=== PATIENT | female | born 1955 | race Caucasian/White ===

== ENCOUNTER 2023-06-13 20:05 | Inpatient (IN) ==
--- OUTSIDE RECORDS SUMMARY | 2023-06-13 20:10 | External Medical Summary | Summary of Care ---
Author Name Unknown Organization [facility] Address [address] [place] [address] Phone [phone] Care Team Providers Care Biophysics Teacher Name Role Phone EdmaralexandriaSabrina DO Primary Care Provider Encounter Details Date Type Department Care Team (Late st Contact Info) Description 06/09/2023 Population Health External Data Unspecified Department Allergies Active Allergy Reactions Criticality Noted Date Comments Lisinopril Edema face/lips/tongue High 02/19/2017 angioedema documented as of this encounter (statuses as of 06/09/2023) Medications Medication Sig Dispensed Refills Start Date End Date Status Rosuvastatin Calcium 10 MG Oral Tablet (Crestor)Indications :Mixed hyperlipidemia TAKE ONE TABLET BY MOUTH EVERY MORNING 90 Tablet 3 11/03/2022 4 Active hydroCHLOROthiazide 25 MG Oral Tablet (Hydrodiuril)Indicat ions:HTN, goal below 140/90 TAKE ONE TABLET BY MOUTH EVERY MORNING 90 Tablet 3 11/03/2022 4 Active Ondansetron HCl 8 MG Oral Tablet (Zofran)Indications: Malignant neoplasm of upper-outer quadrant of left breast in female, estrogen 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 Take 1 Tablet by mouth every 8 hours as needed for Nausea. 30 Tablet 2 03/24/2023 Active Additional Information Patient not taking.Reported on 03/31/2023 Prochlorperazine Maleate 10 MG Oral Tablet (Compazine)Indicatio ns:Malignant neoplasm of upper-outer quadrant of left breast in female, estrogen 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 Take 1 Tablet by mouth every 6 hours as needed for Nausea. 30 Tablet 2 03/24/2023 Active Additional Information Patient not taking.Reported on 03/31/2023 Dexamethasone 4 MG Oral Tablet (Decadron)Indication s:Malignant neoplasm of upper-outer quadrant of left breast in female, estrogen 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 Take 8mg (2 tabs) twice a day for 3 days starting the day before chemotherapy 72 Tablet 0 03/24/2023 Active Additional Information Patient not taking.Reported on 03/31/2023 Lidocaine-Prilocaine 2.5-2.5 % External Cream (Emla)Indications:Ma lignant neoplasm of upper-outer quadrant of left breast in female, estrogen 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 APPLY TO SKIN OVER MEDIPORT & COVER 1HR PRIOR TO ACCESSING. 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 documented as of this encounter (statuses as of 06/09/2023) Resolved Problems Problem Noted Date Diagnosed Date Resolved Date Bilateral impacted cerumen 10/27/2016 1 08/07/2018 Overview: acute ABN PAP SMEAR-CERVIX(aka DYSPLASIA) 01/02/2004 10/27/2016 Varicella without complication 10/27/2016 Mumps without complication 0 10/27/2016 Mucous polyp of cervix 06/09 documented as of this encounter (statuses as of 06/09/2023) Immunizations Name Administration Dates Next Due COVID-19 mRNA, LNP-s, No Pre serve, 2-Dose Series (RapidMind) 07/03/2021,10/09/2020,09/11/2020 Hep A - Hepatitis A (ped/adole, 1-18 Yrs) 2018 Pneumococcal Conjugate Vacc, 13 Valent (Prevnar) 06/09/2019 Pneumococcal Polysaccharide PPV23 (Pneumovax) 04/08/2021 Seasonal Influenza, Split, I IV3, With Preserve, Inj 06/02/2013 TDAP (age 10 and older)(Boostrix) 01/08/2020 TDAP (age 11 and older)(Adacel) 03/20/2009 Varicella Zoster Vaccine (Adult) 12/31/2014 Zoster Vaccine Recombinant (Shingrix) 09/15/2018 ,04/01/2018 documented as of this encounter Social History Tobacco Use Types Packs/Day Years Used Date Smoking Tobacco: Former Cigarettes 1 10 Q uit: 07/19/1986 Smokeless Tobacco: Never Alcohol Use Standard Drinks/Week Comments Yes 0 (1 standard drink = 0.6 oz pur e alcohol) one a day, gin PHQ-2 Answer Date Recorded PHQ-2 Score 0 05/26/2019 Hunger Vital Sign Answer Date Recorded Within the past 12 months, y ou worried that your food would run out before you got the money to buy more. Never true 11/03/19 23 Within the past 12 months, t he food you bought just didn't last and you didn't have money to get more. Never true 11/02/2022 Sex and Gender Information Value Date Recorded Sex Assigned at Female 11/02/2022 11:00 AM EDT Gender Identity Female 11/02/2022 11:00 AM EDT Sexual Orientation Straight 11/02/2022 11 :00 AM EDT Job Start Date Occupation Industry Not on file Not on file Not on file documented as of this encounter Plan of Treatment Upcoming Encounters Date Type Department Care Team (Late st Contact Info) Description 06/22/2023 12:30 PM EST Cardiac Studies Cardiac Studies [address] [place] [address] 06/28/2023 8:30 AM EST Laboratory Laboratory [facility] Yudi [place] [address] [place] [phone] [place] [address] [place] [address] 06/28/2023 9:00 AM EST Office Visit Hematology/Oncology [employer] [address] [place] [address] Judith Murillo CRNP [address] [facility] [place] [address] 06/28/2023 9:30 AM EST Hem/Onc Treatment Hematology/Oncology Treatment, [place] [address] [place] [address] Park, Chair 8 Hem Onc Scenery 200 [facility] [place] [address] 07/06/2023 11:15 AM EST Office Visit General Surgery, [facility] [address] [place] [address] Sobia Hernandez MD [address] [place] [address] 11/05/2023 8:40 AM EDT Office Visit Family Practice [facility] [address] [place] [address] Sabrina Chang, 200 [facility] [place] [address] Health Maintenance Due Date Last Done Comments Fecal Occult Blood Test 1999 Sigmoidoscopy 1999 Depression Screening 05/25/2020 05/25/2019 Colonoscopy 06/22/2021 06/22/2011, 05/16/2007 COVID-19 Vaccine ( season) 2023 07/03/2021, 10/09/2020, 09/11/2020 Influenza Vaccine (FLU shot) (#1) 2023 06/02/2013 Mammogram 02/23/2024 02/22/2023, 01/17, 04/17/2021, Additional history exists Cologuard 05/07/2024 05/07/2021, 04/24/2021 Colorectal Cancer Screening 05/07/2024 GFR 06/07/2024 06/07/2023, 04/20, 04/26/2023, Additional history exists Albumin/Creatinine Ratio 03/18/2026 03/18/2023 DXA Scan 07/04/2026 07/04/2019 Lipid Panel 03/18/2028 03/18/2023, 03/20, 04/01/2021, Additional history exists DTaP,Tdap,and Td Vaccines (3 - Td or Tdap) 01/07/2030 01/08/2020, 03/20/2009 Zoster Vaccines Completed 09/15/2018, 03/19, 12/31/2014 Pneumococcal Vaccine: 65+ Years Completed 04/08/2021, 06/09/2019 GARDASIL-HPV IMMUNIZATION SERIES Aged Out No longer eligible based on patient's age to complete this topic Hepatitis B Aged Out No longer eligi ble based on patient's age to complete this topic MENINGOCOCCAL (MENACTRA/MENVEO) Aged Out No longer eligible based on patient's age to complete this topic documented as of this encounter Medical Devices Implanted Type Area Patient Access Associate Device Identifier Shelf Expiration Date Model / Serial / Lot Port Power Mri W/8fr Cath - [id number] Implanted:Qty: 1 on 03/31/2023 by Sobia Hernandez MD at OR [facility] Right: Chest CR BARD : PERIPHERAL VASCULAR 12/17/2023 [id number] / / [id number] documented as of this encounter Advance Directives Latest Code Status on File Code Status Date Activated Date Inactivated Comments Full Code 03/31/2023 6:47 AM 03/31/2023 5:04 PM This order reflects the patients wishes and were consensually agreed upon. Question Answer Comments Discussion of Advance Directives occurred with: Patient Does the patient have a Living Will? No Does the patient have Health Care Power of Rate And Cost Analyst? No Care Teams Biophysics Teacher Relationship Specialty Start Date End Date Sabrina Chang DO [address] [place] [address] PCP - General Family Medicine 09/15/18 documented as of this encounter
--- OUTSIDE RECORDS SUMMARY | 2023-06-13 20:10 | External Medical Summary | Summary of Care ---
Author Name Unknown Organization [facility] Address [address] [place] [address] Phone [phone] Care Team Providers Care Sign Builder Name Role Phone Sabrina Chang DO Primary Care Provider Reason for Visit * Reason Comments Medication Administration Udencya * Episode Based Medications (Routine) - Authorized Specialty Diagnoses / Procedures Referred By Contac t Referred To Contact Diagnoses Encounter for antineoplastic chemotherapy Malignant neoplasm of upper-outer quadrant of left breast in female, estrogen 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 Procedures UT CARBOPLATIN INJECTION UT FOSAPREPITANT INJECTION UT INJECTION, PERTUZUMAB, 1 MG UT INJ ONTRUZANT 10 MG UT INJECTION, UDENYCA 0.5 MG UT DOCETAXEL INJECTION Serafin Goins MD [address] [place] [address] Anc Hem/Onc [place] DEPT CLOSED - 06/01/[address] [place] [address] Referral ID Status Reason Start Date Expiration Date V isits Requested Visits Authorized [id number] Authorized 03/24/2023 09/23/[phone] Encounter Details Date Type Department Care Team (Latest Contact Info) Description 06/08/2023 1:45 PM EST Immunization/ Injection Hematology/Oncology Treatment, [facility] [place] [address] [place] [address] Nurse, Med [address] [place] [address] [address] Encounter for antineoplastic chemotherapy*; Malignant neoplasm of upper-outer quadrant of left breast in female, estrogen 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 Allergies Active Allergy Reactions Criticality Noted Date Comments Lisinopril Edema face/lips/tongue High 02/19/2017 angioedema documented as of this encounter (statuses as of 06/08/2023) Medications Medication Sig Dispensed Refills Start Date [...] as of this encounter (statuses as of 06/08/2023) Active Problems Problem Noted Date Diagnosed Date Encounter for antineoplastic chemotherapy 2022 Malignant neoplasm of upper- outer quadrant of left breast in female, estrogen 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 03/24/2023 Hyperlipidemia 04/17/2014 HTN, goal below 140/90 04/17/2014 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..] on file documented as of this encounter Nursing Notes * Haley Pinzon LPN - 06/08/2023 3:09 PM EST 1328: Chair 8. Pt arrived for Udencya injection and MD appt- see notes. Administered in SAMMY. Pt tolerated well. Discharged in stable condition. documented in this encounter Plan of Treatment Upcoming Encounters Date Type Department Care Team (Late st Contact Info) Description 06/22/2023 12:30 PM EST Cardiac Studies Cardiac Studies [address] [place] [address] 06/28/2023 8:30 AM EST Laboratory Laboratory [facility] 200 [facility] [place] [phone] Yudi, Lab [facility] 200 [facility] [place] [address] 06/28/2023 9:00 AM EST Office Visit Hematology/Oncology [facility] [place] 200 [facility] [place] [address] Judith Murillo CRNP [address] [place] [address] [place] [address] 06/28/2023 9:30 AM EST Hem/Onc Treatment Hematology/Oncology Treatment, [place] [address] [place] [address] Yudi Chair 8 Hem Onc [facility] 200 [facility] [place] [address] 07/06/2023 11:15 AM EST Office Visit General Surgery, [facility] [address] [address] Sobia Hernandez MD [address] [place] [address] 11/05/2023 8:40 AM EDT Office Visit Family Practice [facility] 200 [place] [address] Sabrina Chang, 200 [facility] [place] [address] Health Maintenance Due Date Last Done Comments [...] this encounter Medical Devices Implanted Type Area Executive Services Administrator Device Identifier Shelf Expiration Date Model / Serial / Lot Port Power Mri W/8fr Cath - [id number] Implanted:Qty: 1 on 03/31/2023 by Sobia Hernandez MD at OR [facility] Right: Chest CR BARD : PERIPHERAL VASCULAR 12/17/2023 [id number] / / [id number] documented as of this encounter Visit Diagnoses Diagnosis Encounter for antineoplastic chemotherapy- Primary Malignant neoplasm of upper-outer quadrant of left breast in female, estrogen 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 documented in this encounter Administered Medications Inactive Administered Medications - up to 3 most recent administrations Medication Order MAR Action Action Date Dose Rate Site Pegfilgrastim-cbqv (Udenyca) inj 6 mg 6 mg, Subcutaneous, ONCE, On Tu06/08/23 at 1345, For 1 dose Given 06/08/2023 1:28 PM EST 6 mg Arm R ight Upper documented in this encounter Advance Directives Latest Code Status on File Code Status Date Activated Date Inactivated Comments Full Code 03/31/2023 6:47 AM 03/31/2023 5:04 PM This order reflects the patients wishes and were consensually agreed upon. Question Answer Comments Discussion of Advance Directives occurred with: Patient Does the patient have a Living Will? No Does the patient have Health Care Power of Wrist Liner? No Care Teams Sign Builder Relationship Specialty Start Date End Date Sabrina Chang DO [address] [place] [address] PCP - General Family Medicine 09/15/18 documented as of this encounter
--- OUTSIDE RECORDS SUMMARY | 2023-06-13 20:11 | External Medical Summary | Summary of Care ---
Author Name Unknown Organization [facility] Address [address] [place] [address] Phone [phone] Care Team Providers Care Flat Knitter Helper Name Role Phone Sabrina Chang DO Primary Care Provider Reason for Visit * Reason Comments Outpatient Testing Encounter Details Date Type Department Care Team Description 04/26/2023 Laboratory Laboratory [facility] [place] [address] [place] [address] [facility] Lab Scenery [address] [place] [address] Special screening examination for viral disease; Malignant neoplasm of upper-outer quadrant of left breast in female, estrogen 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 ; Encounter for long-term (current) drug use Allergies Active Allergy Reactions Severity Noted Date Comments Lisinopril Edema face/lips/tongue High 02/19/2017 angioedema documented as of this encounter (statuses as of 04/26/2023) Medications Medication Sig Dispensed Refills Start Date [...] as of this encounter (statuses as of 04/26/2023) Active Problems Problem Noted Date Encounter for antineoplastic chemotherap y 03/24/2023 Malignant neoplasm of upper- outer quadrant of left breast in female, estrogen 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 03/24/2023 Hyperlipidemia 04/17/2014 HTN, goal below 140/90 04/17/2014 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 documented as of this encounter (statuses as of 04/26/2023) Resolved Problems Problem Noted Date Resolved Date Bilateral impacted cerumen 10/27/201606/07 Overview: acute ABN PAP SMEAR-CERVIX(aka DYSPLASIA) 01/02/2004 10/27/2016 Varicella without complication 0 10/27/2016 Mumps without complication 10/27 Mucous polyp of cervix 9 documented as of this encounter (statuses as of 04/26/2023) Immunizations Name Administration Dates Next Due COVID-19 mRNA, LNP-s, No Pre serve, 2-Dose Series ([employer]) 07/03/2021,10/09/2020,09/11/2020 Hep A - Hepatitis A (ped/adole, [...] pur e alcohol) one a day, gin Food Insecurity Answer Date Recorded Within the past 12 months, y ou worried that your food would run out before you got money to buy more. Never true 11/02/2022 Within the past 12 months, t he food you bought just didn't last and you didn't have money to get more. Never true 11/02/2022 Sex Assigned at Date Recorded Female 11/02/2022 11:00 AM EDT Job Start Date Occupation Industry Not on file Not on file Not on file documented as of this encounter Plan of Treatment Upcoming Encounters Date Type Specialty Care Team Description 04/26/2023 Office Visit Hematology Oncology Judith Murillo CRNP [address] [facility] [place] [id number] PENDING VISIT DRAFT 04/26/2023 Hem/Onc Treatment Hematology Oncology [place], Chair 6 Hem Onc Scen[address] [place] [address] Arrived 11/05/2023 Office Visit Family Medicine Sabrina Chang DO [address] [place] [address] Pending Results Name Type Priority Associated Diagnoses Date /Time COMPREHENSIVE METABOLIC PANEL Lab STAT Special screening examination for viral disease Malignant neoplasm of upper-outer quadrant of left breast in female, estrogen 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 Encounter for long-term (current) drug use 04/26/2023 7:44 AM EDT Health Maintenance Due Date Last Done Comments Fecal Occult Blood Test 1999 Sigmoidoscopy 1999 Depression Screening 05/25/2020 05/25/2019 Colonoscopy 06/22/2021 06/22/2011, 05/16/2007 COVID-19 Vaccine ( season) 2023 07/03/2021, 10/09/2020, 09/11/2020 Influenza Vaccine (FLU shot) (#1) 2023 06/02/2013 Mammogram 02/23/2024 02/22/2023, 01/17, 04/17/2021, Additional history exists GFR 04/05/2024 04/05/2023, 02/18, 04/07/2022, Additional history exists Cologuard 05/07/2024 05/07/2021, 04/24/2021 Colorectal Cancer Screening 05/07/2024 Albumin/Creatinine Ratio 03/18/2026 03/18/2023 DXA Scan 07/04/2026 [...] this encounter Medical Devices Implanted Type Area Diving Judge Device Identifier Shelf Expiration Date Model / Serial / Lot Port Power Mri W/8fr Cath - [id number] Implanted:Qty: 1 on 03/31/2023 by Sobia Hernandez MD at OR [facility] Right: Chest CR BARD : PERIPHERAL VASCULAR 12/17/2023 [id number] / / [id number] documented as of this encounter Procedures Procedure Name Priority Date/Time Associated Diagnosis Comments DIFFERENTIAL, AUTOMATED STAT 04/26/2023 7:44 AM EDT Special screening examination for viral disease Malignant neoplasm of upper-outer quadrant of left breast in female, estrogen 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 Encounter for long-term (current) drug use CBC STAT 04/26/2023 7:44 AM EDT Special screening examination for viral disease Malignant neoplasm of upper-outer quadrant of left breast in female, estrogen 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 Encounter for long-term (current) drug use CBC STAT 04/26/2023 7:44 AM EDT Special screening examination for viral disease Malignant neoplasm of upper-outer quadrant of left breast in female, estrogen 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 Encounter for long-term (current) drug use documented in this encounter Results * (ABNORMAL) DIFFERENTIAL, AUTOMATED (04/26/2023 7:44 AM EDT) WBC 12.92(H) 4.00 - 10.80 K/uL 04/26/2023 7:48 AM EDT [facility] 56-02 Neutrophils % 84.9(H) 40.0 - 75.0 % 04/26/2023 7:48 AM EDT [facility] 56-02 Lymphocytes % 11.1(L) 18.0 - 42.0 % 04/26/2023 7:48 AM EDT [facility] 56-02 Monocytes % 3.6 1.0 - 11.0 % 04/26/2023 7:48 AM EDT [facility] 56-02 Eosinophils % 0.0 0.0 - 6.0 % 04/26/2023 7:48 AM EDT [facility] 56-02 Basophils % 0.4 0.0 - 2.0 % 04/26/2023 7:48 AM EDT [facility] 56-02 Absolute Neutrophils 10.96(H) 1.80 - 7.70 K/uL 04/26/2023 7:48 AM EDT [facility] 56 Absolute Lymphocytes 1.44 1.00 - 4.80 K/ul 04/26/2023 7:48 AM EDT [facility] 56- Absolute Monocytes 0.47 0.00 - 1.10 K/uL 04/26/2023 7:48 AM EDT [facility] 56 Absolute Eosinophils 0.00 0.00 - 0.70 K/uL 04/26/2023 7:48 AM EDT [facility] 56 Absolute Basophils 0.05 0.00 - 0.20 K/uL 04/26/2023 7:48 AM EDT [facility] 56 Blood Venous blood specimen / Unknown Venipuncture / Unknown 04/26/2023 7:44 AM EDT 04/26/2023 7:44 AM EDT Serafin Goins MD LAB BLOOD ORDERABLES [facility] [address] [place] [address] * (ABNORMAL) CBC (04/26/2023 7:44 AM EDT) WBC 12.92(H) 4.00 - 10.80 K/uL 04/26/2023 7:48 AM EDT [facility] 56 RBC 4.06 3.85 - 5.15 M/uL 04/26/2023 7:48 AM EDT [facility] 56 HGB 12.6 12.0 - 15.3 g/dL 04/26/2023 7:48 AM EDT [facility] 56 HCT 37.1 36.0 - 45.2 % 04/26/2023 7:48 AM EDT [facility] 56 MCV 91.4 81.5 - 97.5 fL 04/26/2023 7:48 AM EDT [facility] 56- MCH 31.0 27.0 - 34.0 pg 04/26/2023 7:48 AM EDT [facility] 56 MCHC 34.0 32.0 - 36.0 g/dL 04/26/2023 7:48 AM EDT [facility] RDW 12.1 11.5 - 15.5 % 04/26/2023 7:48 AM EDT [facility] [place] [facility] 307 140 - 400 K/uL 04/26/2023 7:48 AM EDT [facility] MPV 9.2 6.6 - 11.1 fL 04/26/2023 7:48 AM EDT [facility] Blood Venous blood specimen / Unknown Venipuncture / Unknown 04/26/2023 7:44 AM EDT 04/26/2023 7:44 AM EDT Serafin Goins MD LAB BLOOD ORDERABLES [facility] [address] [place] [address] documented in this encounter Visit Diagnoses Diagnosis Special screening examination for viral disease Special screening examination for unspecified viral disease Malignant neoplasm of upper-outer quadrant of left breast in female, estrogen 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 Encounter for long-term (current) drug use Encounter for long-term (current) use of other medications documented in this encounter Advance Directives Latest Code Status on File Code Status Date Activated Date Inactivated Comments Full Code 03/31/2023 6:47 AM 03/31/2023 5:04 PM This order reflects the patients wishes and were consensually agreed upon. Question Answer Comments Discussion of Advance Directives occurred with: Patient Does the patient have a Living Will? No Does the patient have Health Care Power of Choir Member? No Care Teams Flat Knitter Helper Relationship Specialty Start Date End Date Sabrina Chang DO [address] [facility] [place] [address] PCP - General Family Medicine 09/15/18 documented as of this encounter
--- OUTSIDE RECORDS SUMMARY | 2023-06-13 20:11 | External Medical Summary | Summary of Care ---
Author Name Unknown Organization [facility] Address [address] [place] [address] Phone [phone] Care Team Providers Care Forensic Analyst Name Role Phone Sabrina Chang DO Primary Care Provider Reason for Visit * Reason Comments Outpatient Testing Encounter Details Date Type Department Care Team (Late st Contact Info) Description 06/07/2023 8:10 AM EST Laboratory Laboratory [facility] [address] [place] [address] [facility] Lab Scenery [address] [place] [address] Special screening examination for viral disease; Malignant neoplasm of upper-outer quadrant of left breast in female, estrogen 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 ; Encounter for long-term (current) drug use Allergies Active Allergy Reactions Criticality Noted Date Comments Lisinopril Edema face/lips/tongue High 02/19/2017 angioedema documented as of this encounter (statuses as of 06/07/2023) Medications Medication Sig Dispensed Refills Start Date [...] as of this encounter (statuses as of 06/07/2023) Active Problems Problem Noted Date Diagnosed Date Encounter for antineoplastic chemotherapy 2022 Malignant neoplasm of upper- outer quadrant of left breast in female, estrogen 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 03/24/2023 Hyperlipidemia 04/17/2014 HTN, goal below 140/90 04/17/2014 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 documented as of this encounter (statuses as of 06/07/2023) Resolved Problems Problem Noted Date Diagnosed Date Resolved Date Bilateral impacted cerumen 10/27/2016 1 08/07/2018 Overview: acute ABN PAP SMEAR-CERVIX(aka DYSPLASIA) 01/02/2004 10/27/2016 Varicella without complication 10/27/2016 Mumps without complication 0 10/27/2016 Mucous polyp of cervix 06/09 documented as of this encounter (statuses as of 06/07/2023) Immunizations Name Administration Dates Next Due COVID-19 mRNA, LNP-s, No Pre serve, 2-Dose Series ([employer]) 07/03/2021,10/09/2020,09/11/2020 Hep A - Hepatitis A (ped/adole, [...] Care Team (Late st Contact Info) Description 06/07/2023 9:00 AM EST Hem/Onc Treatment Hematology/Oncology Treatment, [place] [address] [place] [address] Yudi, Chair [address] [facility] [address] [facility] [place] [address] Arrived 06/08/2023 1:15 PM EST Office Visit Hematology/Oncology [facility] [address] [facility] [place] [address] Serafin Goins MD [address] [place] [address] 06/08/2023 1:45 PM EST Immunization/Injecti on Hematology/Oncology Treatment, [place] [address] [facility] [address] [place] [address] Nurse, Med 4 [address] [place] [address] 07/06/2023 11:15 AM EST Office Visit General Surgery, [facility] [address] [facility] [place] [address] Sobia Hernandez MD [address] [facility] [place] [address] 11/05/2023 8:40 AM EDT Office Visit Family Practice [facility] [address] [facility] [place] [address] Sabrina Chang, DO [address] [facility] [place] [address] Pending Results Name Type Priority Associated Diagnoses Date /Time COMPREHENSIVE METABOLIC PANEL Lab STAT Special screening examination for viral disease Malignant neoplasm of upper-outer quadrant of left breast in female, estrogen 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 Encounter for long-term (current) drug use 06/07/2023 8:03 AM EST Health Maintenance Due Date Last Done Comments Fecal Occult Blood Test 1999 Sigmoidoscopy 1999 Depression Screening 05/25/2020 05/25/2019 Colonoscopy 06/22/2021 06/22/2011, 05/16/2007 COVID-19 Vaccine ( season) 2023 07/03/2021, 10/09/2020, 09/11/2020 Influenza Vaccine (FLU shot) (#1) 2023 06/02/2013 Mammogram 02/23/2024 02/22/2023, 01/17, 04/17/2021, Additional history exists Cologuard 05/07/2024 05/07/2021, 04/24/2021 Colorectal Cancer Screening 05/07/2024 GFR 05/17/2024 05/17/2023, 03/2023, 04/05/2023, Additional history exists Albumin/Creatinine Ratio 03/18/2026 03/18/2023 [...] this encounter Medical Devices Implanted Type Area Human Resources Services Specialist Device Identifier Shelf Expiration Date Model / Serial / Lot Port Power Mri W/8fr Cath - [id number] Implanted:Qty: 1 on 03/31/2023 by Sobia Hernandez MD at OR [facility] Right: Chest CR BARD : PERIPHERAL VASCULAR 12/17/2023 [id number] / / [id number] documented as of this encounter Procedures Procedure Name Priority Date/Time Associated Diagnosis Comments DIFFERENTIAL, AUTOMATED STAT 06/07/2023 8:03 AM EST Special screening examination for viral disease Malignant neoplasm of upper-outer quadrant of left breast in female, estrogen 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 Encounter for long-term (current) drug use CBC STAT 06/07/2023 8:03 AM EST Special screening examination for viral disease Malignant neoplasm of upper-outer quadrant of left breast in female, estrogen 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 Encounter for long-term (current) drug use CBC STAT 06/07/2023 8:03 AM EST Special screening examination for viral disease Malignant neoplasm of upper-outer quadrant of left breast in female, estrogen 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 Encounter for long-term (current) drug use documented in this encounter Results * DIFFERENTIAL, AUTOMATED (06/07/2023 8:03 AM EST) WBC 8.72 4.00 - 10.80 K/uL 06/07/2023 8:09 AM EST [facility] 56-02 Neutrophils % 74.9 40.0 - 75.0 % 06/07/2023 8:09 AM EST [facility] 56-02 Lymphocytes % 19.3 18.0 - 42.0 % 06/07/2023 8:09 AM EST [facility] 56-02 Monocytes % 5.3 1.0 - 11.0 % 06/07/2023 8:09 AM EST [facility] 56-02 Eosinophils % 0.0 0.0 - 6.0 % 06/07/2023 8:09 AM EST [facility] 56-02 Basophils % 0.5 0.0 - 2.0 % 06/07/2023 8:09 AM EST [facility] 56-02 Absolute Neutrophils 6.54 1.80 - 7.70 K/uL 06/07/2023 8:09 AM EST [facility] 56-02 Absolute Lymphocytes 1.68 1.00 - 4.80 K/ul 06/07/2023 8:09 AM EST [facility] 56-02 Absolute Monocytes 0.46 0.00 - 1.10 K/uL 06/07/2023 8:09 AM EST [facility] 56-02 Absolute Eosinophils 0.00 0.00 - 0.70 K/uL 06/07/2023 8:09 AM [facility] 56-02 Absolute Basophils 0.04 0.00 - 0.20 K/uL 06/07/2023 8:09 AM [facility] 56-02 Blood Venous blood specimen / Unknown Venipuncture / Unknown 06/07/2023 8:03 AM EST 06/07/2023 8:03 AM EST Serafin Goins MD LAB BLOOD ORDERABLES [facility] 56-02 [address] [place] [address] * (ABNORMAL) CBC (06/07/2023 8:03 AM EST) WBC 8.72 4.00 - 10.80 K/uL 06/07/2023 8:09 AM [facility] 56- RBC 3.50 3.85 - 5.15 M/uL 06/07/2023 8:09 AM [facility] 56 HGB 11.0(L) 12.0 - 15.3 g/dL 06/07/2023 8:09 AM [facility] 56- HCT 33.2(L) 36.0 - 45.2 % 06/07/2023 8:09 AM [facility] 56- MCV 94.9 81.5 - 97.5 fL 06/07/2023 8:09 AM [facility] 56 MCH 31.4 27.0 - 34.0 pg 06/07/2023 8:09 AM [facility] 56 MCHC 33.1 32.0 - 36.0 g/dL 06/07/2023 8:09 AM [facility] 56 RDW 15.2 11.5 - 15.5 % 06/07/2023 8:09 AM [facility] 56- PLT 255 140 - 400 K/uL 06/07/2023 8:09 AM [facility] 56- MPV 9.1 6.6 - 11.1 fL 06/07/2023 8:09 AM [facility] 56-02 Blood Venous blood specimen / Unknown Venipuncture / Unknown 06/07/2023 8:03 AM EST 06/07/2023 8:03 AM EST Serafin Goins MD LAB BLOOD ORDERABLES [facility] 56- [address] [place] [address] documented in this encounter Visit Diagnoses Diagnosis [...] the patient have Health Care Power of Warehouse Incentive Selector? No Care Teams Forensic Analyst Relationship Specialty Start Date End Date Sabrina Chang DO [address] [place] [address] PCP - General Family Medicine 09/15/18 documented as of this encounter
--- OUTSIDE RECORDS SUMMARY | 2023-06-13 20:11 | External Medical Summary ---
Author Name Unknown Address Unknown Organization [id number]- - [address] [place] [address] Laboratory Report Ordering Provider Test Date Status KELLEY MERAZ 06/07/2023 08:03:38 Final Observation Date Value Abnormality Reference (Units ) Status BUN 06/07/2023 08:03:38 14 6-20 (mg/dL) Final Creatinine 06/07/2023 08:03:38 0.7 0.5-1.0 (mg/dL) Final Glomerular filtration rate/1.73 sq M.predicted [Volume Rate/Area] in Serum, Plasma or Blood by Creatinine-based formula (CKD-EPI) 06/07/2023 08:03:38 >90 >=60 (mL/min) Final eGFR is calculated based on the CKD-EPI 2020 equation SODIUM 06/07/2023 08:03:38 141 135-146 (m mol/L) Final Potassium 06/07/2023 08:03:38 3.4 Below low normal 3.5 -5.1 (mmol/L) Final Cl 06/07/2023 08:03:38 103 98-107 (mm ol/L) Final CO2 06/07/2023 08:03:38 25 22-32 (mmo l/L) Final Anion gap 06/07/2023 08:03:38 13 7-15 (mmol /L) Final Glucose 06/07/2023 08:03:38 162 Above high normal 70 -120 (mg/dL) Final Albumin 06/07/2023 08:03:38 4.4 3.8-5.0 (g /dL) Final AST (Aspartate aminotransferase) 06/07/2023 08:03:38 20 10-35 (U/L) Fin al Alk Phos 06/07/2023 08:03:38 72 35-130 (U/ L) Final Bilirubin, Total 06/07/2023 08:03:38 0.5 <=1 .2 (mg/dL) Final Calcium 06/07/2023 08:03:38 9.9 8.4-10.2 ( mg/dL) Final Protein 06/07/2023 08:03:38 6.9 6.0-8.3 (g /dL) Final ALT (Alanine aminotransferase) 06/07/2023 08:03:38 28 10-35 (U/L) Tej jasso Performing Location [facility]- 07 [address] [place] [address]
--- OUTSIDE RECORDS SUMMARY | 2023-06-13 20:11 | External Medical Summary ---
Author Name Unknown Address Unknown Organization [id number] - [address] [place] [address] Laboratory Report Ordering Provider Test Date Status KELLEY MERAZ 04/26/2023 07:44:04 Final Observation Date Value Abnormality Reference (Units ) Status BUN 04/26/2023 07:44:04 14 6-20 (mg/dL) Final Creatinine 04/26/2023 07:44:04 0.6 0.5-1.0 (mg/dL) Final Glomerular filtration rate/1.73 sq M.predicted [Volume Rate/Area] in Serum, Plasma or Blood by Creatinine-based formula (CKD-EPI) 04/26/2023 07:44:04 >90 >=60 (mL/min) Final eGFR is calculated based on the CKD-EPI 2020 equation SODIUM 04/26/2023 07:44:04 136 135-146 (m mol/L) Final Potassium 04/26/2023 07:44:04 4.0 3.5-5.1 (m mol/L) Final Cl 04/26/2023 07:44:04 99 98-107 (mm ol/L) Final CO2 04/26/2023 07:44:04 25 22-32 (mmo l/L) Final Anion gap 04/26/2023 07:44:04 12 7-15 (mmol /L) Final Glucose 04/26/2023 07:44:04 173 Above high normal 70 -120 (mg/dL) Final Albumin 04/26/2023 07:44:04 4.6 3.8-5.0 (g /dL) Final AST (Aspartate aminotransferase) 04/26/2023 07:44:04 21 10-35 (U/L) Fin al Alk Phos 04/26/2023 07:44:04 73 35-130 (U/ L) Final Bilirubin, Total 04/26/2023 07:44:04 0.4 <=1 .2 (mg/dL) Final Calcium 04/26/2023 07:44:04 10.0 8.4-10.2 ( mg/dL) Final Protein 04/26/2023 07:44:04 7.6 6.0-8.3 (g /dL) Final ALT (Alanine aminotransferase) 04/26/2023 07:44:04 28 10-35 (U/L) Tej jasso Performing Location [facility] [address] [place] [address]
--- OUTSIDE RECORDS SUMMARY | 2023-06-13 20:11 | External Medical Summary ---
Author Name Unknown Address Unknown Organization [facility] [place] [address] Laboratory Report Ordering Provider Test Date Status KELLEY MERAZ 04/26/2023 07:44:04 Final Observation Date Value Abnormality Reference (Units ) Status SYNC LEUKOCYTES IN BLOOD BY AUTOMATED COUNT 04/26/2023 07:44:04 12.92 Above high normal 4.00-10.80 (K/uL) Final Segs 04/26/2023 07:44:04 84.9 Above high normal 40.0-75.0 (%) Final Lymphs % 04/26/2023 07:44:04 11.1 Below low normal 18.0-42.0 (%) Final Monos 04/26/2023 07:44:04 3.6 1.0-11.0 (%) Final Eosinophils 04/26/2023 07:44:04 0.0 0.0-6.0 (%) Final Basos 04/26/2023 07:44:04 0.4 0.0-2.0 (%) Final Absolute Segs 04/26/2023 07:44:04 10.96 Above high normal 1.80-7.70 (K/uL) Final Lymphs, absolute 04/26/2023 07:44:04 1.44 1.00-4.80 (K/ul) Final Monos, Abs 04/26/2023 07:44:04 0.47 0.00-1.10 (K/uL) Final Eos, Abs 04/26/2023 07:44:04 0.00 0.00-0.70 (K/uL) Final Basos, Abs 04/26/2023 07:44:04 0.05 0.00-0.20 (K/uL) Final Performing Location [facility] [place] [address]
--- OUTSIDE RECORDS SUMMARY | 2023-06-13 20:11 | External Medical Summary | Summary of Care ---
Author Name Unknown Organization [facility] Address [address] [place] [address] Phone [phone] Care Team Providers Care Intelligence Applications Name Role Phone Sabrina Chang DO Primary Care Provider Reason for Visit * Reason Comments Chemotherapy C2/D1 - TCHP * Episode Based Medications (Routine) - Authorized Specialty Diagnoses / Procedures Referred By Contac t Referred To Contact Diagnoses Encounter for antineoplastic chemotherapy Malignant neoplasm of upper-outer quadrant of left breast in female, estrogen 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 Procedures AL CARBOPLATIN INJECTION AL FOSAPREPITANT INJECTION AL INJECTION, PERTUZUMAB, 1 MG AL INJ ONTRUZANT 10 MG AL INJECTION, UDENYCA 0.5 MG AL DOCETAXEL INJECTION Serafin Goins MD [address] [place] [address] Anc Hem/Onc Scenery Yudi [address] [place] [address] Referral ID Status Reason Start Date Expiration Date V isits Requested Visits Authorized [id number] Authorized 03/24/2023 09/23/2023 999 999 Encounter Details Date Type Department Care Team Description 04/26/2023 Hem/Onc Treatment Hematology/Oncology Treatment, [place] [address] [place] [address] Yudi, Chair 6 Hem Onc Scenery [address] [place] [address] Encounter for antineoplastic chemotherapy*; Malignant neoplasm of upper-outer quadrant of left breast in female, estrogen 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 Allergies Active Allergy Reactions Severity Noted Date [...] mRNA, LNP-s, No Pre serve, 2-Dose Series ([employer]) 07/03/2021,10/09/2020,09/11/2020 Hep A - Hepatitis A (ped/adole, [...] as of this encounter Nursing Notes * Rachael Rosenthal RN - 04/26/2023 1:12 PM EDT Goals: Patient will remain free from injury. Possible barriers to meeting goals: ambulating with IV pole Stability of the patient: Moderately stable - low risk of patient condition declining or worsening Summary regarding today's goals: Met: Pt remained free of harm today Functional status at today's visit: Fully active, able to carry on all pre-disease performance without restriction The drug name, dose, infusion volume, rate and route of administration, expiration date and time, appearance and physical integrity of the drug and rate set on the pump and sequencing of drug administration (as applicable) were verified by me and second sign-in RN. Patient was assessed for symptoms or adverse side effects during treatment. Patient tolerated treatment well without any acute issues or problems. Patient left facility in stable condition and denied any further needs. * Rachael Rosenthal RN - 04/26/2023 9:45 AM EDT Chair 5. Patient saw MEAGAN Mckeon today -- see OV note for details. Patient here for 2nd cycle of TCHP. Chemo agents Perjeta, Ontruzant, Carbo, Taxotere ABN Labs WNL for tx today Alt in Tx: N/A Return in 1 day Safety and Risk for Injury Patient will remain free from injury. Ensure appropriate safety devices are available. Provide and maintain safe environment. documented in this encounter Plan of Treatment Upcoming Encounters Date Type Specialty Care Team Description 04/27/2023 Immunization/Injection Hematology Oncolog y Nurse, Med [address] [place] [address] 05/10/2023 Cardiac Studies Cardiac Studies 05/17/2023 Laboratory [facility], Lab Scenery [address] [place] [address] 05/17/2023 Office Visit Hematology Oncology Judith Murillo CRNP [address] [place] [address] 05/17/2023 Hem/Onc Treatment Hematology Oncology [place], Chair 6 Hem Onc Scenery [address] [place] [address] 06/07/2023 Laboratory [facility] [place], Lab Scenery [address] [place] [address] 06/07/2023 Hem/Onc Treatment Hematology Oncology [place], Chair 3 Hem Onc Scenery [address] [place] [address] 06/08/2023 Office Visit Hematology Oncology Serafin Goins MD [address] [place] [address] 06/08/2023 Immunization/Injection Hematology Oncolog y Nurse, Med 4 [address] [place] [address] 11/05/2023 Office Visit Family Medicine Sabrina Chang DO [address] [place] [facility] [address] Health Maintenance Due Date Last Done Comments Fecal Occult Blood Test 1999 Sigmoidoscopy 1999 Depression Screening 05/25/2020 05/25/2019 Colonoscopy 06/22/2021 06/22/2011, 05/16/2007 COVID-19 Vaccine ( season) 2023 07/03/2021, 10/09/2020, 09/11/2020 Influenza Vaccine (FLU shot) (#1) 2023 06/02/2013 Mammogram 02/23/2024 02/22/2023, 01/17, 04/17/2021, Additional history exists GFR 04/26/2024 04/26/2023, 03/19, 03/18/2023, Additional history exists Cologuard 05/07/2024 05/07/2021, 04/24/2021 [...] this encounter Medical Devices Implanted Type Area Railroad Emergency Services Manager Device Identifier Shelf Expiration Date Model / Serial / Lot Port Power Mri W/8fr Cath - [id number] Implanted:Qty: 1 on 03/31/2023 by Sobia Hernandez MD at [facility] Right: Chest CR BARD : PERIPHERAL VASCULAR 12/17/2023 [id number] / / [id number] documented as of this encounter Visit Diagnoses Diagnosis Encounter for antineoplastic chemotherapy- Primary Malignant neoplasm of upper-outer quadrant of left breast in female, estrogen 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 documented in this encounter Administered Medications Active Administered Medications - up to 3 most recent administrations Medication Order MAR Action Action Date Dose Rate Site diphenhydrAMINE (Benadryl) inj 50 mg 50 mg, IV Push, ONCE PRN Other, Hypersensitivity Reaction, Starting on Wed04/26/23 at 0926, Until Wed04/27/23 at 0925, For 24 hours EPINEPHrine 1 MG/ML inj 0.3 mg 0.3 mg, Intramuscular, ONCE PRN Other, Hypersensitivity Reaction or Anaphylaxis, Starting on Wed04/26/23 at 0926, Until Wed04/27/23 at 0925, For 24 hours hEParin 100 UNIT/ML Lock Flush inj 500 Units 500 Units (5 mL), IV Lock, PRN Other, IV Flush, Starting on Wed04/26/23 at 0926, Until Wed04/27/23 at 09, For 24 hours, Do not flush if lock, PICC, or central line not in place; IV infusing or unable to flush. Given 04/26/2023 1:03 PM EDT 500 Units Hydrocortisone Sod Suc (PF) (Solu-Cortef) inj 100 mg 100 mg, IV Push, ONCE PRN Other, Hypersensitivity Reaction, Starting on Wed04/26/23 at 0926, Until Wed04/27/23 at 09, For 24 hours NSS infusion Intravenous, at 50 mL/hr, PRN, Starting on Wed04/26/23 at 1030, Until Discontinued, KVO Start Infusion 04/26/2023 9:36 AM EDT 50 mL/hr oxygen GAS Inhalation, OXYGEN, First dose on Wed04/26/23 at 1000, Until Discontinued, Device/Managed by: Low Flow Device, Goal SPO2 (%): 91-95, Starting Device: Nasal Cannula, Inital Flow Rate (LPM): 2, Lowest Support: Nasal Cannula: Flow 0-6 LPM. Titrate up/down by 1 LPM., Higher Support: Non-Rebreather (NRB) Mask: Minimum of 10 LPM. Titrate to maintain bag inflation., Titration Interval: Q2 minutes and as needed., Notify Provider: For sudden DECREASE in resting SPO2 to less than 85% and when escalating delivery device. sodium chloride 0.9 % flush central line 10 mL 10 mL, IV Push, PRN Other, IV Flush, Starting on Wed04/26/23 at 0926, Until Wed04/27/23 at 0925, For 24 hours, Do not flush if lock, PICC, or central line not in place; IV infusing or unable to flush. Given 04/26/2023 1:03 PM EDT 10 mL Inactive Administered Medications - up to 3 most recent administrations Medication Order MAR Action Action Date Dose Rate Site Acetaminophen (Tylenol) tab 650 mg 650 mg, Oral, ONCE, On Wed04/26/23 at 1030, For 1 dose, Maximum of 4 grams (4000 mg) per day. Given 04/26/2023 9:36 AM EDT 650 mg CARBOplatin (Paraplatin) 629 mg in D5W 250 mL infusion 629 mg (rounded from 629.4 mg, Target AUC = 6), IV Piggyback, at 500 mL/hr Administer over 30 Minutes, PROTECT FROM LIGHT (Max Creatinine Clearance at 125 ml/min for calculating AUC dose), ONCE, 1 dose, On Wed04/26/23 at 1100 Start Infusion 04/26/2023 11:27 AM EDT 629 mg 500 mL/hr diphenhydrAMINE (Benadryl) cap 25 mg 25 mg, Oral, ONCE, On Wed04/26/23 at 1030, For 1 dose Given 04/26/2023 9:36 AM EDT 25 mg DOCEtaxel (Taxotere) 120 mg in NSS 250 mL infusion 120 mg (rounded from 131.25 mg = 75 mg/m2 1.75 m2 Treatment Plan BSA from Recorded weight), IV Piggyback, at 250 mL/hr Administer over 60 Minutes, ONCE, 1 dose, On Wed04/26/23 at 1130 Start Infusion 04/26/2023 12:02 PM EDT 120 mg 250 mL/hr fosaprepitant Dimeglumine (Emend) 150 mg, ondansetron (Zofran) 16 mg, dexamethasone sodium phosphate 12 mg in NSS 250 mL Infusion 150 mg, IV Piggyback, ONCE, 1 dose, On Wed04/26/23 at 1030, Administer over 30 Minutes, Give 30 minutes prior to chemotherapy. Infuse over 30 minutes. Start Infusion 04/26/2023 9:37 AM EDT 150 mg 500 mL/hr PERtuzumab (Perjeta) 420 mg in NSS 250 mL infusion 420 mg, IV Piggyback, ONCE, 1 dose, On Wed04/26/23 at 1030, Administer over 30 Minutes Start Infusion 04/26/2023 10:15 AM EDT 420 mg 500 mL/hr Trastuzumab-dttb (Ontruzant) 395 mg in NSS 250 mL infusion 395 mg (rounded from 394.8 mg = 6 mg/kg 65.8 kg Treatment plan Recorded weight), IV Piggyback, ONCE, 1 dose, On Wed04/26/23 at 1130, Administer over 30 Minutes Start Infusion 04/26/2023 10:47 AM EDT 395 mg 500 mL/hr documented in this encounter Advance Directives Latest Code Status on File Code Status Date Activated Date Inactivated Comments Full Code 03/31/2023 6:47 AM 03/31/2023 5:04 PM This order reflects the patients wishes and were consensually agreed upon. Question Answer Comments Discussion of Advance Directives occurred with: Patient Does the patient have a Living Will? No Does the patient have Health Care Power of Boat Pilot? No Care Teams Intelligence Applications Relationship Specialty Start Date End Date Sabrina Chang, [address] [place] [address] PCP - General Family Medicine 09/15/18 documented as of this encounter
--- OUTSIDE RECORDS SUMMARY | 2023-06-13 20:11 | External Medical Summary ---
Author Name Unknown Address Unknown Organization [facility] [place] [address] Laboratory Report Ordering Provider Test Date Status KELLEY MERAZ 05/17/2023 07:42:06 Final Observation Date Value Abnormality Reference (Units ) Status SYNC LEUKOCYTES IN BLOOD BY AUTOMATED COUNT 05/17/2023 07:42:06 16.21 Above high normal 4.00-10.80 (K/uL) Final Segs 05/17/2023 07:42:06 80.2 Above high normal 40.0-75.0 (%) Final Lymphs % 05/17/2023 07:42:06 14.9 Below low normal 18.0-42.0 (%) Final Monos 05/17/2023 07:42:06 4.6 1.0-11.0 (%) Final Eosinophils 05/17/2023 07:42:06 0.0 0.0-6.0 (%) Final Basos 05/17/2023 07:42:06 0.3 0.0-2.0 (%) Final Absolute Segs 05/17/2023 07:42:06 13.00 Above high normal 1.80-7.70 (K/uL) Final Lymphs, absolute 05/17/2023 07:42:06 2.41 1.00-4.80 (K/ul) Final Monos, Abs 05/17/2023 07:42:06 0.75 0.00-1.10 (K/uL) Final Eos, Abs 05/17/2023 07:42:06 0.00 0.00-0.70 (K/uL) Final Basos, Abs 05/17/2023 07:42:06 0.05 0.00-0.20 (K/uL) Final Performing Location [facility] [place] [address]
--- OUTSIDE RECORDS SUMMARY | 2023-06-13 20:11 | External Medical Summary | Summary of Care ---
Author Name Unknown Organization [facility] Address [address] [facility] [place] [address] Phone [phone] Care Team Providers Care Debeaker Name Role Phone Sabrina Chang DO Primary Care Provider Encounter Details Date Type Department Care Team Description 04/13/2023 Telephone General Surgery, [facility] [address] [facility] [place] [address] Sobia Hernandez MD [address] [facility] [place] [address] Allergies Active Allergy Reactions Severity Noted Date Comments Lisinopril Edema face/lips/tongue High 02/19/2017 angioedema documented as of this encounter (statuses as of 04/13/2023) Medications Medication Sig Dispensed Refills Start Date [...] as of this encounter (statuses as of 04/13/2023) Active Problems Problem Noted Date Encounter for antineoplastic chemotherap y 03/24/2023 Malignant neoplasm of upper- outer quadrant of left breast in female, estrogen 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 03/24/2023 Hyperlipidemia 04/17/2014 HTN, goal below 140/90 04/17/2014 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 documented as of this encounter (statuses as of 04/13/2023) Resolved Problems Problem Noted Date Resolved Date Bilateral impacted cerumen 10/27/201606/07 Overview: acute ABN PAP SMEAR-CERVIX(aka DYSPLASIA) 01/02/2004 10/27/2016 Varicella without complication 0 10/27/2016 Mumps without complication 10/27 Mucous polyp of cervix 9 documented as of this encounter (statuses as of 04/13/2023) Immunizations Name Administration Dates Next Due COVID-19 mRNA, LNP-s, No Pre serve, 2-Dose Series (Mobile Multimedia) 07/03/2021,10/09/2020,09/11/2020 Hep A - Hepatitis A (ped/adole, [...] on file documented as of this encounter Miscellaneous Notes * Telephone Encounter - Sobia Hernandez MD - 04/13/2023 11:03 AM EDT Pathology result discussed with pt. US biopsy is negative at the 6:00 location (done for area seen on MRI) Will be a candidate for left lumpectomy of the upper outer cancer following chemotherapy. Will needsavi ski patrol into the tumor. A. Left breast, 6 o'clock retroareolar, needle core biopsy: -- Breast parenchyma with sclerosing fibrocystic changes and chronic inflammation. -- Negative for atypia and malignancy. at 1448 Order Comments Ultrasound guided left breast core biopsy of a hypoechoic lesion at 6:00 RA measuring 6 x 5 x 6mm. R/o cyst with gilma , r/o ca documented in this encounter Plan of Treatment Upcoming Encounters Date Type Specialty Care Team Description 04/26/2023 Laboratory Laboratory [facility], Lab Scenery [address] [place] [address] 04/26/2023 Office Visit Hematology Oncology Judith Murillo CRNP [address] [place] [address] 04/26/2023 Hem/Onc Treatment Hematology Oncology Yudi, Chair 6 Hem Onc Scenery [address] [place] [address] 11/05/2023 Office Visit Family Medicine Sabrina Chang, DO [address] [place] [address] Health Maintenance Due Date Last Done Comments Fecal Occult Blood Test 1999 Sigmoidoscopy 1999 Depression Screening 05/25/2020 05/25/2019 Colonoscopy 06/22/2021 06/22/2011, 05/16/2007 COVID-19 Vaccine (4 - Pfizer series) 08/28/2021 07/03/2021, 10/09/2020, 09/11/2020 Influenza Vaccine (FLU shot) [...] this encounter Medical Devices Implanted Type Area Edge Sander Device Identifier Shelf Expiration Date Model / Serial / Lot Port Power Mri W/8fr Cath - [id number] Implanted:Qty: 1 on 03/31/2023 by Sobia Hernandez MD at OR [facility] Right: Chest CR BARD : PERIPHERAL VASCULAR 12/17/2023 [id number] / / [id number] documented as of this encounter Advance Directives [...] the patient have Health Care Power of Cutter Head Sharpener? No Care Teams Debeaker Relationship Specialty Start Date End Date Sabrina Chang DO [address] [place] [address] PCP - General Family Medicine 09/15/18 documented as of this encounter
--- OUTSIDE RECORDS SUMMARY | 2023-06-13 20:11 | External Medical Summary | Summary of Care ---
Author Name Unknown Organization [facility] Address [address] [place] [address] Phone [phone] Care Team Providers Care Endoscopy Support Specialist Name Role Phone Sabrina Chang DO Primary Care Provider Reason for Visit * Reason Comments Chemotherapy C4/D1 - TCHP * Episode Based Medications (Routine) - Authorized Specialty Diagnoses / Procedures Referred By Contac t Referred To Contact Diagnoses Encounter for antineoplastic chemotherapy Malignant neoplasm of upper-outer quadrant of left breast in female, estrogen 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 Procedures WY CARBOPLATIN INJECTION W[place] FOSAPREPITANT INJECTION WY INJECTION, PERTUZUMAB, 1 MG W[place] INJ ONTRUZANT 10 MG W[place] INJECTION, UDENYCA 0.5 MG W[place] DOCETAXEL INJECTION Serafin Goins MD [address] [place] [address] Anc Hem/Onc [facility] DEPT CLOSED - 06/01/23 [address] [place] [address] Referral ID Status Reason Start Date Expiration Date V isits Requested Visits Authorized [id number] Authorized 03/24/2023 09/23/2023 [id number] Encounter Details Date Type Department Care Team (Latest Contact Info) Description 06/07/2023 9:00 AM EST Hem/Onc Treatment Hematology/Oncolog y Treatment, [place] [address] [place] [id number] Yudi, Chair 3 Hem Onc Scenery [address] [place] [address] Encounter for antineoplastic chemotherapy*; Malignant neoplasm of [...] mRNA, LNP-s, No Pre serve, 2-Dose Series (IQuum) 07/03/2021,10/09/2020,09/11/2020 Hep A - Hepatitis A (ped/adole, [...] on file documented as of this encounter Last Filed Vital Signs Vital Sign Reading Time Taken Comments Blood Pressure 136/73 06/07/2023 8:43 AM EST Pulse 80 06/07/2023 8:43 AM EST Temperature 36.6 C (97.9 F) 06/07/2023 8:43 AM ES T Respiratory Rate 16 06/07/2023 8:43 AM EST Oxygen Saturation 96% 06/07/2023 8:43 AM EST Inhaled Oxygen Concentration - - Weight 60.5 kg (133 lb 6.4 oz) 06/07/2023 8:43 A M EST Height - - Body Mass Index 21.53 03/31/2023 7:00 AM EDT documented in this encounter Nursing Notes * Rachael Rosenthal RN - 06/07/2023 2:11 PM EST Goals: Patient will remain free from injury. Possible barriers to meeting goals: ambulating with IV pole Stability of the patient: Moderately stable - low risk of patient condition declining or worsening Summary regarding today's goals: Met: pt remained free of harm today Functional status [...] well without any acute issues or problems. Port de- accessed by Coco Yin RN. Patient coming tomorrow at 1:45 pm for Udenyca injection. Patient left facility in stable condition and denied any further needs. * Rachael Rosenthal RN - 06/07/2023 9:21 AM EST Chair 12. Port accessed without difficulty. Patient overall feeling well upon assessment, no acute issues or complaints other than some increasing fatigue with each cycle. Patient's labs are WNL, hgb noted to be decreased to 11 today. Potassium is 3.4, decreased from 3.5last treatment. Patient denies any vomiting, diarrhea, and says she still has a fairly good appetite. RN educated about about trying to increase potassium in her diet and will recheck her potassium with her next treatment. List of potassium rich foods provided to patient. Chemo agents TCHP (Perjeta, Herceptin, Taxotere, Carboplatin) Appetite fair, good overall Nausea/Vomiting no Diarrhea loose stool but no diarrhea, no increase in frequency from her baseline Constipation no Mucositis no Fatigue increased fatigue but still able to do what she needs to get done on a daily basis overall Bleeding no Infection no Rash no Numbness tingling some N/T in her fingertips but her fine motor movements/skills have not been affected by the N/T, no N/T noted in her feet/toes Pain no Radiation no ABN Labs WNL for tx Alt in Tx: N/A Return in 1 day for Udenyca injection Patient is comfortable and denies further needs at this time. Safety and Risk for Injury Patient will remain free from injury. Ensure appropriate safety devices are available. Provide and maintain safe environment. documented in this encounter Miscellaneous Notes * Pt Handout (on AVS) - Rachael Rosenthal RN - 06/07/2023 10:10 AM EST [id number] Potassium-Rich Foods The recommended average daily intake of potassium for a healthy man is 3,400 mg a day. For a healthy woman who is not , the amount is 2,600 mg a day. More potassium is needed when you lose too much potassium from your body. This can happen if you have diarrhea or vomiting. Or if you have inflammatory bowel disease. It can also happen if you take a medicine to make you urinate more (diuretic) or large doses of laxatives. People with chronic kidney disease must be careful not to get too much potassium. If your healthcare provider tells you that you need to increase the amount of potassium in your diet, include these high-potassium foods. [The (*) indicates foods highest in potassium.] Vegetables Artichokes. Cooked 1/2 cup, 200 mg to 300 mg* Asparagus. Cooked 1/2 cup, 200 mg to 300 mg Beans. White, red, hernandez cooked 1/2 cup, 300 mg to 500 mg* Beets. Cooked 1/2 cup, 200 mg to 300 mg Broccoli. Cooked or raw 1 cup, 200 mg to 500 mg* [place] sprouts. Cooked 1/2 cup, 200 mg to 300 mg Cabbage. Raw 1 cup, 100 mg to 200 mg Carrots. Raw or cooked 1/2 cup, 100 mg to 200 mg Celery. Raw 1 cup, 200 mg to 300 mg Ríos beans. Fresh or frozen 1/2 cup, 300 mg to 500 mg* Mushrooms. Raw or cooked 1/2 cup, 100 mg to 300 mg Peas. Cooked 1/2 cup, 150 mg to 250 mg Potatoes. Baked 1 medium, 500 mg to 900 mg* Spinach. Cooked 1 cup, 800 mg to 900 mg* Spinach. Raw 2 cups, 300 mg to 400 mg* Squash, winter. Fresh, frozen, or cooked 1/2 cup, 200 mg to 400 mg Tomato. Fresh 1 medium, 200 mg to 300 mg Tomato juice. Canned 1/2 cup, 200 mg to 300 mg Fruits Apple juice. Unsweetened 1 cup, 200 mg to 300 mg Apricots. Canned 1/2 cup, 200 mg to 300 mg Apricots. Dried 4 pieces, 100 mg to 200 mg Avocado. Raw 1/2 cup, 300 mg to 400 mg* Banana. Fresh 1 small, 300 mg to 400 mg* Cantaloupe. Fresh 1 cup diced, 300 mg to 400 mg* Grape juice. Unsweetened 1 cup, 200 mg to 300 mg Honeydew melon. Fresh 1 cup diced, 300 mg to 400 mg* [place]. Fresh 1 medium, 200 mg to 300 mg [place] juice. Unsweetened, fresh or frozen 1/2 cup, 200 mg to 300 mg Pineapple juice. Unsweetened 1 cup, 300 mg to 400 mg Prune juice. Unsweetened 1/2 cup, 300 mg to 400 mg* Prunes. Dried 5 pieces, 300 mg to 400 mg* Strawberries. Fresh or frozen 1 cup, 200 mg to 300 mg Meat Red meat. Cooked 3 ounces, 100 mg to 300 mg Seafood Cod, flounder, halibut. Cooked 3 ounces, 100 mg to 300 mg* [place]. Cooked, 3 ounces 300 mg to 400 mg* Scallops. Cooked 3 ounces, 200 mg to 300 mg* Shrimp. Cooked 3/4 cup, 100 mg to 200 mg Tuna. Fresh or canned 3/4 cup, 200 mg to 500 mg Last Reviewed Date: 06/18/202219991820-3926 [employer]. All rights reserved. This information is not intended as a substitute for professional medical care. Always follow your healthcare professional's instructions. * Pt Handout (on AVS) - Rachael Rosenthal RN - 06/07/2023 10:10 AM EST [id number] Potassium-Rich Foods The recommended average daily intake of potassium for a healthy man is 3,400 mg a day. For a healthy woman who is not , the amount is 2,600 mg a day. More potassium is needed when you lose too much potassium from your body. This can happen if you have diarrhea or vomiting. Or if you have inflammatory bowel disease. It can also happen if you take a medicine to make you urinate more (diuretic) or large doses of laxatives. People with chronic kidney disease must be careful not to get too much potassium. If your healthcare provider tells you that you need to increase the amount of potassium in your diet, include these high-potassium foods. [The (*) indicates foods highest in potassium.] Vegetables Artichokes. Cooked 1/2 cup, 200 mg to 300 mg* Asparagus. Cooked 1/2 cup, 200 mg to 300 mg Beans. White, red, hernandez cooked 1/2 cup, 300 mg to 500 mg* Beets. Cooked 1/2 cup, 200 mg to 300 mg Broccoli. Cooked or raw 1 cup, 200 mg to 500 mg* [place] sprouts. Cooked 1/2 cup, 200 mg to 300 mg Cabbage. Raw 1 cup, 100 mg to 200 mg Carrots. Raw or cooked 1/2 cup, 100 mg to 200 mg Celery. Raw 1 cup, 200 mg to 300 mg Ríos beans. Fresh or frozen 1/2 cup, 300 mg to 500 mg* Mushrooms. Raw or cooked 1/2 cup, 100 mg to 300 mg Peas. Cooked 1/2 cup, 150 mg to 250 mg Potatoes. Baked 1 medium, 500 mg to 900 mg* Spinach. Cooked 1 cup, 800 mg to 900 mg* Spinach. Raw 2 cups, 300 mg to 400 mg* Squash, winter. Fresh, frozen, or cooked 1/2 cup, 200 mg to 400 mg Tomato. Fresh 1 medium, 200 mg to 300 mg Tomato juice. Canned 1/2 cup, 200 mg to 300 mg Fruits Apple juice. Unsweetened 1 cup, 200 mg to 300 mg Apricots. Canned 1/2 cup, 200 mg to 300 mg Apricots. Dried 4 pieces, 100 mg to 200 mg Avocado. Raw 1/2 cup, 300 mg to 400 mg* Banana. Fresh 1 small, 300 mg to 400 mg* Cantaloupe. Fresh 1 cup diced, 300 mg to 400 mg* Grape juice. Unsweetened 1 cup, 200 mg to 300 mg Honeydew melon. Fresh 1 cup diced, 300 mg to 400 mg* [place]. Fresh 1 medium, 200 mg to 300 mg [place] juice. Unsweetened, fresh or frozen 1/2 cup, 200 mg to 300 mg Pineapple juice. Unsweetened 1 cup, 300 mg to 400 mg Prune juice. Unsweetened 1/2 cup, 300 mg to 400 mg* Prunes. Dried 5 pieces, 300 mg to 400 mg* Strawberries. Fresh or frozen 1 cup, 200 mg to 300 mg Meat Red meat. Cooked 3 ounces, 100 mg to 300 mg Seafood Cod, flounder, halibut. Cooked 3 ounces, 100 mg to 300 mg* [place]. Cooked, 3 ounces 300 mg to 400 mg* Scallops. Cooked 3 ounces, 200 mg to 300 mg* Shrimp. Cooked 3/4 cup, 100 mg to 200 mg Tuna. Fresh or canned 3/4 cup, 200 mg to 500 mg Last Reviewed Date: 06/18/202219999988-0734 [employer]. All rights reserved. This information is not intended as a substitute for professional medical care. Always follow your healthcare professional's instructions. documented in this encounter Plan of Treatment Upcoming Encounters Date Type Department Care Team (Late st Contact Info) Description 06/08/2023 1:15 PM EST Office Visit Hematology/Oncology [facility] [address] [place] [address] Serafin Goins MD [address] [place] [address] 06/08/2023 1:45 PM EST Immunization/Injecti on Hematology/[address]cology [address] [address] Nurse, Med [address] [place] [address] [place] [address] 06/28/2023 8:30 AM EST Laboratory Laboratory [facility] [address] [place] [id number] [place], Lab [place] [address] [place], [place] [address] 06/28/2023 9:00 AM EST Office Visit Hematology/Oncology [facility] [place] [address] [place] [address] Judith Murillo CRNP [address] [facility] [place] [address] 06/28/2023 9:30 AM EST Hem/Onc Treatment Hematology/[address]cology [address] [address] Yudi, Chair 8 Hem Onc [place] [address] [place] [address] 07/06/2023 11:15 AM EST Office Visit General Surgery, [facility] [address] [place] [address] Sobia Hernandez MD [address] [place] [address] 11/05/2023 8:40 AM EDT Office Visit Family Practice [facility] [address] [place] [address] Sabrina Chang, [address] [place] [address] Health Maintenance Due Date Last Done Comments [...] this encounter Medical Devices Implanted Type Area Entry Level Chemist Device Identifier Shelf Expiration Date Model / Serial / Lot Port Power Mri W/8fr Cath - [id number] Implanted:Qty: 1 on 03/31/2023 by Sobia Hernandez MD at OR [facility] Right: Chest CR BARD : PERIPHERAL VASCULAR 12/17/2023 [id number] / / [id number] documented as of this encounter Visit Diagnoses [...] ONCE PRN Other, Hypersensitivity Reaction, Starting on Wed06/07/23 at 0850, Until Wed06/08/23 at 0849, For 24 hours EPINEPHrine 1 MG/ML inj 0.3 mg 0.3 mg, Intramuscular, ONCE PRN Other, Hypersensitivity Reaction or Anaphylaxis, Starting on Wed06/07/23 at 0850, Until Wed06/08/23 at 0849, For 24 hours hEParin 100 UNIT/ML Lock Flush inj 500 Units 500 Units (5 mL), IV Lock, PRN Other, IV Flush, Starting on Wed06/07/23 at 0850, Until Wed06/08/23 at 0849, For 24 hours, Do not flush if lock, PICC, or central line not in place; IV infusing or unable to flush. Given 06/07/2023 12:37 PM EST 500 Units Hydrocortisone Sod Suc (PF) (Solu-Cortef) inj 100 mg 100 mg, IV Push, ONCE PRN Other, Hypersensitivity Reaction, Starting on Wed06/07/23 at 0850, Until Wed06/08/23 at 0849, For 24 hours NSS infusion Intravenous, at 50 mL/hr, PRN, Starting on Wed06/07/23 at 1000, Until Discontinued, KVO Start Infusion 06/07/2023 9:05 AM EST 50 mL/hr oxygen GAS Inhalation, OXYGEN, First dose on Wed06/07/23 at 0930, Until Discontinued, Device/Managed by: Low Flow Device, [...] Push, PRN Other, IV Flush, Starting on Wed06/07/23 at 0850, Until Wed06/08/23 at 0849, For 24 hours, Do not flush if lock, PICC, or central line not in place; IV infusing or unable to flush. Given 06/07/2023 12:37 PM EST 10 mL Inactive Administered Medications - up to 3 most recent administrations Medication Order MAR Action Action Date Dose Rate Site Acetaminophen (Tylenol) tab 650 mg 650 mg, Oral, ONCE, On Wed06/07/23 at 1000, For 1 dose, Maximum of 4 grams (4000 mg) per day. Given 06/07/2023 9:32 AM EST 650 mg CARBOplatin (Paraplatin) 623 mg in D5W 250 mL infusion 623 mg (rounded from 622.8 mg, Target AUC = 6), IV Piggyback, at 500 mL/hr Administer over 30 Minutes, PROTECT FROM LIGHT (Max Creatinine Clearance at 125 ml/min for calculating AUC dose), ONCE, 1 dose, On Wed06/07/23 at 1130 Start Infusion 06/07/2023 10:55 AM EST 623 mg 500 mL/hr diphenhydrAMINE (Benadryl) cap 25 mg 25 mg, Oral, ONCE, On Wed06/07/23 at 1000, For 1 dose Given 06/07/2023 9:31 AM EST 25 mg DOCEtaxel (Taxotere) 120 mg in NSS 250 mL infusion 120 mg (rounded from 131.25 mg = 75 mg/m2 1.75 m2 Treatment Plan BSA from Recorded weight), IV Piggyback, at 250 mL/hr Administer over 60 Minutes, ONCE, 1 dose, On Wed06/07/23 at 1200 Start Infusion 06/07/2023 11:34 AM EST 120 mg 250 mL/hr fosaprepitant Dimeglumine (Emend) 150 mg, ondansetron (Zofran) 16 mg, dexamethasone sodium phosphate 12 mg in NSS 250 mL Infusion 150 mg, IV Piggyback, ONCE, 1 dose, On Wed06/07/23 at 1000, Administer over 30 Minutes, Give 30 minutes prior to chemotherapy. Infuse over 30 minutes. Start Infusion 06/07/2023 9:12 AM EST 150 mg 500 mL/hr PERtuzumab (Perjeta) 420 mg in NSS 250 mL infusion 420 mg, IV Piggyback, ONCE, 1 dose, On Wed06/07/23 at 1030, Administer over 30 Minutes Start Infusion 06/07/2023 9:48 AM EST 420 mg 500 mL/hr Trastuzumab-dttb (Ontruzant) 395 mg in NSS 250 mL infusion 395 mg (rounded from 394.8 mg = 6 mg/kg 65.8 kg Treatment plan Recorded weight), IV Piggyback, ONCE, 1 dose, On Wed06/07/23 at 1100, Administer over 30 Minutes Start Infusion 06/07/2023 10:23 AM EST 395 mg 500 mL/hr documented in this [...] the patient have Health Care Power of Employee Benefits Administrator? No Care Teams Endoscopy Support Specialist Relationship Specialty Start Date End Date Sabrina Chang DO [address] [place] [address] PCP - General Family Medicine 09/15/18 documented as of this encounter
--- OUTSIDE RECORDS SUMMARY | 2023-06-13 20:11 | External Medical Summary | Summary of Care ---
Author Name Unknown Organization [facility] Address [address] [place] [address] Phone [phone] Care Team Providers Care Sugar Mill Worker Name Role Phone Sabrina Chang DO Primary Care Provider Reason for Visit * Reason Comments Medication Administration Udencya * Episode Based Medications (Routine) - Authorized Specialty Diagnoses / Procedures Referred By Contac t Referred To Contact Diagnoses Encounter for antineoplastic chemotherapy Malignant neoplasm of upper-outer quadrant of left breast in female, estrogen 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 Procedures MA CARBOPLATIN INJECTION MA FOSAPREPITANT INJECTION MA INJECTION, PERTUZUMAB, 1 MG MA INJ ONTRUZANT 10 MG MA INJECTION, UDENYCA 0.5 MG MA DOCETAXEL INJECTION Serafin Goins MD [address] [facility] [place] [address] Anc Hem/Onc [facility] [address] [facility] [place] [address] Referral ID Status Reason Start Date Expiration Date V isits Requested Visits Authorized [id number] Authorized 03/24/2023 09/23/[phone] Encounter Details Date Type Department Care Team (Latest Contact Info) Description 05/18/2023 1:30 PM EDT Immunization/ Injection Hematology/Oncology Treatment, [place] [address] [place] [address] Nurse, Med [address] [facility] [place] [address] Encounter for antineoplastic chemotherapy*; Malignant neoplasm of upper-outer quadrant of left breast in female, estrogen 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 Allergies Active Allergy Reactions Criticality Noted Date Comments Lisinopril Edema face/lips/tongue High 02/19/2017 angioedema documented as of this encounter (statuses as of 05/18/2023) Medications Medication Sig Dispensed Refills Start Date [...] as of this encounter (statuses as of 05/18/2023) Active Problems Problem Noted Date Diagnosed Date Encounter for antineoplastic chemotherapy 2022 Malignant neoplasm of upper- outer quadrant of left breast in female, estrogen 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 03/24/2023 Hyperlipidemia 04/17/2014 HTN, goal below 140/90 04/17/2014 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 documented as of this encounter (statuses as of 05/18/2023) Resolved Problems Problem Noted Date Diagnosed Date Resolved Date Bilateral impacted cerumen 10/27/2016 1 08/07/2018 Overview: acute ABN PAP SMEAR-CERVIX(aka DYSPLASIA) 01/02/2004 10/27/2016 Varicella without complication 10/27/2016 Mumps without complication 0 10/27/2016 Mucous polyp of cervix 06/09 documented as of this encounter (statuses as of 05/18/2023) Immunizations Name Administration Dates Next Due COVID-19 mRNA, LNP-s, No Pre serve, 2-Dose Series (HOLLR) 07/03/2021,10/09/2020,09/11/2020 Hep A - Hepatitis A (ped/adole, [...] Nursing Notes * Haley Pinzon LPN - 05/18/2023 3:34 PM EDT 1330: Room 4. Pt arrived for Udencya injection. Administered in SAMMY. Pt tolerated well. Discharged in stable condition. documented in this encounter Plan of Treatment Upcoming Encounters Date Type Department Care Team (Late st Contact Info) Description 06/07/2023 8:10 AM EST Laboratory Laboratory [facility] [place] [address] [place] [id number] [place], Lab [address] [place] [address] 06/07/2023 9:00 AM EST Hem/Onc Treatment Hematology/[address]cology [address] [address] [address]udi, Chair 3 Hem Onc [place] [address] [address] [facility] [place] [address] 06/08/2023 1:15 PM EST Office Visit Hematology/Oncology [facility] [address] [place] [address] Serafin Goins MD [address] [place] [address] [place] [address] 06/08/2023 1:45 PM EST Immunization/Injectio n Hematology/Oncology [address], [address] [address] Nurse, Med 4 [facility] [address] [place] [address] 11/05/2023 8:40 AM EDT Office Visit Family [facility] [address] [place] [address] Sabrina Chang, [address] [place] [address] Health Maintenance Due Date Last Done Comments Fecal Occult Blood Test 1999 Sigmoidoscopy 1999 Depression Screening 05/25/2020 05/25/2019 Colonoscopy 06/22/2021 06/22/2011, 05/16/2007 COVID-19 Vaccine ( season) 2023 07/03/2021, 10/09/2020, 09/11/2020 Influenza Vaccine (FLU shot) (#1) 2023 06/02/2013 Mammogram 02/23/2024 02/22/2023, 01/17, 04/17/2021, Additional history exists Cologuard 05/07/2024 05/07/2021, 04/24/2021 Colorectal Cancer Screening 05/07/2024 GFR 05/17/2024 05/17/2023, 1003/2023, 04/05/2023, Additional history exists Albumin/Creatinine Ratio 03/18/2026 [...] this encounter Medical Devices Implanted Type Area Machine Driller Device Identifier Shelf Expiration Date Model / Serial / Lot Port Power Mri W/8fr Cath - [id number] Implanted:Qty: 1 on 03/31/2023 by Sobia Hernandez MD at OR [facility] Right: Chest CR BARD : PERIPHERAL VASCULAR 12/17/2023 [id number] / / [id number] documented as of this encounter Visit Diagnoses Diagnosis Encounter for antineoplastic chemotherapy- Primary Malignant neoplasm of upper-outer quadrant of left breast in female, estrogen 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 documented in this encounter Administered Medications Inactive Administered Medications - up to 3 most recent administrations Medication Order MAR Action Action Date Dose Rate Site Pegfilgrastim-cbqv (Udenyca) inj 6 mg 6 mg, Subcutaneous, ONCE, On Wed05/18/23 at 1430, For 1 dose Given 05/18/2023 1:45 PM EDT 6 mg Arm R ight Upper documented [...] the patient have Health Care Power of Steam Shovel Runner? No Care Teams Sugar Mill Worker Relationship Specialty Start Date End Date Sabrina Chang DO [address] [place], [place] [address] PCP - General Family Medicine 09/15/18 documented as of this encounter
--- OUTSIDE RECORDS SUMMARY | 2023-06-13 20:11 | External Medical Summary | Summary of Care ---
Author Name Unknown Organization [facility] Address [address] [place] [address] Phone [phone] Care Team Providers Care Bindery Machine Operator Name Role Phone Sabrina Chang DO Primary Care Provider Reason for Visit * Reason Comments Chemotherapy Chemo/recheck Encounter Details Date Type Department Care Team (Late st Contact Info) Description 05/17/2023 8:30 AM EDT Office Visit Hematology/Oncology [facility] [place] [address] [place] [address] Judith Murillo CRNP [address] [place] [address] Malignant neoplasm of upper-outer quadrant of left breast in female, estrogen 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 *; Encounter for antineoplastic chemotherapy Allergies Active Allergy Reactions Criticality Noted Date Comments Lisinopril Edema face/lips/tongue High 02/19/2017 angioedema documented as of this encounter (statuses as of 05/19/2023) Medications Medication Sig Dispensed Refills Start Date [...] as of this encounter (statuses as of 05/19/2023) Active Problems Problem Noted Date Diagnosed Date Encounter for antineoplastic chemotherapy 2022 Malignant neoplasm of upper- outer quadrant of left breast in female, estrogen 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 03/24/2023 Hyperlipidemia 04/17/2014 HTN, goal below 140/90 04/17/2014 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 documented as of this encounter (statuses as of 05/19/2023) Resolved Problems Problem Noted Date Diagnosed Date Resolved Date Bilateral impacted cerumen 10/27/2016 1 08/07/2018 Overview: acute ABN PAP SMEAR-CERVIX(aka DYSPLASIA) 01/02/2004 10/27/2016 Varicella without complication 10/27/2016 Mumps without complication 0 10/27/2016 Mucous polyp of cervix 06/09 documented as of this encounter (statuses as of 05/19/2023) Immunizations Name Administration Dates Next Due COVID-19 mRNA, LNP-s, No Pre serve, 2-Dose Series ([facility]) 07/03/2021,10/09/2020,09/11/2020 Hep A - Hepatitis A (ped/adole, [...] 10 Q uit: 07/19/1986 Smokeless Tobacco: Never Tobacco Cessation:Counseling Given: Not Answered Alcohol Use Standard Drinks/Week Comments Yes 0 [...] Sign Reading Time Taken Comments Blood Pressure 145/85 05/17/2023 8:22 AM EDT Pulse 86 05/17/2023 8:22 AM EDT Temperature 36.7 C (98 F) 05/17/2023 8:22 AM EDT Respiratory Rate 16 05/17/2023 8:22 AM EDT Oxygen Saturation 95% 05/17/2023 8:22 AM EDT Inhaled Oxygen Concentration - - Weight 63 kg (138 lb 12.8 oz) 05/17/2023 8:22 AM EDT Height - - Body Mass Index 22.4 03/31/2023 7:00 AM EDT documented in this encounter Progress Notes * Judith Murillo CRNP - 05/17/2023 8:30 AM EDT Hematology/Oncology Outpatient Clinic note [facility] [address] [place], [place] [address] Name: Karina Verma Date: 05/16/2023 CHIEF COMPLAINT: Karina Verma is a 68 year old female here today for f/u visit today. Patient of Dr. Serafin Goins. From Patient chart confirmed with patient. HEMATOLOGY/ONCOLOGY DIAGNOSIS: Left breast cancer, hormonal negative, HER2 Jerry positive, 1.5 cm. Cancer Staging Clinical Stage 1 DATE OF DIAGNOSIS: 03/03/23 CURRENT TREATMENT: TCHP every 21 days x 6 cycles (04/05/23 - ) -Prophylactic Pegfilgrastim support D2 DIAGNOSTIC WORKUP: She would a routine screening mammogram as follows: Local breast symptoms. Screening bilateral breast mammogram done on 02/05/2023: -Left upper outer quadrant posterior depth 15 mm mass with indeterminate calcifications. Left breast mammogram and sonogram on 02/22/2023: -1.4 cm highly suggestive mass with calcifications in the 2:00/3:00 left breast. No suspicious left axillary lymphadenopathy. Left breast core needle biopsy mass from 2 - 3 o'clock: -invasive carcinoma no special type, grade 3, ER negative, HI negative, HER2 Jerry positive by IHC. OTHER IMPORTANT HISTORY: - Hyperlipidemia. -hypertension. Interval History: ECHO 05/10/23: LVEF 60% HISTORY OF PRESENT ILLNESS: Karina Verma is a 68 year old female with a history as outlined above. Currently here for f/u visit today and consideration for C3D1 of treatment. Last cycle about the same as before. Continues tofeel poorly over the first weekend and then slowly improves. Barely any mouth sores this time around. Experienced some mild nausea that did not require antiemetics. Had a bad bought of diarrhea Wednesday after chemotherapy. Developed severe abdominal cramping and three bought's of loose stools very close together. Experienced syncopal episode and fell off the toilet. Immediately regained consciousness. Presented to ED at [facility] and work up was unremarkable. Is pushing oral fluids. Confirms taking dex amethasone as prescribed. Has some slight neuropathy in the finger tips. Had this somewhat prior tochemotherapy. Does have some slight weakness in her hands that was present prior to chemotherapy aswell. Does have some arthritis in her hands as well. Did get some AM headaches but did not take anything for this. Did have some back pain after the injection. Did take claritin as recommended. This has now resolved. Denies any weakness or numbness in the lower extremities. 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 2012 Left Eye Cervical intraepithelial neoplasia grade 1 Mucous polyp of cervix Mumps without complication NONE Open angle with borderline findings, low risk Pseudophakia Unspecified essential hypertension Varicella without complication Vitreous floaters Past Surgical History: Procedure Laterality Date BREAST BIOPSY Left 03/03/2023 PATH pending COLONOSCOPY W/ BIOPSY (RECTUM) 05/16/2007 hyperplastic polyps--repeat 3 years COLORECTAL CANCER SCREEN; NOT AT RISK 06/22/2011 repeat in 10 years COLPSCPY CERVIX W/LOOP ELECT 07/19/1998 INJECTION OF EYE DRUG 10/25/2012 #1 Lucentis 0.5 mg OS, INJECTION OF EYE DRUG 11/24/2012 #2 Lucentis 0.5mg OS, Dr. Schneider INJECTION OF EYE DRUG 12/22/2012 #1 kenalog OS, INJECTION OF EYE DRUG 03/08/2013 #2 Kenalog, OS, #[id number] INJECTION OF EYE DRUG 04/18/2013 #3 Lucentis 0.5mg OS, Dr. Schneider INJECTION OF EYE DRUG 05/30/2013 #3 Kenalog OS, Dr. Schneider INJECTION OF EYE DRUG 09/20/2013 #4 Kenalog OS, Dr. Schneider INSER TUNN ACC DEV;5 YRS/OLDER Right 03/31/2023 INSERT TUNNELED CENTRAL VENOUS ACCESS WITH SUBQ PORT performed by Sobia Hernandez MD at OR [facility] LASIK/PRK SURGERY 04/18/2005 LIGATE/CUT OVIDUCT(S) AT SURGERY MAMMOGRAM SCREENING-BILATERAL 02/13/2004 birad 2- normal MISCELLANEOUS ORDER ([facility] ONLY) 10/25/2012-10/25/2013 Lucentis 0.5 mg conscent OS, MISCELLANEOUS ORDER ([facility] ONLY) 12/22/2012-12/22/2013 Kenalog OS consent signed, MISCELLANEOUS ORDER ([facility] ONLY) 01/24/20014-01/24/2015 Kenalog OS consent signed, REPAIR WRIST FRACTURE/DISLOCATION plate, 10 pins VAGINAL DELIVERY ONLY times 2 Social History Socioeconomic History Marital status: Spouse name: Not on file Number of children: Not on file Years of education: Not on file Highest education level: Not on file Occupational History Not on file Tobacco Use Smoking status: Former Packs/day: 1.00 Years: 10.00 Additional pack years: 0.00 Total pack years: 10.00 Types: Cigarettes Quit date: 07/19/1986 Years since quittin.8 Smokeless tobacco: Never Vaping Use Vaping Use: Never used Substance and Sexual Activity Alcohol use: Yes Comment: one a day, gin Drug use: No Sexual activity: Yes Partners: Male control/protection: Surgical Comment: 1989 Other Topics Concern Service No Blood Transfusions No Caffeine Concern No Occupational Exposure No Hobby Hazards No Sleep Concern No Stress Concern No Weight Concern No Special Diet No Back Care No Exercise Yes Bike Helmet Not Asked Seat Belt Yes Self-Exams No Social History Narrative Not on file Social Determinants of Health Financial Resource Strain: Not on file Food Insecurity: No Food Insecurity (11/02/2022) Hunger Vital Sign Worried About Running Out of Food in the Last Year: Never true Ran Out of Food in the Last Year: Never true Transportation Needs: Not on file Physical Activity: Not on file Stress: Not on file Social Connections: Not on file Intimate Partner Violence: Not on file Housing Stability: Not on file Review of patient's allergies indicates: Allergen Reactions Lisinopril Edema face/lips/tongue angioedema Current Outpatient Medications Medication Sig Dispense Refill Rosuvastatin Calcium 10 MG Oral Tablet (Crestor) TAKE ONE TABLET BY MOUTH EVERY MORNING 90 Tablet 3 hydroCHLOROthiazide 25 MG Oral Tablet (Hydrodiuril) TAKE ONE TABLET BY MOUTH EVERY MORNING 90 Tablet 3 Ondansetron HCl 8 MG Oral Tablet (Zofran) Take 1 Tablet by mouth every 8 hours as needed for Nausea. (Patient not taking: Reported on 03/31/2023) 30 Tablet 2 Prochlorperazine Maleate 10 MG Oral Tablet (Compazine) Take 1 Tablet by mouth every 6 hours as needed for Nausea. (Patient not taking: Reported on 03/31/2023) 30 Tablet 2 Dexamethasone 4 MG Oral Tablet (Decadron) Take 8mg (2 tabs) twice a day for 3 days starting the daybefore chemotherapy (Patient not taking: Reported on 03/31/2023) 72 Tablet 0 Lidocaine-Prilocaine 2.5-2.5 % External Cream (Emla) APPLY TO SKIN OVER MEDIPORT & COVER 1HR PRIOR TO ACCESSING. (Patient not taking: Reported on 03/31/2023) 30 g 2 No current facility-administered medications for this visit. REVIEW OF SYSTEMS: See HPI - otherwise negative OBJECTIVE: Filed Vitals: 05/17/23 0822 BP: 145/85 Pulse: 86 Resp: 16 Temp: 36.7 C (98 F) TempSrc: Oral SpO2: 95% Weight: 63 kg (138 lb 12.8 oz) Wt Readings from Last 5 Encounters: 05/17/23 63 kg (138 lb 12.8 oz) 04/26/23 64.6 kg (142 lb 8 oz) 04/05/23 65.9 kg (145 lb 3.2 oz) 03/31/23 65.8 kg (145 lb) 03/19/23 65.8 kg (145 lb 1.6 oz) PHYSICAL EXAM: ECOG: Performance Status 1 = 80-90% Symptoms but nearly ambulatory General Appearance: No acute distress HEENT: Normal - No oral or pharyngeal masses, ulceration or thrush noted Lymph Nodes: Normal - No palpable lymph nodes in the neck, supraclavicular or axillary areas Lungs/Thorax: Normal - Clear to auscultation Heart: Normal - Regular rate and rhythm, normal S1, S2, no appreciable murmurs Pulses/Extremities: Normal - 2+ throughout and symmetrical, no edema Neurologic: Normal - Grossly intact LABS: Results for orders placed or performed in visit on 05/17/23 COMPREHENSIVE METABOLIC PANEL Result Value Ref Range BUN 11 6 - 20 mg/dL Creatinine 0.7 0.5 - 1.0 mg/dL Estimated Glomerular Filtration Rate >90 >=60 mL/min Sodium 138 135 - 146 mmol/L Potassium 3.5 3.5 - 5.1 mmol/L Chloride 99 98 - 107 mmol/L CO2 26 22 - 32 mmol/L Anion Gap 13 7 - 15 mmol/L Glucose 140 (H) 70 - 120 mg/dL Albumin 4.6 3.8 - 5.0 g/dL AST 21 10 - 35 U/L Alkaline Phosphatase 82 35 - 130 U/L Bilirubin, Total 0.4 <=1.2 mg/dL Calcium 10.2 8.4 - 10.2 mg/dL Protein 7.4 6.0 - 8.3 g/dL ALT 31 10 - 35 U/L CBC Result Value Ref Range WBC 16.21 (H) 4.00 - 10.80 K/uL RBC 3.82 3.85 - 5.15 M/uL HGB 11.9 (L) 12.0 - 15.3 g/dL HCT 35.3 (L) 36.0 - 45.2 % MCV 92.4 81.5 - 97.5 fL MCH 31.2 27.0 - 34.0 pg MCHC 33.7 32.0 - 36.0 g/dL RDW 13.8 11.5 - 15.5 % PLT 264 140 - 400 K/uL MPV 9.4 6.6 - 11.1 fL DIFFERENTIAL, AUTOMATED Result Value Ref Range WBC 16.21 (H) 4.00 - 10.80 K/uL Neutrophils % 80.2 (H) 40.0 - 75.0 % Lymphocytes % 14.9 (L) 18.0 - 42.0 % Monocytes % 4.6 1.0 - 11.0 % Eosinophils % 0.0 0.0 - 6.0 % Basophils % 0.3 0.0 - 2.0 % Absolute Neutrophils 13.00 (H) 1.80 - 7.70 K/uL Absolute Lymphocytes 2.41 1.00 - 4.80 K/ul Absolute Monocytes 0.75 0.00 - 1.10 K/uL Absolute Eosinophils 0.00 0.00 - 0.70 K/uL Absolute Basophils 0.05 0.00 - 0.20 K/uL DIFFERENTIAL, TECHNOLOGIST REVIEW Result Value Ref Range nRBCs Reactive Lymphocytes Present (A) None Seen IMPRESSION/PLAN: Left breast cancer, hormonal negative, HER2 Jerry positive, 1.5 cm. Encounter for chemotherapy Lab results reviewed: unremarkable Ok for C3D1 of TCHP today as scheduled - planned for six total cycles Will continue Pegfilgrastim support D2 d/t risk for febrile neutropenia. Confirmed taking dexamethasone as prescribed. Overall tolerating treatment plan well. Will closely monitor for CIPN. ECHO 05/10/23 reviewed: LVEF 60% - no change -continue to monitor every 2 cycles for the first 6 cycles of treatment then every 3 months. Planning for breast conservative surgery followed by radiation treatment in her case after completion of neoadjuvant chemotherapy. Will update general surgery on tentative chemotherapy end date. RTC as scheduled MEAGAN Mclain documented in this encounter Nursing Notes * Kaitlynn Castro CMA - 05/17/2023 8:22 AM EDT Patient identifed by name and birthdate Do you have any concerns about pain management for today's visit? No Living Will or Advance Directive for Health Care as noted on the problem list. [employer] is a way you can talk to your provider on line through e-mail. Would you like to sign up? I can activate it for you? ALREADY ACTIVE Filed Vitals: 05/17/23 0822 BP: 145/85 Pulse: 86 Resp: 16 Temp: 36.7 C (98 F) TempSrc: Oral SpO2: 95% Weight: 63 kg (138 lb 12.8 oz) Patient was instructed to not get up on the exam table/exam chair until directed and assisted by their provider; patient is to remain seated in the chair/ wheelchair/ exam table/ exam chair for fall prevention and safety reasons. Patient is aware to have assistance to step down off exam table/exam chair with personnel. Patient voiced full comprehension of instructions. documented in this encounter Plan of Treatment Upcoming Encounters Date Type Department Care Team (Late st Contact Info) Description 06/07/2023 8:10 AM EST Laboratory Laboratory [facility] [place] [address] [place] [phone] [place], Lab [facility] [address] [place] [address] 06/07/2023 9:00 AM EST Hem/Onc Treatment Hematology/Oncology Treatment, [address] [place] [address] Yudi, Chair 3 Hem Onc [place] [address] [place] [address] [address] 06/08/2023 1:15 PM EST Office Visit Hematology/Oncology [facility] [place] [address] [place] [address] [address] Serafin Goins MD 200 [facility] [place] [address] 06/08/2023 1:45 PM EST Immunization/Injectio n Hematology/Oncology Treatment, [address] [place] [address] Nurse, Med [address] [place] [address] 11/05/2023 8:40 AM EDT Office Visit Family Practice [facility] [place] [address] [place] [address] Sabrina Chang DO [address] [place] [address] Health Maintenance Due Date Last Done Comments [...] this encounter Medical Devices Implanted Type Area Associate Chief Nurse Device Identifier Shelf Expiration Date Model / Serial / Lot Port Power Mri W/8fr Cath - [id number] Implanted:Qty: 1 on 03/31/2023 by Sobia Hernandez MD at OR [facility] Right: Chest CR BARD : PERIPHERAL VASCULAR 12/17/2023 [id number] / / [id number] documented as of this encounter Visit Diagnoses Diagnosis Malignant neoplasm of upper-outer quadrant of left breast in female, estrogen 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- Primary Encounter for antineoplastic chemotherapy documented in this encounter Advance Directives Latest Code Status on File Code Status Date Activated Date Inactivated Comments Full Code 03/31/2023 6:47 AM 03/31/2023 5:04 PM This order reflects the patients wishes and were consensually agreed upon. Question Answer Comments Discussion of Advance Directives occurred with: Patient Does the patient have a Living Will? No Does the patient have Health Care Power of Icu Staff Nurse? No Care Teams Bindery Machine Operator Relationship Specialty Start Date End Date Sabrina Chang DO [address] [place] [address] PCP - General Family Medicine 09/15/18 documented as of this encounter
--- OUTSIDE RECORDS SUMMARY | 2023-06-13 20:11 | External Medical Summary | Summary of Care ---
Author Name Unknown Organization [facility] Address [address] [place] [address] Phone [phone] Care Team Providers Care English Horn Player Name Role Phone Sabrina Chang DO Primary Care Provider Reason for Visit * Reason Comments Medication Administration Udenyca * Episode Based Medications (Routine) - Authorized Specialty Diagnoses / Procedures Referred By Contac t Referred To Contact Diagnoses Encounter for antineoplastic chemotherapy Malignant neoplasm of upper-outer quadrant of left breast in female, estrogen 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 Procedures ME CARBOPLATIN INJECTION ME FOSAPREPITANT INJECTION ME INJECTION, PERTUZUMAB, 1 MG ME INJ ONTRUZANT 10 MG ME INJECTION, UDENYCA 0.5 MG ME DOCETAXEL INJECTION Serafin Goins MD [address] [facility] [place] [address] Anc Hem/Onc [facility] [address] [place] [address] [address] Referral ID Status Reason Start Date Expiration Date V isits Requested Visits Authorized [id number] Authorized 03/24/2023 09/23/2023 999 999 Encounter Details Date Type Department Care Team Description 04/27/2023 Immunization/I njection Hematology/Oncology Treatment, [place] [address] [place] [address] [address] Nurse, Med [address] [place] [address] [address] Encounter for antineoplastic chemotherapy*; Malignant neoplasm of upper-outer quadrant of left breast in female, estrogen 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 Allergies Active Allergy Reactions Severity Noted Date Comments Lisinopril Edema face/lips/tongue High 02/19/2017 angioedema documented as of this encounter (statuses as of 04/27/2023) Medications Medication Sig Dispensed Refills Start Date [...] as of this encounter (statuses as of 04/27/2023) Active Problems Problem Noted Date Encounter for antineoplastic chemotherap y 03/24/2023 Malignant neoplasm of upper- outer quadrant of left breast in female, estrogen 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 03/24/2023 Hyperlipidemia 04/17/2014 HTN, goal below 140/90 04/17/2014 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 documented as of this encounter (statuses as of 04/27/2023) Resolved Problems Problem Noted Date Resolved Date Bilateral impacted cerumen 10/27/201606/07 Overview: acute ABN PAP SMEAR-CERVIX(aka DYSPLASIA) 01/02/2004 10/27/2016 Varicella without complication 0 10/27/2016 Mumps without complication 10/27 Mucous polyp of cervix 9 documented as of this encounter (statuses as of 04/27/2023) Immunizations Name Administration Dates Next Due COVID-19 mRNA, LNP-s, No Pre serve, 2-Dose Series ([employer]) 07/03/2021,10/09/2020,09/11/2020 Hep A - Hepatitis A (ped/adole, [...] Nursing Notes * Haley Pinzon LPN - 04/27/2023 1:53 PM EDT Pt arrived for Udenyca injection. Administered in [place]. Pt tolerated well. To return in a few weeks.Discharged in stable condition. documented in this encounter Plan of Treatment Upcoming Encounters Date Type Specialty Care Team Description 05/10/2023 Cardiac Studies Cardiac Studies 05/17/2023 Laboratory Laboratory [place], Lab Scenery [address] [place] [address] 05/17/2023 Office Visit Hematology Oncology Judith Murillo CRNP [address] [place] [address] 05/17/2023 Hem/Onc Treatment Hematology Oncology [place], Chair 6 Hem Onc Scenery [address] [place] [address] 06/07/2023 Laboratory Laboratory [place], Lab Scenery [address] [place] [address] 06/07/2023 Hem/Onc Treatment Hematology Oncology [place], Chair 3 Hem Onc Scenery [address] [place] [address] 06/08/2023 Office Visit Hematology Oncology Serafin Goins MD [address] [place] [address] 06/08/2023 Immunization/Injection Hematology Oncolog y Nurse, Med [address] [place] [address] 11/05/2023 Office Visit Family Medicine Sabrina Chang, [address] [place] [address] Health Maintenance Due Date Last Done Comments [...] this encounter Medical Devices Implanted Type Area Senior Teller Device Identifier Shelf Expiration Date Model / Serial / Lot Port Power Mri W/8fr Cath - [id number] Implanted:Qty: 1 on 03/31/2023 by Sobia Hernandez MD at OR [facility] Right: Chest CR BARD : PERIPHERAL VASCULAR 12/17/2023 [id number] / / [id number] documented as of this encounter Visit Diagnoses Diagnosis Encounter for antineoplastic chemotherapy- Primary Malignant neoplasm of upper-outer quadrant of left breast in female, estrogen 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 documented in this encounter Administered Medications Inactive Administered Medications - up to 3 most recent administrations Medication Order MAR Action Action Date Dose Rate Site Pegfilgrastim-cbqv (Udenyca) inj 6 mg 6 mg, Subcutaneous, ONCE, On Tu04/27/23 at 1345, For 1 dose Given 04/27/2023 1:06 PM EDT 6 mg Arm L eft Upper documented in this encounter Advance Directives [...] the patient have Health Care Power of Cisco Network Architect? No Care Teams English Horn Player Relationship Specialty Start Date End Date Sabrina Chang DO [address] [place] [address] PCP - General Family Medicine 09/15/18 documented as of this encounter
--- OUTSIDE RECORDS SUMMARY | 2023-06-13 20:11 | External Medical Summary ---
Author Name Unknown Address Unknown Organization K09:[facility] [place] [address] Laboratory Report Ordering Provider Test Date Status KELLEY MERAZ 06/07/2023 08:03:38 Final Observation Date Value Abnormality Reference (Units ) Status WBC, Total 06/07/2023 08:03:38 8.72 4.00-10.8 0 (K/uL) Final RBC 06/07/2023 08:03:38 3.50 3.85-5.15 (M/uL) Final Hemoglobin 06/07/2023 08:03:38 11.0 Below low normal 12 .0-15.3 (g/dL) Final HCT 06/07/2023 08:03:38 33.2 Below low normal 36. 0-45.2 (%) Final MCV 06/07/2023 08:03:38 94.9 81.5-97.5 (fL) Final MCH 06/07/2023 08:03:38 31.4 27.0-34.0 (pg) Final MCHC 06/07/2023 08:03:38 33.1 32.0-36.0 (g/dL) Final RDW 06/07/2023 08:03:38 15.2 11.5-15.5 (%) Final Platelets 06/07/2023 08:03:38 255 140-400 (K /uL) Final MPV 06/07/2023 08:03:38 9.1 6.6-11.1 ( fL) Final Performing Location [facility] [place] [address]
--- OUTSIDE RECORDS SUMMARY | 2023-06-13 20:11 | External Medical Summary ---
Author Name Unknown Address Unknown Organization K09:[facility] [place] [address] Laboratory Report Ordering Provider Test Date Status KELLEY MERAZ 05/17/2023 07:42:06 Final Observation Date Value Abnormality Reference (Units ) Status Nucleated erythrocytes/100 leukocytes [Ratio] in Blood by Automated count 05/17/2023 07:42:06 Final Variant lymphocytes [Presence] in Blood by Light microscopy 05/17/2023 07:42:06 Present Abnormal None Seen Final Performing Location [facility] [place] [address]
--- OUTSIDE RECORDS SUMMARY | 2023-06-13 20:11 | External Medical Summary | Summary of Care ---
Author Name Unknown Organization [facility] Address [address] [facility] [place] [address] Phone [phone] Care Team Providers Care Furnace Caretaker Name Role Phone Sabrina Chang DO Primary Care Provider Encounter Details Date Type Department Care Team Description 04/13/2023 Telephone General Surgery, [facility] [address] [facility] [place] [address] Sobia Hernandez MD [facility] [place] [address] Allergies Active Allergy Reactions Severity Noted Date [...] mRNA, LNP-s, No Pre serve, 2-Dose Series ([employer]) 07/03/2021,10/09/2020,09/11/2020 Hep A - Hepatitis A (ped/adole, [...] encounter Miscellaneous Notes * Telephone Encounter - Serafin Goins MD - 04/13/2023 2:12 PM EDT Noted. Thanks. * Telephone Encounter - Sobia Hernandez MD - 04/13/2023 11:03 AM EDT Pathology result discussed with pt. US biopsy is negative at the 6:00 location (done for area seen on MRI) Will be a candidate for left lumpectomy of the upper outer cancer following chemotherapy. Will needsavi coin purse assembler into the tumor. A. Left breast, 6 o'clock retroareolar, needle core biopsy: -- Breast parenchyma with sclerosing fibrocystic changes and chronic inflammation. -- Negative for atypia and malignancy. at 1448 Order Comments Ultrasound guided left breast core biopsy of a hypoechoic lesion at 6:00 RA measuring 6 x 5 x 6mm. R/o cyst with gilma r/o ca documented in this encounter Plan of Treatment Upcoming Encounters Date Type Specialty Care Team Description 04/26/2023 Laboratory Laboratory [place], Lab Scenery [address] [place] [address] 04/26/2023 Office Visit [facility]ematology [facility]cology [facility] [id number] 04/26/2023 Hem/Onc Treatment Hematology Oncology [place], Chair 6 Hem Onc Scenery [address] [place] [address] 11/05/2023 Office Visit Family Medicine Sabrina Chang, [address] [place] [address] Health Maintenance Due Date Last Done Comments [...] this encounter Medical Devices Implanted Type Area Electronic Console Display Operator Device Identifier Shelf Expiration Date Model / Serial / Lot Port Power Mri W/8fr Cath - [id number] Implanted:Qty: 1 on 03/31/2023 by Sobia Hernandez MD at OR [facility] Right: Chest CR BARD : PERIPHERAL VASCULAR 12/17/2023 [id number] / / [id number] documented as of this encounter Advance Directives [...] the patient have Health Care Power of Professional Development Instructor? No Care Teams Furnace Caretaker Relationship Specialty Start Date End Date Sabrina Chang DO [address] [place] [address] PCP - General Family Medicine 09/15/18 documented as of this encounter
--- OUTSIDE RECORDS SUMMARY | 2023-06-13 20:11 | External Medical Summary | Summary of Care ---
Author Name Unknown Organization [facility] Address [address] [facility] [address] Phone [phone] Care Team Providers Care Insurance Coordinator Name Role Phone Edmaralexandria Sabrina Ballesteros DO Primary Care Provider Reason for Referral * Precert (Within 10 days (routine)) - Authorized Specialty Diagnoses / Procedures Referred By Contac t Referred To Contact Cardiac Studies Diagnoses Status post administration of cardiotoxic chemotherapy Procedures ECHO, COMPLETE (2D), TRANS-THORACIC Judith Murillo CRNP [address] [place] [address] Referral ID Status Reason Start Date Expiration Date V isits Requested Visits Authorized [id number] Authorized Precert 05/10/2023 999 999 Reason for Visit * Reason Comments Chemotherapy Chemo/recheck Encounter Details Date Type Department Care Team Description 04/26/2023 Office Visit Hematology/Oncology [place] [facility] [address] [facility] [address] Malignant neoplasm of upper-outer quadrant of left breast in female, estrogen 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 *; Encounter for antineoplastic chemotherapy; Status post administration of cardiotoxic chemotherapy Allergies Active Allergy Reactions Severity Noted Date Comments Lisinopril Edema face/lips/tongue High 02/19/2017 angioedema documented as of this encounter (statuses as of 04/28/2023) Medications Medication Sig Dispensed Refills Start Date [...] as of this encounter (statuses as of 04/28/2023) Active Problems Problem Noted Date Encounter for antineoplastic chemotherap y 03/24/2023 Malignant neoplasm of upper- outer quadrant of left breast in female, estrogen 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 03/24/2023 Hyperlipidemia 04/17/2014 HTN, goal below 140/90 04/17/2014 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 documented as of this encounter (statuses as of 04/28/2023) Resolved Problems Problem Noted Date Resolved Date Bilateral impacted cerumen 10/27/201606/07 Overview: acute ABN PAP SMEAR-CERVIX(aka DYSPLASIA) 01/02/2004 10/27/2016 Varicella without complication 0 10/27/2016 Mumps without complication 10/27 Mucous polyp of cervix 9 documented as of this encounter (statuses as of 04/28/2023) Immunizations Name Administration Dates Next Due COVID-19 mRNA, LNP-s, No Pre serve, 2-Dose Series ([employer]) 07/03/2021,10/09/2020,09/11/2020 Hep A - Hepatitis A (ped/adole, [...] Sign Reading Time Taken Comments Blood Pressure 149/88 04/26/2023 8:27 AM EDT Pulse 89 04/26/2023 8:27 AM EDT Temperature 37.1 C (98.7 F) 04/26/2023 8:27 AM ED T Respiratory Rate 16 04/26/2023 8:27 AM EDT Oxygen Saturation 95% 04/26/2023 8:27 AM EDT Inhaled Oxygen Concentration - - Weight 64.6 kg (142 lb 8 oz) 04/26/2023 8:27 AM EDT Height - - Body Mass Index 23 03/31/2023 7:00 AM EDT documented in this encounter Progress Notes * MEAGAN Meredith - 04/26/2023 8:30 AM EDT Hematology/Oncology Outpatient Clinic note [facility] [address] [facility] [address] [address] [place], [place] [address] Name: Karina Verma Date: 04/26/2023 CHIEF COMPLAINT: Karina Verma is a 67 year old female here today for f/u visit today. Patient of Dr. Serafin Goins. From Patient chart confirmed with patient. From Dr. Serafin Goins note 03/19/23. HEMATOLOGY/ONCOLOGY DIAGNOSIS: Left breast cancer, hormonal negative, [...] no special type, grade 3, ER negative, CT negative, HER2 Jerry positive by IHC. OTHER IMPORTANT HISTORY: - Hyperlipidemia. -hypertension. HISTORY OF PRESENT ILLNESS: Karina Verma is a 67 year old female with a history as outlined above. Currently here for f/u visit today and consideration for C2D1 of treatment. Patient reports that she developed mouth sores a week after treatment. Resolved with baking soda/salt water rinses. Experienced some mild nausea thatdid not require antiemetics. Did report fatigue. For a couple days after chemo felt she lost control of her bowels. Did have one incontinent episodes. Is pushing oral fluids. Confirms taking dexamethasone as prescribed. Has some slight neuropathy in the finger tips. Had this somewhat prior to chemotherapy. Does have some slight weakness in her hands that was present prior to chemotherapy as well.Does have some arthritis in her hands as well. Did get some AM headaches but did not take anything for this. Did have some back pain after the injection. Did take claritin as recommended. This has now resolved. Denies any weakness or numbness in the lower extremities. Did get diarrhea after chemotherapy. Did take imodium two tablets and this resolved. Had this about a week. Past Medical History: Diagnosis Date ABN PAP [...] OF EYE DRUG 03/08/2013 #2 Kenalog, OS, #[id number] INJECTION OF EYE DRUG 04/18/2013 #3 Lucentis 0.5mg OS, Dr. Schneider INJECTION OF EYE DRUG 05/30/2013 #3 Kenmichael OS, Dr. Schneider INJECTION OF EYE DRUG 09/20/2013 #4 Kenalog OS, Dr. Schneider INSER TUNN ACC DEV;5 YRS/OLDER Right 03/31/2023 INSERT TUNNELED CENTRAL VENOUS ACCESS WITH SUBQ PORT performed by Sobia Hernandez MD at OR [facility] LASIK/PRK SURGERY 04/18/2005 LIGATE/CUT OVIDUCT(S) AT SURGERY [...] Smoking status: Former Packs/day: 1.00 Years: 10.00 Pack years: 10.00 Types: Cigarettes Quit date: 07/19/1986 Years since quittin.7 Smokeless tobacco: Never Vaping Use Vaping Use: [...] on file Food Insecurity: No Food Insecurity Worried About Running Out of Food in [...] HPI - otherwise negative OBJECTIVE: Filed Vitals: 04/26/23 0827 BP: 149/88 Pulse: 89 Resp: 16 Temp: 37.1 C (98.7 F) TempSrc: Tympanic SpO2: 95% Weight: 64.6 kg (142 lb 8 oz) Wt Readings from Last 5 Encounters: 04/26/23 64.6 kg (142 lb 8 oz) 04/05/23 65.9 kg (145 lb 3.2 oz) 03/31/23 65.8 kg (145 lb) 03/19/23 65.8 kg (145 lb 1.6 oz) 03/18/23 66.3 kg (146 lb 3.2 oz) PHYSICAL EXAM: ECOG: Performance Status 1 [...] orders placed or performed in visit on 04/26/23 COMPREHENSIVE METABOLIC PANEL Result Value Ref Range BUN 14 6 - 20 mg/dL Creatinine 0.6 0.5 - 1.0 mg/dL Estimated Glomerular Filtration Rate >90 >=60 mL/min Sodium 136 135 - 146 mmol/L Potassium 4.0 3.5 - 5.1 mmol/L Chloride 99 98 - 107 mmol/L CO2 25 22 - 32 mmol/L Anion Gap 12 7 - 15 mmol/L Glucose 173 (H) 70 - 120 mg/dL Albumin 4.6 3.8 - 5.0 g/dL AST 21 10 - 35 U/L Alkaline Phosphatase 73 35 - 130 U/L Bilirubin, Total 0.4 <=1.2 mg/dL Calcium 10.0 8.4 - 10.2 mg/dL Protein 7.6 6.0 - 8.3 g/dL ALT 28 10 - 35 U/L CBC Result Value Ref Range WBC 12.92 (H) 4.00 - 10.80 K/uL RBC 4.06 3.85 - 5.15 M/uL HGB 12.6 12.0 - 15.3 g/dL HCT 37.1 36.0 - 45.2 % MCV 91.4 81.5 - 97.5 fL MCH 31.0 27.0 - 34.0 pg MCHC 34.0 32.0 - 36.0 g/dL RDW 12.1 11.5 - 15.5 % PLT 307 140 - 400 K/uL MPV 9.2 6.6 - 11.1 fL DIFFERENTIAL, AUTOMATED Result Value Ref Range WBC 12.92 (H) 4.00 - 10.80 K/uL Neutrophils % 84.9 (H) 40.0 - 75.0 % Lymphocytes % 11.1 (L) 18.0 - 42.0 % Monocytes % 3.6 1.0 - 11.0 % Eosinophils % 0.0 0.0 - 6.0 % Basophils % 0.4 0.0 - 2.0 % Absolute Neutrophils 10.96 (H) 1.80 - 7.70 K/uL Absolute Lymphocytes 1.44 1.00 - 4.80 K/ul Absolute Monocytes 0.47 0.00 - 1.10 K/uL Absolute Eosinophils 0.00 0.00 - 0.70 K/uL Absolute Basophils 0.05 0.00 - 0.20 K/uL IMPRESSION/PLAN: Left breast cancer, hormonal negative, HER2 Jerry positive, 1.5 cm. Encounter for chemotherapy Lab results reviewed: unremarkable Ok for C2D1 of TCHP today as scheduled - planned for six total cycles Will continue Pegfilgrastim support D2 d/t risk for febrile neutropenia. Confirmed taking dexamethasone as prescribed. Overall tolerating treatment plan well. Will closely monitor for CIPN. Echo every 2 cycles for the first 6 cycles of treatment then every 3 months. Order placed today. Planning for breast conservative surgery followed by radiation treatment in her case after completion of neoadjuvant chemotherapy. Will update general surgery on tentative chemotherapy end date at next office visit. RTC in three weeks with provider for chemo return RTC in six weeks with physician for chemo return MEAGAN Mclain documented in this encounter Nursing Notes * Kaitlynn Castro, SALES PORTER - 04/26/2023 8:28 AM EDT Patient identifed by name and birthdate Do you have any concerns about pain management for today's visit? No Living Will or Advance Directive for Health Care as noted on the problem list. [facility] is a way you can talk to your provider on line through e-mail. Would you like to sign up? I can activate it for you? ALREADY ACTIVE Filed Vitals: 04/26/238[address] BP: 149/88 Pulse: 89 Resp: 16 Temp: 37.1 C (98.7 F) TempSrc: Tympanic SpO2: 95% Weight: 64.6 kg (142 lb 8 oz) Patient was instructed to not get [...] Cardiac Studies Cardiac Studies 05/17/2023 Laboratory Laboratory [place], Lab Scenery [address] [place] [address] 05/17/2023 Office Visit Hematology Oncology Judith Murillo CRNP [address] [facility] [place] [address] 05/17/2023 Hem/Onc Treatment Hematology Oncology [place], Chair 6 Hem Onc Scenery [address] [place] [address] 06/07/2023 Laboratory Laboratory [place], Lab Scenery [address] [place] [address] 06/07/2023 Hem/Onc Treatment Hematology Oncology [place], Chair 3 Hem Onc Scenery [address] [place] [address] 06/08/2023 Office Visit Hematology Oncology Serafin Goins MD [address] [place] [address] 06/08/2023 Immunization/Injection Hematology Oncolog y Nurse, Med [address] [place] [address] 11/05/2023 Office Visit Family Medicine Sabrina Chang DO [address] [place] [address] Scheduled Orders Name Type Priority Associated Diagnoses Orde r Schedule ECHO, COMPLETE (2D), TRANS-THORACIC Echocardiology Routine Status post administration of cardiotoxic chemotherapy Expected: 05/10/2023 (Approximate), Expires: 07/27/2023 Health Maintenance Due Date Last Done Comments [...] this encounter Medical Devices Implanted Type Area Security Researcher Device Identifier Shelf Expiration Date Model / Serial / Lot Port Power Mri W/8fr Cath - [id number] Implanted:Qty: 1 on 03/31/2023 by Sobia Hernandez MD at OR [facility] Right: Chest CR BARD : PERIPHERAL VASCULAR 12/17/2023 [id number] / / [id number] documented as of this encounter Visit Diagnoses Diagnosis Malignant neoplasm of upper-outer quadrant of left breast in female, estrogen 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- Primary Encounter for antineoplastic chemotherapy Status post administration of cardiotoxic chemotherapy documented in this encounter Advance Directives [...] the patient have Health Care Power of Export Agent? No Care Teams Insurance Coordinator Relationship Specialty Start Date End Date Sabrina Chang DO [address] [place] [address] PCP - General Family Medicine 09/15/18 documented as of this encounter
--- OUTSIDE RECORDS SUMMARY | 2023-06-13 20:11 | External Medical Summary | Summary of Care ---
Author Name Unknown Organization [facility] Address [address] [place] [address] Phone [phone] Care Team Providers Care Steam Table Worker Name Role Phone Sabrina Chang DO Primary Care Provider Reason for Visit * Reason Onset Date Comments Follow Up 04/07/2023 C1D1 TCHP Encounter Details Date Type Department Care Team Description 04/07/2023 Telephone Hematology/Oncology Treatment, [place] [address] [place] [id number] Serafin Goins MD [address] [place] [address] Follow Up (C1D1 TCHP) Allergies Active Allergy Reactions Severity Noted Date Comments Lisinopril Edema face/lips/tongue High 02/19/2017 angioedema documented as of this encounter (statuses as of 04/07/2023) Medications Medication Sig Dispensed Refills Start Date [...] left breast in female, estrogen 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 (HCC) Take 1 Tablet by mouth every 8 hours as needed for Nausea. 30 Tablet 2 03/24/2023 Active Additional Information Patient not taking.Reported on 03/31/2023 Prochlorperazine Maleate 10 MG Oral Tablet (Compazine)Indicatio ns:Malignant neoplasm of upper-outer quadrant of left breast in female, estrogen 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 (HCC) Take 1 Tablet by mouth every 6 hours as needed for Nausea. 30 Tablet 2 03/24/2023 Active Additional Information Patient not taking.Reported on 03/31/2023 Dexamethasone 4 MG Oral Tablet (Decadron)Indication s:Malignant neoplasm of upper-outer quadrant of left breast in female, estrogen 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 (HCC) Take 8mg (2 tabs) twice a day for 3 days starting the day before chemotherapy 72 Tablet 0 03/24/2023 Active Additional Information Patient not taking.Reported on 03/31/2023 Lidocaine-Prilocaine 2.5-2.5 % External Cream (Emla)Indications:Ma lignant neoplasm of upper-outer quadrant of left breast in female, estrogen 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 (HCC) APPLY TO SKIN OVER MEDIPORT & COVER 1HR PRIOR TO ACCESSING. 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 documented as of this encounter (statuses as of 04/07/2023) Resolved Problems Problem Noted Date Resolved Date Bilateral impacted cerumen 10/27/201606/07 Overview: acute ABN PAP SMEAR-CERVIX(aka DYSPLASIA) 01/02/2004 10/27/2016 Varicella without complication 0 10/27/2016 Mumps without complication 10/27 Mucous polyp of cervix 9 documented as of this encounter (statuses as of 04/07/2023) Immunizations Name Administration Dates Next Due COVID-19 mRNA, LNP-s, No Pre serve, 2-Dose Series ([employer] 07/03/2021,10/09/2020,09/11/2020 Hep A - Hepatitis A (ped/adole, [...] encounter Miscellaneous Notes * Telephone Encounter - Megan Galvan RN - 04/07/2023 1:52 PM EDT HEMATOLOGY/ONCOLOGY INITIAL CHEMO FOLLOW-UP Post chemo side effects: Diarrhea - pt states that her stool is loose, it is not diarrhea. Reviewed how to manage diarrhea. Pt states that overall she feels "wonderful" she denies any needs. Understands post treatment medications: Yes Understands to call office prior to ER visit/or with issues: Yes Aware of next appointment: Yes Additional information: n/a * Telephone Encounter - Megan Galvan RN - 04/07/2023 1:43 PM EDT HEMATOLOGY/ONCOLOGY INITIAL CHEMO FOLLOW-UP Attempted to call patient/ no answer/lmom. documented in this encounter Plan of Treatment Upcoming Encounters Date Type Specialty Care Team Description 04/26/2023 Laboratory Laboratory [place], Lab Scenery [address] [place] [address] 04/26/2023 Office Visit [facility] [address] [facility] [place] [address] 04/26/2023 Hem/Onc Treatment Hematology Oncology [place], Chair 6 Hem Onc Scenery [address] [place] [address] 11/05/2023 Office Visit Family Medicine Sabrina Chang, [address] [place] [address] Health Maintenance Due Date Last Done Comments [...] this encounter Medical Devices Implanted Type Area Supervisor Partial Denture Department Device Identifier Shelf Expiration Date Model / Serial / Lot Port Power Mri W/8fr Cath - [id number] Implanted:Qty: 1 on 03/31/2023 by Sobia Hernandez MD at OR [facility] Right: Chest CR BARD : PERIPHERAL VASCULAR 12/17/2023 [id number] / / [id number] documented as of this encounter Advance Directives [...] the patient have Health Care Power of Ferry Boat Captain? No Care Teams Steam Table Worker Relationship Specialty Start Date End Date Sabrina Chang DO [address] [place] [address] PCP - General Family Medicine 09/15/18 documented as of this encounter
--- OUTSIDE RECORDS SUMMARY | 2023-06-13 20:11 | External Medical Summary | Summary of Care ---
Author Name Unknown Organization [facility] Address [address] [place] [address] Phone [phone] Care Team Providers Care Resident Intern Name Role Phone Sabrina Chang DO Primary Care Provider Reason for Visit * Reason Comments Chemotherapy C3D1 TCHP * Episode Based Medications (Routine) - Authorized Specialty Diagnoses / Procedures Referred By Contac t Referred To Contact Diagnoses Encounter for antineoplastic chemotherapy Malignant neoplasm of upper-outer quadrant of left breast in female, estrogen 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 Procedures VA CARBOPLATIN INJECTION VA FOSAPREPITANT INJECTION VA INJECTION, PERTUZUMAB, 1 MG VA INJ ONTRUZANT 10 MG VA INJECTION, UDENYCA 0.5 MG VA DOCETAXEL INJECTION Serafin Goins MD [address] [place] [address] Anc Hem/Onc [address] [place] [address] Referral ID Status Reason Start Date Expiration Date V isits Requested Visits Authorized [id number] Authorized 03/24/2023 09/23/2023 999 999 Encounter Details Date Type Department Care Team (Latest Contact Info) Description 05/17/2023 9:00 AM EDT Hem/Onc Treatment [facility]olog [facility] [place] [address] [facility] [address] [place], Chair 6 Hem Onc Scene [address] [facility] [place] [address] Encounter for antineoplastic chemotherapy*; Malignant neoplasm of upper-outer quadrant of left breast in female, estrogen 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 Allergies Active Allergy Reactions Criticality Noted Date Comments Rennypril Edema face/lips/tongue High 02/19/2017 angioedema documented as of this encounter (statuses as of 05/17/2023) Medications Medication Sig Dispensed Refills Start Date [...] as of this encounter (statuses as of 05/17/2023) Active Problems Problem Noted Date Diagnosed Date Encounter for antineoplastic chemotherapy 2022 Malignant neoplasm of upper- outer quadrant of left breast in female, estrogen 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 03/24/2023 Hyperlipidemia 04/17/2014 HTN, goal below 140/90 04/17/2014 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..] as of this encounter Nursing Notes * Coco Peoples RN - 05/17/2023 1:36 PM EDT Functional status at today's visit: Fully active, [...] symptoms or adverse side effects during treatment. Goals: Patient will remain free from injury. Possible barriers to meeting goals: ambulation with IV pole, benadryl pretreat may cause drowsiness Stability of the patient: Moderately stable - low risk of patient condition declining or worsening Summary regarding today's goals: Met: Pt remained free of injury during treatment Patient tolerated treatment well and was discharged in stable condition. Coverage by Lashawn Rosenthal RN. * Coco Peoples RN - 05/17/2023 9:19 AM EDT Chair 6 Pt was seen by Drew HRODES today, see office notes. Will proceed with treatment as planned. VAD accessed without difficulty, good blood return noted, flushed with NSS and fluids infusing. Safety and Risk for Injury Patient will remain free from injury. Ensure appropriate safety devices are available. Provide and maintain safe environment. documented in this encounter Plan of Treatment Upcoming Encounters Date Type Department Care Team (Late st Contact Info) Description 05/18/2023 1:30 PM EDT Immunization/Injectio n Hematology/Oncology Treatment, [place] [address] [place], [place] [address] Nurse, Med [address] [place] [address] [place] [address] 06/07/2023 8:10 AM EST Laboratory Laboratory [facility] [place] [address] [place] [phone] [place], Lab Scenery [address] [place] [id number] 06/07/2023 9:00 AM EST Hem/Onc Treatment [facility] [place] [facility] [address] [place], Chair 3 Hem Onc [place] [address] [place] [address] [id number] 06/08/2023 1:15 PM EST Office Visit Hematology/Oncology [facility] [place] [address] [place] [address] [id number] Serafin Goins MD [address] [facility] [place] [address] 06/08/2023 1:45 PM EST Immunization/Injectio n [facility]ematology[facility] [place] [facility] [address] Nurse, Med [address] [place] [address] [address] 11/05/2023 8:40 AM EDT Office Visit Family Practice [facility] [place] [address] [place] [address] Sabrina Chang, [facility] [place] [address] Health Maintenance Due Date Last Done Comments [...] this encounter Medical Devices Implanted Type Area Dowel Inserting Machine Operator Device Identifier Shelf Expiration Date Model / Serial / Lot Port Power Mri W/8fr Cath - [id number] Implanted:Qty: 1 on 03/31/2023 by Sobia Hernandez MD at OR [facility] Right: Chest CR BARD : PERIPHERAL VASCULAR 12/17/2023 [id number] / / [id number] documented as of this encounter Visit Diagnoses [...] ONCE PRN Other, Hypersensitivity Reaction, Starting on Wed05/17/23 at 0903, Until Wed05/18/23 at 0902, For 24 hours EPINEPHrine 1 MG/ML inj 0.3 mg 0.3 mg, Intramuscular, ONCE PRN Other, Hypersensitivity Reaction or Anaphylaxis, Starting on Wed05/17/23 at 0903, Until Wed05/18/23 at 0902, For 24 hours hEParin 100 UNIT/ML Lock Flush inj 500 Units 500 Units (5 mL), IV Lock, PRN Other, IV Flush, Starting on Wed05/17/23 at 0903, Until Wed05/18/23 at 0902, For 24 hours, Do not flush if lock, PICC, or central line not in place; IV infusing or unable to flush. Given 05/17/2023 1:01 PM EDT 500 Units Hydrocortisone Sod Suc (PF) (Solu-Cortef) inj 100 mg 100 mg, IV Push, ONCE PRN Other, Hypersensitivity Reaction, Starting on Wed05/17/23 at 0903, Until Wed05/18/23 at 0902, For 24 hours NSS infusion Intravenous, at 50 mL/hr, PRN, Starting on Wed05/17/23 at 1015, Until Discontinued, KVO Start Infusion 05/17/2023 9:10 AM EDT 50 mL/hr oxygen GAS Inhalation, OXYGEN, First dose on Wed05/17/23 at 0945, Until Discontinued, Device/Managed by: Low Flow Device, [...] Push, PRN Other, IV Flush, Starting on Wed05/17/23 at 0903, Until Wed05/18/23 at 0902, For 24 hours, Do not flush if lock, PICC, or central line not in place; IV infusing or unable to flush. Given 05/17/2023 1:01 PM EDT 10 mL Inactive Administered Medications - up to 3 most recent administrations Medication Order MAR Action Action Date Dose Rate Site Acetaminophen (Tylenol) tab 650 mg 650 mg, Oral, ONCE, On Wed05/17/23 at 1015, For 1 dose, Maximum of 4 grams (4000 mg) per day. Given 05/17/2023 9:25 AM EDT 650 mg CARBOplatin (Paraplatin) 623 mg in D5W 250 mL infusion 623 mg (rounded from 622.8 mg, Target AUC = 6), IV Piggyback, at 500 mL/hr Administer over 30 Minutes, PROTECT FROM LIGHT (Max Creatinine Clearance at 125 ml/min for calculating AUC dose), ONCE, 1 dose, On Wed05/17/23 at 1145 Start Infusion 05/17/2023 12:29 PM EDT 623 mg 500 mL/hr diphenhydrAMINE (Benadryl) cap 25 mg 25 mg, Oral, ONCE, On Wed05/17/23 at 1015, For 1 dose Given 05/17/2023 9:25 AM EDT 25 mg DOCEtaxel (Taxotere) 120 mg in NSS 250 mL infusion 120 mg (rounded from 131.25 mg = 75 mg/m2 1.75 m2 Treatment Plan BSA from Recorded weight), IV Piggyback, at 250 mL/hr Administer over 60 Minutes, ONCE, 1 dose, On Wed05/17/23 at 1215 Start Infusion 05/17/2023 11:15 AM EDT 120 mg 250 mL/hr fosaprepitant Dimeglumine (Emend) 150 mg, ondansetron (Zofran) 16 mg, dexamethasone sodium phosphate 12 mg in NSS 250 mL Infusion 150 mg, IV Piggyback, ONCE, 1 dose, On Wed05/17/23 at 1015, Administer over 30 Minutes, Give 30 minutes prior to chemotherapy. Infuse over 30 minutes. Start Infusion 05/17/2023 9:25 AM EDT 150 mg 500 mL/hr PERtuzumab (Perjeta) 420 mg in NSS 250 mL infusion 420 mg, IV Piggyback, ONCE, 1 dose, On Wed05/17/23 at 1045, Administer over 30 Minutes Start Infusion 05/17/2023 10:05 AM EDT 420 mg 500 mL/hr Trastuzumab-dttb (Ontruzant) 395 mg in NSS 250 mL infusion 395 mg (rounded from 394.8 mg = 6 mg/kg 65.8 kg Treatment plan Recorded weight), IV Piggyback, ONCE, 1 dose, On Wed05/17/23 at 1115, Administer over 30 Minutes Start Infusion 05/17/2023 10:38 AM EDT 395 mg 500 mL/hr documented [...] the patient have Health Care Power of Oil Driller? No Care Teams Resident Intern Relationship Specialty Start Date End Date Sabrina Chang DO [address] [place] [address] PCP - General Family Medicine 09/15/18 documented as of this encounter
--- OUTSIDE RECORDS SUMMARY | 2023-06-13 20:11 | External Medical Summary ---
Author Name Unknown Address Unknown Organization [id number] [place] [address] Laboratory Report Ordering Provider Test Date Status KELLEY MERAZ 05/17/2023 07:42:06 Final Observation Date Value Abnormality Reference (Units ) Status BUN 05/17/2023 07:42:06 11 6-20 (mg/dL) Final Creatinine 05/17/2023 07:42:06 0.7 0.5-1.0 (mg/dL) Final Glomerular filtration rate/1.73 sq M.predicted [Volume Rate/Area] in Serum, Plasma or Blood by Creatinine-based formula (CKD-EPI) 05/17/2023 07:42:06 >90 >=60 (mL/min) Final eGFR is calculated based on the CKD-EPI 2020 equation SODIUM 05/17/2023 07:42:06 138 135-146 (m mol/L) Final Potassium 05/17/2023 07:42:06 3.5 3.5-5.1 (m mol/L) Final Cl 05/17/2023 07:42:06 99 98-107 (mm ol/L) Final CO2 05/17/2023 07:42:06 26 22-32 (mmo l/L) Final Anion gap 05/17/2023 07:42:06 13 7-15 (mmol /L) Final Glucose 05/17/2023 07:42:06 140 Above high normal 70 -120 (mg/dL) Final Albumin 05/17/2023 07:42:06 4.6 3.8-5.0 (g /dL) Final AST (Aspartate aminotransferase) 05/17/2023 07:42:06 21 10-35 (U/L) Fin al Alk Phos 05/17/2023 07:42:06 82 35-130 (U/ L) Final Bilirubin, Total 05/17/2023 07:42:06 0.4 <=1 .2 (mg/dL) Final Calcium 05/17/2023 07:42:06 10.2 8.4-10.2 ( mg/dL) Final Protein 05/17/2023 07:42:06 7.4 6.0-8.3 (g /dL) Final ALT (Alanine aminotransferase) 05/17/2023 07:42:06 31 10-35 (U/L) Tej jasso Performing Location [facility] [place] [address]
--- OUTSIDE RECORDS SUMMARY | 2023-06-13 20:11 | External Medical Summary ---
Author Name Unknown Address Unknown Organization [id number] [address] Laboratory Report Ordering Provider Test Date Status KELLEY MERAZ 06/07/2023 08:03:38 Final Observation Date Value Abnormality Reference (Units ) Status SYNC LEUKOCYTES IN BLOOD BY AUTOMATED COUNT 06/07/2023 08:03:38 8.72 4.00-10.80 (K/uL) Final Segs 06/07/2023 08:03:38 74.9 40.0-75.0 (%) Final Lymphs % 06/07/2023 08:03:38 19.3 18.0-42.0 (%) Final Monos 06/07/2023 08:03:38 5.3 1.0-11.0 (%) Final Eosinophils 06/07/2023 08:03:38 0.0 0.0-6.0 (%) Final Basos 06/07/2023 08:03:38 0.5 0.0-2.0 (%) Final Absolute Segs 06/07/2023 08:03:38 6.54 1.80-7.70 (K/uL) Final Lymphs, absolute 06/07/2023 08:03:38 1.68 1.00-4.80 (K/ul) Final Monos, Abs 06/07/2023 08:03:38 0.46 0.00-1.10 (K/uL) Final Eos, Abs 06/07/2023 08:03:38 0.00 0.00-0.70 (K/uL) Final Basos, Abs 06/07/2023 08:03:38 0.04 0.00-0.20 (K/uL) Final Performing Location [facility] [place] [address]
--- OUTSIDE RECORDS SUMMARY | 2023-06-13 20:11 | External Medical Summary ---
Author Name Unknown Address Unknown Organization K09[facility] [place] [address] Laboratory Report Ordering Provider Test Date Status KELLEY MERAZ 04/26/2023 07:44:04 Final Observation Date Value Abnormality Reference (Units ) Status WBC, Total 04/26/2023 07:44:04 12.92 Above high normal 4 .00-10.80 (K/uL) Final RBC 04/26/2023 07:44:04 4.06 3.85-5.15 (M/uL) Final Hemoglobin 04/26/2023 07:44:04 12.6 12.0-15.3 (g/dL) Final HCT 04/26/2023 07:44:04 37.1 36.0-45.2 (%) Final MCV 04/26/2023 07:44:04 91.4 81.5-97.5 (fL) Final MCH 04/26/2023 07:44:04 31.0 27.0-34.0 (pg) Final MCHC 04/26/2023 07:44:04 34.0 32.0-36.0 (g/dL) Final RDW 04/26/2023 07:44:04 12.1 11.5-15.5 (%) Final Platelets 04/26/2023 07:44:04 307 140-400 (K /uL) Final MPV 04/26/2023 07:44:04 9.2 6.6-11.1 ( fL) Final Performing Location [facility] [place] [address]
--- OUTSIDE RECORDS SUMMARY | 2023-06-13 20:11 | External Medical Summary | Summary of Care ---
Author Name Unknown Organization [facility] Address [address] [place] [address] Phone [phone] Care Team Providers Care Hollock Maker Name Role Phone Sabrina Chang DO Primary Care Provider Reason for Visit * Reason Comments Outpatient Testing Encounter Details Date Type Department Care Team (Late st Contact Info) Description 05/17/2023 8:00 AM EDT Laboratory Laboratory [facility] [address] [place] [address] [place], Lab Scenery [address] [place] [address] Special screening examination for viral disease; Malignant [...] mRNA, LNP-s, No Pre serve, 2-Dose Series (Wanamaker) 07/03/2021,10/09/2020,09/11/2020 Hep A - Hepatitis A (ped/adole, [...] Upcoming Encounters Date Type Department Care Team (Latest Contact Info) Description 05/17/2023 8:30 AM EDT Office Visit Hematology/Oncolog y [facility] [address] [place] [address] Judith Murillo CRNP [address] [place] [address] PENDING VISIT DRAFT 05/17/2023 9:00 AM EDT Hem/Onc Treatment Hematology/Oncolog y Treatment, [place] [address] [facility], [place] [address] Yudi, Chair 6 Hem Onc Scenery [address] [facility] [place] [address] Arrived 06/07/2023 8:10 AM EST Laboratory Laboratory [facility] [place] [address] [place] [id number] [place], Lab [facility] [address] [facility] [place], [place] [address] 06/07/2023 9:00 AM EST Hem/Onc Treatment Hematology/Oncolog y Treatment, [place] 200 [facility], [place] [address] Yudi, Chair 3 Hem Onc [facility] [address] [facility] [place] [address] 06/08/2023 1:15 PM EST Office Visit Hematology/Oncolog y [facility] [place] [address] [place] [address] Serafin Goins MD 200 [facility] [place] [address] 06/08/2023 1:45 PM EST Immunization/Inject ion [facility]olog [facility], [place] [facility] [address] Nurse, Med 4 [address] [place] [address] 11/05/2023 8:40 AM EDT Office Visit Family Practice [facility] [place] [address] [place] [address] Sabrina Chang DO [address] [facility] [place] [address] Pending Results Name Type Priority Associated Diagnoses Date /Time COMPREHENSIVE METABOLIC PANEL Lab STAT Special screening examination for viral disease Malignant neoplasm of upper-outer quadrant of left breast in female, estrogen 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 Encounter for long-term (current) drug use 05/17/2023 7:42 AM EDT Health Maintenance Due Date Last [...] this encounter Medical Devices Implanted Type Area Packing Machine Can Feeder Device Identifier Shelf Expiration Date Model / Serial / Lot Port Power Mri W/8fr Cath - [id number] Implanted:Qty: 1 on 03/31/2023 by Sobia Hernandez MD at OR [facility] Right: Chest CR BARD : PERIPHERAL VASCULAR 12/17/2023 [id number] / / [id number] documented as of this encounter Procedures Procedure Name Priority Date/Time Associated Diagnosis Comments DIFFERENTIAL, AUTOMATED STAT 05/17/2023 7:42 AM EDT Special screening examination for viral disease Malignant neoplasm of upper-outer quadrant of left breast in female, estrogen 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 Encounter for long-term (current) drug use CBC STAT 05/17/2023 7:42 AM EDT Special screening examination for viral disease Malignant neoplasm of upper-outer quadrant of left breast in female, estrogen 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 Encounter for long-term (current) drug use CBC STAT 05/17/2023 7:42 AM EDT Special screening examination for viral disease Malignant neoplasm of upper-outer quadrant of left breast in female, estrogen 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 Encounter for long-term (current) drug use DIFFERENTIAL, TECHNOLOGIST REVIEW Routine 05/17/2023 7:42 AM EDT Special screening examination for viral disease Malignant neoplasm of upper-outer quadrant of left breast in female, estrogen 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 Encounter for long-term (current) drug use documented in this encounter Results * (ABNORMAL) DIFFERENTIAL, TECHNOLOGIST REVIEW (05/17/2023 7:42 AM EDT) Pathologist [facility] nRBCs 05/17/2023 7:55 AM EDT [facility] 56-02 Reactive Lymphocytes Present(A ) None Seen 05/17/2023 7:55 AM EDT [facility] 56-02 Blood Venous blood specimen / Unknown Venipuncture / Unknown 05/17/2023 7:42 AM EDT 05/17/2023 7:42 AM EDT Serafin Goins MD LAB BLOOD ORDERABLES [facility] 56-[address] [place] [address] * (ABNORMAL) DIFFERENTIAL, AUTOMATED (05/17/2023 7:42 AM EDT) Pathologist [facility] WBC 16.21(H) 4.00 - 10.80 K/uL 05/17/2023 7:55 AM EDT [facility] 56- Neutrophils % 80.2(H) 40.0 - 75.0 % 05/17/2023 7:55 AM EDT [facility] 56-02 Lymphocytes % 14.9(L) 18.0 - 42.0 % 05/17/2023 7:55 AM EDT [facility] 56- Monocytes % 4.6 1.0 - 11.0 % 05/17/2023 7:55 AM EDT [facility] 56- Eosinophils % 0.0 0.0 - 6.0 % 05/17/2023 7:55 AM EDT [facility] 56- Basophils % 0.3 0.0 - 2.0 % 05/17/2023 7:55 AM EDT [facility] 56 Absolute Neutrophils 13.00(H) 1.80 - 7.70 K/uL 05/17/2023 7:55 AM EDT [facility] 56- Absolute Lymphocytes 2.41 1.00 - 4.80 K/ul 05/17/2023 7:55 AM EDT [facility] 56-02 Absolute Monocytes 0.75 0.00 - 1.10 K/uL 05/17/2023 7:55 AM EDT [facility] 56-02 Absolute Eosinophils 0.00 0.00 - 0.70 K/uL 05/17/2023 7:55 AM EDT [facility] 56-02 Absolute Basophils 0.05 0.00 - 0.20 K/uL 05/17/2023 7:55 AM EDT [facility] 56 Blood Venous blood specimen / Unknown Venipuncture / Unknown 05/17/2023 7:42 AM EDT 05/17/2023 7:42 AM EDT Serafin Goins MD LAB BLOOD ORDERABLES [facility] 56- [address] [place] [address] * (ABNORMAL) CBC (05/17/2023 7:42 AM EDT) WBC 16.21(H) 4.00 - 10.80 K/uL 05/17/2023 7:55 AM EDT [facility] 56 RBC 3.82 3.85 - 5.15 M/uL 05/17/2023 7:55 AM EDT [facility] 56 HGB 11.9(L) 12.0 - 15.3 g/dL 05/17/2023 7:55 AM EDT [facility] 56 HCT 35.3(L) 36.0 - 45.2 % 05/17/2023 7:55 AM EDT [facility] 56 MCV 92.4 81.5 - 97.5 fL 05/17/2023 7:55 AM EDT [facility] 56- MCH 31.2 27.0 - 34.0 pg 05/17/2023 7:55 AM EDT [facility] 56- MCHC 33.7 32.0 - 36.0 g/dL 05/17/2023 7:55 AM EDT [facility] 56 RDW 13.8 11.5 - 15.5 % 05/17/2023 7:55 AM EDT [facility] 56- PLT 264 140 - 400 K/uL 05/17/2023 7:55 AM T [facility] 56- MPV 9.4 6.6 - 11.1 fL 05/17/2023 7:55 AM T [facility] 56 Blood Venous blood specimen / Unknown Venipuncture / Unknown 05/17/2023 7:42 AM EDT 05/17/2023 7:42 AM EDT Serafin Goins MD LAB BLOOD ORDERABLES [facility] 56- [address] [place] [address] documented in this encounter Visit Diagnoses Diagnosis [...] the patient have Health Care Power of Wood Bucker? No Care Teams Hollock Maker Relationship Specialty Start Date End Date Sabrina Chang DO [address] [place] [address] PCP - General Family Medicine 09/15/18 documented as of this encounter
--- OUTSIDE RECORDS SUMMARY | 2023-06-13 20:11 | External Medical Summary ---
Author Name Unknown Address Unknown Organization [facility] [place] [address] Laboratory Report Ordering Provider Test Date Status KELLEY MERAZ 05/17/2023 07:42:06 Final Observation Date Value Abnormality Reference (Units ) Status WBC, Total 05/17/2023 07:42:06 16.21 Above high normal 4 .00-10.80 (K/uL) Final RBC 05/17/2023 07:42:06 3.82 3.85-5.15 (M/uL) Final Hemoglobin 05/17/2023 07:42:06 11.9 Below low normal 12 .0-15.3 (g/dL) Final HCT 05/17/2023 07:42:06 35.3 Below low normal 36. 0-45.2 (%) Final MCV 05/17/2023 07:42:06 92.4 81.5-97.5 (fL) Final MCH 05/17/2023 07:42:06 31.2 27.0-34.0 (pg) Final MCHC 05/17/2023 07:42:06 33.7 32.0-36.0 (g/dL) Final RDW 05/17/2023 07:42:06 13.8 11.5-15.5 (%) Final Platelets 05/17/2023 07:42:06 264 140-400 (K /uL) Final MPV 05/17/2023 07:42:06 9.4 6.6-11.1 ( fL) Final Performing Location [facility] [place] [address]
--- OUTSIDE RECORDS SUMMARY | 2023-06-13 20:11 | External Medical Summary | Summary of Care ---
Author Name Unknown Organization [facility] Address [address] [place] [address] Phone [phone] Care Team Providers Care Galley Cook Name Role Phone Sabrina Chang DO Primary Care Provider Reason for Referral * Precert (Within 10 days (routine)) - Authorized Specialty Diagnoses / Procedures Referred By Contac t Referred To Contact Cardiac Studies Diagnoses Malignant neoplasm of upper-outer quadrant of left breast in female, estrogen 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 Encounter for long-term (current) drug use Procedures ECHO, COMPLETE (2D), TRANS-THORACIC Serafin Goins MD [address] [place] [address] Referral ID Status Reason Start Date Expiration Date V isits Requested Visits Authorized [id number] Authorized Precert 06/08/2023 999 999 Reason for Visit * Reason Comments Chemotherapy Chemo/recheck Encounter Details Date Type Department Care Team (Late st Contact Info) Description 06/08/2023 1:15 PM EST Office Visit Hematology/Oncology [facility] [place] [address] [place] [address] Serafin Goins MD [address] [place] [address] Malignant neoplasm of upper-outer quadrant of left breast in female, estrogen 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 *; Encounter for long-term (current) drug use Allergies [...] mRNA, LNP-s, No Pre serve, 2-Dose Series (NutshellMail) 07/03/2021,10/09/2020,09/11/2020 Hep A - Hepatitis A (ped/adole, [...] Sign Reading Time Taken Comments Blood Pressure 153/82 06/08/2023 1:04 PM EST Pulse 82 06/08/2023 1:04 PM EST Temperature 36.7 C (98 F) 06/08/2023 1:04 PM EST Respiratory Rate 16 06/08/2023 1:04 PM EST Oxygen Saturation 96% 06/08/2023 1:04 PM EST Inhaled Oxygen Concentration - - Weight 62.4 kg (137 lb 8 oz) 06/08/2023 1:04 PM EST Height 167.6 cm (5' 6") 06/08/2023 1:04 PM EST Body Mass Index 22.19 06/08/2023 1:04 PM EST documented in this encounter Progress Notes * Serafin Goins MD - 06/08/2023 1:15 PM EST Hematology/Oncology Outpatient Clinic note [facility] [place] [address] [facility] [place] [address] Name: Karina Verma Date: 05/16/2023 CHIEF COMPLAINT: Karina Verma is a 68 year old female here today for f/u visit today. HEMATOLOGY/ONCOLOGY DIAGNOSIS: Left breast cancer, hormonal negative, HER2 Jerry positive, 1.5 cm. Cancer Staging Clinical Stage 1 DATE OF DIAGNOSIS: 03/03/23 CURRENT TREATMENT: TCHP every 21 days x 6 cycles (04/05/23 - ) -Prophylactic Pegfilgrastim support D2 06/07/2023 --> she received cycle # 4 of TCH P, today she will receive prophylactic Pegfilgrastim to prevent febrile neutropenia. DIAGNOSTIC WORKUP: She would a routine screening [...] no special type, grade 3, ER negative, [place] negative, HER2 Jerry positive by IHC. OTHER IMPORTANT HISTORY: - Hyperlipidemia. -hypertension. Interval History: ECHO 05/10/23: LVEF 60% HISTORY OF PRESENT ILLNESS: She has come the clinic for the follow-up, accompanied by her son in the office So far she has done well with the chemotherapy treatment, she took Compazine Zofran for the symptomatic treatment for the nausea and vomiting, no significant nausea and vomiting, no increasing diarrhea, no cardiac or pulmonary symptoms, some bone pain with the prophylactic Pegfilgrastim, stable weight around 137 lb, ambulates well, good ECOG PS 0, no new cardiac or pulmonary symptoms. No fever. Denies any tingling and numbness of the extremities. No leg edema, no upper extremity edema, no increasing headache. No focal neurological symptoms. No blurring of vision. Past Medical History: Diagnosis Date ABN PAP [...] OF EYE DRUG 03/08/2013 #2 Kenalog, OS, #[id number] INJECTION OF EYE DRUG 04/18/2013 #3 Lucentis 0.5mg OS, Dr. Schneider INJECTION OF EYE DRUG 05/30/2013 #3 Kenmichael OS, Dr. Schneider INJECTION OF EYE DRUG 09/20/2013 #4 Kenalog OS, Dr. Schneider INSER TUNN ACC DEV;5 YRS/OLDER Right 03/31/2023 INSERT TUNNELED CENTRAL VENOUS ACCESS WITH SUBQ PORT performed by Sobia Hernandez MD at OR [facility] LASIK/PRK SURGERY 04/18/2005 LIGATE/CUT OVIDUCT(S) AT SURGERY MAMMOGRAM SCREENING-BILATERAL 02/13/2004 birad 2- normal MISCELLANEOUS ORDER ([facility] ONLY) 10/25/2012-10/25/2013 Lucentis 0.5 mg conscent OS, MISCELLANEOUS ORDER ([facility] ONLY) 12/22/2012-12/22/2013 Kenalog OS consent signed, MISCELLANEOUS ORDER ([facility] ONLY) -01/24/2015 Kenalog OS consent signed, REPAIR WRIST FRACTURE/DISLOCATION [...] Types: Cigarettes Quit date: 07/19/1986 Years since quittin.9 Smokeless tobacco: Never Vaping Use Vaping Use: [...] No current facility-administered medications for this visit. OBJECTIVE: BP 153/82 (BP Site: Left Arm, BP Position: Sitting, BP Cuff Size: Regular) | Pulse 82 | Temp 36.7 C (98 F) (Tympanic) | Resp 16 | Ht 1.676 m (5' 6") | Wt 62.4 kg (137 lb 8 oz) | LMP 04/17/2011 | SpO2 96% | BMI 22.19 kg/m | BSA 1.7 m PHYSICAL EXAM: ECOG: Performance Status 1 = [...] edema Neurologic: Normal - Grossly intact LABS: Blood workup done on 06/07/2023: -WBC 8700, H&H of 11/33.2, Platelet count of 850553 -BUN/Creat: 14/0.7, Calcium 9.9, normal liver function test. IMPRESSION/PLAN: Left breast cancer, hormonal negative, HER2 Jerry positive, 1.5 cm. Encounter for chemotherapy I reviewed her blood workup done yesterday, overall stable blood workup noted, normal kidney liver function test noted She received 4 cycles of chemotherapy with TCH P yesterday, so far tolerated well, no neuropathy symptoms, no new cardiac or pulmonary symptoms. She will receive prophylactic Pegfilgrastim today. Overall she is tolerated treatment well, no significant side effects of the chemotherapy noted. Planning for total 6 cycles of chemotherapy and then she will have surgical intervention by Dr. Hernandez We talked about role of radiation treatment an additional treatment based on the pathological findings. Will get echocardiogram before the 5th cycle of chemotherapy with TCH P. Dr. Serafin Goins Hem/Onc (This note was completed using the dictation program Fluency Direct. As such, there may be misspellings word substitutions, or other variations that should not change the essence of the clinical content of this encounter note. If there is need for further clarification, please direct questions to the provider listed above.) documented in this encounter Nursing Notes * Kaitlynn Castro CMA - 06/08/2023 1:05 PM EST Patient identifed by name and birthdate Do you have any concerns about pain management for today's visit? No Living Will or Advance Directive for Health Care as noted on the problem list. [facility] is a way you can talk to your provider on line through e-mail. Would you like to sign up? I can activate it for you? ALREADY ACTIVE Filed Vitals: 06/08/23 1304 BP: 153/82 Pulse: 82 Resp: 16 Temp: 36.7 C (98 F) TempSrc: Tympanic SpO2: 96% Weight: 62.4 kg (137 lb 8 oz) Height: 1.676 m (5' 6") Patient was instructed to not get up [...] 12:30 PM EST Cardiac Studies Cardiac Studies [address] [place] [address] 06/28/2023 8:30 AM EST Laboratory Laboratory [facility] [place] [address] [facility] [place] [address] Y[place], Lab [facility] [address] [place] [address] 06/28/2023 9:00 AM EST Office Visit Hematology/Oncology [facility] [place] [address] [facility] [place] [address] Judith Murillo CRNP [address] [facility] [place] [address] 06/28/2023 9:30 AM EST Hem/Onc Treatment Hematology/Oncology Treatment, [place] [address] [place] [address] Yudi Chair 8 Hem Onc [facility] [place] [address] 07/06/2023 11:15 AM EST Office Visit General Surgery, [facility] [address] [facility] [place] [address] Sobia Hernandez MD [address] [place] [address] 11/05/2023 8:40 AM EDT Office Visit Family Practice [facility] [address] [facility] [place] [address] Sabrina Chang, [address] [facility] [place] [address] Scheduled Orders Name Type Priority Associated Diagnoses Orde r Schedule ECHO, COMPLETE (2D), TRANS-THORACIC Echocardiology Routine Malignant neoplasm of upper-outer quadrant of left breast in female, estrogen 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 Encounter for long-term (current) drug use Expected: 06/08/2023 (Approximate), Expires: 07/08/2025 Health Maintenance Due Date Last Done Comments [...] this encounter Medical Devices Implanted Type Area Dumb Waiter Operator Device Identifier Shelf Expiration Date Model / Serial / Lot Port Power Mri W/8fr Cath - [id number] Implanted:Qty: 1 on 03/31/2023 by Sobia Hernandez MD at [facility] Right: Chest CR BARD : PERIPHERAL VASCULAR 12/17/2023 [id number] / / [id number] documented as of this encounter Visit Diagnoses Diagnosis Malignant neoplasm of upper-outer quadrant of left breast in female, estrogen 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- Primary Encounter for long-term (current) drug use Encounter [...] the patient have Health Care Power of Plant Engineering Supervisor? No Care Teams Galley Cook Relationship Specialty Start Date End Date Sabrina Chang DO [address] [place] [address] PCP - General Family Medicine 09/15/18 documented as of this encounter
--- OUTSIDE RECORDS SUMMARY | 2023-06-13 20:11 | External Medical Summary | Summary of Care ---
Author Name Unknown Organization [facility] Address [address] [place] [address] Phone [phone] Care Team Providers Care Paint Technician Name Role Phone Sabrina Chang DO Primary Care Provider Reason for Visit * Reason Onset Date Comments Appointment 06/08/2023 Encounter Details Date Type Department Care Team (Late st Contact Info) Description 06/08/2023 Telephone Hematology/Oncology [place] [address] [place] [address] Serafin Goins MD [address] [place] [address] Appointment Allergies Active Allergy Reactions Criticality Noted Date [...] mRNA, LNP-s, No Pre serve, 2-Dose Series (Foremost) 07/03/2021,10/09/2020,09/11/2020 Hep A - Hepatitis A (ped/adole, [...] encounter Miscellaneous Notes * Telephone Encounter - Marlen Chan OSA - 06/08/2023 1:50 PM EST Patient scheduled for an ECHO @ [facility] for 06/22/23 @ 12:30pm. Patient aware. documented in this encounter Plan of Treatment Upcoming Encounters Date Type Department Care Team (Late st Contact Info) Description 06/22/2023 12:30 PM EST Cardiac Studies Cardiac Studies [address] [place] [address] 06/28/2023 8:30 AM EST Laboratory Laboratory [facility] [address] [place] [phone] Yudi, Lab [address] [place] [address] [address] 06/28/2023 9:00 AM EST Office Visit Hematology/Oncology [facility] [place] [address] [place] [address] Judith Murillo CRNP [address] [facility] [place] [address] 06/28/2023 9:30 AM EST Hem/Onc Treatment Hematology/Oncology [facility] [address] [place] [address] Yudi, Chair 8 Hem Onc [facility] [address] [facility] [place] [address] 07/06/2023 11:15 AM EST Office Visit General Surgery, [facility] [place] [address] Sobia Hernandez MD [address] [place] [address] 11/05/2023 8:40 AM EDT Office Visit Family Practice [facility] [address] [place] [address] Sabrina Chang, 200 [facility] [place] [address] Health Maintenance Due Date Last Done Comments [...] this encounter Medical Devices Implanted Type Area Chair Finisher Device Identifier Shelf Expiration Date Model / Serial / Lot Port Power Mri W/8fr Cath - [id number] Implanted:Qty: 1 on 03/31/2023 by Sobia Hernandez MD at OR [facility] Right: Chest CR BARD : PERIPHERAL VASCULAR 12/17/2023 [id number] / / [id number] documented as of this encounter Advance Directives [...] the patient have Health Care Power of Opera Singer? No Care Teams Paint Technician Relationship Specialty Start Date End Date Sabrina Chang DO [address] [place] [address] PCP - General Family Medicine 09/15/18 documented as of this encounter
--- OUTSIDE RECORDS SUMMARY | 2023-06-13 20:12 | External Medical Summary ---
Author Name Unknown Address Unknown Organization K09:[facility] [address] Laboratory Report Ordering Provider Test Date Status KELLEY MERAZ 04/05/2023 07:14:21 Final Observation Date Value Abnormality Reference (Units ) Status WBC, Total 04/05/2023 07:14:21 9.56 4.00-10.8 0 (K/uL) Final RBC 04/05/2023 07:14:21 4.64 3.85-5.15 (M/uL) Final Hemoglobin 04/05/2023 07:14:21 14.5 12.0-15.3 (g/dL) Final HCT 04/05/2023 07:14:21 42.2 36.0-45.2 (%) Final MCV 04/05/2023 07:14:21 90.9 81.5-97.5 (fL) Final MCH 04/05/2023 07:14:21 31.3 27.0-34.0 (pg) Final MCHC 04/05/2023 07:14:21 34.4 32.0-36.0 (g/dL) Final RDW 04/05/2023 07:14:21 11.8 11.5-15.5 (%) Final Platelets 04/05/2023 07:14:21 255 140-400 (K /uL) Final MPV 04/05/2023 07:14:21 9.9 6.6-11.1 ( fL) Final Performing Location [place] [address]
--- OUTSIDE RECORDS SUMMARY | 2023-06-13 20:12 | External Medical Summary | Summary of Care ---
Author Name Unknown Organization [facility] Address [address] [facility] [place] [address] Phone [phone] Care Team Providers Care Associate Professor Of Management Name Role Phone Sabrina Chang DO Primary Care Provider Reason for Visit * Reason Onset Date Comments Precert Future 03/24/2023 [facility] Lizbeth liang Encounter Details Date Type Department Care Team Description 03/24/2023 Telephone Hematology/Oncology Treatment, [place] [address] [facility] [place] [address] Serafin Goins MD [address] [place] [address] Precert Future ([facility] Emjerry Mcadams) Allergies Active Allergy Reactions Severity Noted Date Comments Lisinopril Edema face/lips/tongue High 02/19/2017 angioedema documented as of this encounter (statuses as of 03/25/2023) Medications Medication Sig Dispensed Refills Start Date End Date Status Rosuvastatin Calcium 10 MG Oral Tablet (Crestor)Indications:M ixed hyperlipidemia TAKE ONE TABLET BY MOUTH EVERY MORNING 90 Tablet 3 11/03/2022 11/03/2023 Active hydroCHLOROthiazide 25 MG Oral Tablet (Hydrodiuril)Indicatio ns:HTN, goal below 140/90 TAKE ONE TABLET BY MOUTH EVERY MORNING 90 Tablet 3 11/03/2022 11/03/2023 Active documented as of this encounter (statuses as of 03/25/2023) Active Problems Problem Noted Date Encounter for antineoplastic chemotherap y 03/24/2023 Malignant neoplasm of upper- outer quadrant of left breast in female, estrogen 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 03/24/2023 Hyperlipidemia 04/17/2014 HTN, goal below 140/90 04/17/2014 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 documented as of this encounter (statuses as of 03/25/2023) Resolved Problems Problem Noted Date Resolved Date Bilateral impacted cerumen 10/27/201606/07 Overview: acute ABN PAP SMEAR-CERVIX(aka DYSPLASIA) 01/02/2004 10/27/2016 Varicella without complication 0 10/27/2016 Mumps without complication 10/27 Mucous polyp of cervix 9 documented as of this encounter (statuses as of 03/25/2023) Immunizations Name Administration Dates Next Due COVID-19 mRNA, LNP-s, No Pre serve, 2-Dose Series ([email or web address]) 07/03/2021,10/09/2020,09/11/2020 Hep A - Hepatitis A (ped/adole, [...] Telephone Encounter - Megan Galvan RN - 03/25/2023 4:18 PM EDT Referral entered. Scheduling: Please call patient to schedule. Patient can be scheduled the week of 04/05 -Labs CBCD CMP - 5 hour treatment appt "C1D1 TCHP / D2 udenyca" (Goins) * Addendum Note - Megan Galvan RN - 03/24/2023 2:21 PM EDTAddended by: MEGAN GALVAN on: 03/24/2023 02:21 PM Modules accepted: Orders * Telephone Encounter - Megan Galvan RN - 03/24/2023 2:11 PM EDT Orders received for TCHP Prophylactic udenyca Nurse education on 03/25 Patient scheduled for echo on 04/01 Port placement is on 03/31 Meds sent Needs labs documented in this encounter Plan of Treatment Upcoming Encounters Date Type Specialty Care Team Description 03/29/2023 Appointment Radiology 03/30/2023 Imaging Radiology 03/31/2023 Hospital Encounter Surgery Sobia Hernandez MD [address] [place] [address] 03/31/2023 Surgery Surgery Sobia Hernandez MD [address] [place] [address] INSERT TUNNELED CENTRAL VENOUS ACCESS WITH SUBQ PORT 04/01/2023 Cardiac Studies Cardiac Studies 11/05/2023 Office Visit Family Medicine Sabrina Chang, DO [address] [facility] [place], [place] [address] Scheduled Orders Name Type Priority Associated Diagnoses Orde r Schedule CBC WITH WBC DIFFERENTIAL Lab STAT Special screening examination for viral disease Malignant neoplasm of upper-outer quadrant of left breast in female, estrogen 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 (HCC) Encounter for long-term (current) drug use Every 3 Weeks for 20 Occurrences starting 03/24/2023 until 03/30/2024 COMPREHENSIVE METABOLIC PANEL Lab STAT Special screening examination for viral disease Malignant neoplasm of upper-outer quadrant of left breast in female, estrogen 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 (HCC) Encounter for long-term (current) drug use Every 3 Weeks for 20 Occurrences starting 03/24/2023 until 03/30/2024 Scheduled Procedures Name Priority Associated Diagnoses Date/Ti me INSERT TUNNELED CENTRAL VENOUS ACCESS WITH SUBQ PORT Malignant neoplasm of upper-outer quadrant of left breast in female, estrogen 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 (HCC) 03/31/2023 8:00 AM EDT Health Maintenance Due Date Last Done Comments Fecal Occult Blood Test 1999 Sigmoidoscopy 1999 Depression Screening 05/25/2020 05/25/2019 Colonoscopy 06/22/2021 06/22/2011, 05/16/2007 COVID-19 Vaccine (4 - Pfizer series) 08/28/2021 07/03/2021, 10/09/2020, 09/11/2020 Influenza Vaccine (FLU shot) (#1) 2023 06/02/2013 Mammogram 02/23/2024 02/22/2023, 01/17, 04/17/2021, Additional history exists GFR 03/18/2024 03/18/2023, 03/20, 04/01/2021, Additional history exists Cologuard 05/07/2024 05/07/2021, 04/24/2021 [...] documented as of this encounter Medical Devices Not on filedocumented as of this encounter Visit Diagnoses Diagnosis Malignant neoplasm of upper-outer quadrant of left breast in female, estrogen 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 (HCC)- Primary Special screening examination for viral disease Special screening examination for unspecified viral disease Encounter for long-term (current) drug use Encounter for long-term (current) use of other medications Malignant neoplasm of upper-outer quadrant of left breast in female, estrogen 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 (HCC) documented in this encounter Care Teams Associate Professor Of Management Relationship Specialty Start Date End Date Sabrina Chang DO [address] [place] [address] PCP - General Family Medicine 09/15/18 documented as of this encounter
--- OUTSIDE RECORDS SUMMARY | 2023-06-13 20:12 | External Medical Summary | Summary of Care ---
Author Name Unknown Organization [facility] Address [address] [place] [address] Phone [phone] Care Team Providers Care Card Hand Name Role Phone Sabrina Chang DO Primary Care Provider Reason for Visit * Reason Onset Date Comments Follow Up 04/07/2023 C1D1 TCHP Encounter Details Date Type Department Care Team Description 04/07/2023 Telephone Hematology/Oncology Treatment, [place] [address] [place] [id number] Serafin Goins MD [address] [place] [address] Follow Up (C1D1 TCHP) Allergies Active Allergy [...] mRNA, LNP-s, No Pre serve, 2-Dose Series ([employer]) 07/03/2021,10/09/2020,09/11/2020 Hep A - Hepatitis A (ped/adole, [...] Laboratory Laboratory [facility], Lab Scenery [address] [place] [address] 04/26/2023 Office Visit Hematology [facility]cology [facility] [address] [facility] [place] [address] 04/26/2023 Hem/Onc Treatment Hematology Oncology [place], Chair 6 Hem Onc Scenery [address] [place] [address] 11/05/2023 Office Visit Family Medicine Sabrina Chang, [address] [place] [address] Health Maintenance Due Date Last Done Comments [...] this encounter Medical Devices Implanted Type Area Lead Auditor Device Identifier Shelf Expiration Date Model / Serial / Lot Port Power Mri W/8fr Cath - [id number] Implanted:Qty: 1 on 03/31/2023 by Sobia Hernandez MD at OR [facility] Right: Chest CR BARD : PERIPHERAL VASCULAR 12/17/2023 [id number] / / [id number] documented as of this encounter Advance Directives [...] the patient have Health Care Power of Performance Instructor? No Care Teams Card Hand Relationship Specialty Start Date End Date Sabrina Chang DO [address] [place] [address] PCP - General Family Medicine 09/15/18 documented as of this encounter
--- OUTSIDE RECORDS SUMMARY | 2023-06-13 20:12 | External Medical Summary | Summary of Care ---
Author Name Unknown Organization [facility] Address [address] [facility] [place] [address] Phone [phone] Care Team Providers Care Adjunct Mathematics Instructor Name Role Phone Sabrina Chang DO Primary Care Provider Encounter Details Date Type Department Care Team Description 04/01/2023 Telephone General [facility], [facility] [address] [facility] [place] [address] [facility] [address] [facility] [place] [address] Allergies Active Allergy Reactions Severity Noted Date Comments Lisinopril Edema face/lips/tongue High 02/19/2017 angioedema documented as of this encounter (statuses as of 04/01/2023) Medications Medication Sig Dispensed Refills Start Date [...] as of this encounter (statuses as of 04/01/2023) Active Problems Problem Noted Date Encounter for antineoplastic chemotherap y 03/24/2023 Malignant neoplasm of upper- outer quadrant of left breast in female, estrogen 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 03/24/2023 Hyperlipidemia 04/17/2014 HTN, goal below 140/90 04/17/2014 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 documented as of this encounter (statuses as of 04/01/2023) Resolved Problems Problem Noted Date Resolved Date Bilateral impacted cerumen 10/27/201606/07 Overview: acute ABN PAP SMEAR-CERVIX(aka DYSPLASIA) 01/02/2004 10/27/2016 Varicella without complication 0 10/27/2016 Mumps without complication 10/27 Mucous polyp of cervix 9 documented as of this encounter (statuses as of 04/01/2023) Immunizations Name Administration Dates Next Due COVID-19 mRNA, LNP-s, No Pre serve, 2-Dose Series ([employer]) 07/03/2021,10/09/2020,09/11/2020 Hep A - Hepatitis A (ped/adole, [...] Telephone Encounter - Serafin Goins MD - 04/01/2023 1:29 PM EDT We are starting chemotherapy on 04/05/2023. * Telephone Encounter - Sobia Hernandez MD - 04/01/2023 1:21 PM EDT MRI findings discussed with pt. Needs targeted US left side with biopsy if seen of the lower central left mass. Known cancer measures 1.7 cm in upper outer breast. Kell, could you help her schedule? Is getting chemo so ideally want biopsy done within the next few weeks if possible. Thank you. documented in this encounter Plan of Treatment Upcoming Encounters Date Type Specialty Care Team Description 04/05/2023 Laboratory Laboratory [facility], Lab Scenery [address] [place] [address] 04/05/2023 Hem/Onc Treatment Hematology Oncology [facility], Chair 4 Hem Onc Scenery [address] [place] [address] 11/05/2023 Office Visit Family Medicine Sabrina Chang, DO [address] [place] [address] Scheduled Orders Name Type Priority Associated Diagnoses Orde r Schedule US BREAST LIMITED LEFT Medical Imaging Routine Abnormal MRI, breast Expected: 04/08/2023 (Approximate), Expires: 05/01/2024 US GUIDED BREAST BIOPSY LEFT Medical Imaging Routine Abnormal MRI, breast Expected: 04/08/2023 (Approximate), Expires: 05/01/2024 Health Maintenance Due Date Last Done Comments [...] this encounter Medical Devices Implanted Type Area Resin Filterer Device Identifier Shelf Expiration Date Model / Serial / Lot Port Power Mri W/8fr Cath - [id number] Implanted:Qty: 1 on 03/31/2023 by Sobia Hernandez MD at OR [facility] Right: Chest CR BARD : PERIPHERAL VASCULAR 12/17/2023 [id number] / / [id number] documented as of this encounter Visit Diagnoses Diagnosis Abnormal MRI, breast- Primary Other (abnormal) findings on radiological examination of breast documented in this encounter Advance Directives Latest Code Status on File Code Status Date Activated Date Inactivated Comments Full Code 03/31/2023 6:47 AM 03/31/2023 5:04 PM This order reflects the patients wishes and were consensually agreed upon. Question Answer Comments Discussion of Advance Directives occurred with: Patient Does the patient have a Living Will? No Does the patient have Health Care Power of Verifying Specialist? No Care Teams Adjunct Mathematics Instructor Relationship Specialty Start Date End Date Sabrina Chang DO [address] [place] [address] PCP - General Family Medicine 09/15/18 documented as of this encounter
--- OUTSIDE RECORDS SUMMARY | 2023-06-13 20:12 | External Medical Summary | Summary of Care ---
Author Name Unknown Organization [facility] Address [address] [place] [address] Phone [phone] Care Team Providers Care Vehicle Maintenance Technician Name Role Phone EdmaralexandriaSabrina DO Primary Care Provider Reason for Visit * Auth/Cert Specialty Diagnoses / Procedures Referred By Contjose t Referred To Contact Diagnoses Malignant neoplasm of upper-outer quadrant of left breast in female, estrogen 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 (HCC) Malignant neoplasm of upper-outer quadrant of left breast in female, estrogen 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 (HCC) [C50.412, Z17.1] Procedures INSER TUNN ACC DEV;5 YRS/OLDER INSERT TUNNELED CENTRAL VENOUS ACCESS WITH SUBQ PORT Referral ID Status Reason Start Date Expiration Date Visits Re quested Visits Authorized [id number] Encounter Details Date Type Department Care Team Description 03/31/2023 Hospital Encounter OR [facility], Operating Room [facility] [place] [id number] Sobia Hernandez MD [address] [facility] [place] [address] Allergies Active Allergy Reactions Severity Noted Date [...] mRNA, LNP-s, No Pre serve, 2-Dose Series (Kaymbu) 07/03/2021,10/09/2020,09/11/2020 Hep A - Hepatitis A (ped/adole, [...] Sign Reading Time Taken Comments Blood Pressure 111/64 03/31/2023 12:45 PM EDT Pulse 59 03/31/2023 12:45 PM EDT Temperature 36.1 C (97 F) 03/31/2023 12:45 PM EDT Respiratory Rate 16 03/31/2023 12:45 PM EDT Oxygen Saturation 99% 03/31/2023 12:45 PM EDT Inhaled Oxygen Concentration - - Weight 65.8 kg (145 lb) 03/31/2023 7:00 AM EDT Height 167.6 cm (5' 6") 03/31/2023 7:00 AM EDT Body Mass Index 23.4 03/31/2023 7:00 AM EDT documented in this encounter Discharge Instructions * Discharge Instr - AVS* Sobia Hernandez MD - 03/31/2023 7:56 AM EDT Instructions for: placement of port a cath INCISION CARE: Keep the dressing dry for 24 hours, and then you may remove the dressing and shower. If non-dissolving stitches are present you can cover them daily with a new dressing so they do not bother you. Steri-Strips Keep them dry for 24 hours; you may then shower over them and pat dry gently. Do not remove steri-strips; allow them to come off on their own (usually within 2 weeks). PAIN: Three regular strength or two extra strength Tylenol or Motrin are usually adequate for pain control postoperatively. If you have been given a prescription for a narcotic pain medication, do not drive or operate heavymachinery while taking the narcotic. Narcotic pain medications can cause nausea and be constipating. Please take with food. Use over thecounter laxatives as needed for constipation. WHAT TO EXPECT: There may be spotting on the dressing. Most bleeding can be controlled by direct pressure. However,if this is ineffective, call the office. It is not unusual for there to be some bruising. However, a lump which is black and blue is a hematoma. Please contact us. If you have any questions or concerns, please do not hesitate to call. ACTIVITY: Nothing strenuous or increased heart rate for 2 days. Then normal activity as tolerated. Discomfortat the port site with arm motion is normal. documented in this encounter Progress Notes * Sobia Hernandez MD - 03/31/2023 9:24 AM EDT [facility] [place] [address] [place] [address] OUTPATIENT SURGERY DISCHARGE SUMMARY NOTE Name: Karina Verma Location: OR [facility] Date: 03/31/2023 Time: 9:24 AM Surgery Date: 03/31/2023 Procedure: Procedure(s): INSERT TUNNELED CENTRAL VENOUS ACCESS WITH SUBQ PORT Right Surgeon: Surgeon(s): Sobia Hernandez MD Discharge Diagnosis: right port placement After examination of this patient, I have determined she is ready for discharge to home when the patient meets criteria. CXR showed small apical pneumothorax. Oxygenating well. Will recheck xray in 2hrs. Incentive sprirometer. Discussed with pt and . Discharge instructions were given to thepatient. documented in this encounter H&P Notes * Sobia Hernandez MD - 03/31/2023 7:56 AM EDT H&P from 03/18/23 reviewed. No changes to history or physical noted. Exam: Cor: S1S2 RRR no murmurs. Lungs: clear bilaterally. For placement of port right side today. Consent signed. Postop instructions reviewed with patient. Sobia Hernandez M.D. Source Note - Sobia Hernandez MD - 03/18/2023 1:06 PM EDT [facility] NEW BREAST CANCER CLINIC NOTE Chief Complaint Patient presents with NEW PATIENT Left breat cancer. REASON FOR CONSULTATION: Left Breast Cancer Clinical Stage 1, er/pr neg, her2 pos HPI: Karina Verma is a 67 year old female who was referred by Kaitlin Alvarez PA-C for evaluation and discussion of newly diagnosed breast cancer. This was found on screening mammogram which showed a newasymmetry in the left breast. This corresponded to a 15 mm hypoechoic irregular mass at 2-3:00 4 cmFN. She is s/p core biopsy, left ultrasound guided demonstrating a high grade invasive ductal carcinoma. Estrogen receptor status is negative. Progesterone receptor status is negative. HER-2/romina receptors positive. No prior breast biopsies. No family history of breast or ovarian cancer. 03/03/23: A. Left breast, 2-3 o'clock cm from the nipple, needle core biopsy: -- Invasive carcinoma of no special type (ductal), grade 3, with microcalcifications. -- See comment. Comment: Prognostic markers will follow in a separate report. at 1352 Order Comments Ultrasound Guided Core Bx of a 15 x 13 x 10 mm left breast 2/3:00 4 cm fn lesion. Highly suspiciousfor CA. Microscopic examination shows small nests of infiltrating epithelial cells with little luminal formation with nuclei are 3-4 larger than normal duct epithelial nuclei and containing prominent nucleoli. Mitotic figures are frequent (>10/10hpf). The presence of lymphovascular invasion is indeterminate. Positive immunohistochemical staining of this invasive tumor with e-cadherin confirms the ductal differentiation. Immunohistochemical assays with differential basal cytokeratin 34?E12 and luminal cytokeratins 7/18 demonstrate a neoplastic monoclonal growth pattern. The largest dimension of invasive tumor in the specimen is 5 mm. Antibody Result in this case Application BNC5 Positive Highlights in situ and invasive carcinoma E-cadherin Positive Positive in ductal tumors, negative on lobular tumors TRPS-1 Positive Sensitive and specific marker of breast differentiation Left breast, case [id number], block A1: Estrogen Receptor (ER) protein expression is NEGATIVE <1% nuclear positivity COMMENT: Assay internal and external control immunoreactivity is appropriate. Progesterone Receptor (WA) protein expression is NEGATIVE <1% nuclear positivity COMMENT: Assay internal and external control immunoreactivity is appropriate. HER2 oncoprotein expression is POSITIVE ( 3+ average membranous intensity) BREAST ROS: No new breast lumps or masses, No severe breast pain, No nipple discharge, and No recent change in shape/color GYNECOLOGIC HISTORY: LMP: Patient's last menstrual period was 04/17/2011. Patient is postmenopausal. Menarche at age: 11-12 Menopause at age: 57 Number of children: 2 Patient's age at first live : 33 Did you breast feed any of your children: yes Ever take oral contraceptives? Yes, history of use for 9 year(s) Ever take estrogen? No RADIOLOGIC INTERPRETATION: 02/05/23: Result MAMMOGRAM SCREENING HELLEN BILATERAL History Encounter for screening mammogram for malignant neoplasm of breast The patient has no documented relevant family history. Films Compared 04/17/2021 MAMMOGRAM SCREENING HELLEN BILATERAL and 07/04/2019 MAMMOGRAM SCREENING HELLEN BILATERAL Findings Left The left breast is heterogeneously dense, which may obscure small masses. There is a left upper outer quadrant posterior depth 15 mm mass with indeterminate calcifications. Right The right breast is heterogeneously dense, which may obscure small masses. There is no evidence of suspicious masses, calcifications, or other abnormal findings in the right breast. Impression Left upper outer quadrant posterior depth 15 mm mass with indeterminate calcifications. BI-RADS Category: 0 - Incomplete: Needs Additional Imaging Evaluation. Recommendation Callback ultrasound is recommended for the left breast. Callback diagnostic mammogram is recommended for the left breast. Screening mammogram in 1 year is recommended for the right breast. 02/22/23: Result MAMMOGRAM DIAGNOSTIC HELLEN LEFT US BREAST LIMITED LEFT History Abnormal mammogram. She was recalled from screening mammogram dated 02/05/2023 for left breast mass. The patient has no documented relevant family history. Films Compared Multiple prior mammograms, most recent dated 02/05/2023. Findings The left breast is heterogeneously dense, which may obscure small masses. Left Mammogram An equal density mass with irregular margins and amorphous calcifications in the upper outer left breast corresponds to the mass for which patient was recalled. It measures 1.3 x 1.5 x 1.3 cm. This will be further evaluated with ultrasound. Ultrasound Targeted ultrasound evaluation of the left breast reveals an irregular, hypoechoic mass with foci of calcifications, and demonstrable vascularity in the 2:00/3:00 position of the left breast approximately 4 cm from the nipple. This measures 1.4 x 1.1 x 1.2 cm and corresponds to the mass with calcifications identified on mammogram. Targeted ultrasound evaluation of the left axillary reveals normal lymph nodes. Impression MAMMOGRAM DIAGNOSTIC HELLEN LEFT/ULTRASOUND 1.4 cm highly suggestive mass with calcifications in the 2:00/3:00 left breast. No suspicious left axillary lymphadenopathy. BI-RADS Category: 5 - Highly Suggestive of Malignancy. Recommendation US guided core biopsy of the highly suggestive mass in the left breast is recommended. Digital breast tomosynthesis was performed. This digital mammogram has been analyzed with the computer aided detection system. 03/03/23: ADDENDUM: Received from the department of pathology is the histology diagnosis of invasive carcinoma of no special type, ductal, grade 3 with microcalcifications. The histology diagnosis is concordant with imaging findings. Surgical consultation and follow-up isadvised. Patient is advised to follow-up with Dr. Hernandez in the Department of surgery. Mammography Surgical Instrument Mechanic Rubia Main has been notified for scheduling and tracking purposes. Signed by Vandana Raya MD on 03/10/2023 14:40 Narrative & Impression EXAM US GUIDED BREAST BIOPSY LEFT; MAMMOGRAM POST BIOPSY CLIP PLACEMENT- 03/03/2023 8:45 am; 03/03/2023 8:57 am HISTORY Referred for ultrasound guided core biopsy of a 13 x 15 x 10 mm poorly defined mixed echogenicity solid mass at 2/3 o'clock 4 cm from nipple, left breast. COMPARISON Multiple priors to include most recent previous left diagnostic mammogram and breast ultrasound 02/22/2023. TECHNIQUE ANESTHESIA: 1% lidocaine SUPERVISORY HISTORIAN: Dr. Villalba was present for and performed the entire procedure. The following procedure/examinations were performed: - Ultrasound guided core biopsy and tissue marker placement - Post clip/tissue marker placement unilateral mammogram Following a discussion of the risks and benefits of the procedure as well as a discussion of alternatives to this procedure, the patient was given the opportunity to ask questions. Once the patient'squestions were answered to her satisfaction, informed consent was signed by the patient. A timeout,with verification of patient name and site of procedure was performed by Dr. Villalba in the presence of extractions technologist and it was confirmed that procedure matches verbalized consent. FINDINGS Preliminary ultrasound demonstrates a 13 x 15 x 10 mm poorly defined mixed echogenicity solid mass with microcalcifications at 2/3 o'clock 4 cm from nipple, left breast. Using aseptic technique, local anesthesia with 1% buffered lidocaine, a small skin incision was made with a surgical blade to permit passage of the 14 gauge core biopsy needle. A spring activated/ automated Inrad biopsy device was utilized. Under direct sonographic guidance and visualization, several passes were made through the target and core specimen obtained. The core specimen were placed in formalin and submitted for histopathologic analysis. Under direct sonographic guidance and visualization, a tissue marker was placed within the lesion for future reference. Post procedural mammogram verified tissue marker placement. The patient tolerated the procedure well and there were no complications. Written discharge instructions were given to the patient and also reviewed verbally with her. The patient expressed understanding of the instructions and was discharged from the department in stable condition. IMPRESSION IMPRESSION 1. Ultrasound guided core biopsy of a 13 x 15 x 10 mm poorly defined mixed echogenicity solid mass with microcalcifications at 2/3 o'clock 4 cm from nipple, left breast followed by tissue marker placement. 2. Position of the tissue marker is confirmed on unilateral mammogram obtained following the ultrasound-guided core biopsy and tissue marker placement. 3. Core specimen submitted for histopathologic interpretation. 4. A supplement/addendum to this report will follow pending receipt of pathology results. Further follow-up and management recommendations will be forthcoming once this has been accomplished. I personally viewed and interpreted the mammographic films and concur with the above. FAMILY HISTORY: Family history of breast cancer: None Family history of ovarian cancer: None Family History Problem Relation Age of Onset Stroke Mother dementia Eye Problems Mother AMD Thyroid Disorder Mother Cancer Father lymphoma No Past Hx Brother Stroke Grandmother (Maternal) Stroke Grandfather (Maternal) Eye Problems Grandfather (Maternal) AMD No Past Hx Grandmother (Paternal) No Past Hx Son No Past Hx Son No Past Hx None NO FM HX of LEGAL RECORDS CLERK CA Glaucoma None Breast Cancer No significant family history PAST MEDICAL HISTORY: 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 Schneider INJECTION OF EYE DRUG 05/30/2013 #3 Kenalog OS, Dr. Schneider INJECTION OF EYE DRUG 09/20/2013 #4 Kenalog OS, Dr. Schneider LASIK/PRK SURGERY 04/18/2005 LIGATE/CUT OVIDUCT(S) AT SURGERY MAMMOGRAM SCREENING-BILATERAL 02/13/2004 birad 2- normal MISCELLANEOUS ORDER ([facility] ONLY) 10/25/2012-10/25/2013 Lucentis 0.5 mg conscent OS, MISCELLANEOUS ORDER ([facility] ONLY) 12/22/2012-12/22/2013 Kenalog OS consent signed, MISCELLANEOUS ORDER ([facility] ONLY) -01/24/2015 Kenalog OS consent signed, REPAIR WRIST FRACTURE/DISLOCATION plate, 10 pins VAGINAL DELIVERY ONLY times 2 CURRENT OUTPATIENT PRESCRIPTIONS: Current Outpatient Medications Medication Sig Dispense Refill Rosuvastatin Calcium 10 MG Oral Tablet (Crestor) TAKE ONE TABLET BY MOUTH EVERY MORNING 90 Tablet 3 hydroCHLOROthiazide 25 MG Oral Tablet (Hydrodiuril) TAKE ONE TABLET BY MOUTH EVERY MORNING 90 Tablet 3 No current facility-administered medications for this visit. ALLERGIES: Allergies as of 03/18/2023 - Reviewed 03/18/2023 Allergen Reaction Noted Lisinopril Edema face/lips/tongue 02/19/2017 SOCIAL HISTORY: Social History Tobacco Use Smoking status: Former Packs/day: 1.00 Years: 10.00 Pack years: 10.00 Types: Cigarettes Quit date: 07/19/1986 Years since quittin.6 Smokeless tobacco: Never Substance Use Topics Alcohol use: Yes Comment: one a day, gin Vaping/E-Cigarette Use Vaping/E-Cigarette Use Never User Vaping/E-Cigarette Substances Nicotine No Other No Flavoring No THC No Cannabidiol (CBD) No Vaping/E-Cigarette Devices Disposable No Pre-filled or Refillable Cartridge No Refillable Tank No Pre-filled Pod No ROS: GEN: no weight loss, fever, fatigue HEENT: no changes in vision or hearing, no sinus problems, no sore throat, no hoarseness RESPIRATORY: no cough, wheezing, SOB or change in breathing CARDIOVASCULAR: no exertional chest pain, dyspnea, palpitations GI: no melena, hemetemesis, no vomiting or diarrhea : no dysuria, hematuria, frequency MUSCULOSKELETAL: no change in joint pains, no new arthritis PSYCHIATRIC: no significant anxiety or depression, unchanged sleep pattern HEME: no bleeding tendency, no clotting tendency NEURO: no significant headache, no seizures , no tremors SKIN: no new rashes, no itching PHYSICAL EXAMINATION: Blood pressure 148/70, pulse 80, weight 66.3 kg (146 lb 3.2 oz), last menstrual period 04/17/2011. Constitutional: alert, healthy Head: normocephalic, atraumatic Eyes: conjunctiva non-injected, sclera white Ears: pinna normal shape and color Neck: supple, no adenopathy Lungs: clear to auscultation, breath sounds are equal and symmetric Heart: regular rate & rhythm and no murmur, gallops or rubs Abdomen: soft, non-tender Back: normal curvature Extremities: no edema Neuro: alert, gait normal, motor normal BREAST EXAMINATION: Right Breast: Right Breast: Masses noted: No Post XRT edema: No Post XRT erythema: No Other palpable abnormality: No Skin: Skin retraction: No Peau d'orange: No Telangectasia: No Scar(s) present: No Other changes: No Right Nipple: Nipple inversion: No Pagets: No Nipple discharge: No Right Lymph Nodes: Arm edema: No Palpable axillary adenopathy: No Palpable supraclavicular adenopathy: No Previous axillary incision: No Left Breast: Left Breast: Masses noted: Yes, 2:00 4 cm FN there is a subtle 1.5 cm firm, not fixed, mass Post XRT edema: No Post XRT erythema: No Other palpable abnormality: No Skin: Skin retraction: No Peau d'orange: No Telangectasia: No Scar(s) present: No Other changes: No Left Nipple: Nipple inversion: No Pagets: No Nipple discharge: No Left Lymph Nodes: Arm edema: No Palpable axillary adenopathy: No Palpable supraclavicular adenopathy: No Previous axillary incision: No IMPRESSION: 67 yr old woman with imaging identified 1.5 cm high grade invasive ductal cancer, hormone negative,her2 positive located at 2:00 4 cm FN. We discussed the need for further imaging - MRI scan bilaterally given heterogeneously dense breasttissue on mammogram in order to rule out any other areas of concern. Given that this is a her2 positive T1c breast cancer, it is likely that she will require chemotherapy. Discussed the potential benefit of doing this in a neoadjuvant fashion - it would allow for in vivo assessment of the tumor's response to chemotherapy. We also talked about surgical treatment options. She would be a candidate for a lumpectomy either pre or post chemotherapy depending on above testing. Reviewed that there is equivalent survival benefit between mastectomy and breast conservation. The largest difference is the risk of local recurrence - this is under 5% with mastectomy as some breast tissue is left to support the skin vs 10% with breast conserving therapy. Importance of radiation therapy to breast to complete local treatment discussed. Risks of bleeding, infection, cosmetic deformity of the breast, seroma formation, chronic discomfort, and scar all discussed. Should she undergo chemo upfront, will plan on myra accounts receivable representative placementif the lesion is no longer palpable. We discussed sentinel lymph node biopsy with identification of the nodes with both blue dye (risks of tattooing of skin) and technetium sulfur colloid. Removal of 2-4 nodes with a small (<8%) riskof lymphedema was reviewed. This procedure would be done at the same time as the breast procedure. Expected same day nature of the surgery and 2 week recovery period discussed. We discussed that it is possible that medical oncology will recommend placement of a port a cath. Risks of port placement including bleeding, infection, thrombosis, malfunction of port and pneumothorax reviewed. Consent signed for right port placement. Will schedule after her medical oncology appt. Will need EKG, cbc, bmp preop. PLAN: Bilateral breast MRI scan Medical oncology consultation. F/u 3/[address] chemotherapy for surgical planning of myra accounts receivable representative, left lumpectomy and sln biopsy Port placement right side. I spent a total of Greater than 55 mins (exact time 62 mins) on the date of service in preparation,delivery, and documentation of the care provided to Karina Verma excluding any time spent in theperformance of separately billed services. Sobia Hernandez M.D. 03/18/2023 1:05 PM documented in this encounter Nursing Notes * Mirna Coleman RN - 03/31/2023 1:01 PM EDT Vs stable. Reports pain at 0/10 on pain scale, tolerable. Denies nausea and tolerating PO intake. Denies shortness of breath. Dressing dry and intact. Verbalized understanding of all discharge directions. Pt verbalized understanding of signs and symptoms of pneumothorax and when to seek medical attention- patient verbalized understanding. Dr. Hernandez made aware of results for xray and gave ok for patient to be discharged. Patient stable for discharge to home. Ambulated to private auto with staffpresence. * Mirna Coleman RN - 03/31/2023 12:45 PM EDT Repeat xray performed. Dr. Hernandez notified of XRAY results and gave ok for patient to be discharged. * Mirna Coleman RN - 03/31/2023 12:17 PM EDT XRAY at bedside. * Tamera Whitfield RN - 03/31/2023 11:59 AM EDT Ambulated to restroom with assistance. Gait steady. Voided without difficulty. No SOB while ambulatory. * Mirna Coleman RN - 03/31/2023 10:54 AM EDT at bedside. Pt tolerating PO food and fluids. VSS. * Mirna Coleman RN - 03/31/2023 10:[address] Hernandez at bedside to notify patient and of chest xray results. Plan for a repeat chest xray at 12PM. Pt is able to eat and drink. Pt has NC on 4L to maintain 02 of 100%. Pt given and education provided on the use of incentive spirometer. Pt demonstrates understanding. VSS. Denies pain or nausea or shortness of breath. left facility to cigar packer and picker food for patient. * Mirna Coleman RN - 03/31/2023 9:[address] Hernandze notified of XRAY results. * Mirna Coleman RN - 03/31/2023 9:45 AM EDT at bedside. * Mirna Coleman RN - 03/31/2023 9:29 AM EDT XRAY at bedside. * Mirna Coleman RN - 03/31/2023 9:29 AM EDT Patient transferred to pacu 2 status post port placement. Dressing to R chest clean, dry and intact. Patient awake. Denies pain and nausea. Respirations are even and unlabored on room air. Abdomen soft and non distended. Vital signs stable. Tolerating PO fluids. * Socorro Sampson RN - 03/31/2023 7:04 AM EDT Surgical consent verified with patient. Patient agrees with listed procedure and verified signature. documented in this encounter OR Notes * OR Surgeon - Sobia Hernandez MD - 03/31/2023 8:57 AM EDT [facility] [address] [id number] OPERATIVE REPORT Name: Karina Verma Date: 03/31/2023 Time: 8:57 AM Location: OR [facility] Service: General Surgery Date of Operation: 03/31/2023 Pre-op Diagnosis: left breast cancer with need for chemotherapy Post-op Diagnosis: same Operation: placement of port a cath right side - Bard 8 Fr MRI compatible Powerport Surgeon: Sobia Hernandez MD Assistants: Jimbo Harvey, medical student Anesthesia: Monitored Local Anesthesia with Sedation Drains: none Estimated Blood Loss: 5 ml. IV Fluids: 450 ml. Urine Output: N/A Specimens/Disposition: None Apparent Intraoperative Complications: NONE Patient Condition: stable Disposition: In and Out recovery unit Attestation: I performed the procedure Indications: 67 yr old woman with 15 mm left er/pr neg, her2 pos breast cancer and need for chemotherapy. Consented for port placement, right side. Procedure: The pt received 2 gm of ancef preoperatively and had placement of SCD's. She was positioned with a roll behind her and both arms tucked. The bilateral upper chest and neck were prepped anddraped. She underwent induction of IV sedation. The right subclavian area was anesthetized with 1% lidocaine with epinephrine mixed with 0.5% marcaine (a total of 40 cc was used). She was positioned in trendelenburg. An introducer needle was placed into the right subclavian vein on the third pass. The wire was passed into the superior vena cava and confirmed on flouroscopy. A transverse incision was made at the site and an inferiorly based subcutaneous pocket created. The Bard 8 Fr Powerport was secured to the pectoralis fascia with 0-PDS sutures on all three sides of the triangle. The catheter was measured to appropriate size, cut and the hub secured to the port. The catheter was passed over the wire using the Seldinger technique. The port was flushed with the final heparinized saline. It both flushed and zurdo back easily. There were no kinks noted at the clavicle. The tip was in good position. The wound was irrigated and then closed with a deep layer of interrupted 3-0 vicryl stitches and a running subcuticular 4-0 monocryl suture. Dermabond and sterile dressing were applied. She was awakened from anesthesia and taken to recovery in stable condition. documented in this encounter Plan of Treatment Upcoming Encounters Date Type Specialty Care Team Description 04/01/2023 Cardiac Studies Cardiac Studies 04/05/2023 Laboratory Laboratory [place], Lab [facility] [address] [facility] [place] [address] 04/05/2023 Hem/Onc Treatment Hematology Oncology [place], Chair 4 Hem Onc Scenery [address] [facility] [place] [address] 11/05/2023 Office Visit Family Medicine Sabrina Chang DO [address] [facility] [place] [address] Health Maintenance Due Date Last Done Comments [...] this encounter Medical Devices Implanted Type Area Body Builder Apprentice Device Identifier Shelf Expiration Date Model / Serial / Lot Port Power Mri W/8fr Cath - [id number] Implanted:Qty: 1 on 03/31/2023 by Sobia Hernandez MD at OR [facility] Right: Chest CR BARD : PERIPHERAL VASCULAR 12/17/2023 [id number] / / [id number] documented as of this encounter Procedures Procedure Name Priority Date/Time Associated Diagnosis Comments XR CHEST 1 VIEW Routine 03/31/2023 12:23 PM EDT XR CHEST 1 VIEW Routine 03/31/2023 9:29 AM EDT XR INTRA-OP C-ARM CASE Routine 03/31/2023 8:57 AM EDT documented in this encounter Results * XR CHEST 1 VIEW (03/31/2023 12:23 PM EDT) Anatomical Region Laterality Modality Chest Digital Radiogra phy 03/31/2023 12:3 1 PM EDT Impressions 03/31/2023 12:28 PM EDT IMPRESSION Small right apical pneumothorax is not significantly changed in size. Narrative 03/31/2023 12:28 PM EDT EXAM XR CHEST 1 VIEW- 03/31/2023 12:23 pm HISTORY Provided clinical history: "s/p port placement, assess pneumothorax" TECHNIQUE AP semi-upright portable view of the chest was obtained. COMPARISON Chest radiograph from earlier today, March 31, 2023. FINDINGS Right subclavian port catheter is unchanged in position, with the tip near the lower SVC. Small right apical pneumothorax is not significantly changed in size. The cardiomediastinal silhouette is normal in size and contour. No significant central pulmonary vascular congestion or interstitial pulmonary edema. No focal pulmonary consolidation or pleural effusion. Bones are unremarkable for age. Procedure Note Bigger, Sorin Ricks MD - 03/31/2023 EXAM XR CHEST 1 VIEW- 03/31/2023 12:23 pm HISTORY Provided clinical history: "s/p port placement, assess pneumothorax" TECHNIQUE AP semi-upright portable view of the chest was obtained. COMPARISON Chest radiograph from earlier today, March 31, 2023. FINDINGS Right subclavian port catheter is unchanged in position, with the tip nearthe lower SVC. Small right apical pneumothorax is not significantly changed in size. Thecardiomediastinal silhouette is normal in size and contour. No significantcentral pulmonary vascular congestion or interstitial pulmonary edema. Nofocal pulmonary consolidation or pleural effusion. Bones are unremarkablefor age. IMPRESSION IMPRESSION Small right apical pneumothorax is not significantly changed in size. Sobia Hernandez MD RADIOLOGY (RAD [facility]) * XR CHEST 1 VIEW (03/31/2023 9:29 AM EDT) Anatomical Region Laterality Modality Chest Digital Radiogra phy 03/31/2023 9:40 AM EDT Impressions 03/31/2023 9:38 AM EDT IMPRESSION Small right apical pneumothorax. Impression communicated to the ordering provider (Dr. Karla Hernandez) via Bubbl secure messaging on March 31, 2023 at approximately 9:34 a.m. EST. Narrative 03/31/2023 9:38 AM EDT EXAM XR CHEST 1 VIEW- 03/31/2023 9:29 am HISTORY Provided clinical history: "s/p right port" TECHNIQUE AP semi-upright portable views of the chest were obtained. COMPARISON None. FINDINGS Right subclavian port catheter tip is located in the lower SVC. Small right apical pneumothorax. The cardiomediastinal silhouette is normal in size and contour. No significant central pulmonary vascular congestion or interstitial pulmonary edema. No focal pulmonary consolidation or pleural effusion. Bones are unremarkable for age. Procedure Note Bigger, Sorin Ricks MD - 03/31/2023 EXAM XR CHEST 1 VIEW- 03/31/2023 9:29 am HISTORY Provided clinical history: "s/p right port" TECHNIQUE AP semi-upright portable views of the chest were obtained. COMPARISON None. FINDINGS Right subclavian port catheter tip is located in the lower SVC. Small right apical pneumothorax. The cardiomediastinal silhouette isnormal in size and contour. No significant central pulmonary vascularcongestion or interstitial pulmonary edema. No focal pulmonaryconsolidation or pleural effusion. Bones are unremarkable for age. IMPRESSION IMPRESSION Small right apical pneumothorax. Impression communicated to the ordering provider (Dr. Karla Hernandez) viaBubbl secure messaging on March 31, 2023 at approximately 9:34a.m. EST. Sobia Hernandez MD RADIOLOGY ([facility]) * XR INTRA-OP C-ARM CASE (03/31/2023 8:57 AM EDT) Narrative Scheduling, Silent - 03/31/2023 8:57 AM EDT This procedure will not be read by a Radiologist. Please see operative note. Sobia Hernandez MD RADIOLOGY ([facility]) documented in this encounter Administered Medications Inactive Administered Medications - up to 3 most recent administrations Medication Order MAR Action Action Date Dose Rate Site Acetaminophen (Tylenol) tab 650 mg 650 mg, Oral, PRN Pain, Mild, Starting on Wed03/31/23 at 0913, Until Wed03/31/23 at 1704, For 1 dose, Maximum of 4 grams (4000 mg) per day., Post-op Acetaminophen (Tylenol) tab 975 mg 975 mg, Oral, PREOP, First dose on Wed03/31/23 at 0730, Last dose on Wed03/31/23 at 0730, For 1 dose, Maximum 4 g acetaminophen/day. Avoid in patients with severe hepatic impairment or severe active liver disease. Administer 60 minutes prior to OR., Pre-Op Given 03/31/2023 6:56 AM EDT 975 mg ceFAZolin in dextrose (Ancef) ivpb 2 g 2 g, IV Piggyback, PREOP, 1 dose, First dose on Wed03/31/23 at 0730, Administer 60 minutes prior to skin incision, Pre-Op New Bag 03/31/2023 7:59 AM EDT 2 g 100 mL/hr isolyte-S pH 7.4 infusion Intravenous, at 100 mL/hr, Plasma-LYTE 148, isolyte-S, and isolyte-S pH 7.4 are considered equivalent - including for MAR barcode scanning., CONTINUOUS, Starting on Wed03/31/23 at 0730, Until Wed03/31/23 at 1704, Pre-Op Continue from Pre-Op 03/31/2023 8:02 AM EDT 100 mL/hr New Bag 03/31/2023 7:10 AM EDT 100 mL/hr documented in this encounter Active and Recently Administered Medications Times are shown in EDT. Scheduled Medication Order 03/29/2023 03/30/2023 03/31/2023 Acetaminophen (Tylenol) tab 975 mg (COMPLETED) 975 mg, Oral, PREOP, First dose on Wed03/31/23 at 0730, Last dose on Wed03/31/23 at 0730, For 1 dose, Maximum 4 g acetaminophen/day. Avoid in patients with severe hepatic impairment or severe active liver disease. Administer 60 minutes prior to OR., Pre-Op 0656 (Given - Provid er: Socorro Sampson RN) ceFAZolin in dextrose (Ancef) ivpb 2 g (COMPLETED) 2 g, IV Piggyback, PREOP, 1 dose, First dose on Wed03/31/23 at 0730, Administer 60 minutes prior to skin incision, Pre-Op 0759 (New Bag - Prov ider: Socorro Sampson RN) Continuous Medication Order 03/29/2023 03/30/2023 03/31/2023 isolyte-S pH 7.4 infusion Intravenous, at 100 mL/hr, Plasma-LYTE 148, isolyte-S, and isolyte-S pH 7.4 are considered equivalent - including for MAR barcode scanning., CONTINUOUS, Starting on Wed03/31/23 at 0730, Until Wed03/31/23 at 1704, Pre-Op 0710 (New Bag - Prov ider: Socorro Sampson RN)0802 (Continue from Pre-Op - Provider: Cielo Haro CRNA)0903 (Anes Intra-Op Fluid - Provider: Cielo Haro CRNA) PRN Medication Order 03/29/2023 03/30/2023 03/31/2023 Acetaminophen (Tylenol) tab 650 mg 650 mg, Oral, PRN Pain, Mild, Starting on Wed03/31/23 at 0913, Until Wed03/31/23 at 1704, For 1 dose, Maximum of 4 grams (4000 mg) per day., Post-op bupivacaine 20 mL, lidocaine-epinephrine 1 %-1:[id number] 20 mL inj (CANCELED) ONCE PRN INTRA PROCEDURE, Starting on Wed03/31/23 at 0831, Until Wed03/31/23 at 0844, Intra-Op 0831 (Given - Provid er: Sobia Hernandez MD) hEParin 100 UNIT/ML Lock Flush inj (CANCELED) ONCE PRN INTRA PROCEDURE, Starting on Wed03/31/23 at 0844, Until Wed03/31/23 at 0844, Intra-Op 0844 (Given - Provid er: Sobia Hernandez MD - Comment: port flush) documented in this encounter Advance Directives Latest Code Status on File Code Status Date Activated Date Inactivated Comments Full Code 03/31/2023 6:47 AM 03/31/2023 5:04 PM This order reflects the patients wishes and were consensually agreed upon. Question Answer Comments Discussion of Advance Directives occurred with: Patient Does the patient have a Living Will? No Does the patient have Health Care Power of Art History Instructor? No Care Teams Vehicle Maintenance Technician Relationship Specialty Start Date End Date Sabrina Chang DO [address] [place] [address] PCP - General Family Medicine 09/15/18 documented as of this encounter
--- OUTSIDE RECORDS SUMMARY | 2023-06-13 20:12 | External Medical Summary | Summary of Care ---
Author Name Unknown Organization [facility] Address [address] [place] [address] Phone [phone] Care Team Providers Care Welding Machine Operator Gas Name Role Phone Sabrina Chang DO Primary Care Provider Reason for Visit * Reason Comments Chemotherapy TCHP D1C1 * Episode Based Medications (Routine) - Authorized Specialty Diagnoses / Procedures Referred By Contac t Referred To Contact Diagnoses Encounter for antineoplastic chemotherapy Malignant neoplasm of upper-outer quadrant of left breast in female, estrogen 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 (HCC) Procedures DC CARBOPLATIN INJECTION DC FOSAPREPITANT INJECTION DC INJECTION, PERTUZUMAB, 1 MG DC INJ ONTRUZANT 10 MG DC INJECTION, UDENYCA 0.5 MG DC DOCETAXEL INJECTION Serafin Goins MD [address] [place] [address] Anc Hem/Onc Scenery [place] [address] [place] [phone] Referral ID Status Reason Start Date Expiration Date V isits Requested Visits Authorized [id number] Authorized 03/24/2023 09/23/2023 999 999 Encounter Details Date Type Department Care Team Description 04/05/2023 Hem/Onc Treatment Hematology/Oncology Treatment, [place] [address] [place] [id number] [place], Chair 4 Hem Onc Scenery [address] [place] [address] Encounter for antineoplastic chemotherapy*; Malignant neoplasm of upper-outer quadrant of left breast in female, estrogen 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 (HCC) Allergies Active Allergy Reactions Severity Noted Date Comments Lisinopril Edema face/lips/tongue High 02/19/2017 angioedema documented as of this encounter (statuses as of 04/05/2023) Medications Medication Sig Dispensed Refills Start Date [...] as of this encounter (statuses as of 04/05/2023) Active Problems Problem Noted Date Encounter for antineoplastic chemotherap y 03/24/2023 Malignant neoplasm of upper- outer quadrant of left breast in female, estrogen 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 03/24/2023 Hyperlipidemia 04/17/2014 HTN, goal below 140/90 04/17/2014 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 documented as of this encounter (statuses as of 04/05/2023) Resolved Problems Problem Noted Date Resolved Date Bilateral impacted cerumen 10/27/201606/07 Overview: acute ABN PAP SMEAR-CERVIX(aka DYSPLASIA) 01/02/2004 10/27/2016 Varicella without complication 0 10/27/2016 Mumps without complication 10/27 Mucous polyp of cervix 9 documented as of this encounter (statuses as of 04/05/2023) Immunizations Name Administration Dates Next Due COVID-19 mRNA, LNP-s, No Pre serve, 2-Dose Series (Userlike Live Chat) 07/03/2021,10/09/2020,09/11/2020 Hep A - Hepatitis A (ped/adole, [...] Sign Reading Time Taken Comments Blood Pressure 157/88 04/05/2023 8:32 AM EDT Pulse 74 04/05/2023 8:32 AM EDT Temperature 36.4 C (97.5 F) 04/05/2023 8:32 AM ED T Respiratory Rate 18 04/05/2023 8:32 AM EDT Oxygen Saturation 96% 04/05/2023 8:32 AM EDT Inhaled Oxygen Concentration - - Weight 65.9 kg (145 lb 3.2 oz) 04/05/2023 8:32 A M EDT Height - - Body Mass Index 23.44 03/31/2023 7:00 AM EDT documented in this encounter Nursing Notes * Cathie Ambrose, MARC - 04/05/2023 3:13 PM EDT Functional status at today's visit: [...] symptoms or adverse side effects during treatment. Reviewed use of antiemetics at home. Pt stated she only picked up Rx for compazine, as she was told by [facility] that there was no Rx for Zofran. Advised pt that med was e-prescribed the same day with refills. Pt will go back to pharmacy for Zofran Rx; pt will have pharmacy contact the clinic if there is an issue with the rx. Pt completed treatment without issues. VAD flushed with 10 ml NSS and Heparin 5 ml (100 units/ml). Peguero needle removed intact. Goals: Pt will remain free from injury. Possible barriers to meeting goals: risk of reaction, ambulation with IV pole, possible drowsiness due to benadryl pretreat Stability of the patient: Moderately stable - low risk of patient condition declining or worsening Summary regarding today's goals: Met: Pt remained free from injury during treatment today. Discharged in stable condition. Goals: Pt will demonstrate understanding. Possible barriers to meeting goals: anxiety re: starting new treatment Stability of the patient: Moderately stable - low risk of patient condition declining or worsening Summary regarding today's goals: Met: Reviewed medications and infusion process with pt. Pt verbalized understanding and asked appropriate questions during treatment today. BR assisted. * Cathie Ambrose RN - 04/05/2023 8:56 AM EDT Chair 10 Chemo agents TCHP D1C1 At baseline, pt reports: Appetite "good" Nausea/Vomiting no Diarrhea no Constipation no Mucositis no Fatigue no Bleeding no Infection no Rash no Numbness tingling no Pain no Radiation n/a ABN Labs Ca 10.4; confirmed pt does not take PO Ca supplement at home Alt in Tx: no Return in 1 day for Udenyca injection. VAD accessed yielding good blood return; NSS infusing. VAD placed 03/31/[address] Hernandez. Resolvingecchymosis and edema noted; incision is CDI, well approximated. Safety and Risk for Injury Patient will remain free from injury. Ensure appropriate safety devices are available. Provide and maintain safe environment. Knowledge Deficit Patient and Caregiver will demonstrate understanding. Assess current knowledge base. Reinforce education. Teach at level of understanding. documented in this encounter Plan of Treatment Upcoming Encounters Date Type Specialty Care Team Description 04/06/2023 Immunization/Injection Hematology Oncolog y Nurse, Med [address] [place] [address] 04/07/2023 Imaging Radiology 04/07/2023 Imaging Radiology 04/26/2023 Laboratory Laboratory [place], Lab Scenery [address] [place] [address] 04/26/2023 Office Visit Hematology Oncology Judith Murillo CRNP [address] [place] [address] 04/26/2023 Hem/Onc Treatment Hematology Oncology [place], Chair 6 Hem Onc Scenery 200 [facility] [place] [address] 11/05/2023 Office Visit Family Medicine Sabrina Chang, [address] [facility] [place] [address] Health Maintenance Due Date Last Done Comments [...] this encounter Medical Devices Implanted Type Area Harnessmaker Apprentice Device Identifier Shelf Expiration Date Model / Serial / Lot Port Power Mri W/8fr Cath - [id number] Implanted:Qty: 1 on 03/31/2023 by Sobia Hernandez MD at OR [facility] Right: Chest CR BARD : PERIPHERAL VASCULAR 12/17/2023 [id number] / / [id number] documented as of this encounter Visit Diagnoses Diagnosis Encounter for antineoplastic chemotherapy- Primary Malignant neoplasm of upper-outer quadrant of left breast in female, estrogen 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 (HCC) documented in this encounter Administered Medications Active Administered Medications - up to 3 most recent administrations Medication Order MAR Action Action Date Dose Rate Site diphenhydrAMINE (Benadryl) inj 50 mg 50 mg, IV Push, ONCE PRN Other, Hypersensitivity Reaction, Starting on Wed04/05/23 at 0855, Until Wed04/06/23 at 0854, For 24 hours EPINEPHrine 1 MG/ML inj 0.3 mg 0.3 mg, Intramuscular, ONCE PRN Other, Hypersensitivity Reaction or Anaphylaxis, Starting on Wed04/05/23 at 0855, Until Wed04/06/23 at 0854, For 24 hours hEParin 100 UNIT/ML Lock Flush inj 500 Units 500 Units (5 mL), IV Lock, PRN Other, IV Flush, Starting on Wed04/05/23 at 0855, Until Wed04/06/23 at 0854, For 24 hours, Do not flush if lock, PICC, or central line not in place; IV infusing or unable to flush. Given 04/05/2023 1:53 PM EDT 500 Units Hydrocortisone Sod Suc (PF) (Solu-Cortef) inj 100 mg 100 mg, IV Push, ONCE PRN Other, Hypersensitivity Reaction, Starting on Wed04/05/23 at 0855, Until Wed04/06/23 at 0854, For 24 hours NSS infusion Intravenous, at 50 mL/hr, PRN, Starting on Wed04/05/23 at 1000, Until Discontinued, KVO Start Infusion 04/05/2023 8:57 AM EDT 50 mL/hr oxygen GAS Inhalation, OXYGEN, First dose on Wed04/05/23 at 0930, Until Discontinued, Device/Managed by: Low [...] Push, PRN Other, IV Flush, Starting on Wed04/05/23 at 0855, Until Wed04/06/23 at 0854, For 24 hours, Do not flush if lock, PICC, or central line not in place; IV infusing or unable to flush. Given 04/05/2023 1:53 PM EDT 10 mL Inactive Administered Medications - up to 3 most recent administrations Medication Order MAR Action Action Date Dose Rate Site Acetaminophen (Tylenol) tab 650 mg 650 mg, Oral, ONCE, On Wed04/05/23 at 0915, For 1 dose, Maximum of 4 grams (4000 mg) per day. Given 04/05/2023 9:06 AM EDT 650 mg CARBOplatin (Paraplatin) 629 mg in D5W 250 mL infusion 629 mg (rounded from 629.4 mg, Target AUC = 6), IV Piggyback, at 500 mL/hr Administer over 30 Minutes, PROTECT FROM LIGHT (Max Creatinine Clearance at 125 ml/min for calculating AUC dose), ONCE, 1 dose, On Wed04/05/23 at 1330 Start Infusion 04/05/2023 12:15 PM EDT 629 mg 500 mL/hr diphenhydrAMINE (Benadryl) cap 25 mg 25 mg, Oral, ONCE, On Wed04/05/23 at 0915, For 1 dose Given 04/05/2023 9:06 AM EDT 25 mg DOCEtaxel (Taxotere) 120 mg in NSS 250 mL infusion 120 mg (rounded from 131.25 mg = 75 mg/m2 1.75 m2 Treatment Plan BSA from Recorded weight), IV Piggyback, at 250 mL/hr Administer over 60 Minutes, ONCE, 1 dose, On Wed04/05/23 at 1400 Start Infusion 04/05/2023 12:50 PM EDT 120 mg 250 mL/hr fosaprepitant Dimeglumine (Emend) 150 mg, ondansetron (Zofran) 16 mg, dexamethasone sodium phosphate 12 mg in NSS 250 mL Infusion 150 mg, IV Piggyback, ONCE, 1 dose, On Wed04/05/23 at 1000, Administer over 30 Minutes, Give 30 minutes prior to chemotherapy. Infuse over 30 minutes. Start Infusion 04/05/2023 9:01 AM EDT 150 mg 500 mL/hr PERtuzumab (Perjeta) 840 mg in NSS 250 mL infusion 840 mg, IV Piggyback, ONCE, 1 dose, On Wed04/05/23 at 0945, Administer over 60 Minutes Start Infusion 04/05/2023 9:42 AM EDT 840 mg 250 mL/hr Trastuzumab-dttb (Ontruzant) 526 mg in NSS 250 mL infusion 526 mg (rounded from 526.4 mg = 8 mg/kg 65.8 kg Treatment plan Recorded weight), IV Piggyback, ONCE, 1 dose, On Wed04/05/23 at 1200, Administer over 90 Minutes Start Infusion 04/05/2023 10:44 AM EDT 526 mg 166.67 mL/hr documented in this encounter Advance Directives [...] the patient have Health Care Power of Poultry Dresser? No Care Teams Welding Machine Operator Gas Relationship Specialty Start Date End Date Sabrina Chang DO [address] [place] [address] PCP - General Family Medicine 09/15/18 documented as of this encounter
--- OUTSIDE RECORDS SUMMARY | 2023-06-13 20:12 | External Medical Summary | Summary of Care ---
Author Name Unknown Organization [facility] Address [address] [facility] [place] [address] Phone [phone] Care Team Providers Care Mushroom Press Operator Name Role Phone Sabrina Chang DO Primary Care Provider Encounter Details Date Type Department Care Team Description 04/01/2023 Telephone General Surgery, [facility] [address] [facility] [place] [address] Sobia Hernandez MD [address] [facility] [place] [address] Allergies Active Allergy Reactions Severity Noted Date [...] mRNA, LNP-s, No Pre serve, 2-Dose Series (Streak) 07/03/2021,10/09/2020,09/11/2020 Hep A - Hepatitis A (ped/adole, [...] Encounter - Sobia Hernandez MD - 04/01/2023 1:31 PM EDT Ideally should have ultrasound / biopsy done in next 1-2 weeks.... Quin - can you see if this is possible? I don't want her chemo to start and area to no longer be seen. * Telephone Encounter - Serafin Goins MD [...] Specialty Care Team Description 04/05/2023 Laboratory Laboratory [place], Lab Scenery [address] [place] [address] 04/05/2023 Hem/Onc Treatment Hematology Oncology [place], Chair 4 Hem Onc Scenery [address] [place] [address] 11/05/2023 Office Visit Family Medicine Sabrina Chang, [address] [place] [address] Scheduled Orders Name Type Priority Associated Diagnoses [...] this encounter Medical Devices Implanted Type Area Digital Media Manager Device Identifier Shelf Expiration Date Model / Serial / Lot Port Power Mri W/8fr Cath - [id number] Implanted:Qty: 1 on 03/31/2023 by Sobia Hernandez MD at OR [facility] Right: Chest CR BARD : PERIPHERAL VASCULAR 12/17/2023 [id number] / / [id number] documented as of this encounter Visit Diagnoses [...] the patient have Health Care Power of Fifth Hand? No Care Teams Mushroom Press Operator Relationship Specialty Start Date End Date Sabrina Chang DO [address] [facility] [place] [address] PCP - General Family Medicine 09/15/18 documented as of this encounter
--- OUTSIDE RECORDS SUMMARY | 2023-06-13 20:12 | External Medical Summary | Summary of Care ---
Author Name Unknown Organization [facility] Address [address] [place] [address] Phone [phone] Care Team Providers Care Waterproofing Supervisor Name Role Phone Sabrina Chang DO Primary Care Provider Reason for Visit * Reason Onset Date Comments Med Request 03/24/2023 Zofran, compazin e, decadron Encounter Details Date Type Department Care Team Description 03/24/2023 Refill Hematology/Oncology Treatment, [place] [address] [place] [id number] Serafin Goins MD 200 [facility] [place] [address] Malignant neoplasm of upper-outer quadrant of left breast in female, estrogen 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 (HCC)* Allergies Active Allergy Reactions Severity Noted Date Comments Lisinopril Edema face/lips/tongue High 02/19/2017 angioedema documented as of this encounter (statuses as of 03/24/2023) Medications Medication Sig Dispensed Refills Start Date [...] for Nausea. 30 Tablet 2 03/24/2023 Active Prochlorperazine Maleate 10 MG Oral Tablet (Compazine)Indicatio ns:Malignant neoplasm of upper-outer quadrant of left breast in female, estrogen 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 (HCC) Take 1 Tablet by mouth every 6 hours as needed for Nausea. 30 Tablet 2 03/24/2023 Active Dexamethasone 4 MG Oral Tablet (Decadron)Indication s:Malignant neoplasm of upper-outer quadrant of left breast in female, estrogen 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 (HCC) Take 8mg (2 tabs) twice a day for 3 days starting the day before chemotherapy 72 Tablet 0 03/24/2023 Active documented as of this encounter (statuses as of 03/24/2023) Active Problems Problem Noted Date Encounter for antineoplastic chemotherap y 03/24/2023 Malignant neoplasm of upper- outer quadrant of left breast in female, estrogen 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 03/24/2023 Hyperlipidemia 04/17/2014 HTN, goal below 140/90 04/17/2014 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 documented as of this encounter (statuses as of 03/24/2023) Resolved Problems Problem Noted Date Resolved Date Bilateral impacted cerumen 10/27/201606/07 Overview: acute ABN PAP SMEAR-CERVIX(aka DYSPLASIA) 01/02/2004 10/27/2016 Varicella without complication 0 10/27/2016 Mumps without complication 10/27 Mucous polyp of cervix 9 documented as of this encounter (statuses as of 03/24/2023) Immunizations Name Administration Dates Next Due COVID-19 mRNA, LNP-s, No Pre serve, 2-Dose Series (Dynis) 07/03/2021,10/09/2020,09/11/2020 Hep A - Hepatitis A (ped/adole, [...] Telephone Encounter - Serafin Goins MD - 03/24/2023 4:23 PM EDT E-prescribed * Telephone Encounter - Megan Galvan RN - 03/24/2023 2:15 PM EDT Patient to start TCHP, pended scripts for zofran, compazine and decadron. documented in this encounter Plan of Treatment Upcoming Encounters Date Type Specialty Care Team Description 03/25/2023 Nurse Only Hematology Oncology [place], Nurse Hem Onc Scenery [address] [place], [place] [address] 03/25/2023 Imaging Radiology 03/29/2023 Appointment Radiology 03/31/2023 Hospital Encounter Surgery Sobia Hernandez MD [address] [place] [address] 03/31/2023 Surgery Surgery Sobia Hernandez MD [address] [place] [address] INSERT TUNNELED CENTRAL VENOUS ACCESS WITH SUBQ PORT 04/01/2023 Cardiac Studies Cardiac Studies 11/05/2023 Office Visit Family Medicine Sabrina Chang DO [address] [place] [address] Scheduled Procedures Name Priority Associated Diagnoses Date/Ti me INSERT TUNNELED CENTRAL VENOUS ACCESS WITH SUBQ PORT Malignant neoplasm of upper-outer quadrant of left breast in female, estrogen 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 (HCC) 03/31/2023 8:00 AM EDT Health Maintenance Due Date Last Done Comments Fecal Occult Blood Test 1999 Sigmoidoscopy 1999 Depression Screening, Annual for Pts 12 and Over 05/25/2020 05/25/2019 Colonoscopy 06/22/2021 06/22/2011, 05/16/2007 COVID-19 [...] in female, estrogen 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 (HCC)- Primary Malignant neoplasm of upper-outer quadrant of left breast in female, estrogen 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 (HCC) documented in this encounter Care Teams Waterproofing Supervisor Relationship Specialty Start Date End Date Sabrina Chang DO [address] [place] [address] PCP - General Family Medicine 09/15/18 documented as of this encounter
--- OUTSIDE RECORDS SUMMARY | 2023-06-13 20:12 | External Medical Summary ---
Author Name Unknown Address Unknown Organization K09:[facility] [address] [place] [address] Laboratory Report Ordering Provider Test Date Status KELLEY MERAZ 04/05/2023 07:14:21 Final Observation Date Value Abnormality Reference (Units ) Status BUN 04/05/2023 07:14:21 16 6-20 (mg/dL) Final Creatinine 04/05/2023 07:14:21 0.6 0.5-1.0 (mg/dL) Final Glomerular filtration rate/1.73 sq M.predicted [Volume Rate/Area] in Serum, Plasma or Blood by Creatinine-based formula (CKD-EPI) 04/05/2023 07:14:21 >90 >=60 (mL/min) Final eGFR is calculated based on the CKD-EPI 2020 equation SODIUM 04/05/2023 07:14:21 135 135-146 (m mol/L) Final Potassium 04/05/2023 07:14:21 4.1 3.5-5.1 (m mol/L) Final Cl 04/05/2023 07:14:21 99 98-107 (mm ol/L) Final CO2 04/05/2023 07:14:21 23 22-32 (mmo l/L) Final Anion gap 04/05/2023 07:14:21 13 7-15 (mmol /L) Final Glucose 04/05/2023 07:14:21 150 Above high normal 70 -120 (mg/dL) Final Albumin 04/05/2023 07:14:21 5.2 Above high normal 3. 8-5.0 (g/dL) Final AST (Aspartate aminotransferase) 04/05/2023 07:14:21 20 10-35 (U/L) Fin al Alk Phos 04/05/2023 07:14:21 58 35-130 (U/ L) Final Bilirubin, Total 04/05/2023 07:14:21 0.8 <=1 .2 (mg/dL) Final Calcium 04/05/2023 07:14:21 10.4 Above high normal 8. 4-10.2 (mg/dL) Final Protein 04/05/2023 07:14:21 7.8 6.0-8.3 (g /dL) Final ALT (Alanine aminotransferase) 04/05/2023 07:14:21 32 10-35 (U/L) Tej jasso Performing Location [facility] [address] [place] [address]
--- OUTSIDE RECORDS SUMMARY | 2023-06-13 20:12 | External Medical Summary | Summary of Care ---
Author Name Unknown Organization [facility] Address [address] [facility] [place] [address] Phone [phone] Care Team Providers Care Metal Worker Name Role Phone Sabrina Chang DO Primary Care Provider Encounter Details Date Type Department Care Team Description 04/01/2023 Telephone General Surgery, [facility] [address] [facility] [place] [address] Sobia Hernandez MD [facility] [place] [address] Allergies Active Allergy Reactions Severity Noted Date Comments Lisinopril Edema face/lips/tongue High 02/19/2017 angioedema documented as of this encounter (statuses as of 04/02/2023) Medications Medication Sig Dispensed Refills Start Date [...] as of this encounter (statuses as of 04/02/2023) Active Problems Problem Noted Date Encounter for antineoplastic chemotherap y 03/24/2023 Malignant neoplasm of upper- outer quadrant of left breast in female, estrogen 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 03/24/2023 Hyperlipidemia 04/17/2014 HTN, goal below 140/90 04/17/2014 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 documented as of this encounter (statuses as of 04/02/2023) Resolved Problems Problem Noted Date Resolved Date Bilateral impacted cerumen 10/27/201606/07 Overview: acute ABN PAP SMEAR-CERVIX(aka DYSPLASIA) 01/02/2004 10/27/2016 Varicella without complication 0 10/27/2016 Mumps without complication 10/27 Mucous polyp of cervix 9 documented as of this encounter (statuses as of 04/02/2023) Immunizations Name Administration Dates Next Due COVID-19 mRNA, LNP-s, No Pre serve, 2-Dose Series (BranchOut) 07/03/2021,10/09/2020,09/11/2020 Hep A - Hepatitis A (ped/adole, [...] encounter Miscellaneous Notes * Telephone Encounter - RAZA Rico - 04/02/2023 9:22 AM EDT Patient aware of date and time. She is not on rebekah blood thinning medications. * Telephone Encounter - Quin Hercules, RT - 04/02/2023 7:[address] Hernandez- We can put her on for WednesdayApr 07 @ 12pm. Just to confirm-- this is for 2nd look Ultrasound with biopsy based off a breast MRI, right? No Latrice breakfast server needs to be placed? Kell- can you call the patient and confirm this appt Is good for her please? This is our first available time slot we have next week. * Telephone Encounter - Sobia Hernandez MD [...] [place], Lab Scenery [address] [place] [address] 04/05/2023 Hem/Onc Treatment Hematology Oncology [place], Chair 4 Hem Onc Scenery [address] [place] [address] 04/07/2023 Imaging Radiology 04/07/2023 Imaging Radiology 11/05/2023 Office Visit Family Medicine Sabrina Chang, DO [address] [place] [address] Scheduled Orders Name Type Priority Associated Diagnoses [...] this encounter Medical Devices Implanted Type Area Bias Cutter Helper Device Identifier Shelf Expiration Date Model / Serial / Lot Port Power Mri W/8fr Cath - [id number] Implanted:Qty: 1 on 03/31/2023 by Sobia Hernandez MD at OR [facility] Right: Chest CR BARD : PERIPHERAL VASCULAR 12/17/2023 [id number] / / [id number] documented as of this encounter Visit Diagnoses [...] the patient have Health Care Power of Side Seam Envelope Machine Operator? No Care Teams Metal Worker Relationship Specialty Start Date End Date Sabrina Chang DO [facility] [place] [address] PCP - General Family Medicine 09/15/18 documented as of this encounter
--- OUTSIDE RECORDS SUMMARY | 2023-06-13 20:12 | External Medical Summary | Summary of Care ---
Author Name Unknown Organization [facility] Address [address] [place] [address] Phone [phone] Care Team Providers Care Back Shoe Cutter Name Role Phone Sabrina Chang DO Primary Care Provider Reason for Visit * Reason Comments Education Encounter Details Date Type Department Care Team Description 03/25/2023 Nurse Only Hematology/Oncology [facility] [address] [place] [address] [place], Nurse Hem Onc [facility] [address] [place] [address] Education Allergies Active Allergy Reactions Severity Noted Date [...] mRNA, LNP-s, No Pre serve, 2-Dose Series (Reactful) 07/03/2021,10/09/2020,09/11/2020 Hep A - Hepatitis A (ped/adole, [...] Sign Reading Time Taken Comments Blood Pressure 148/87 03/25/2023 11:18 AM EDT Pulse 87 03/25/2023 11:18 AM EDT Temperature 36.2 C (97.2 F) 03/25/2023 11:18 AM E DT Respiratory Rate 16 03/25/2023 11:18 AM EDT Oxygen Saturation - - Inhaled Oxygen Concentration - - Weight - - Height - - Body Mass Index - - documented in this encounter Nursing Notes * Megan Galvan RN - 03/25/2023 12:33 PM EDT Exam Room 7 Educated patient and spouse Phil on TCHP, udenyca, decadron and anti-emetics. Reviewed how and whento contact office. Reviewed chemotherapy education binder in its entirety. Answered all questions in a satisfactory manor. Patient discharged to lab in stable condition. documented in this encounter Plan of Treatment Upcoming Encounters Date Type Specialty Care Team Description 03/29/2023 Appointment Radiology 03/30/2023 Imaging Radiology 03/31/2023 Hospital Encounter Surgery Sobia Hernandez MD [address] [place] [address] 03/31/2023 Surgery Surgery Sobia Hernandez MD [address] [place] [address] INSERT TUNNELED CENTRAL VENOUS ACCESS WITH SUBQ PORT 04/01/2023 Cardiac Studies Cardiac Studies 11/05/2023 Office Visit Family Medicine Sabrina Chang DO [address] [place] [address] Scheduled Procedures Name Priority Associated Diagnoses Date/Ti [...] Not on filedocumented as of this encounter Care Teams Back Shoe Cutter Relationship Specialty Start Date End Date Sabrina Chang DO [address] [place] [address] PCP - General Family Medicine 09/15/18 documented as of this encounter
--- OUTSIDE RECORDS SUMMARY | 2023-06-13 20:12 | External Medical Summary | Summary of Care ---
Author Name Unknown Organization [facility] Address [address] [place] [address] Phone [phone] Care Team Providers Care Automatic Spinning Lathe Operator Name Role Phone Sabrina Chang DO Primary Care Provider Reason for Visit * Reason Onset Date Comments Med Request 03/24/2023 Zofran, compazin e, decadron Encounter Details Date Type Department Care Team Description 03/24/2023 Refill Hematology/Oncology Treatment, [place] 200 [facility] [place] [id number] Mariya Goins MD 200 [facility] [place] [address] Malignant neoplasm of upper-outer quadrant of left [...] mRNA, LNP-s, No Pre serve, 2-Dose Series (Madrone) 07/03/2021,10/09/2020,09/11/2020 Hep A - Hepatitis A (ped/adole, [...] as of this encounter Miscellaneous Notes * Addendum Note - Megan Galvan RN - 03/25/2023 12:01 PM EDTAddended by: EMGAN GALVAN on: 03/25/2023 12:01 PM Modules accepted: Orders * Telephone Encounter - Megan Galvan RN - 03/25/2023 12:01 PM EDT Pt requesting EMLA cream. * Telephone Encounter - Shira Perry LPN - 03/25/2023 8:00 AM EDTSigned Prescriptions: Disp Refills Ondansetron HCl 8 MG Oral Tablet (Zofran) 30 Tab*2 Sig: Take 1 Tablet by mouth every 8 hours as needed for Nausea.Authorizing Provider: MARIYA GOINS Prochlorperazine Maleate 10 MG Oral Tablet*30 Tab*2 Sig: Take 1 Tablet by mouth every 6 hours as needed for Nausea.Authorizing Provider: MARIYA GOINS Dexamethasone 4 MG Oral Tablet (Decadron) 72Tab*0 Sig: Take 8mg (2 tabs) twice a day for 3 days starting the day before chemotherapyAuthorizingProvider: MARIYA GOINS * Telephone Encounter - Mariya Goins MD - 03/24/2023 4:23 PM EDT E-prescribed * Telephone Encounter - Megan Galvan RN - 03/24/2023 2:15 PM EDT Patient to start TCHP, pended scripts for zofran, compazine and decadron. documented in this encounter Plan of Treatment Upcoming Encounters Date Type Specialty Care Team Description 03/29/2023 Appointment Radiology 03/31/2023 Hospital Encounter Surgery Sobia Hernandez MD [address] [place] [address] 03/31/2023 Surgery Surgery Sobia Hernandez MD [address] [place] [address] INSERT TUNNELED CENTRAL VENOUS ACCESS WITH SUBQ PORT 04/01/2023 Cardiac Studies Cardiac Studies 11/05/2023 Office Visit [facility] [address] Scheduled Procedures Name Priority Associated Diagnoses Date/Ti [...] (HCC) documented in this encounter Care Teams Automatic Spinning Lathe Operator Relationship Specialty Start Date End Date Sabrina Chang, DO [address] [place] [address] PCP - General Family Medicine 09/15/18 documented as of this encounter
--- OUTSIDE RECORDS SUMMARY | 2023-06-13 20:12 | External Medical Summary ---
Author Name Unknown Address Unknown Organization K01:[facility] [address] [place] [address] Laboratory Report Ordering Provider Test Date Status KELLEY MERAZ 03/25/2023 12:17:28 Final Observation Date Value Abnormality Reference (Units) Status Hepatitis B virus surface Ab [Units/volume] in Serum or Plasma by Immunoassay 03/25/2023 12:17:28 <3.5 (mIU/mL) Final Hepatitis B virus surface Ab [Presence] in Serum by Immunoassay 03/25/2023 12:17:28 Negative Final HEPATITIS B SURFACE ANTIBODY, INTERPRETATION 03/25/2023 12:17:28 NOT immune to Hepatitis B Virus Final POSITIVE: >=11.5 mIU/mL
INDETERMINATE: 8.5-<11.5 mIU/mL
NEGATIVE: <8.5 mIU/mL Performing Location [facility] [address] [address] [place] [address]
--- OUTSIDE RECORDS SUMMARY | 2023-06-13 20:12 | External Medical Summary ---
Author Name Unknown Address Unknown Organization K01:[facility] [place] [address] [place] [address] Laboratory Report Ordering Provider Test Date Status KELLEY MERAZ 03/25/2023 12:17:28 Final Observation Date Value Abnormality Reference (Units ) Status Hep B surface Ag 03/25/2023 12:17:28 Negative Neg ative Final Performing Location [facility] - [address] [place] [address]
--- OUTSIDE RECORDS SUMMARY | 2023-06-13 20:12 | External Medical Summary | Summary of Care ---
Author Name Unknown Organization [facility] Address [address] [facility] [place] [address] Phone [phone] Care Team Providers Care Kiln Loader Name Role Phone Sabrina Chang DO Primary Care Provider Encounter Details Date Type Department Care Team Description 04/01/2023 Telephone [facility], [facility] [place] [address] [facility] [place] [address] Allergies Active Allergy Reactions Severity Noted Date Comments Lisinopril Edema face/lips/tongue High 02/19/2017 angioedema documented as of this encounter (statuses as of 04/06/2023) Medications Medication Sig Dispensed Refills Start Date [...] as of this encounter (statuses as of 04/06/2023) Active Problems Problem Noted Date Encounter for antineoplastic chemotherap y 03/24/2023 Malignant neoplasm of upper- outer quadrant of left breast in female, estrogen 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 03/24/2023 Hyperlipidemia 04/17/2014 HTN, goal below 140/90 04/17/2014 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 documented as of this encounter (statuses as of 04/06/2023) Resolved Problems Problem Noted Date Resolved Date Bilateral impacted cerumen 10/27/201606/07 Overview: acute ABN PAP SMEAR-CERVIX(aka DYSPLASIA) 01/02/2004 10/27/2016 Varicella without complication 0 10/27/2016 Mumps without complication 10/27 Mucous polyp of cervix 9 documented as of this encounter (statuses as of 04/06/2023) Immunizations Name Administration Dates Next Due COVID-19 mRNA, LNP-s, No Pre serve, 2-Dose Series (CommScope) 07/03/2021,10/09/2020,09/11/2020 Hep A - Hepatitis A (ped/adole, [...] Telephone Encounter - Sobia Hernandez MD - 04/06/2023 7:54 AM EDT Correct. No myra emergency medical technician basic until we know pathology. Thank you. * Telephone Encounter - RAZA Rico - [...] based off a breast MRI, right? No Myra emergency medical technician basic needs to be placed? Kell- can you [...] Hematology Oncolog y Nurse, Med [address] [place] [address] 04/07/2023 Imaging Radiology 04/07/2023 Imaging Radiology 04/26/2023 Laboratory Laboratory [place], Lab Scenery [address] [place] [address] [address] 04/26/2023 Office Visit Hematology Oncology Judith Murillo CRNP [address] [place] [id number] 04/26/2023 Hem/Onc Treatment Hematology Oncology [place], Chair 6 Hem Onc Scenery [address] [place] [address] 11/05/2023 Office Visit Family Medicine Sabrina Chang, DO [address] [place] [address] Scheduled Orders Name Type Priority Associated Diagnoses [...] this encounter Medical Devices Implanted Type Area Type Disk Quality Control Supervisor Device Identifier Shelf Expiration Date Model / Serial / Lot Port Power Mri W/8fr Cath - [id number] Implanted:Qty: 1 on 03/31/2023 by Sobia Hernandez MD at OR [facility] Right: Chest CR BARD : PERIPHERAL VASCULAR 12/17/2023 [id number] / / [id number] documented as of this encounter Visit Diagnoses [...] the patient have Health Care Power of Quality Control? No Care Teams Kiln Loader Relationship Specialty Start Date End Date Sabrina Chang DO [address] [place] [address] PCP - General Family Medicine 09/15/18 documented as of this encounter
--- OUTSIDE RECORDS SUMMARY | 2023-06-13 20:12 | External Medical Summary | Summary of Care ---
Author Name Unknown Organization [facility] Address [address] [place] [address] Phone [phone] Care Team Providers Care Director Of Institutional Research Name Role Phone Sabrina Chang DO Primary Care Provider Reason for Visit * Reason Comments Outpatient Testing Encounter Details Date Type Department Care Team Description 03/25/2023 Laboratory Laboratory Scenery [facility] [address] [place] [address] [facility] Lab Scenery [address] [place] [address] Malignant neoplasm of upper-outer quadrant of left [...] mRNA, LNP-s, No Pre serve, 2-Dose Series ([email or web address]) 07/03/2021,10/09/2020,09/11/2020 Hep A - Hepatitis A (ped/adole, [...] Hernandez MD [address] [place] [address] 03/31/2023 Surgery Surgery Sobia Hernandez MD [address] [place] [address] INSERT TUNNELED CENTRAL VENOUS ACCESS WITH SUBQ PORT 04/01/2023 Cardiac Studies Cardiac Studies 11/05/2023 Office Visit Family Medicine [facility] [address] Pending Results Name Type Priority Associated Diagnoses Date /Time HEPATITIS B SURFACE ANTIGEN Lab Routine Malignant neoplasm of upper-outer quadrant of left breast in female, estrogen 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 (HCC) 03/25/2023 12:17 PM EDT HEPATITIS B SURFACE ANTIBODY Lab Routine Malignant neoplasm of upper-outer quadrant of left breast in female, estrogen 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 (HCC) 03/25/2023 12:17 PM EDT HEPATITIS B CORE ANTIBODIES IGG AND IGM Lab Routine Malignant neoplasm of upper-outer quadrant of left breast in female, estrogen 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 (HCC) 03/25/2023 12:17 PM EDT Scheduled Procedures Name Priority Associated Diagnoses Date/Ti [...] (HCC) documented in this encounter Care Teams Director Of Institutional Research Relationship Specialty Start Date End Date Sabrina Chang DO [address] [place] [address] PCP - General Family Medicine 09/15/18 documented as of this encounter
--- OUTSIDE RECORDS SUMMARY | 2023-06-13 20:12 | External Medical Summary | Summary of Care ---
Author Name Unknown Organization [facility] Address [address] [place] [address] Phone [phone] Care Team Providers Care Magnetic Grinder Operator Name Role Phone Sabrina Chang DO Primary Care Provider Reason for Visit * Reason Comments Medication Administration Udencya * Episode Based Medications (Routine) - Authorized Specialty Diagnoses / Procedures Referred By Contac t Referred To Contact Diagnoses Encounter for antineoplastic chemotherapy Malignant neoplasm of upper-outer quadrant of left breast in female, estrogen 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 (HCC) Procedures SC CARBOPLATIN INJECTION SC FOSAPREPITANT INJECTION SC INJECTION, PERTUZUMAB, 1 MG SC INJ ONTRUZANT 10 MG SC INJECTION, UDENYCA 0.5 MG SC DOCETAXEL INJECTION Serafin Goins MD 200 [facility] [place] [address] Anc Hem/Onc [facility] [address] [place] [address] [address] Referral ID Status Reason Start Date Expiration Date V isits Requested Visits Authorized [id number] Authorized 03/24/2023 09/23/2023 999 999 Encounter Details Date Type Department Care Team Description 04/06/2023 Immunization/I njection Hematology/Oncology Treatment, [place] [address] [place] [address] [address] Nurse, Med [address] [place] [address] [address] Encounter for antineoplastic chemotherapy*; Malignant neoplasm of [...] mRNA, LNP-s, No Pre serve, 2-Dose Series (Bomberbot) 07/03/2021,10/09/2020,09/11/2020 Hep A - Hepatitis A (ped/adole, [...] Nursing Notes * Haley Pinzon LPN - 04/06/2023 2:04 PM EDT Room 4. Pt arrived for Udencya injection. Administered in SAMMY. Pt tolerated well. To return in 3 weeks. Discharged in stable condition. documented in this encounter Plan of Treatment Upcoming Encounters Date Type Specialty Care Team Description 04/07/2023 Imaging Radiology 04/07/2023 Imaging Radiology 04/26/2023 Laboratory Laboratory [place], Lab Scenery [address] [place] [address] 04/26/2023 Office Visit [facility]ematology [facility] [address] 04/26/2023 Hem/Onc Treatment Hematology Oncology [place], Chair 6 Hem Onc Scenery [address] [place] [address] 11/05/2023 Office Visit Family Medicine Sabrina Chang DO [address] [place] [address] Health Maintenance Due Date Last Done Comments Fecal Occult Blood Test 1999 Sigmoidoscopy 1999 Depression Screening 05/25/2020 05/25/2019 Colonoscopy 06/22/2021 06/22/2011, 05/16/2007 COVID-19 Vaccine (4 - Pfizer series) 08/28/2021 07/03/2021, 10/09/2020, 09/11/2020 Influenza Vaccine (FLU shot) (#1) 2023 06/02/2013 Mammogram 02/23/2024 02/22/2023, 07/07/2022, 04/17/2021, Additional history exists GFR 04/05/2024 04/05/2023, [...] this encounter Medical Devices Implanted Type Area Child Welfare Consultant Device Identifier Shelf Expiration Date Model / Serial / Lot Port Power Mri W/8fr Cath - [id number] Implanted:Qty: 1 on 03/31/2023 by Sobia Hernandez MD at OR [facility] Right: Chest CR BARD : PERIPHERAL VASCULAR 12/17/2023 [id number] / / [id number] documented as of this encounter Visit Diagnoses Diagnosis Encounter for antineoplastic chemotherapy- Primary Malignant neoplasm of upper-outer quadrant of left breast in female, estrogen 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 (HCC) documented in this encounter Administered Medications Inactive Administered Medications - up to 3 most recent administrations Medication Order MAR Action Action Date Dose Rate Site Pegfilgrastim-cbqv (Udenyca) inj 6 mg 6 mg, Subcutaneous, ONCE, On Wed04/06/23 at 1430, For 1 dose Given 04/06/2023 1:57 PM EDT 6 mg Arm R ight [...] the patient have Health Care Power of Cherry Cutter? No Care Teams Magnetic Grinder Operator Relationship Specialty Start Date End Date Sabrina Chang DO [address] [place] [address] PCP - General Family Medicine 09/15/18 documented as of this encounter
--- OUTSIDE RECORDS SUMMARY | 2023-06-13 20:12 | External Medical Summary | Summary of Care ---
Author Name Unknown Organization [facility] Address [address] [facility] [place] [address] Phone [phone] Care Team Providers Care Excel Expert Name Role Phone Sabrina Chang DO Primary Care Provider Encounter Details Date Type Department Care Team Description 04/01/2023 Telephone General [facility], [facility] [place] [address] S[facility] MD [facility] [place] [address] Allergies Active Allergy Reactions Severity Noted Date [...] mRNA, LNP-s, No Pre serve, 2-Dose Series ([email or web address]) 07/03/2021,10/09/2020,09/11/2020 Hep A - Hepatitis A (ped/adole, [...] Specialty Care Team Description 04/05/2023 Laboratory Laboratory [place], Lab Scenery [address] [place] [address] 04/05/2023 Hem/Onc Treatment Hematology Oncology [place], Chair 4 Hem Onc Scenery [address] [place] [address] 11/05/2023 Office Visit Family Medicine Sabrina Chang, [address] [place] [address] Scheduled Orders Name Type Priority Associated Diagnoses [...] this encounter Medical Devices Implanted Type Area Branch Service Leader Device Identifier Shelf Expiration Date Model / Serial / Lot Port Power Mri W/8fr Cath - [id number] Implanted:Qty: 1 on 03/31/2023 by Sobia Hernandez MD at OR [facility] Right: Chest CR BARD : PERIPHERAL VASCULAR 12/17/2023 [id number] / / [id number] documented as of this encounter Visit Diagnoses [...] the patient have Health Care Power of Customer Retention Representative? No Care Teams Excel Expert Relationship Specialty Start Date End Date Sabrina Chang DO [address] [facility] [place] [address] PCP - General Family Medicine 09/15/18 documented as of this encounter
--- OUTSIDE RECORDS SUMMARY | 2023-06-13 20:12 | External Medical Summary | Summary of Care ---
Author Name Unknown Organization [facility] Address [address] [facility] [address] Phone [phone] Care Team Providers Care Production Support Consultant Name Role Phone Sabrina Chang DO Primary Care Provider Reason for Visit * Reason Onset Date Comments Precert Future 03/24/2023 [facility] Lizbeth liang Encounter Details Date Type Department Care Team Description 03/24/2023 Telephone Hematology/Oncology Treatment, [place] 200 [facility] [place] [address] Serafin Goins MD [address] [place] [address] Precert Future ([facility] Emjerry Mcadams) Allergies Active Allergy Reactions Severity [...] mRNA, LNP-s, No Pre serve, 2-Dose Series (iOmando) 07/03/2021,10/09/2020,09/11/2020 Hep A - Hepatitis A (ped/adole, [...] Only Hematology Oncology [place], Nurse Hem Onc [facility] [address] 03/25/2023 Imaging Radiology 03/29/2023 Appointment Radiology 03/31/2023 Hospital Encounter Surgery Sobia Hernandez MD [address] [place] [address] 03/31/2023 Surgery Surgery Sobia Hernandez MD [address] [place] [address] INSERT TUNNELED CENTRAL VENOUS ACCESS WITH SUBQ PORT 04/01/2023 Cardiac Studies Cardiac Studies 11/05/2023 Office Visit Family Medicine Sabrina Chang DO [address] [facility] [place] [address] Scheduled Orders Name Type Priority Associated Diagnoses [...] (HCC) documented in this encounter Care Teams Production Support Consultant Relationship Specialty Start Date End Date Sabrina Chang DO 200 [facility] [place] [address] PCP - General Family Medicine 09/15/18 documented as of this encounter
--- OUTSIDE RECORDS SUMMARY | 2023-06-13 20:12 | External Medical Summary | Summary of Care ---
Author Name Unknown Organization [facility] Address [address] [place] [address] Phone [phone] Care Team Providers Care Staff Analyst Name Role Phone Sabrina Chang DO Primary Care Provider Reason for Referral * Precert (Within 10 days (routine)) - Pending Review Specialty Diagnoses / Procedures Referred By Angelique miller Referred To Contact Radiology Diagnoses Malignant neoplasm of upper-outer quadrant of left breast in female, estrogen 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 (HCC) Procedures MRI BREAST BILATERAL W WO CONTRAST Sobia Hernandez MD [address] [place] [address] Referral ID Status Reason Start Date Expiration Date V isits Requested Visits Authorized [id number] Pending Review 03/25/2023 999 999 Reason for Visit * Precert (Within 10 days (routine)) - Pending Review Specialty Diagnoses / Procedures Referred By Angelique miller Referred To Contact Radiology Diagnoses Malignant neoplasm of upper-outer quadrant of left breast in female, estrogen 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 (HCC) Procedures MRI BREAST BILATERAL W WO CONTRAST Sobia Hernandez MD [address] [place] [address] Referral ID Status Reason Start Date Expiration Date V isits Requested Visits Authorized [id number] Pending Review 03/25/2023 999 999 Encounter Details Date Type Department Care Team Description 03/29/2023 Hospital Encounter Radiology, [facility] [address] [place] [address] Arrived Allergies Active Allergy Reactions Severity Noted Date Comments Lisinopril Edema face/lips/tongue High 02/19/2017 angioedema documented as of this encounter (statuses as of 03/30/2023) Medications Medication Sig Dispensed Refills Start Date [...] before chemotherapy 72 Tablet 0 03/24/2023 Active Lidocaine-Prilocaine 2.5-2.5 % External Cream (Emla)Indications:Ma lignant neoplasm of upper-outer quadrant of left breast in female, estrogen 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 (HCC) APPLY TO SKIN OVER MEDIPORT & COVER 1HR PRIOR TO ACCESSING. 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 documented as of this encounter (statuses as of 03/30/2023) Resolved Problems Problem Noted Date Resolved Date Bilateral impacted cerumen 10/27/201606/07 Overview: acute ABN PAP SMEAR-CERVIX(aka DYSPLASIA) 01/02/2004 10/27/2016 Varicella without complication 0 10/27/2016 Mumps without complication 10/27 Mucous polyp of cervix 9 documented as of this encounter (statuses as of 03/30/2023) Immunizations Name Administration Dates Next Due COVID-19 [...] Encounters Date Type Specialty Care Team Description 03/31/2023 Hospital Encounter Surgery Sobia Hernandez MD [address] [place] [address] 03/31/2023 Surgery Surgery Sobia Hernandez MD [address] [place] [address] INSERT TUNNELED CENTRAL VENOUS ACCESS WITH SUBQ PORT 04/01/2023 Cardiac Studies Cardiac Studies 04/05/2023 Laboratory Laboratory [place], Lab Scenery [address] [place] [address] 04/05/2023 Hem/Onc Treatment Hematology Oncology [place], Chair 4 Hem Onc Scenery [address] [place] [address] 11/05/2023 Office Visit Family Medicine Sabrina Chang DO [address] [place] [address] Pending Results Name Type Priority Associated Diagnoses Date/Time MRI BREAST BILATERAL W WO CONTRAST Medical Imaging Pre-operative Malignant neoplasm of upper-outer quadrant of left breast in female, estrogen 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 (HCC) 03/29/2023 11:14 AM EDT Scheduled Orders Name Type Priority Associated Diagnoses Order Schedule MRI BREAST BILATERAL W WO CONTRAST Medical Imaging Pre-operative Malignant neoplasm of upper-outer quadrant of left breast in female, estrogen 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 (HCC) 1 Occurrences starting 03/29/2023 until 03/29/2023 Scheduled Procedures Name Priority Associated Diagnoses Date/Ti [...] MAR Action Action Date Dose Rate Site gadobutrol (Gadavist) inj 6.6 mL 6.6 mL (rounded from 6.58 mL = 0.1 mL/kg 65.8 kg), Intravenous, ONCE, On 03/29/23 at 1100, For 1 dose, Radiology Medication Routing (Non-IR) Given 03/29/2023 10:58 AM EDT 10 mL documented in this encounter Care Teams Staff Analyst Relationship Specialty Start Date End Date Sabrina Chang, DO [address] [place] [address] PCP - General Family Medicine 09/15/18 documented as of this encounter
--- OUTSIDE RECORDS SUMMARY | 2023-06-13 20:12 | External Medical Summary | Summary of Care ---
Author Name Unknown Organization [facility] Address [address] [place] [address] Phone [phone] Care Team Providers Care Coin Dealer Name Role Phone Sabrina Chang DO Primary Care Provider Reason for Visit * Reason Comments Outpatient Testing Encounter Details Date Type Department Care Team Description 04/05/2023 Laboratory Laboratory Sc[place] [address] [place] [address] [facility] Lab Scenery [address] [place] [address] Special screening examination for viral disease; Malignant neoplasm of upper-outer quadrant of left breast in female, estrogen 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 (HCC); Encounter for long-term (current) drug use Allergies [...] mRNA, LNP-s, No Pre serve, 2-Dose Series (Wasabi 3D) 07/03/2021,10/09/2020,09/11/2020 Hep A - Hepatitis A (ped/adole, [...] Date Type Specialty Care Team Description 04/05/2023 Hem/Onc Treatment Hematology [place], Chair 4 Hem Onc Scenery [address] [place] [address] Arrived 04/07/2023 Imaging Radiology 04/07/2023 Imaging Radiology 11/05/2023 Office Visit Family Medicine Sabrina Chang DO [address] [place] [address] Pending Results Name Type Priority Associated Diagnoses Date /Time COMPREHENSIVE METABOLIC PANEL Lab STAT Special screening examination for viral disease Malignant neoplasm of upper-outer quadrant of left breast in female, estrogen 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 (HCC) Encounter for long-term (current) drug use 04/05/2023 7:14 AM EDT Health Maintenance Due Date Last [...] this encounter Medical Devices Implanted Type Area It Security Manager Device Identifier Shelf Expiration Date Model / Serial / Lot Port Power Mri W/8fr Cath - [id number] Implanted:Qty: 1 on 03/31/2023 by Sobia Hernandez MD at OR [facility] Right: Chest CR BARD : PERIPHERAL VASCULAR 12/17/2023 [id number] / / [id number] documented as of this encounter Procedures Procedure Name Priority Date/Time Associated Diagnosis Comments DIFFERENTIAL, AUTOMATED STAT 04/05/2023 7:14 AM EDT Special screening examination for viral disease Malignant neoplasm of upper-outer quadrant of left breast in female, estrogen 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 (HCC) Encounter for long-term (current) drug use CBC WITH WBC DIFFERENTIAL STAT 04/05/2023 7:14 AM EDT Special screening examination for viral disease Malignant neoplasm of upper-outer quadrant of left breast in female, estrogen 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 (HCC) Encounter for long-term (current) drug use CBC STAT 04/05/2023 7:14 AM EDT Special screening examination for viral disease Malignant neoplasm of upper-outer quadrant of left breast in female, estrogen 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 (HCC) Encounter for long-term (current) drug use documented in this encounter Results * (ABNORMAL) DIFFERENTIAL, AUTOMATED (04/05/2023 7:14 AM EDT) WBC 9.56 4.00 - 10.80 K/uL 04/05/2023 7:21 AM EDT [facility] 56-02 Neutrophils % 86.9(H) 40.0 - 75.0 % 04/05/2023 7:21 AM EDT [facility] [place] 56-02 Lymphocytes % 7.5(L) 18.0 - 42.0 % 04/05/2023 7:21 AM EDT [facility] [place] 56-02 Monocytes % 5.6 1.0 - 11.0 % 04/05/2023 7:21 AM EDT [facility] [place] 56-02 Eosinophils % 0.0 0.0 - 6.0 % 04/05/2023 7:21 AM EDT [facility] [place] 56-02 Basophils % 0.0 0.0 - 2.0 % 04/05/2023 7:21 AM EDT [facility] [place] 56-02 Absolute Neutrophils 8.30(H) 1.80 - 7.70 K/uL 04/05/2023 7:21 AM EDT [facility] [place] 56-02 Absolute Lymphocytes 0.72(L) 1.00 - 4.80 K/ul 04/05/2023 7:21 AM EDT [facility] 56 Absolute Monocytes 0.54 0.00 - 1.10 K/uL 04/05/2023 7:21 AM EDT [facility] 56 Absolute Eosinophils 0.00 0.00 - 0.70 K/uL 04/05/2023 7:21 AM EDT [facility] 56 Absolute Basophils 0.00 0.00 - 0.20 K/uL 04/05/2023 7:21 AM EDT [facility] 56 Blood Venous blood specimen / Unknown Venipuncture / Unknown 04/05/2023 7:14 AM EDT 04/05/2023 7:14 AM EDT Serafin Goins MD LAB BLOOD ORDERABLES [facility] [address] [place] [address] * CBC (04/05/2023 7:14 AM EDT) WBC 9.56 4.00 - 10.80 K/uL 04/05/2023 7:21 AM EDT [facility] 56 RBC 4.64 3.85 - 5.15 M/uL 04/05/2023 7:21 AM EDT [facility] 56 HGB 14.5 12.0 - 15.3 g/dL 04/05/2023 7:21 AM EDT [facility] 56 HCT 42.2 36.0 - 45.2 % 04/05/2023 7:21 AM EDT [facility] 56 MCV 90.9 81.5 - 97.5 fL 04/05/2023 7:21 AM EDT [facility] 56 MCH 31.3 27.0 - 34.0 pg 04/05/2023 7:21 AM EDT [facility] 56 MCHC 34.4 32.0 - 36.0 g/dL 04/05/2023 7:21 AM EDT [facility] 56 RDW 11.8 11.5 - 15.5 % 04/05/2023 7:21 AM EDT [facility] 56 PLT 255 140 - 400 K/uL 04/05/2023 7:21 AM EDT [facility] 56 MPV 9.9 6.6 - 11.1 fL 04/05/2023 7:21 AM EDT [facility] 56 Blood Venous blood specimen / Unknown Venipuncture / Unknown 04/05/2023 7:14 AM EDT 04/05/2023 7:14 AM EDT Serafin Goins MD LAB BLOOD ORDERABLES [facility] [address] documented in this encounter Visit Diagnoses Diagnosis Special screening examination for viral disease Special screening examination for unspecified viral disease Malignant neoplasm of upper-outer quadrant of left breast in female, estrogen 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 (HCC) Encounter for long-term (current) drug use Encounter [...] the patient have Health Care Power of Discovery Guide? No Care Teams Coin Dealer Relationship Specialty Start Date End Date Sabrina Chang, DO [address] [facility] [place] [address] PCP - General Family Medicine 09/15/18 documented as of this encounter
--- OUTSIDE RECORDS SUMMARY | 2023-06-13 20:12 | External Medical Summary ---
Author Name Unknown Address Unknown Organization [id number]:[facility] [place] [address] [place] [address] Laboratory Report Ordering Provider Test Date Status KELLEY MERAZ 03/25/2023 12:17:28 Final Observation Date Value Abnormality Reference (Units ) Status Hepatitis B virus core Ab [Presence] in Serum 03/25/2023 12:17:28 Negative Negative Final Performing Location [facility] [place] [address] [place] [address]
--- OUTSIDE RECORDS SUMMARY | 2023-06-13 20:12 | External Medical Summary | Summary of Care ---
Author Name Unknown Organization [facility] Address [address] [facility] [place] [address] Phone [phone] Care Team Providers Care Roll Mill Operator Name Role Phone Sabrina Chang DO Primary Care Provider Reason for Visit * Reason Onset Date Comments Precert Future 03/24/2023 [facility] Lizbeth liang Encounter Details Date Type Department Care Team Description 03/24/2023 Telephone Hematology/Oncology Treatment, [place] 200 [facility] [place] [address] Serafin Goins MD [address] [place] [address] Precert Future ([facility] Emjerry Mcadams) Allergies Active Allergy Reactions Severity Noted Date Comments Lisinopril Edema face/lips/tongue High 02/19/2017 angioedema documented as of this encounter (statuses as of 03/26/2023) Medications Medication Sig Dispensed Refills Start Date End Date Status Rosuvastatin Calcium 10 MG Oral Tablet (Crestor)Indications:M ixed hyperlipidemia TAKE ONE TABLET BY MOUTH EVERY MORNING 90 Tablet 3 11/03/2022 11/03/2023 Active hydroCHLOROthiazide 25 MG Oral Tablet (Hydrodiuril)Indicatio ns:HTN, goal below 140/90 TAKE ONE TABLET BY MOUTH EVERY MORNING 90 Tablet 3 11/03/2022 11/03/2023 Active documented as of this encounter (statuses as of 03/26/2023) Active Problems Problem Noted Date Encounter for antineoplastic chemotherap y 03/24/2023 Malignant neoplasm of upper- outer quadrant of left breast in female, estrogen 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 03/24/2023 Hyperlipidemia 04/17/2014 HTN, goal below 140/90 04/17/2014 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 documented as of this encounter (statuses as of 03/26/2023) Resolved Problems Problem Noted Date Resolved Date Bilateral impacted cerumen 10/27/201606/07 Overview: acute ABN PAP SMEAR-CERVIX(aka DYSPLASIA) 01/02/2004 10/27/2016 Varicella without complication 0 10/27/2016 Mumps without complication 10/27 Mucous polyp of cervix 9 documented as of this encounter (statuses as of 03/26/2023) Immunizations Name Administration Dates Next Due COVID-19 mRNA, LNP-s, No Pre serve, 2-Dose Series ([employer]) 07/03/2021,10/09/2020,09/11/2020 Hep A - Hepatitis A (ped/adole, [...] Miscellaneous Notes * Telephone Encounter - RAZA Dash - 03/26/2023 9:04 AM EDT Spoke to patient, scheduled labs/ treatment 04/05 at 7:30/8:30 am. Patient prefers mornings unless its the winter months due to weather. * Telephone Encounter - Megan Galvan RN [...] Surgery Sobia Hernandez MD [address] [place] [address] 03/31/2023 Surgery Surgery Sobia Hernandez MD [address] [place] [address] INSERT TUNNELED CENTRAL VENOUS ACCESS WITH SUBQ PORT 04/01/2023 Cardiac Studies Cardiac Studies 04/05/2023 Laboratory Laboratory [place], Lab Scenery [address] [place] [address] 04/05/2023 Hem/Onc Treatment Hematology Oncology [place], Chair 4 Hem Onc Scenery [address] [place] [address] 11/05/2023 Office Visit Family Medicine Sabrina Chang, [address] [place] [address] Scheduled Orders Name Type Priority Associated Diagnoses [...] (HCC) documented in this encounter Care Teams Roll Mill Operator Relationship Specialty Start Date End Date Sabrina Chang DO [address] [place] [address] PCP - General Family Medicine 09/15/18 documented as of this encounter
--- OUTSIDE RECORDS SUMMARY | 2023-06-13 20:12 | External Medical Summary ---
Author Name Unknown Address Unknown Organization K09:[facility] [place] [address] Laboratory Report Ordering Provider Test Date Status KELLEY MERAZ 04/05/2023 07:14:21 Final Observation Date Value Abnormality Reference (Units ) Status SYNC LEUKOCYTES IN BLOOD BY AUTOMATED COUNT 04/05/2023 07:14:21 9.56 4.00-10.80 (K/uL) Final Segs 04/05/2023 07:14:21 86.9 Above high normal 40.0-75.0 (%) Final Lymphs % 04/05/2023 07:14:21 7.5 Below low normal 18.0-42.0 (%) Final Monos 04/05/2023 07:14:21 5.6 1.0-11.0 (%) Final Eosinophils 04/05/2023 07:14:21 0.0 0.0-6.0 (%) Final Basos 04/05/2023 07:14:21 0.0 0.0-2.0 (%) Final Absolute Segs 04/05/2023 07:14:21 8.30 Above high normal 1.80-7.70 (K/uL) Final Lymphs, absolute 04/05/2023 07:14:21 0.72 Below low normal 1.00-4.80 (K/ul) Final Monos, Abs 04/05/2023 07:14:21 0.54 0.00-1.10 (K/uL) Final Eos, Abs 04/05/2023 07:14:21 0.00 0.00-0.70 (K/uL) Final Basos, Abs 04/05/2023 07:14:21 0.00 0.00-0.20 (K/uL) Final Performing Location [facility] [place] [address]
--- OUTSIDE RECORDS SUMMARY | 2023-06-13 20:13 | External Medical Summary | Summary of Care ---
Author Name Unknown Organization [facility] Address [address] [place] [address] Phone [phone] Care Team Providers Care Senior Security Architect Name Role Phone Bernardo Bennett Lesli DO Primary Care Provider Reason for Referral * Evaluate & Treat - Unlimited Visits (Within 3 days (urgent)) - Authorized Specialty Diagnoses / Procedures Referred By Contac t Referred To Contact Hematology/Oncology / Hematology Oncology Diagnoses Malignant neoplasm of upper-outer quadrant of left breast in female, estrogen 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 (HCC) Sobia Hernandez MD [address] [place] [address] Referral ID Status Reason Start Date Expiration Date Visits Requested Visits Authorized [id number] Authorized Specialty Services Required 03/18/2023 999 999 Question Answer Referral Priority Within 3 days (urgent) Reason for Referral Malignant Oncology (Solid Organ Cancer) Comments Need for neoadjuvant chemotherapy for her2 positive breast cancer left side, 15 mm * Precert (Within 10 days (routine)) - Pending Review Specialty Diagnoses / Procedures Referred By Contac t Referred To Contact Radiology Diagnoses Malignant neoplasm of upper-outer quadrant of left breast in female, estrogen 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 (HCC) Procedures MRI BREAST BILATERAL W WO CONTRAST Sobia Hernandez MD [address] [place] [address] Referral ID Status Reason Start Date Expiration Date V isits Requested Visits Authorized [id number] Pending Review 03/25/2023 999 999 Reason for Visit * Reason Comments NEW PATIENT Left breat cancer. * Evaluate & Treat - Unlimited Visits (Within 10 days (routine)) - Authorized Specialty Diagnoses / Procedures Referred By Angelique miller Referred To Contact General Surgery Diagnoses Ductal carcinoma of breast, left (HCC) [employer]in[employer]aitlin, [employer] [address] [place] [address] Referral ID Status Reason Start Date Expiration Date Visits Requested Visits Authorized [id number] Authorized Specialty Services Required 03/08/2023 999 999 Encounter Details Date Type Department Care Team Description 03/18/2023 Office Visit General Surgery, [facility] [address] [place] [address] Sobia Hernandez MD [address] [place] [address] Malignant neoplasm of upper-outer quadrant of left breast in female, estrogen 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 (HCC)*; Preoperative examination; Preoperative cardiovascular examination Allergies Active Allergy Reactions Severity Noted Date Comments Lisinopril Edema face/lips/tongue High 02/19/2017 angioedema documented as of this encounter (statuses as of 03/18/2023) Medications Medication Sig Dispensed Refills Start Date End Date Status Rosuvastatin Calcium 10 MG Oral Tablet (Crestor)Indications:M ixed hyperlipidemia TAKE ONE TABLET BY MOUTH EVERY MORNING 90 Tablet 3 11/03/2022 11/03/2023 Active hydroCHLOROthiazide 25 MG Oral Tablet (Hydrodiuril)Indicatio ns:HTN, goal below 140/90 TAKE ONE TABLET BY MOUTH EVERY MORNING 90 Tablet 3 11/03/2022 11/03/2023 Active documented as of this encounter (statuses as of 03/18/2023) Active Problems Problem Noted Date Hyperlipidemia 04/17/2014 HTN, goal below 140/90 04/17/2014 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 documented as of this encounter (statuses as of 03/18/2023) Resolved Problems Problem Noted Date Resolved Date Bilateral impacted cerumen 10/27/201606/07 Overview: acute ABN PAP SMEAR-CERVIX(aka DYSPLASIA) 01/02/2004 10/27/2016 Varicella without complication 0 10/27/2016 Mumps without complication 10/27 Mucous polyp of cervix 9 documented as of this encounter (statuses as of 03/18/2023) Immunizations Name Administration Dates Next Due COVID-19 [...] Sign Reading Time Taken Comments Blood Pressure 148/70 03/18/2023 9:56 AM EDT Pulse 80 03/18/2023 9:56 AM EDT Temperature - - Respiratory Rate - - Oxygen Saturation - - Inhaled Oxygen Concentration - - Weight 66.3 kg (146 lb 3.2 oz) 03/18/2023 9:56 A M EDT Height - - Body Mass Index 23.81 11/03/2022 9:17 AM EDT documented in this encounter Progress Notes * Sobia Hernandez MD - 03/18/2023 10:00 AM EDT [facility] NEW BREAST CANCER CLINIC NOTE [...] marker of breast differentiation Left breast, case [id number], block A1: Estrogen Receptor (ER) protein expression is NEGATIVE <1% nuclear positivity COMMENT: Assay internal and external control immunoreactivity is appropriate. Progesterone Receptor (OR) protein expression is NEGATIVE <1% nuclear positivity [...] Hernandez in the Department of surgery. Mammography Creative/Art Director Rubia Main has been notified for scheduling [...] breast ultrasound 02/22/2023. TECHNIQUE ANESTHESIA: 1% lidocaine NONPROFIT DIRECTOR: Dr. Villalba was present for and performed [...] by Dr. 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 [...] through chemotherapy for surgical planning of myra rebar bender, left lumpectomy and sln biopsy Port placement right side. I spent a total of Greater than 55 mins (exact time 62 mins) on the date of service in preparation,delivery, and documentation of the care provided to Karina Verma excluding any time spent in theperformance of separately billed services. Sobia Hernandez M.D. 03/18/2023 1:05 PM documented in this encounter H&P Notes * Sobia Hernandez MD - 03/18/2023 1:06 PM EDT [facility] NEW BREAST CANCER CLINIC NOTE [...] marker of breast differentiation Left breast, case [id number], block A1: Estrogen Receptor (ER) protein expression is NEGATIVE <1% nuclear positivity COMMENT: Assay internal and external control immunoreactivity is appropriate. Progesterone Receptor (OR) protein expression is NEGATIVE <1% nuclear positivity [...] Hernandez in the Department of surgery. Mammography Creative/Art Director Rubia Main has been notified for scheduling [...] breast ultrasound 02/22/2023. TECHNIQUE ANESTHESIA: 1% lidocaine NONPROFIT DIRECTOR: Dr. Villalba was present for and performed [...] by Dr. 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 [...] through chemotherapy for surgical planning of myra rebar bender, left lumpectomy and sln biopsy Port placement right side. I spent a total of Greater than 55 mins (exact time 62 mins) on the date of service in preparation,delivery, and documentation of the care provided to Karina Verma excluding any time spent in theperformance of separately billed services. Sobia Hernandez M.D. 03/18/2023 1:05 PM documented in this encounter Nursing Notes * Constanza Jade LPN - 03/18/2023 10:57 AM EDT Patient scheduled at [facility] for Port insertion with Dr Sobia Hernandez. Date of Test: TBS Medications reviewed. EKG obtained Labs: obtained Permit signed. Patient verbalizes understanding of pre- and post op instructions. Written instructions given for review at later date. Constanza Jade LPN 03/18/2023 * LESLI Patel - 03/18/2023 9:56 AM EDT Chief Complaint Patient presents with NEW PATIENT Left breat cancer. Patient presents today for evaluation of Abnormal Mammogram. Patient had mammogram done at [facility] on 02/05/2023. BREAST HISTORY: Mass: No Breast Pain: no Nipple discharge: No Previous problems/surgeries: None Breast Cancer: no Other Cancers: no GYNECOLOGIC HISTORY: LMP: Patient's last menstrual period was 04/17/2011. Patient is postmenopausal. Menarche at age: 10-12 Menopause at age: 57 Number of children: 2 Patient's age at first live : 33 Did you breast feed any of your children: yes Ever take oral contraceptives? Yes, history of use for 9 year(s) Ever take estrogen? No Family History of Breast Cancer: No documented in this encounter Plan of Treatment Upcoming Encounters Date Type Specialty Care Team Description 03/24/2023 Office Visit Hematology Oncology Serafin Goins MD [address] [facility] [place] [address] 03/29/2023 Appointment Radiology 03/31/2023 Hospital Encounter Surgery Sobia Hernandez MD [address] [place] [address] 11/05/2023 Office Visit Family Medicine Sabrina Chang DO [address] [place] [address] Scheduled Orders Name Type Priority Associated Diagnoses Orde r Schedule MRI BREAST BILATERAL W WO CONTRAST Medical Imaging Pre-operative Malignant neoplasm of upper-outer quadrant of left breast in female, estrogen 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 (HCC) Expected: 03/25/2023 (Approximate), Expires: 04/17/2024 EKG EKG Routine Malignant neoplasm of upper-outer quadrant of left breast in female, estrogen 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 (HCC) Preoperative cardiovascular examination Expected: 03/18/2023 (Approximate), Expires: 04/17/2024 Scheduled Procedures Name Priority Associated Diagnoses Date/Ti me INSERT TUNNELED CENTRAL VENO US ACCESS WITH SUBQ PORT Malignant neoplasm of upper-outer quadrant of left breast in female, estrogen 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 (HCC) Scheduled Referrals Name Type Priority Associated Diagnoses Orde r Schedule HEMATOLOGY/ONCOLOGY REFERRAL OP Referral Within 3 days (urgent) Malignant neoplasm of upper-outer quadrant of left breast in female, estrogen 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 (HCC) Ordered: 03/18/2023 Health Maintenance Due Date Last Done Comments Albumin/Creatinine Ratio 1972 Fecal Occult Blood Test 1999 Sigmoidoscopy 1999 Depression Screening, Annual for Pts 12 and Over 05/25/2020 05/25/2019 Colonoscopy 06/22/2021 06/22/2011, 05/16/2007 COVID-19 Vaccine (4 - Pfizer series) 08/28/2021 07/03/2021, 10/09/2020, 09/11/2020 Influenza Vaccine (FLU shot) (#1) 2023 06/02/2013 Mammogram 02/23/2024 02/22/2023, 01/17, 04/17/2021, Additional history exists GFR 03/18/2024 03/18/2023, 03/20, 04/01/2021, Additional history exists Cologuard 05/07/2024 05/07/2021, 04/24/2021 Colorectal Cancer Screening 05/07/2024 DXA Scan 07/04/2026 07/04/2019 Lipid Panel 04/07/2027 04/07/2022, 03/19, 12/22/2019, Additional history exists DTaP,Tdap,and Td Vaccines (3 [...] Not on filedocumented as of this encounter Results * CBC (03/18/2023 11:16 AM EDT) WBC 6.26 4.00 - 10.80 K/uL 03/18/2023 11:42 AM EDT [facility] RBC 4.68 3.85 - 5.15 M/uL 03/18/2023 11:42 AM EDT [facility] HGB 14.8 12.0 - 15.3 g/dL 03/18/2023 11:42 AM EDT [facility] HCT 43.6 36.0 - 45.2 % 03/18/2023 11:42 AM EDT [facility] MCV 93.2 81.5 - 97.5 fL 03/18/2023 11:42 AM EDT [facility] MCH 31.6 27.0 - 34.0 pg 03/18/2023 11:42 AM EDT [facility] MCHC 33.9 32.0 - 36.0 g/dL 03/18/2023 11:42 AM EDT [facility] RDW 12.5 11.5 - 15.5 % 03/18/2023 11:42 AM EDT [facility] PLT 232 140 - 400 K/uL 03/18/2023 11:42 AM EDT [facility] MPV 10.2 6.6 - 11.1 fL 03/18/2023 11:42 AM EDT [facility] Blood Venous blood specimen / Unknown Venipuncture / Unknown 03/18/2023 11:16 AM EDT 03/18/2023 11:16 AM EDT Sobia Hernandez MD LAB BLOOD ORDERABLE S [facility] [address] [place] [address] documented in this encounter Visit Diagnoses Diagnosis Malignant neoplasm of upper-outer quadrant of left breast in female, estrogen 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 (HCC)- Primary Preoperative examination Preoperative examination, unspecified Preoperative cardiovascular examination Pre-operative cardiovascular examination documented in this encounter Care Teams Senior Security Architect Relationship Specialty Start Date End Date Sabrina Chang DO [address] [facility] [address] PCP - General Family Medicine 09/15/18 documented as of this encounter
--- OUTSIDE RECORDS SUMMARY | 2023-06-13 20:13 | External Medical Summary ---
Author Name Unknown Address Unknown Organization [id number]:[facility] [place] [address] Laboratory Report Ordering Provider Test Date Status 03/18/2023 11:16:40 Final Observation Date Value Abnormality Reference (Units ) Status BUN 03/18/2023 11:16:40 14 6-20 (mg/dL) Final Creatinine 03/18/2023 11:16:40 0.7 0.5-1.0 (mg/dL) Final Glomerular filtration rate/1.73 sq M.predicted [Volume Rate/Area] in Serum, Plasma or Blood by Creatinine-based formula (CKD-EPI) 03/18/2023 11:16:40 90 >=60 (mL/min) Final eGFR is calculated based on the CKD-EPI 2020 equation SODIUM 03/18/2023 11:16:40 140 135-146 (m mol/L) Final Potassium 03/18/2023 11:16:40 4.9 3.5-5.1 (m mol/L) Final Cl 03/18/2023 11:16:40 102 98-107 (mm ol/L) Final CO2 03/18/2023 11:16:40 26 22-32 (mmo l/L) Final Anion gap 03/18/2023 11:16:40 12 7-15 (mmol /L) Final Glucose 03/18/2023 11:16:40 108 70-120 (mg /dL) Final Albumin 03/18/2023 11:16:40 5.0 3.8-5.0 (g /dL) Final AST (Aspartate aminotransferase) 03/18/2023 11:16:40 24 10-35 (U/L) Fin al Alk Phos 03/18/2023 11:16:40 60 35-130 (U/ L) Final Bilirubin, Total 03/18/2023 11:16:40 0.8 <=1 .2 (mg/dL) Final Calcium 03/18/2023 11:16:40 10.4 Above high normal 8. 4-10.2 (mg/dL) Final Protein 03/18/2023 11:16:40 7.7 6.0-8.3 (g /dL) Final ALT (Alanine aminotransferase) 03/18/2023 11:16:40 26 10-35 (U/L) Tej jasso Performing Location [facility] [facility] [address]
--- OUTSIDE RECORDS SUMMARY | 2023-06-13 20:13 | External Medical Summary ---
Author Name Unknown Address Unknown Organization [id number]:[facility] [place] - [address] [facility] [address] Laboratory Report Ordering Provider Test Date Status 03/18/2023 11:16:40 Final Observation Date Value Abnormality Reference (Units ) Status Triglyceride 03/18/2023 11:16:40 96 <=174 ( mg/dL) Final Triglyceride Reference Range s (mg/dL):
<150 Acceptable
150-174 Borderline high
175-499 High
>=500 Very high Cholesterol 03/18/2023 11:16:40 214 Above high normal <200 (mg/dL) Final Total Cholesterol Reference Ranges (mg/dL):
<200 Desirable
200-239 Borderline high
>=240 High HDL 03/18/2023 11:16:40 79 >49 (mg/dL ) Final HDL Cholesterol Reference Ra nges (mg/dL):
>=60 High (Desirable)
<50 Low (Undesirable) For Females
<40 Low (Undesirable) For Males NON-HDL CHOLESTEROL 03/18/2023 11:16:40 135 <=159 (mg/dL) Final Non-HDL Cholesterol Referenc e Range (mg/dL):
<100 Target level for high risk ASCVD patient
<130 Optimal for general population
130-159 Near optimal for general population
160-189 Borderline High
190-219 High
>=220 Very High LDL, (calculated) 03/18/2023 11:16:40 116 <= 129 (mg/dL) Final LDL Cholesterol Reference Ra nges (mg/dL):
<70 Target level for high risk ASCVD patient
<100 Optimal for general population
100-129 Near optimal for general population
130-159 Borderline high
160-189 High
>=190 Very high Performing Location [facility] [place] - [address] [facility] [address]
--- OUTSIDE RECORDS SUMMARY | 2023-06-13 20:13 | External Medical Summary | Summary of Care ---
Author Name Unknown Organization [facility] Address [address] [place] [address] Phone [phone] Care Team Providers Care Barrel Cleaner Name Role Phone Sabrina Chang DO Primary Care Provider Encounter Details Date Type Department Care Team Description 01/18/2023 Orders Only Family Practice [facility] [address] [place] [address] Sabrina Chang DO [address] [facility] [place] [address] Allergies Active Allergy Reactions Severity Noted Date Comments Lisinopril Edema face/lips/tongue High 02/19/2017 angioedema documented as of this encounter (statuses as of 01/18/2023) Medications Medication Sig Dispensed Refills Start Date End Date Status hydroCHLOROthiazide 25 MG Oral Tablet (Hydrodiuril)Indication s:HTN, goal below 140/90 Take 1 Tablet by mouth in the morning. 90 Tablet 3 11/03/2022 Active Rosuvastatin Calcium 10 MG Oral Tablet (Crestor)Indications:Mi xed hyperlipidemia Take 1 Tablet by mouth in the morning. 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 documented as of this encounter (statuses as of 01/18/2023) Resolved Problems Problem Noted Date Resolved Date Bilateral impacted cerumen 10/27/2016 11/20 /2019 Overview: acute ABN PAP SMEAR-CERVIX(aka DYSPLASIA) 01/02/2004 10/27/2016 Varicella without complication 0 10/27/2016 Mumps without complication 10/27 Mucous polyp of cervix 9 documented as of this encounter (statuses as of 01/18/2023) Immunizations Name Administration Dates Next Due COVID-19 [...] Encounters Date Type Specialty Care Team Description 11/05/2023 Office Visit Family Medicine Sabrina Chang, [address] [place] [address] Pending Results Name Type Priority Associated Diagnoses Date /Time OUTSIDE LAB-CORONAVIRUS (COVID-19) Lab Routine 01/17/2023 Health Maintenance Due Date Last Done Comments Albumin/Creatinine Ratio 1972 Fecal Occult Blood Test 1999 Sigmoidoscopy 1999 Depression Screening, Annual for Pts 12 and Over 05/25/2020 05/25/2019 Colonoscopy 06/22/2021 06/22/2011, 05/16/2007 COVID-19 Vaccine (4 - Pfizer series) 08/28/2021 07/03/2021, 10/09/2020, 09/11/2020 Mammogram 04/17/2022 04/17/2021, 06/18, 11/17/2016, Additional history exists Influenza Vaccine (FLU shot) (#1) 2023 06/02/2013 GFR 04/07/2023 04/07/2022, 03/19, 12/22/2019, Additional history exists Cologuard 05/07/2024 05/07/2021, 04/24/2021 [...] filedocumented as of this encounter Care Teams Barrel Cleaner Relationship Specialty Start Date End Date Sabrina Chang DO [address] [place] [address] PCP - General Family Medicine 09/15/18 documented as of this encounter
--- OUTSIDE RECORDS SUMMARY | 2023-06-13 20:13 | External Medical Summary | Summary of Care ---
Author Name Unknown Organization [facility] Address [address] [place] [address] Phone [phone] Care Team Providers Care Bridge Mechanic Name Role Phone BernardoSabrina DO Primary Care Provider Reason for Referral * Precert (Within 10 days (routine)) - Pending Review Specialty Diagnoses / Procedures Referred By Contac t Referred To Contact Radiology Diagnoses Malignant neoplasm of upper-outer quadrant of left breast in female, estrogen 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 (HCC) Procedures MRI BRAIN W WO CONTRAST Mariya Goins MD [address] [place] [address] Referral ID Status Reason Start Date Expiration Date V isits Requested Visits Authorized [id number] Pending Review 03/19/2023 999 999 * Precert (Within 10 days (routine)) - Authorized Specialty Diagnoses / Procedures Referred By Contac t Referred To Contact Cardiac Studies Diagnoses Malignant neoplasm of upper-outer quadrant of left breast in female, estrogen 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 (HCC) Encounter for long-term (current) drug use Procedures ECHO, COMPLETE (2D), TRANS-THORACIC Mariya Goins MD [address] [place] [address] Referral ID Status Reason Start Date Expiration Date V isits Requested Visits Authorized [id number] Authorized Precert 03/19/2023 999 999 Reason for Visit * Reason Comments Consultation consultation * Evaluate & Treat - Unlimited Visits (Within 3 days (urgent)) - Authorized Specialty Diagnoses / Procedures Referred By Contjose t Referred To Contact Hematology/Oncology / Hematology Oncology Diagnoses Malignant neoplasm of upper-outer quadrant of left breast in female, estrogen 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 (HCC) Sobia Hernandez MD [address] [place] [address] Referral ID Status Reason Start Date Expiration Date Visits Requested Visits Authorized [id number] Authorized Specialty Services Required 03/18/2023 999 999 Encounter Details Date Type Department Care Team Description 03/19/2023 Office Visit Hematology/Oncology [facility] [place] [address] [facility] [place] [address] Mariya Goins MD [address] [facility] [place] [address] Malignant neoplasm of upper-outer quadrant of left breast in female, estrogen 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 (HCC)*; Encounter for long-term (current) drug use Allergies [...] of 03/24/2023) Active Problems Problem Noted Date Hyperlipidemia 04/17/2014 [...] Sign Reading Time Taken Comments Blood Pressure 188/69 03/19/2023 12:13 PM EDT Pulse 70 03/19/2023 12:13 PM EDT Temperature 36.5 C (97.7 F) 03/19/2023 12:13 PM E DT Respiratory Rate 16 03/19/2023 12:13 PM EDT Oxygen Saturation 95% 03/19/2023 12:13 PM EDT Inhaled Oxygen Concentration - - Weight 65.8 kg (145 lb 1.6 oz) 03/19/2023 12:13 PM EDT Height 167 cm (5' 5.75") 03/19/2023 12:13 PM EDT Body Mass Index 23.6 03/19/2023 12:13 PM EDT documented in this encounter Progress Notes * Sobia Hernandez MD - 03/23/2023 8:46 AM EDT She needs a port.. any chance of getting her on for it? Thank you. * Mariya Goins MD - 03/19/2023 12:15 PM EDT KARINA SMITHVER MR # [id number] :1955 67-year-old female, REASON FOR CONSULTATION: Consultation for Karina Verma requested by Dr. Sobia Hernandez for evaluation and discussion of treatment options for Sobia Hernandez's left breast cancer, HER2 Jerry positive. Date of consultation:03/19/2023 DIAGNOSIS: Left breast cancer, hormonal negative, HER2 Jerry positive, 1.5 cm. CURRENT TREATMENT: Planning for neoadjuvant TCH P Prophylactic Pegfilgrastim. DIAGNOSTIC WORKUP: She would a routine screening [...] no special type, grade 3, ER negative, DE negative, HER2 Jerry positive by IHC. OTHER IMPORTANT HISTORY: - Hyperlipidemia. -hypertension. INTERVAL HISTORY: She has come the clinic for the initial evaluation, came to clinic, accompanied by her in the office Overall she is doing well, no nausea no vomiting, she is anxious syndrome, blood pressure on higherside because of that, no new GI symptoms no cardiac or pulmonary symptoms ambulates well, good ECOGPS 0, current weight around 145 lb. Previous history of any cancer diagnosis in her case. REVIEW OF SYSTEMS: GENERAL: No change in weight, no weakness, no fatigue, no fever, sweats or chills. SKIN: No skin rash, no bruising. HEAD: No new headache, no dizziness. EYES: No recent change in the vision, no diplopia, EARS: No earache no tinnitus, NOSE: No epistaxis, No nasal discharge or stuffiness, MOUTH: No sores, no dysphagia, no hoarseness of voice, NECK: No lumps, No swelling in thyroid area. No stiffness. PULMONARY: No cough, No shortness of breath, no hemoptysis, no chest pain, No wheezing. CARDIOVASCULAR: No anginal chest pain, no PND, no orthopnea. No palpitation, no leg edema. No syncope. GASTROINTESTINAL: No abdominal pain, no nausea or vomiting. No diarrhea, No constipation. No blood in stool or black tarry stools. No abdominal distention. UROLOGIC: No burning urination. No hematuria. MUSCULOSKELETAL: No joint pain, No joint swelling, no muscle weakness. HEMATOLOGIC: No anemia, no bleeding disorder, No bruising. No history of blood transfusion. NEUROLOGIC: No seizures, no focal weakness, no speech difficulty, No memory disturbances. No tingling or numbness of the extremities. PSYCHIATRIC: No depression. No anxiety. No psychosis. Past Medical History: Diagnosis Date ABN PAP [...] OF EYE DRUG 03/08/2013 #2 Kenalog, OS, #[id number] INJECTION OF EYE DRUG 04/18/2013 #3 Lucentis [...] 10 pins VAGINAL DELIVERY ONLY times 2 Current Outpatient Medications Medication Sig Dispense Refill Rosuvastatin Calcium 10 MG Oral Tablet (Crestor) TAKE ONE TABLET BY MOUTH EVERY MORNING 90 Tablet 3 hydroCHLOROthiazide 25 MG Oral Tablet (Hydrodiuril) TAKE ONE TABLET BY MOUTH EVERY MORNING 90 Tablet 3 No current facility-administered medications for this visit. 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 Well built woman, Patient is in no acute distress. HEENT: No icterus, no pallor, Throat and pharynx normal. Sinuses are non-tender. Neck: Supple and without lymphadenopathy or masses. No JVD. No Palpable supraclavicular lymph nodes. Lungs: Clear to auscultation. Bilateral symmetric air entry. No wheezing or rhonchi. Cardiovascular: Normal heart sounds, no murmurs.Regular rate and rhythm. Abdomen: soft, nontender, no hepatomegaly, no splenomegaly. Bowel sounds are normal. Neurological: No gross focal neurological deficit; walks with a normal gait. Extremities: No finger clubbing, No cyanosis. No leg edema. Skin:: No skin rash. SPINE: No spinal or paraspinal tenderness. No palpable lymphadenopathy in the axilla. LABS: Blood workup done on 03/18/2023: -WBC 6200, H&H of 14.8/40.6, Platelet count [id number] -BUN/Creat: 14/0.7, Calcium 10.4, normal liver function test. IMAGING: Planning for brain MRI. She is having bilateral breast MRI ASSESSMENT AND PLAN: 67-year-old female, a case of left breast carcinoma, 1.5 cm imaging studies, no lymph node enlargement noted in the left axilla, hormonal negative, HER2 Jerry positive. Recently she was seen by Dr. Hernandez, recommended neoadjuvant chemotherapy in her case, planning forbreast conservative surgery followed by radiation treatment in her case I reviewed with her regarding diagnostic workup pathological findings, blood workup findings, information outlined on NCCN website We could consider for neoadjuvant chemotherapy in her case, her tumor is hormonal negative HER2 Neupositive so chemotherapy HER2 Jerry related treatment would be considered. Reviewed with regarding different protocol, I would consider for TCH P and see how she tolerates. Reviewed with regarding chemotherapy schedule side effect profile she is in agreement for that. Will get baseline echocardiogram and then every 6 weekly while on TCHP chemotherapy and then every 3 monthly. Chemotherapy teaching. She will have port placement by Dr. Hernandez. I would like to get brain MRI to look for occult brain metastatic disease. Added hepatitis-B serology checkup on yesterday specimen Thanks for the consultation Dr. Mariya Goins Hem/Onc (This note was completed using the dictation program Fluency Direct. As such, there may be misspellings word substitutions, or other variations that should not change the essence of the clinical content of this encounter note. If there is need for further clarification, please direct questions to the provider listed above.) documented in this encounter Nursing Notes * Kaitlynn Castro CMA - 03/19/2023 12:14 PM EDT Patient identifed by name and birthdate Do you have any concerns about pain management for today's visit? No Living Will or Advance Directive for Health Care as noted on the problem list. [facility] is a way you can talk to your provider on line through e-mail. Would you like to sign up? I can activate it for you? ALREADY ACTIVE Filed Vitals: 03/19/23 1213 BP: 188/69 Pulse: 70 Resp: 16 Temp: 36.5 C (97.7 F) TempSrc: Tympanic SpO2: 95% Weight: 65.8 kg (145 lb 1.6 oz) Height: 1.67 m (5' 5.75") Patient was instructed to not get up on the exam table/exam chair until directed and assisted by their provider; patient is to remain seated in the chair/ wheelchair/ exam table/ exam chair for fall prevention and safety reasons. Patient is aware to have assistance to step down off exam table/exam chair with personnel. Patient voiced full comprehension of instructions. documented in this encounter Miscellaneous Notes * Addendum Note - Mariya Goins MD - 03/24/2023 12:09 PM EDTAddended by: MARIYA GOINS on: 03/24/2023 12:09 PM Modules accepted: Orders documented in this encounter Plan of Treatment Upcoming Encounters Date Type Specialty Care Team Description 03/25/2023 Nurse Only Hematology Oncology [place], Nurse Hem Onc Scenery [address] [place] [place] [address] 03/25/2023 Imaging Radiology 03/29/2023 Appointment Radiology 03/31/2023 Hospital Encounter Surgery Sobia Hernandez MD [address] [place] [address] 03/31/2023 Surgery Surgery Sobia Hernandez MD [address] [place] [address] INSERT TUNNELED CENTRAL VENOUS ACCESS WITH SUBQ PORT 04/01/2023 Cardiac Studies Cardiac Studies 11/05/2023 Office Visit Family Medicine Sabrina Chang, DO [address] [place] [address] Scheduled Orders Name Type Priority Associated Diagnoses Orde r Schedule HEPATITIS B SURFACE ANTIGEN Lab Routine Malignant neoplasm of upper-outer quadrant of left breast in female, estrogen 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 (HCC) Expected: 03/19/2023, Expires: 03/19/2024 HEPATITIS B SURFACE ANTIBODY Lab Routine Malignant neoplasm of upper-outer quadrant of left breast in female, estrogen 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 (HCC) Expected: 03/19/2023, Expires: 03/19/2024 HEPATITIS B CORE ANTIBODIES IGG AND IGM Lab Routine Malignant neoplasm of upper-outer quadrant of left breast in female, estrogen 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 (HCC) Expected: 03/19/2023, Expires: 03/19/2024 ECHO, COMPLETE (2D), TRANS-THORACIC Echocardiology Routine Malignant neoplasm of upper-outer quadrant of left breast in female, estrogen 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 (HCC) Encounter for long-term (current) drug use Expected: 03/19/2023 (Approximate), Expires: 04/18/2025 MRI BRAIN W WO CONTRAST Medical Imaging Routine Malignant neoplasm of upper-outer quadrant of left breast in female, estrogen 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 (HCC) Ordered: 03/19/2023 Scheduled Procedures Name Priority Associated Diagnoses Date/Ti [...] in female, estrogen 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 (HCC)- Primary Encounter for long-term (current) drug use Encounter for long-term (current) use of other medications Malignant neoplasm of upper-outer quadrant of left breast in female, estrogen 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 (HCC) documented in this encounter Care Teams Bridge Mechanic Relationship Specialty Start Date End Date Sabrina Chang DO [address] [facility] [address] PCP - General Family Medicine 09/15/18 documented as of this encounter
--- OUTSIDE RECORDS SUMMARY | 2023-06-13 20:13 | External Medical Summary | Summary of Care ---
Author Name Unknown Organization [facility] Address [address] [place] [address] Phone [phone] Care Team Providers Care Clinical Auditor Name Role Phone BernardoSabrina DO Primary Care Provider Reason for Referral * Precert (Within 10 days (routine)) - Pending Review Specialty Diagnoses / Procedures Referred By Contac t Referred To Contact Radiology Diagnoses Malignant neoplasm of upper-outer quadrant of left breast in female, estrogen 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 (HCC) Procedures MRI BRAIN W WO CONTRAST Serafin Goins MD [address] [place] [address] Referral ID Status Reason Start Date Expiration Date V isits Requested Visits Authorized [id number] Pending Review 03/19/2023 999 999 * Precert (Within 10 days (routine)) - Authorized Specialty Diagnoses / Procedures Referred By Contac t Referred To Contact Cardiac Studies Diagnoses Malignant neoplasm of upper-outer quadrant of left breast in female, estrogen 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 (HCC) Encounter for long-term (current) drug use Procedures ECHO, COMPLETE (2D), TRANS-THORACIC Serafin Goins MD [address] [place] [address] Referral ID Status Reason Start Date Expiration Date V isits Requested Visits Authorized [id number] Authorized Precert 03/19/2023 999 999 Reason for [...] Hernandez MD [address] [place] [address] Referral ID Status Reason Start Date Expiration Date Visits Requested Visits Authorized [id number] Authorized Specialty Services Required 03/18/2023 999 999 Encounter Details Date Type Department Care Team Description 03/19/2023 Office Visit Hematology/Oncology [facility] [place] [address] [facility] [place] [address] Serafin Goins MD [address] [facility] [place] [address] Malignant neoplasm of upper-outer quadrant of left breast in female, estrogen 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 (HCC)*; Encounter for long-term (current) drug use Allergies Active Allergy Reactions Severity Noted Date Comments Lisinopril Edema face/lips/tongue High 02/19/2017 angioedema documented as of this encounter (statuses as of 03/23/2023) Medications Medication Sig Dispensed Refills Start Date End Date Status Rosuvastatin Calcium 10 MG Oral Tablet (Crestor)Indications:M ixed hyperlipidemia TAKE ONE TABLET BY MOUTH EVERY MORNING 90 Tablet 3 11/03/2022 11/03/2023 Active hydroCHLOROthiazide 25 MG Oral Tablet (Hydrodiuril)Indicatio ns:HTN, goal below 140/90 TAKE ONE TABLET BY MOUTH EVERY MORNING 90 Tablet 3 11/03/2022 11/03/2023 Active documented as of this encounter (statuses as of 03/23/2023) Active Problems Problem Noted Date Hyperlipidemia 04/17/2014 HTN, goal below 140/90 04/17/2014 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 Thank you. * Serafin Goins MD - 03/19/2023 12:15 PM EDT KARINA SMITHVER MR # [id number] :1955 67-year-old female, REASON FOR CONSULTATION: Consultation [...] no special type, grade 3, ER negative, MT negative, HER2 Jerry positive by IHC. 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 Serafin Goins Hem/Onc (This note was [...] Team Description 03/25/2023 Nurse Only Hematology [place], Nurse Hem Onc Scenery [address] [facility] [place] [address] 03/25/2023 Imaging Radiology 03/29/2023 Appointment Radiology 03/31/2023 Hospital Encounter Surgery Sobia Hernandez MD [address] [place] [address] 03/31/2023 Surgery Surgery Sobia Hernandez MD [address] [place] [address] INSERT TUNNELED CENTRAL VENOUS ACCESS WITH SUBQ PORT 04/01/2023 Cardiac Studies Cardiac Studies 11/05/2023 Office Visit Family Medicine Sabrina Chang, DO [address] [place] [address] Scheduled Orders Name Type Priority Associated Diagnoses [...] (HCC) documented in this encounter Care Teams Clinical Auditor Relationship Specialty Start Date End Date Sabrina Chang DO [address] [place] [address] PCP - General Family Medicine 09/15/18 documented as of this encounter
--- OUTSIDE RECORDS SUMMARY | 2023-06-13 20:13 | External Medical Summary ---
Author Name Unknown Address Unknown Organization K01[place] [place] [facility] [address] [place] [address] Laboratory Report Ordering Provider Test Date Status 03/18/2023 11:16:40 Final Normal: <30 mg/g creatinine< br/>High: 30-300 mg/g creatinine
Very High: >300 mg/g creatinine
Nephrotic: >2200 mg/g creatinine Observation Date Value Abnormality Reference (Units ) Status Albumin, Urine 03/18/2023 11:16:40 <1.20 (mg/dL) Final Creatinine, Urine 03/18/2023 11:16:40 97 (mg/dL) Final Albumin/Creatinine [Mass Ratio] in Urine 03/18/2023 11:16:40 <12 <30 (mg/g Creat) Final Performing Location [facility] [place] [address] [place] [address]
--- OUTSIDE RECORDS SUMMARY | 2023-06-13 20:13 | External Medical Summary | Summary of Care ---
Author Name Unknown Organization [facility] Address [address] [place] [address] Phone [phone] Care Team Providers Care Machine Shop Specialist Name Role Phone Sabrina Chang DO Primary Care Provider Encounter Details Date Type Department Care Team Description 03/03/2023 Telephone Radiology [facility] [address] [facility] [place] [id number] Kaitlin Alvarez PA-C [address] [place] [address] Allergies Active Allergy Reactions Severity Noted Date Comments Lisinopril Edema face/lips/tongue High 02/19/2017 angioedema documented as of this encounter (statuses as of 03/04/2023) Medications Medication Sig Dispensed Refills Start Date End Date Status Rosuvastatin Calcium 10 MG Oral Tablet (Crestor)Indications:M ixed hyperlipidemia TAKE ONE TABLET BY MOUTH EVERY MORNING 90 Tablet 3 11/03/2022 11/03/2023 Active hydroCHLOROthiazide 25 MG Oral Tablet (Hydrodiuril)Indicatio ns:HTN, goal below 140/90 TAKE ONE TABLET BY MOUTH EVERY MORNING 90 Tablet 3 11/03/2022 11/03/2023 Active documented as of this encounter (statuses as of 03/04/2023) Active Problems Problem Noted Date Hyperlipidemia 04/17/2014 HTN, goal below 140/90 04/17/2014 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 documented as of this encounter (statuses as of 03/04/2023) Resolved Problems Problem Noted Date Resolved Date Bilateral impacted cerumen 10/27/201606/07 Overview: acute ABN PAP SMEAR-CERVIX(aka DYSPLASIA) 01/02/2004 10/27/2016 Varicella without complication 0 10/27/2016 Mumps without complication 10/27 Mucous polyp of cervix 9 documented as of this encounter (statuses as of 03/04/2023) Immunizations Name Administration Dates Next Due COVID-19 [...] encounter Miscellaneous Notes * Telephone Encounter - Westley Terry RDMS - 03/03/2023 9:11 AM EDT Following completion of left breast ultrasound guided core biopsy, discharge instructions were provided and patient expressed understanding. Specimen was delivered to the lab at 9:08 am. documented in this encounter Plan of Treatment Upcoming Encounters Date Type Specialty Care Team Description 11/05/2023 Office Visit Family Medicine Sabrina Chang, DO [address] [place], [place] [id number] Health Maintenance Due Date Last Done Comments Albumin/Creatinine Ratio 1972 Fecal Occult Blood Test 1999 Sigmoidoscopy 1999 Depression Screening, Annual for Pts 12 and Over 05/25/2020 05/25/2019 Colonoscopy 06/22/2021 06/22/2011, 05/16/2007 COVID-19 Vaccine (4 - Pfizer series) 08/28/2021 07/03/2021, 10/09/2020, 09/11/2020 Influenza Vaccine (FLU shot) (#1) 2023 06/02/2013 GFR 04/07/2023 04/07/2022, 03/19, 12/22/2019, Additional history exists Mammogram 02/23/2024 02/22/2023, 01/17, 04/17/2021, Additional history [...] filedocumented as of this encounter Care Teams Machine Shop Specialist Relationship Specialty Start Date End Date Sabrina Chang DO [address] [place] [address] PCP - General Family Medicine 09/15/18 documented as of this encounter
--- OUTSIDE RECORDS SUMMARY | 2023-06-13 20:13 | External Medical Summary | Summary of Care ---
Author Name Unknown Organization [facility] Address [address] [place] [address] Phone [phone] Care Team Providers Care Hogshead Mat Inspector Name Role Phone Sabrina Chang DO Primary Care Provider Reason for Referral * Evaluate & Treat - Unlimited Visits (Within 10 days (routine)) - Authorized Specialty Diagnoses / Procedures Referred By Angelique miller Referred To Contact General Surgery Diagnoses Ductal carcinoma of breast, left (HCC) Kaitlin Alvarez PA-C [address] [place] [address] Referral ID Status Reason Start Date Expiration Date Visits Requested Visits Authorized [id number] Authorized Specialty Services Required 03/08/[phone] Question Answer Referral Priority Within 10 days (routine) What condition is the patient being seen for? Breast Conditions Encounter Details Date Type Department Care Team Description 03/08/2023 Telephone Family Practice [facility] [address] [place] [address] Kaitlin Alvarez PA-C [address] [place] [address] Allergies Active Allergy Reactions Severity Noted Date Comments Lisinopril Edema face/lips/tongue High 02/19/2017 angioedema documented as of this encounter (statuses as of 03/09/2023) Medications Medication Sig Dispensed Refills Start Date End Date Status Rosuvastatin Calcium 10 MG Oral Tablet (Crestor)Indications:M ixed hyperlipidemia TAKE ONE TABLET BY MOUTH EVERY MORNING 90 Tablet 3 11/03/2022 11/03/2023 Active hydroCHLOROthiazide 25 MG Oral Tablet (Hydrodiuril)Indicatio ns:HTN, goal below 140/90 TAKE ONE TABLET BY MOUTH EVERY MORNING 90 Tablet 3 11/03/2022 11/03/2023 Active documented as of this encounter (statuses as of 03/09/2023) Active Problems Problem Noted Date Hyperlipidemia 04/17/2014 HTN, goal below 140/90 04/17/2014 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 documented as of this encounter (statuses as of 03/09/2023) Resolved Problems Problem Noted Date Resolved Date Bilateral impacted cerumen 10/27/201606/07 Overview: acute ABN PAP SMEAR-CERVIX(aka DYSPLASIA) 01/02/2004 10/27/2016 Varicella without complication 0 10/27/2016 Mumps without complication 10/27 Mucous polyp of cervix 9 documented as of this encounter (statuses as of 03/09/2023) Immunizations Name Administration Dates Next Due COVID-19 mRNA, LNP-s, No Pre serve, 2-Dose Series (Why Not Give Back) 07/03/2021,10/09/2020,09/11/2020 Hep A - Hepatitis A (ped/adole, [...] oz pur e alcohol) one a day, akua Food Insecurity Answer Date Recorded Within the [...] * Telephone Encounter - RAZA Rico - 03/09/2023 11:05 AM EDT Lmom to return call * Telephone Encounter - RAZA Rashid - 03/09/2023 10:51 AM EDT SURGERY REFERRAL OP Status: Needs Scheduling (Xowf-uj-Mszzbtn Pending) Requested appt date: Authorizing: Kaitlin Alvarez PA-C in [facility] Referral: [id number] (Authorized) Priority: Within 10 days (routine) Diagnosis: Ductal carcinoma of breast, left (HCC) [C50.912] Denied scheduling Please call * Telephone Encounter - Kaitlin Alvarez PA-C - 03/08/2023 7:36 PM EDT Called patient. Discussed positive breast biopsy. Will referred to Dr Hernandez documented in this encounter Plan of Treatment Upcoming Encounters Date Type Specialty Care Team Description 11/05/2023 Office Visit Family Medicine Sabrina Chang, DO [address] [facility] [place] [address] Scheduled Referrals Name Type Priority Associated Diagnoses Orde r Schedule SURGERY REFERRAL OP Referral Within 10 da ys (routine) Ductal carcinoma of breast, left (HCC) Ordered: 03/08/2023 Health Maintenance Due Date Last Done Comments [...] as of this encounter Visit Diagnoses Diagnosis Ductal carcinoma of breast, left (HCC)- Primary documented in this encounter Care Teams Hogshead Mat Inspector Relationship Specialty Start Date End Date Sabrina Chang DO [address] [place] [address] PCP - General Family Medicine 09/15/18 documented as of this encounter
--- OUTSIDE RECORDS SUMMARY | 2023-06-13 20:13 | External Medical Summary | Summary of Care ---
Author Name Unknown Organization [facility] Address [address] [place] [address] Phone [phone] Care Team Providers Care Airborne Mission Systems Superintendent Name Role Phone Sabrina Chang DO Primary Care Provider Reason for Referral * Evaluate & Treat - Unlimited Visits (Within 10 days (routine)) - Authorized Specialty Diagnoses / Procedures Referred By Angelique miller Referred To Contact General Surgery Diagnoses Ductal carcinoma of breast, left (HCC) Kaitlin Alvarez PA-C [address] [place] [address] Referral ID Status Reason Start Date Expiration Date Visits Requested Visits Authorized [id number] Authorized Specialty Services Required 03/08/2023 999 999 Question Answer Referral Priority Within 10 days (routine) What condition is the patient being seen for? Breast Conditions Encounter Details Date Type Department Care Team Description 03/08/2023 Telephone Family Practice State [facility]ar Landry [address] [place] [address] [address] Kaitlin Alvarez PA-C [address] [place] [address] [address] Allergies Active Allergy Reactions Severity Noted Date [...] mRNA, LNP-s, No Pre serve, 2-Dose Series (Taomee) 07/03/2021,10/09/2020,09/11/2020 Hep A - Hepatitis A (ped/adole, [...] Telephone Encounter - RAZA Rico - 03/09/2023 11:18 AM EDT Scheduled on 03/18/23. * Telephone Encounter - RAZA Rico - 03/09/2023 11:05 AM EDT Lmom to return call * Telephone Encounter - RAZA Rashid - 03/09/2023 10:51 AM EDT SURGERY REFERRAL OP Status: Needs Scheduling (Raoj-hp-Aznkzvz Pending) Requested appt date: Authorizing: Kaitlin Alvarez PA-C in [facility] Referral: [id number] (Authorized) Priority: Within 10 days (routine) Diagnosis: Ductal carcinoma of breast, left (HCC) [C50.912] Denied scheduling Please call * Telephone Encounter - Kaitlin Alvarez PA-C - 03/08/2023 7:36 PM EDT Called patient. Discussed positive breast biopsy. Will referred to Dr Hernandez documented in this encounter Plan of Treatment Upcoming Encounters Date Type Specialty Care Team Description 03/18/2023 Office Visit General Surgery Sobia Hernandez MD [address] [place] [address] 11/05/2023 Office Visit Family Medicine Sabrina Chang, [address] [place] [address] Scheduled Referrals Name Type Priority Associated Diagnoses [...] Primary documented in this encounter Care Teams Airborne Mission Systems Superintendent Relationship Specialty Start Date End Date Sabrina Chang DO [address] [place] [address] PCP - General Family Medicine 09/15/18 documented as of this encounter
--- OUTSIDE RECORDS SUMMARY | 2023-06-13 20:13 | External Medical Summary | Summary of Care ---
Author Name Unknown Organization [facility] Address [address] [facility] [place] [address] Phone [phone] Care Team Providers Care Male Model Name Role Phone Sabrina Chang DO Primary Care Provider Reason for Visit * Reason Onset Date Comments Precert Future 03/24/2023 [facility] Lizbeth liang Encounter Details Date Type Department Care Team Description 03/24/2023 Telephone Hematology/Oncology Treatment, [place] 200 [facility] [place] [address] Serafin Goins MD [address] [place] [address] Precert Future ([facility] Emjerry Mcadams) Allergies Active Allergy Reactions [...] mRNA, LNP-s, No Pre serve, 2-Dose Series (Bioenvision) 07/03/2021,10/09/2020,09/11/2020 Hep A - Hepatitis A (ped/adole, [...] Only Hematology Oncology Yudi, Nurse Hem Onc [facility] [address] 03/25/2023 Imaging Radiology 03/29/2023 Appointment Radiology 03/31/2023 Hospital Encounter Surgery Sobia Hernandez MD [address] [place] [address] 03/31/2023 Surgery Surgery Sobia Hernandez MD [address] [place] [address] INSERT TUNNELED CENTRAL VENOUS ACCESS WITH SUBQ PORT 04/01/2023 Cardiac Studies Cardiac Studies 11/05/2023 Office Visit Family Medicine Sabrina Chang DO 200 [place] [address] Scheduled Orders Name Type Priority Associated Diagnoses [...] (HCC) documented in this encounter Care Teams Male Model Relationship Specialty Start Date End Date Sabrina Chang DO [address] [facility] [place] [address] PCP - General Family Medicine 09/15/18 documented as of this encounter
--- OUTSIDE RECORDS SUMMARY | 2023-06-13 20:13 | External Medical Summary | Summary of Care ---
Author Name Unknown Organization [facility] Address [address] [place] [address] Phone [phone] Care Team Providers Care Tree Shear Operator Name Role Phone Bernardo Bennett Lesli DO Primary Care Provider Reason for Referral * Evaluate & Treat - Unlimited Visits (Within 3 days (urgent)) - Authorized Specialty Diagnoses / Procedures Referred By Contac t Referred To Contact Hematology/Oncology / Hematology Oncology Diagnoses Malignant neoplasm of upper-outer quadrant of left breast in female, estrogen 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 (HCC) Sobia Hernandez MD [address] [place] [address] Referral ID Status Reason Start Date Expiration Date Visits Requested Visits Authorized [id number] Authorized Specialty Services Required 03/18/2023 999 999 [...] BILATERAL W WO CONTRAST Sobia Hernandez MD [address] [place] [address] Referral ID Status Reason Start Date Expiration Date V isits Requested Visits Authorized [id number] Pending Review 03/25/2023 999 999 Reason for Visit * Reason Comments NEW PATIENT Left breat cancer. * Evaluate & Treat - Unlimited Visits (Within 10 days (routine)) - Authorized Specialty Diagnoses / Procedures Referred By Angelique miller Referred To Contact General Surgery Diagnoses Ductal carcinoma of breast, left (HCC) PorshavalentinKaitlin, JOURDANC [address] [place] [address] Referral ID Status Reason Start Date Expiration Date Visits Requested Visits Authorized [id number] Authorized Specialty Services Required 03/08/2023 999 999 Encounter Details Date Type Department Care Team Description 03/18/2023 Office Visit General Surgery, [facility] [address] [place] [address] Sobia Hernandez MD [address] [place] [address] Malignant neoplasm of upper-outer quadrant of left [...] Hernandez MD - 03/18/2023 10:00 AM EDT [facility] GENERAL SURGERY NEW BREAST CANCER CLINIC NOTE [...] marker of breast differentiation Left breast, case [id number], block A1: Estrogen Receptor (ER) protein expression is NEGATIVE <1% nuclear positivity COMMENT: Assay internal and external control immunoreactivity is appropriate. Progesterone Receptor (AZ) protein expression is NEGATIVE <1% nuclear positivity [...] Hernandez in the Department of surgery. Mammography Certified Hyperbaric Technologist Rubia Main has been notified for scheduling [...] breast ultrasound 02/22/2023. TECHNIQUE ANESTHESIA: 1% lidocaine HEALTH UNDERWRITER: Dr. Villalba was present for and performed [...] by Dr. Villalba in the presence of nuclear medicine chief technologist and it was confirmed that procedure [...] Past Hx None NO FM HX of COMMUNITY HEALTH DIRECTOR [place] Glaucoma None Breast Cancer No significant [...] OF EYE DRUG 03/08/2013 #2 Kenalog, OS, #[id number] INJECTION OF EYE DRUG 04/18/2013 #3 Lucentis [...] undergo chemo upfront, will plan on myra lace burn out tender placementif the lesion is no longer palpable. [...] through chemotherapy for surgical planning of myra lace burn out tender, left lumpectomy and sln biopsy Port placement [...] Hernandez MD - 03/18/2023 1:06 PM EDT [facility] GENERAL SURGERY NEW BREAST CANCER CLINIC NOTE [...] marker of breast differentiation Left breast, case [id number], block A1: Estrogen Receptor (ER) protein expression is NEGATIVE <1% nuclear positivity COMMENT: Assay internal and external control immunoreactivity is appropriate. Progesterone Receptor (AZ) protein expression is NEGATIVE <1% nuclear positivity [...] Hernandez in the Department of surgery. Mammography Certified Hyperbaric Technologist Rubia Main has been notified for scheduling [...] breast ultrasound 02/22/2023. TECHNIQUE ANESTHESIA: 1% lidocaine HEALTH UNDERWRITER: Dr. Villalba was present for and performed [...] by Dr. Villalba in the presence of nuclear medicine chief technologist and it was confirmed that procedure [...] Past Hx None NO FM HX of COMMUNITY HEALTH DIRECTOR [place] Glaucoma None Breast Cancer No significant [...] OF EYE DRUG 03/08/2013 #2 Kenalog, OS, #[id number] INJECTION OF EYE DRUG 04/18/2013 #3 Lucentis [...] undergo chemo upfront, will plan on myra lace burn out tender placementif the lesion is no longer palpable. [...] through chemotherapy for surgical planning of myra lace burn out tender, left lumpectomy and sln biopsy Port placement [...] 03/18/2023 10:57 AM EDT Patient scheduled at [facility] for Port insertion with Dr Sobia Hernandez. [...] Abnormal Mammogram. Patient had mammogram done at [facility] on 02/05/2023. BREAST HISTORY: Mass: No Breast [...] Visit Hematology Oncology Serafin Goins MD 200 [facility] [place] [address] 03/29/2023 Appointment Radiology 11/05/2023 Office Visit Family Medicine Sabrina Chang DO [address] [place] [address] Scheduled Orders Name Type Priority Associated Diagnoses [...] examination Expected: 03/18/2023 (Approximate), Expires: 04/17/2024 Scheduled Referrals Name Type Priority Associated Diagnoses [...] ORDERABLE S LABORATORY [place] 57-10 [address] [facility] [place] [address] documented in this encounter Visit Diagnoses Diagnosis Malignant neoplasm of upper-outer quadrant of left breast in female, estrogen 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 (HCC)- Primary Preoperative examination Preoperative examination, unspecified Preoperative cardiovascular examination Pre-operative cardiovascular examination documented in this encounter Care Teams Tree Shear Operator Relationship Specialty Start Date End Date Sabrina Chang, DO [address] [place] [address] PCP - General Family Medicine 09/15/18 documented as of this encounter
--- OUTSIDE RECORDS SUMMARY | 2023-06-13 20:13 | External Medical Summary | Summary of Care ---
Author Name Unknown Organization [facility] Address [address] [facility] [place] [address] Phone [phone] Care Team Providers Care Electrician Research Name Role Phone Sabrina Chang DO Primary Care Provider Reason for Visit * Reason Onset Date Comments Information 02/22/2023 Encounter Details Date Type Department Care Team Description 02/22/2023 Telephone Radiology [facility] [address] [facility] [place] [address] Kaitlin Alvarez PA-C [address] [place] [address] Information Allergies Active Allergy Reactions Severity Noted Date Comments Lisinopril Edema face/lips/tongue High 02/19/2017 angioedema documented as of this encounter (statuses as of 02/23/2023) Medications Medication Sig Dispensed Refills Start Date End Date Status Rosuvastatin Calcium 10 MG Oral Tablet (Crestor)Indications:M ixed hyperlipidemia TAKE ONE TABLET BY MOUTH EVERY MORNING 90 Tablet 3 11/03/2022 11/03/2023 Active hydroCHLOROthiazide 25 MG Oral Tablet (Hydrodiuril)Indicatio ns:HTN, goal below 140/90 TAKE ONE TABLET BY MOUTH EVERY MORNING 90 Tablet 3 11/03/2022 11/03/2023 Active documented as of this encounter (statuses as of 02/23/2023) Active Problems Problem Noted Date Hyperlipidemia 04/17/2014 HTN, goal below 140/90 04/17/2014 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 documented as of this encounter (statuses as of 02/23/2023) Resolved Problems Problem Noted Date Resolved Date Bilateral impacted cerumen 10/27/201606/07 Overview: acute ABN PAP SMEAR-CERVIX(aka DYSPLASIA) 01/02/2004 10/27/2016 Varicella without complication 0 10/27/2016 Mumps without complication 10/27 Mucous polyp of cervix 9 documented as of this encounter (statuses as of 02/23/2023) Immunizations Name Administration Dates Next Due COVID-19 mRNA, LNP-s, No Pre serve, 2-Dose Series (TimePad) 07/03/2021,10/09/2020,09/11/2020 Hep A - Hepatitis A (ped/adole, [...] encounter Miscellaneous Notes * Telephone Encounter - Millie Jo MED ASSIST - 02/23/2023 4:10 PM EDT ----- Message from Kaitlin Alvarez PA-C sent at 02/22/2023 6:55 PM EDT ----- Please call inform ultrasound of breast was abnormal and we are now suggesting a breast biopsy. * Telephone Encounter - RAZA Charlton - 02/23/2023 8:19 AM EDT Breast biopsy order placed. Please review and sign if acceptable. Recommendation US guided core biopsy of the highly suggestive mass in the left breast is recommended. Thank you * Telephone Encounter - Kaitlin Alvarez PA-C - 02/22/2023 6:43 PM EDT Please inquire of patient about her meds. What or is she on a blood thinner? * Telephone Encounter - Westley Terry RDMS - 02/22/2023 11:47 AM EDT Karina is scheduled for an ultrasound guided breast biopsy on 03/09/2024. Pt reports taking a blood thinner. (I did not see one listed in the chart but wanted to reach out and make sure I was not missing it! ) Can someone please advise pt if she is ok to continue taking her prescribed medications or if she needs to stop any for the upcoming procedure. Please advise and thank you! Meri Sanchez paul Dept documented in this encounter Plan of Treatment Upcoming Encounters Date Type Specialty Care Team Description 03/09/2023 Imaging Radiology 03/09/2023 Imaging Radiology 11/05/2023 Office Visit Family Medicine Sabrina Chang, DO 200 [facility] [place] [address] Scheduled Orders Name Type Priority Associated Diagnoses Orde r Schedule US GUIDED BREAST BIOPSY LEFT Medical Imaging Routine Abnormal ultrasound of breast Expected: 02/23/2023, Expires: 03/26/2024 Health Maintenance Due Date Last Done Comments [...] of this encounter Visit Diagnoses Diagnosis Abnormal ultrasound of breast- Primary Other (abnormal) findings on radiological examination of breast documented in this encounter Care Teams Electrician Research Relationship Specialty Start Date End Date Sabrina Chang DO [address] [place] [address] PCP - General Family Medicine 09/15/18 documented as of this encounter
--- OUTSIDE RECORDS SUMMARY | 2023-06-13 20:13 | External Medical Summary | Summary of Care ---
Author Name Unknown Organization [facility] Address [address] [place] [address] Phone [phone] Care Team Providers Care Technical Support Intern Name Role Phone Sabrina Chang DO Primary Care Provider Reason for Visit * Reason Onset Date Comments Health Maintenance 01/22/2023 Encounter Details Date Type Department Care Team Description 01/22/2023 Telephone Family Practice [place] 200 [place] [address] Sabrina Chang DO [address] [place] [address] Health Maintenance Allergies Active Allergy Reactions Severity Noted Date Comments Lisinopril Edema face/lips/tongue High 02/19/2017 angioedema documented as of this encounter (statuses as of 01/22/2023) Medications Medication Sig Dispensed Refills Start Date End Date Status hydroCHLOROthiazide 25 MG Oral Tablet (Hydrodiuril)Indication s:HTN, goal below 140/90 Take 1 Tablet by mouth in the morning. 90 Tablet 3 11/03/2022 Active Rosuvastatin Calcium 10 MG Oral Tablet (Crestor)Indications:Mi xed hyperlipidemia Take 1 Tablet by mouth in the morning. 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 documented as of this encounter (statuses as of 01/22/2023) Resolved Problems Problem Noted Date Resolved Date Bilateral impacted cerumen 10/27/201606/07 Overview: acute ABN PAP SMEAR-CERVIX(aka DYSPLASIA) 01/02/2004 10/27/2016 Varicella without complication 0 10/27/2016 Mumps without complication 10/27 Mucous polyp of cervix 9 documented as of this encounter (statuses as of 01/22/2023) Immunizations Name Administration Dates Next Due COVID-19 [...] encounter Miscellaneous Notes * Telephone Encounter - Mayuri Arango LPN - 01/22/2023 12:32 PM EDT Care Gaps Comprehensive Care Outreach Last Office/Telemedicine Visit: 11/03/2022 (in office), Visit date not found (telemedicine) Next Office Visit: 11/05/2023 Hemoglobin AIC Results: Lab Results Component Value Date/Time HEMOGLOBIN A1C - TYLERER 5.2 12/22/2019 08:30 AM Reviewed Health Maintenance below: Health Maintenance Topic Date Due Albumin/Creatinine Ratio Never done Depression Screening, Annual for Pts 12 and Over 05/25/2020 COVID-19 Vaccine (4 - Pfizer series) 08/28/2021 Mammogram 04/17/2022 Influenza Vaccine (FLU shot) (1) 03/19/2023 GFR 04/07/2023 Urine already ordered Mammogram my katie was sent to her yesterday Labs already ordered Care Gap Outreach Action Taken: Outreach not indicated documented in this encounter Plan of Treatment Upcoming Encounters Date Type Specialty Care Team Description 11/05/2023 Office Visit Family Medicine Sabrina Chang, DO [address] [place] [address] Health Maintenance Due Date Last Done Comments [...] filedocumented as of this encounter Care Teams Technical Support Intern Relationship Specialty Start Date End Date Sabrina Chang DO [address] [place] [address] PCP - General Family Medicine 09/15/18 documented as of this encounter
--- OUTSIDE RECORDS SUMMARY | 2023-06-13 20:13 | External Medical Summary | Summary of Care ---
Author Name Unknown Organization [facility] Address [address] [place] [address] Phone [phone] Care Team Providers Care Molasses Coloring Operator Name Role Phone Sabrina Chang DO Primary Care Provider Reason for Referral * Evaluate & Treat - Unlimited Visits (Within 10 days (routine)) - Authorized Specialty Diagnoses / Procedures Referred By Angelique miller Referred To Contact General Surgery Diagnoses Ductal carcinoma of breast, left (HCC) Kaitlin Alvarez PA-C [address] [place] [address] [address] Referral ID Status Reason Start Date Expiration Date Visits Requested Visits Authorized [id number] Authorized Specialty Services Required 03/08/[phone] Question Answer Referral Priority Within 10 days (routine) What condition is the patient being seen for? Breast Conditions Encounter Details Date Type Department Care Team Description 03/08/2023 Telephone Family Practice State Lam[facility] Landry [address] [place] [address] [address] Kaitlin Alvarez PA-C [address] [place] [address] [address] Allergies Active Allergy Reactions Severity Noted Date [...] mRNA, LNP-s, No Pre serve, 2-Dose Series (i-drive) 07/03/2021,10/09/2020,09/11/2020 Hep A - Hepatitis A (ped/adole, [...] EDT SURGERY REFERRAL OP Status: Needs Scheduling (Oewn-rg-Eboztyl Pending) Requested appt date: Authorizing: Kaitlin Alvarez PA-C in [facility] Referral: [id number] (Authorized) Priority: Within 10 days (routine) Diagnosis: [...] Visit Family Medicine Sabrina Chang, DO 200 [facility] [place] [address] Scheduled Referrals Name Type Priority Associated Diagnoses [...] Primary documented in this encounter Care Teams Molasses Coloring Operator Relationship Specialty Start Date End Date Sabrina Chang DO [address] [place] [address] PCP - General Family Medicine 09/15/18 documented as of this encounter
--- OUTSIDE RECORDS SUMMARY | 2023-06-13 20:13 | External Medical Summary | Summary of Care ---
Author Name Unknown Organization [facility] Address [address] [place] [place] [place] [address] Phone [phone] Care Team Providers Care Cross Country Truck Driver Name Role Phone Sabrina Chang DO Primary Care Provider Reason for Visit * Reason Onset Date Comments Information 02/22/2023 Encounter Details Date Type Department Care Team Description 02/22/2023 Telephone Radiology [facility] [address] [facility] [place] [address] Kaitlin Alvarez PA-C [address] [place] [address] Information Allergies Active Allergy Reactions Severity Noted [...] mRNA, LNP-s, No Pre serve, 2-Dose Series ([employer]) 07/03/2021,10/09/2020,09/11/2020 Hep A - Hepatitis A (ped/adole, [...] encounter Miscellaneous Notes * Telephone Encounter - Kaitlin Alvarez PA-C - 02/23/2023 5:59 PM EDT Is she aware? * Telephone Encounter - Millie Jo, MED ASSIST - 02/23/2023 4:10 PM EDT [...] Please advise and thank you! Meri Sanchez t Dept documented in this encounter Plan of Treatment Upcoming Encounters Date Type Specialty Care Team Description 03/09/2023 Imaging Radiology 03/09/2023 Imaging Radiology 11/05/2023 Office Visit Family Medicine Sabrina Chang, [place] [address] [place] [address] Scheduled Orders Name Type Priority Associated Diagnoses [...] breast documented in this encounter Care Teams Cross Country Truck Driver Relationship Specialty Start Date End Date Sabrina Chang, [address] [facility] [place] [address] PCP - General Family Medicine 09/15/18 documented as of this encounter
--- OUTSIDE RECORDS SUMMARY | 2023-06-13 20:13 | External Medical Summary ---
Author Name Unknown Address Unknown Organization [facility] [address] [place] [address] Laboratory Report Ordering Provider Test Date Status SEFERINO AGUAYO 03/18/2023 11:16:40 Final Observation Date Value Abnormality Reference (Units ) Status WBC, Total 03/18/2023 11:16:40 6.26 4.00-10.8 0 (K/uL) Final RBC 03/18/2023 11:16:40 4.68 3.85-5.15 (M/uL) Final Hemoglobin 03/18/2023 11:16:40 14.8 12.0-15.3 (g/dL) Final HCT 03/18/2023 11:16:40 43.6 36.0-45.2 (%) Final MCV 03/18/2023 11:16:40 93.2 81.5-97.5 (fL) Final MCH 03/18/2023 11:16:40 31.6 27.0-34.0 (pg) Final MCHC 03/18/2023 11:16:40 33.9 32.0-36.0 (g/dL) Final RDW 03/18/2023 11:16:40 12.5 11.5-15.5 (%) Final Platelets 03/18/2023 11:16:40 232 140-400 (K /uL) Final MPV 03/18/2023 11:16:40 10.2 6.6-11.1 ( fL) Final Performing Location [facility] [place] [address]
--- OUTSIDE RECORDS SUMMARY | 2023-06-13 20:13 | External Medical Summary | Summary of Care ---
Author Name Unknown Organization [facility] Address [address] [place] [address] Phone [phone] Care Team Providers Care Edge Burnisher Uppers Name Role Phone Sabrina Chang DO Primary Care Provider Reason for Visit * Reason Comments Outpatient Testing Encounter Details Date Type Department Care Team Description 03/18/2023 [facility] [address] SanchezFady rhodes [facility] [address] [place] [address] HTN, goal below 140/90; Pure hypercholesterolemia; Malignant neoplasm of upper-outer quadrant of left breast in female, estrogen 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 (HCC); Preoperative examination Allergies Active Allergy Reactions Severity Noted [...] mRNA, LNP-s, No Pre serve, 2-Dose Series ([employer]) 07/03/2021,10/09/2020,09/11/2020 Hep A - Hepatitis A (ped/adole, [...] Visit Hematology Oncology Serafin Goins MD [address] [facility] [place] [address] 03/29/2023 Appointment Radiology 11/05/2023 Office Visit Family Medicine Sabrina Chang DO [address] [facility] [place] [address] Pending Results Name Type Priority Associated Diagnoses Date /Time ALBUMIN / CREATININE RATIO, URINE Lab Routine HTN, goal below 140/90 03/18/2023 11:16 AM EDT COMPREHENSIVE METABOLIC PANEL Lab Routine HTN, goal below 140/90 Pure hypercholesterolemia 03/18/2023 11:16 AM EDT LIPID PANEL WITH DIRECT LDL IF TG IS HIGH Lab Routine Pure hypercholesterolemia 03/18/2023 11:16 AM EDT CBC Lab Pre-operative Malignant neoplasm of upper-outer quadrant of left breast in female, estrogen 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 (HCC) Preoperative examination 03/18/2023 11:16 AM EDT Health Maintenance Due Date Last [...] as of this encounter Visit Diagnoses Diagnosis HTN, goal below 140/90 Unspecified essential hypertension Pure hypercholesterolemia Malignant neoplasm of upper-outer quadrant of left breast in female, estrogen 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 (HCC) Preoperative examination Preoperative examination, unspecified documented in this encounter Care Teams Edge Burnisher Uppers Relationship Specialty Start Date End Date Sabrina Chang DO [address] [place] [address] PCP - General Family Medicine 09/15/18 documented as of this encounter
--- OUTSIDE RECORDS SUMMARY | 2023-06-13 20:13 | External Medical Summary | Summary of Care ---
Author Name Unknown Organization [facility] Address [address] [place] [address] Phone [phone] Care Team Providers Care Cotton Jammer Name Role Phone BernardoSabrina DO Primary Care Provider Reason for Referral * Precert (Within 10 days (routine)) - Pending Review Specialty Diagnoses / Procedures Referred By Contac t Referred To Contact Radiology Diagnoses Malignant neoplasm of upper-outer quadrant of left breast in female, estrogen 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 (HCC) Procedures MRI BRAIN W WO CONTRAST Serafin Goins MD [address] [place] [address] Referral ID Status Reason Start Date Expiration Date V isits Requested Visits Authorized [id number] Pending Review 03/19/2023 999 999 * Precert (Within 10 days (routine)) - Authorized Specialty Diagnoses / Procedures Referred By Contac t Referred To Contact Cardiac Studies Diagnoses Malignant neoplasm of upper-outer quadrant of left breast in female, estrogen 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 (HCC) Encounter for long-term (current) drug use Procedures ECHO, COMPLETE (2D), TRANS-THORACIC Serafin Goins MD [address] [place] [address] Referral ID Status Reason Start Date Expiration Date V isits Requested Visits Authorized [id number] Authorized Precert 03/19/2023 999 999 Reason for [...] Hernandez MD [address] [place] [address] Referral ID Status Reason Start Date Expiration Date Visits Requested Visits Authorized [id number] Authorized Specialty Services Required 03/18/2023 999 999 Encounter Details Date Type Department Care Team Description 03/19/2023 Office Visit Hematology/Oncology [facility] [place] [address] [facility] [place] [address] Serafin Goins MD [address] [facility] [place] [address] Malignant neoplasm of upper-outer quadrant of left [...] 12:15 PM EDT KARINA SMITHVER MR # [id number] :1955 67-year-old female, REASON FOR CONSULTATION: Consultation [...] no special type, grade 3, ER negative, [place] negative, HER2 Jerry positive by IHC. 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 Glaucoma None Breast Cancer No significant [...] -WBC 6200, H&H of 14.8/40.6, Platelet count [id number] -BUN/Creat: 14/0.7, Calcium 10.4, normal liver function [...] Oncology [place], Nurse Hem Onc Scenery [address] [facility] [place] [address] 03/25/2023 Imaging Radiology 03/29/2023 Appointment Radiology 03/31/2023 Hospital Encounter Surgery Sobia Hernandez MD [address] [place] [address] 03/31/2023 Surgery Surgery Sobia Hernandez MD [address] [place] [address] INSERT TUNNELED CENTRAL VENOUS ACCESS WITH SUBQ PORT 04/01/2023 Cardiac Studies Cardiac Studies 11/05/2023 Office Visit Family Medicine Sabrina Chang, DO [address] [facility] [place] [address] Scheduled Orders Name Type Priority Associated Diagnoses [...] (HCC) documented in this encounter Care Teams Cotton Jammer Relationship Specialty Start Date End Date Sabrina Chang DO [address] [place] [address] PCP - General Family Medicine 09/15/18 documented as of this encounter
--- OUTSIDE RECORDS SUMMARY | 2023-06-13 20:13 | External Medical Summary | Summary of Care ---
Author Name Unknown Organization [facility] Address [address] [place] [address] Phone [phone] Care Team Providers Care Muffle Operator Name Role Phone BernardoSabrina DO Primary Care Provider Reason for Referral * Precert (Within 10 days (routine)) - Pending Review Specialty Diagnoses / Procedures Referred By Contac t Referred To Contact Radiology Diagnoses Malignant neoplasm of upper-outer quadrant of left breast in female, estrogen 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 (HCC) Procedures MRI BRAIN W WO CONTRAST Serafin Goins MD [address] [place] [address] Referral ID Status Reason Start Date Expiration Date V isits Requested Visits Authorized [id number] Pending Review 03/19/2023 999 999 * Precert (Within 10 days (routine)) - Authorized Specialty Diagnoses / Procedures Referred By Contac t Referred To Contact Cardiac Studies Diagnoses Malignant neoplasm of upper-outer quadrant of left breast in female, estrogen 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 (HCC) Encounter for long-term (current) drug use Procedures ECHO, COMPLETE (2D), TRANS-THORACIC Serafin Goins MD [address] [place] [address] Referral ID Status Reason Start Date Expiration Date V isits Requested Visits Authorized [id number] Authorized Precert 03/19/2023 999 999 Reason for [...] Hernandez MD [address] [place] [address] Referral ID Status Reason Start Date Expiration Date Visits Requested Visits Authorized [id number] Authorized Specialty Services Required 03/18/2023 999 999 Encounter Details Date Type Department Care Team Description 03/19/2023 Office Visit Hematology/Oncology [facility] [place] [address] [facility] [place] [address] Serafin Goins MD 200 [facility] [place] [address] Malignant neoplasm of upper-outer quadrant of left breast in female, estrogen 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 (HCC)*; Encounter for long-term (current) drug use Allergies Active Allergy Reactions Severity Noted Date Comments Lisinopril Edema face/lips/tongue High 02/19/2017 angioedema documented as of this encounter (statuses as of 03/19/2023) Medications Medication Sig Dispensed Refills Start Date End Date Status Rosuvastatin Calcium 10 MG Oral Tablet (Crestor)Indications:M ixed hyperlipidemia TAKE ONE TABLET BY MOUTH EVERY MORNING 90 Tablet 3 11/03/2022 11/03/2023 Active hydroCHLOROthiazide 25 MG Oral Tablet (Hydrodiuril)Indicatio ns:HTN, goal below 140/90 TAKE ONE TABLET BY MOUTH EVERY MORNING 90 Tablet 3 11/03/2022 11/03/2023 Active documented as of this encounter (statuses as of 03/19/2023) Active Problems Problem Noted Date Hyperlipidemia 04/17/2014 HTN, goal below 140/90 04/17/2014 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 documented as of this encounter (statuses as of 03/19/2023) Resolved Problems Problem Noted Date Resolved Date Bilateral impacted cerumen 10/27/201606/07 Overview: acute ABN PAP SMEAR-CERVIX(aka DYSPLASIA) 01/02/2004 10/27/2016 Varicella without complication 0 10/27/2016 Mumps without complication 10/27 Mucous polyp of cervix 9 documented as of this encounter (statuses as of 03/19/2023) Immunizations Name Administration Dates Next Due COVID-19 [...] Progress Notes * Serafin Goins MD - 03/19/2023 12:15 PM EDT KARINA PARSON MR # [id number] :1955 67-year-old female, REASON FOR CONSULTATION: Consultation for Karina Parson requested by Dr. Sobia Hernandez for evaluation [...] no special type, grade 3, ER negative, [place] negative, HER2 Jerry positive by IHC. 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 Reviewed [...] Team Description 03/25/2023 Nurse Only Hematology Oncology [place] Nurse Hem Onc Scenery 200 [place] [address] 03/25/2023 Imaging Radiology 03/29/2023 Appointment Radiology 03/31/2023 Hospital Encounter Surgery Sobia Hernandez MD [address] [place] [address] 03/31/2023 Surgery Surgery Sobia Hernandez MD [address] [place] [address] INSERT TUNNELED CENTRAL VENOUS ACCESS WITH SUBQ PORT 04/01/2023 Cardiac Studies Cardiac Studies 11/05/2023 Office Visit Family Medicine Sabrina Chang, DO [address] [place] [address] Scheduled Orders Name Type Priority Associated Diagnoses [...] (HCC) documented in this encounter Care Teams Muffle Operator Relationship Specialty Start Date End Date Sabrina Chang DO [address] [place] [address] PCP - General Family Medicine 09/15/18 documented as of this encounter
--- OUTSIDE RECORDS SUMMARY | 2023-06-13 20:13 | External Medical Summary | Summary of Care ---
Author Name Unknown Organization [facility] Address [address] [facility] [place] [place] [address] Phone [phone] Care Team Providers Care Flexible Babysitter Name Role Phone Sabrina Chang DO Primary Care Provider Reason for Visit * Reason Onset Date Comments Information 02/22/2023 Encounter Details Date Type Department Care Team Description 02/22/2023 Telephone Radiology [facility] [address] [facility] [place] [address] Kaitlin Alvarez PA-C [address] [place] [address] Information Allergies Active Allergy Reactions Severity Noted Date Comments Lisinopril Edema face/lips/tongue High 02/19/2017 angioedema documented as of this encounter (statuses as of 02/24/2023) Medications Medication Sig Dispensed Refills Start Date End Date Status Rosuvastatin Calcium 10 MG Oral Tablet (Crestor)Indications:M ixed hyperlipidemia TAKE ONE TABLET BY MOUTH EVERY MORNING 90 Tablet 3 11/03/2022 11/03/2023 Active hydroCHLOROthiazide 25 MG Oral Tablet (Hydrodiuril)Indicatio ns:HTN, goal below 140/90 TAKE ONE TABLET BY MOUTH EVERY MORNING 90 Tablet 3 11/03/2022 11/03/2023 Active documented as of this encounter (statuses as of 02/24/2023) Active Problems Problem Noted Date Hyperlipidemia 04/17/2014 HTN, goal below 140/90 04/17/2014 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 documented as of this encounter (statuses as of 02/24/2023) Resolved Problems Problem Noted Date Resolved Date Bilateral impacted cerumen 10/27/201606/07 Overview: acute ABN PAP SMEAR-CERVIX(aka DYSPLASIA) 01/02/2004 10/27/2016 Varicella without complication 0 10/27/2016 Mumps without complication 10/27 Mucous polyp of cervix 9 documented as of this encounter (statuses as of 02/24/2023) Immunizations Name Administration Dates Next Due COVID-19 mRNA, LNP-s, No Pre serve, 2-Dose Series ([employer]) 07/03/2021,10/09/2020,09/11/2020 Hep A - Hepatitis A (ped/adole, [...] Encounter - Millie Jo MED ASSIST - 02/24/2023 10:33 AM EDT Provider to address: Blood thinner and US biopsy Reason for Call: Information Contact: Telephone Call Contact Type: Information Outcome: Patient is aware and she not currently taking any blood thinners. Total Time including non face to face (minutes): 10 * Telephone Encounter - Kaitlin Alvarez PA-C - 02/23/2023 5:59 PM EDT Is she aware? * Telephone Encounter - LESLI Balderas - 02/23/2023 4:10 PM EDT ----- Message from Kaitlin Alavrez PA-C sent at 02/22/2023 6:55 PM EDT [...] Please advise and thank you! Meri Sanchez Ult Dept documented in this encounter Plan of Treatment Upcoming Encounters Date Type Specialty Care Team Description 03/09/2023 Imaging Radiology 03/09/2023 Imaging Radiology 11/05/2023 Office Visit Family Medicine Sabrina Chang, DO [address] [place], [place] [id number] Scheduled Orders Name Type Priority Associated Diagnoses [...] breast documented in this encounter Care Teams Flexible Babysitter Relationship Specialty Start Date End Date Sabrina Chang DO [address] [place] [address] PCP - General Family Medicine 09/15/18 documented as of this encounter
[2023-06-13] MEDS ORDERED: SODIUM CHLORIDE 0.9% 500 ML IV STA (20:23)
[2023-06-13] MEDS ORDERED: SODIUM CHLORIDE 0.9% 1,000 ML IV ONE (20:30)
[2023-06-13] MEDS ORDERED: CEFEPIME 2,000 MG in SYRINGE 0 ML IV STA (20:59)
--- NOTE | 2023-06-13 21:04 | Emergency Department Note ---
History of Present Illness General Chief complaint: Fever Stated complaint: FEVER Time Seen by Provider: 06/13/23 20:51 Source: patient, family ( is at the bedside), RN notes reviewed and old records reviewed Mode of arrival: ambulatory Limitations: no limitations History of Present Illness This patient is a 68-year-old female who has a history of breast cancer with chemo 1 week ago comes in after having a temperature and cough for the last 2 days she was up to 103 this evening she has been coughing and laying flat for couple days because she is felt ill the temperature started this evening she had some nausea and decreased p.o. intake. In triage she felt lightheaded and had a brief syncopal episode no chest pain. She feels better now her blood pressure was low at the time now its not. She had some loose stool and diarrhea no abdominal pain no headache neck pain or stiffness no rash. She does have a port in her chest. No sore throat .no sick contacts Home Medications Medication Instructions Recorded Confirmed Type hydrochlorothiazide 25 mg tablet 25 mg PO DAILY 05/04/23 06/13/23 History lidocaine-prilocaine 2.5 %-2.5 % 1 applic topical UD 05/04/23 06/13/23 History topical cream ondansetron HCl 8 mg tablet 8 mg PO UD PRN Nausea And Vomiting 05/04/23 06/13/23 History prochlorperazine maleate 10 mg 10 mg PO UD PRN Nausea And Vomiting 05/04/23 06/13/23 History tablet rosuvastatin 10 mg tablet 10 mg PO DAILY 05/04/23 06/13/23 History Allergies Allergy/AdvReac Type Severity Reaction Status Date / Time lisinopril Allergy Severe Swollen Verified 06/13/23 22:29 lips Past Med/Surg History Social History Smoking Status: Never smoker Preferred Language: [place] African Feels Safe at Home: Yes Immunizations: Past medical historybreast cancer she is receiving chemotherapy she followed by Dr. Goins. She is otherwise healthy. She tells me the breast cancer in her breast only in nonmetastatic.. Denies diabetes or cardiac disease Social history does not smoke or drink Review of Systems A total of 10 systems reviewed and were otherwise negative Physical Exam Vital Signs Vital Signs - 24 hr 06/13/23 20:13 06/13/23 21:20 06/13/23 21:20 Temperature 38.5 C H 37.9 C H Temperature Source Oral Oral Pulse Rate 117 H Pulse Rate [Apical] 98 H Pulse Rhythm Regular Pulse Rhythm [Apical] Regular Pulse Strength Normal Pulse Strength [Apical] Normal Respiratory Rate 20 20 Respiratory Effort / Characteristics Non-Labored Spontaneous Non-Labored Spontaneous Respiratory Depth Normal Normal Respiratory Pattern Regular Regular Blood Pressure 86/54 L Blood Pressure [Left Arm] 109/59 L Blood Pressure Mean 64 Blood Pressure Mean [Left Arm] 75 Blood Pressure Position Sitting Blood Pressure Position [Left Arm] Lying Pulse Oximetry 96 92 94 Oxygen Delivery Method Room Air Room Air Room Air Oxygen Flow Rate 0 Sepsis Recent Fever Within 48 Hours Yes Sepsis New/Unexplained Change in Mental Status No Sepsis Action Taken by Nursing No Action Required 06/13/23 21:20 06/13/23 21:20 06/13/23 22:44 Temperature 37.4 C Temperature Source Oral Pulse Rate 97 H 97 H Pulse Rate [Apical] 89 Pulse Rhythm Regular Pulse Rhythm [Apical] Pulse Strength Pulse Strength [Apical] Respiratory Rate 19 17 Respiratory Effort / Characteristics Non-Labored Spontaneous Respiratory Depth Normal Respiratory Pattern Regular Blood Pressure Blood Pressure [Left Arm] 110/64 Blood Pressure Mean Blood Pressure Mean [Left Arm] 79 Blood Pressure Position Blood Pressure Position [Left Arm] Pulse Oximetry 94 89 L Oxygen Delivery Method Room Air Room Air Oxygen Flow Rate Sepsis Recent Fever Within 48 Hours Sepsis New/Unexplained Change in Mental Status Sepsis Action Taken by Nursing 06/13/23 22:50 Temperature Temperature Source Pulse Rate Pulse Rate [Apical] Pulse Rhythm Pulse Rhythm [Apical] Pulse Strength Pulse Strength [Apical] Respiratory Rate Respiratory Effort / Characteristics Respiratory Depth Respiratory Pattern Blood Pressure Blood Pressure [Left Arm] Blood Pressure Mean Blood Pressure Mean [Left Arm] Blood Pressure Position Blood Pressure Position [Left Arm] Pulse Oximetry 97 Oxygen Delivery Method Room Air Oxygen Flow Rate Sepsis Recent Fever Within 48 Hours Sepsis New/Unexplained Change in Mental Status Sepsis Action Taken by Nursing General: Well developed well nourished middle-age female in no acute distress, breathing comfortably on room air. Normal speech HEENT: Normal cephalic atraumatic. Pupils are equal round and reactive to light. Extraocular movements are intact. Oropharynx is pink with moist mucous membranes. No swelling of the mouth lips or tongue. Neck: Supple with a midline trachea. No meningeal signs or stiffness, no JVD or bruits. No Stridor. Chest: Clear to auscultation bilaterally. No wheezes or rhonchi. No increased work of breathing. There is an a port intact in her chest which is not red or Heart: Regular rate and rhythm without murmurs or gallops. Abdomen: Soft nontender, nondistended without rebound guarding or rigidity. Extremities: No cyanosis clubbing or edema. No calf tenderness or assymetry Spine/Back. Non tender to palpation. No CVA tenderness Skin: Good turgor without rashes. Neurologic exam: Cranial nerves two through 12 are intact. Motor and sensation are intact and symmetrical throughout. Course Administered Medications Magnesium Sulfate/Dextrose (Magnesium Sulfate / D5w) 1 gm in 100 mls @ 50 mls/hr IV Q2H ARY Stop: 06/14/23 03:59 Last Admin: 06/14/23 00:42 Dose: 50 mls/hr Documented By: AN Potassium Chloride (K Chacorta / Wtr) 10 meq in 100 mls @ 100 mls/hr IV Q1H ARY Stop: 06/14/23 01:59 Last Admin: 06/14/23 00:41 Dose: 100 mls/hr Documented By: Infusion: 06/14/23 00:41 Dose: Infused Documented By: Admin: 06/13/23 23:42 Dose: 100 mls/hr Documented By: Infusion: 06/13/23 23:30 Dose: Infused Documented By: Admin: 06/13/23 22:30 Dose: 100 mls/hr Documented By: AN Discontinued Medications Sodium Chloride (Nss) 500 mls @ 999 mls/hr IV .Q31M STA Stop: 06/13/23 20:53 Last Infusion: 06/13/23 22:59 Dose: Infused Documented By: Admin: 06/13/23 22:28 Dose: 999 mls/hr Documented By: AN Sodium Chloride (Nss) 1,000 mls @ 999 mls/hr IV .Q1H1M ONE Stop: 06/13/23 21:30 Last Infusion: 06/13/23 22:46 Dose: Infused Documented By: Admin: 06/13/23 21:42 Dose: 999 mls/hr Documented By: IDD Cefepime HCl 2,000 mg/ Syringe 20 mls @ 5 mls/min IV NOW STA; Protocol Stop: 06/13/23 21:02 Last Admin: 06/13/23 21:43 Dose: 5 mls/min Documented By: IDD Magnesium Sulfate/Dextrose (Magnesium Sulfate / D5w) 1 gm in 100 mls @ 50 mls/hr IV ONE ONE Stop: 06/13/23 23:45 Last Infusion: 06/14/23 00:56 Dose: Infused Documented By: Admin: 06/13/23 22:30 Dose: 50 mls/hr Documented By: AN Potassium Chloride (Potassium Chloride Crtab 20 Meq Tabcr) 20 meq PO NOW STA Stop: 06/13/23 21:48 Last Admin: 06/13/23 22:29 Dose: 20 meq Documented By: AN Medical Decision Making Differential Diagnosis Sepsis, pneumonia, COVID, viral illness, neutropenic fever, electrolyte or metabolic abnormality, UTI, cardiac disease, syncope, rhythm Medical Records Attestation: I reviewed the patient's medical records. Home Medications Current Medication List: was personally reviewed by me Laboratory Data Attestation: I reviewed the patient's lab results. 06/13/23 20:35 06/13/23 20:35 Lab Results 06/13/23 06/13/23 Range/Units 20:35 21:33 WBC 4.23 L (4.8-10.8) K/ul RBC 3.48 L (4.20-5.40) M/uL Hgb 10.9 L (12.0-16.0) g/dl Hct 30.0 L (37.0-47.0) % MCV 86.2 (80.0-100.0) fL MCH 31.3 (25.0-34.0) pg MCHC 36.3 H (32.0-36.0) g/dL RDW Std Deviation 45.1 (36.4-46.3) fL RDW Coeff of Malina 14.4 (11.5-14.5) % Plt Count 141 (130-400) K/uL MPV 10.9 (9.4-12.4) fL Neutrophils % (Manual) 66 % Lymphocytes % (Manual) 19 % Monocytes % (Manual) 15 % Neutrophils # (Manual) 2.79 (1.40-6.50) K/uL Total Absolute Neuts 2.79 (1.4-6.5) K/uL Lymphocytes # (Manual) 0.80 L (1.2-3.4) K/uL Total Abs Lymphocytes 0.80 L (1.2-3.4) K/uL Monocytes # (Manual) 0.63 H (0.11-0.59) K/uL Toxic Granulation 1+ Dohle Bodies 1+ PT 14.5 H (9.0-12.0) Seconds INR 1.3 H (0.9-1.1) APTT 30.1 (21.0-31.0) Seconds PTT Ratio 1.1 Sodium 125 L (136-145) mmol/L Potassium 3.1 L (3.5-5.1) mmol/L Chloride 88 L (98-107) mmol/L Carbon Dioxide 27 (21-32) mmol/L Anion Gap 10 (3-11) BUN 21 (6-23) mg/dl Creatinine 0.73 (0.6-1.2) mg/dl Est Cr Clr Drug Dosing Not Reportable Est GFR ( Amer) 97.4 ml/min Est GFR (Non-Af Amer) 84.0 ml/min BUN/Creatinine Ratio 28.8 H (10-20) Glucose 162 H (70-99(Fasting)) mg/dl Lactate 1.1 (0.4-2.0) mmol/L Calcium 9.4 (8.6-10.3) mg/dl Magnesium 1.1 L (1.7-2.4) mg/dl Total Bilirubin 1.5 H (0.2-1.0) mg/dl AST 20 (13-39) U/L ALT 39 (7-52) U/L Alkaline Phosphatase 61 (34-104) U/L Troponin I High Sens 4.8 (0-14) pg/ml Total Protein 6.6 (6.0-8.3) gm/dl Albumin 4.2 (3.4-5.0) gm/dl Globulin 2.4 L (2.5-4.0) gm/dl Albumin/Globulin Ratio 1.8 (0.9-2) Procalcitonin 1.37 H (0-0.5) ng/ml Adenovirus (PCR) Not Detected (NotDetected) B. pertussis DNA (PCR) Not Detected (NotDetected) B.parapertussis DNA PCR Not Detected (NotDetected) C. pneumoniae DNA (PCR) Not Detected (NotDetected) Coronavirus OC43 (PCR) Not Detected (NotDetected) Coronavirus HKU1 (PCR) Not Detected (NotDetected) Coronavirus 229E (PCR) Not Detected (NotDetected) SARS-CoV-2 (PCR) DETECTED A* (NotDetected) Coronavirus NL63 (PCR) Not Detected (NotDetected) Human Metapneumovir PCR Not Detected (NotDetected) Influenza Type A (PCR) Not Detected (NotDetected) Influenza Type B (PCR) Not Detected (NotDetected) M. pneumoniae (PCR) Not Detected (NotDetected) Parainfluenza 1 (PCR) Not Detected (NotDetected) Parainfluenza 2 (PCR) Not Detected (NotDetected) Parainfluenza 3 (PCR) Not Detected (NotDetected) Parainfluenza 4 (PCR) Not Detected (NotDetected) RSV (PCR) Not Detected (NotDetected) Entero/Rhino (PCR) Not Detected (NotDetected) Imaging Data Attestation: I personally reviewed and interpreted this imaging study as follows: My Impression: Chest x-ray-upon my independent interpretation no acute infiltrate, failure, pneumothorax seen ECG Data Attestation: I personally reviewed and interpreted this ECG as follows: Indication: + syncope Rate (beats per minute): 97 Rhythm: + normal sinus ECG Intervals/blocks: + Normal QRS, + Normal QT and + Normal UT ECG [place]: + Normal ECG ST segments: + Normal ST segments ECG Findings: + Other (There are anterior lateral T wave abnormalities) Comparison ECG Date: from (Old EKG on 05-16-2012, T wave abnormalities now present) MDM Narrative This patient comes in as described above. She was placed on a teletypesetter monitor and B5. She is here for treatment and evaluation of a fever. She is immunocompromised as she is on chemo for breast cancer. We did access her port she apparently passed out in triage though feels better now she has not been keeping up with fluids we did order IV fluid boluses I empirically are treating her with cefepime 2 g IV as I am worried about sepsis and neutropenic fever potentially. She had a bio fire multiple blood testing was obtained. She was reassessed frequently. Her white count was 4.3 she is not neutropenic. She did receive IV fluid boluses well with a total of 30/kg. She received 2 L normal saline IV. Her sodium was low at 125. Her mag was also low at 1.1 she was repleted with IV magnesium. EKG does have some T wave inversions diffusely but her troponin thus far is negative. She looks well and appears in no distress she is not hypoxemic. I do think she needs to be admitted/observed I have consulted Dr. Alarcon who to see her in the meantime her bio fire came back positive for COVID which likely explains her symptoms. She will be admitted for further treatment and evaluation. Continuous cardiac monitoring: Orders placed in EMR for continuous cardiac monitoring call upon my evaluation patient noted to be in normal sinus rhythm with a rate of 80 Impression & Plan Syncope, Sepsis, Acute dehydration, URI (upper respiratory infection), Breast cancer, COVID Discharge Plan Visit Data Chief Complaint: Fever Stated Complaint: FEVER ED Provider: Michael Toro Discharge Problem: Syncope, Sepsis, Acute dehydration, URI (upper respiratory infection), Breast cancer, COVID Patient Disposition: Admitted As Inpatient Discharge Instructions Interventions: ED Discharge Assessment Last Done: 06/14/23 00:25 Discharge Problem: Syncope Qualifiers: Syncope type: unspecified Qualified Code(s): R55 - Syncope and collapse Sepsis Qualifiers: Sepsis type: sepsis due to unspecified organism Sepsis acute organ dysfunction status: unspecified Qualified Code(s): A41.9 - Sepsis, unspecified organism URI (upper respiratory infection) Qualifiers: URI type: unspecified URI Qualified Code(s): J06.9 - Acute upper respiratory infection, unspecified Breast cancer Qualifiers: Breast location: unspecified site of breast Estrogen receptor status: u nspecified Patient sex: female Laterality: unspecified laterality Qualified Code(s): C50.919 - Malignant neoplasm of unspecified site of unspecified female breast
[2023-06-13 21:09] LABS: Hemoglobin 10.9 g/dl (12.0-16.0); Mean Corpuscular Hemoglobin 31.3 pg (25.0-34.0); Mean Corpuscular Hgb Conc 36.3 g/dL (32.0-36.0); Mean Corpuscular Volume 86.2 fL (80.0-100.0); Mean Platelet Volume 10.9 fL (9.4-12.4); Platelet Count 141 K/uL (130-400); RDW Coefficient of Variation 14.4 % (11.5-14.5); RDW Standard Deviation 45.1 fL (36.4-46.3); Red Blood Count 3.48 M/uL (4.20-5.40); White Blood Count 4.23 K/ul (4.8-10.8)
[2023-06-13 21:14] LABS: ANC (manual) 2.79 K/uL (1.4-6.5); Dohle Bodies 1+; Lymphocytes % (manual) 19 %; Monocytes # (manual) 0.63 K/uL (0.11-0.59); Monocytes % (manual) 15 %; Neutrophils # (manual) 2.79 K/uL (1.40-6.50); Neutrophils % (manual) 66 %; Toxic Granulation 1+
[2023-06-13 21:17] LABS: Alanine Aminotransferase 39 U/L (7-52); Albumin Globulin Ratio 1.8 (0.9-2); Albumin Level 4.2 gm/dl (3.4-5.0); Alkaline Phosphatase 61 U/L (34-104); Anion Gap 10 (3-11); Aspartate Aminotransferase 20 U/L (13-39); BUN Creatinine Ratio 28.8 (10-20); Bilirubin,Total 1.5 mg/dl (0.2-1.0); Blood Urea Nitrogen 21 mg/dl (6-23); Calcium 9.4 mg/dl (8.6-10.3); Carbon Dioxide 27 mmol/L (21-32); Chloride 88 mmol/L (98-107); Est GFR (African American) 97.4 ml/min; Globulin 2.4 gm/dl (2.5-4.0); Glucose 162 mg/dl (70-99(Fasting)); Magnesium 1.1 mg/dl (1.7-2.4); Potassium 3.1 mmol/L (3.5-5.1); Sodium 125 mmol/L (136-145); Total Protein 6.6 gm/dl (6.0-8.3)
[2023-06-13 21:23] LABS: Troponin I High Sensitivity 4.8 pg/ml (0-14)
[2023-06-13 21:28] LABS: INR 1.3 (0.9-1.1); Partial Thromboplastin Ratio 1.1; Partial Thromboplastin Time 30.1 Seconds (21.0-31.0); Prothrombin Time 14.5 Seconds (9.0-12.0)
[2023-06-13] MEDS ORDERED: MAGNESIUM SULFATE / D5W 1 GM/100 ML BAG IV ONE (21:46)
[2023-06-13] MEDS ORDERED: POTASSIUM CHLORIDE CRTAB 20 MEQ TABCR PO STA (21:47)
[2023-06-13] MEDS: POTASSIUM CHLORIDE / WTR 10 MEQ/100 ML PLCT IV SCH ×2 (22:30→23:42)
[2023-06-13 22:33] LABS: Adenovirus PCR Not Detected (NotDetected); Bordetella parapertussis PCR Not Detected (NotDetected); Bordetella pertussis PCR Not Detected (NotDetected); Chlamydia pneumoniae PCR Not Detected (NotDetected); Coronavirus 229E PCR Not Detected (NotDetected); Coronavirus HKU1 PCR Not Detected (NotDetected); Coronavirus NL63 PCR Not Detected (NotDetected); Coronavirus OC43PCR Not Detected (NotDetected); Human Metapneumovirus PCR Not Detected (NotDetected); Influenza A PCR Not Detected (NotDetected); Influenza B PCR Not Detected (NotDetected); Mycoplasma pneumoniae PCR Not Detected (NotDetected); Parainfluenza Virus 1 PCR Not Detected (NotDetected); Parainfluenza Virus 2 PCR Not Detected (NotDetected); Parainfluenza Virus 3 PCR Not Detected (NotDetected); Parainfluenza Virus 4 PCR Not Detected (NotDetected); Respiratory Syncytial VirusPCR Not Detected (NotDetected); Rhinovirus/Enterovirus PCR Not Detected (NotDetected)
[2023-06-13 22:39] LABS: Coronavirus CoV-2 (COVID19)PCR DETECTED (NotDetected)
--- NOTE | 2023-06-13 23:36 | History & Physical Report ---
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 In the waiting room she had episode of syncope and found to have low blood pressure. COVID came back positive. COVID Having fevers, cough, sore throat and poor appetite since yesterday Hypotensive on presentation Blood pressure improved with fluids Oxygen oxygen sats dropped to 89% on 2 L saturating okay Chest x-ray seems okay had COVID booster last year patient currently under chemo for breast cancer Since requiring oxygen we will start on IV Decadron and remdesivir and follow remdesivir labs COVID precautions Close monitor Elevated procalcitonin possibly from covid? cefepime and doxy for now follow cultures. Syncope Was hypotensive and electrolyte abnormalities Mostly from COVID and poor appetite and electrolyte abnormalities and hypotension Patient is also on hydrochlorothiazide which we will hold for now Has some diffuse T wave inversions CTA chest no PE. Will monitor on telemetry Serial cardiac enzymes and echo If any concerns will consult cardio Hyponatremia Presented with sodium of 125 Mostly from COVID and also been on HCTZ Will hold HCTZ Gentle fluids Follow urine osmolality, urine sodium levels and serum osmole levels BMP every 6 hours Slow correction Consult nephrology in a.m. Hypokalemia and hypomagnesia Will replace Follow repeat labs Breast cancer estrogen receptors negative Currently getting chemo had fourth cycle in May 23 as per patient Follows with heme-onc Hypertension Hypotensive on presentation Holding hydrochlorothiazide We will monitor Hyperlipidemia On statin Leukopenia and anemia Mostly from chemo Follow labs DVT prophylaxis SCDs and Lovenox Disposition Telemetry floor Full code History of Present Illness Chief Complaint: Fevers, syncope Primary Care Provider: Sabrina Chang DO 68-year-old female with past med history significant for hyperlipidemia, hyper tension, history of central vein occlusion of retina, history of cervical intraepithelial neoplasia grade 1, 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 Patient developed some sore throat ,cough and fever yesterday and having poor appetite. Has some nausea but attributes to her chemo. Has body aches but attributes to chemo. No blurred visions. No earache. Has some runny nose. No chest pain. Denies any shortness of breath. Denies abdominal pain. Had 1 episode of diarrhea today. Normal bladder movements. Denies any rash. In the ER in the waiting room she had episode of passing out for 30 seconds. Before passing out she felt dizzy. At that time her blood pressure was noted to be low. With the fluids blood pressure improved. Currently she is feeling better. Blood pressure stable currently. Her oxygen saturation did drop to 89%. Currently on 2 L she is saturating okay. She had temp spike in the ER with Tylenol temperature improved. Says had COVID booster last year. Past medical history. As mentioned above Past surgical history. Left breast biopsy. Colonoscopy with biopsy. Ligation of oviducts. Social history. . Quit smoking 1986. Smoked 1 pack a day for 10 years. Alcohol 1 a day. No drug use. Family history. Father had lymphoma. Mother had eye problems. Stroke. Dementia. Thyroid disorder. Maternal grandfather had eye problems. Allergies Allergy/AdvReac Type Severity Reaction Status Date / Time lisinopril Allergy Severe Swollen Verified 06/13/23 22:29 lips Home Medications Medication Instructions Recorded Confirmed Type hydrochlorothiazide 25 mg tablet 25 mg PO DAILY 05/04/23 06/13/23 History lidocaine-prilocaine 2.5 %-2.5 % 1 applic topical UD 05/04/23 06/13/23 History topical cream ondansetron HCl 8 mg tablet 8 mg PO UD PRN Nausea And Vomiting 05/04/23 06/13/23 History prochlorperazine maleate 10 mg 10 mg PO UD PRN Nausea And Vomiting 05/04/23 06/13/23 History tablet rosuvastatin 10 mg tablet 10 mg PO DAILY 05/04/23 06/13/23 History Past Med/Surg History Social History Smoking Status: Never smoker Hx Alcohol Use: No Hx Substance Use: No Preferred Language: Salvadorean Communication Ability: Effective Surveyor Required: No Beliefs That Will Affect Care: None Current Living Situation: Spouse Feels Safe at Home: Yes Assistive Devices: None Review of Systems Review of Systems: All systems reviewed & are unremarkable except as noted in HPI & below Physical Exam Physical Exam: General- Not in distress Head- atraumatic Eyes- PERRL. ENT- oropharynx clear Neck- supple, no JVD. Lungs- clear to auscultation , no wheezing or crackles. Heart- regular rate and rhythm; no murmur, no gallop. Abdomen- normal bowel sounds, soft, nontender, no distension. Extremities- no pretibial edema, no erythema seen. Neuro- alert, oriented x 3; PERRL, no facial palsy; no dysarthria; moves extremities. Skin- warm & dry Results & Data Results & Data Vital Signs (Past 12 Hours) Vital Signs Temp Pulse Pulse Resp BP BP Pulse Ox 06/13/23 22:50 97 06/13/23 22:44 37.4 C 89 17 110/64 89 L 06/13/23 21:20 97 H 06/13/23 21:20 97 H 19 94 06/13/23 21:20 94 06/13/23 21:20 37.9 C H 98 H 20 109/59 L 92 06/13/23 20:13 38.5 C H 117 H 20 86/54 L 96 O2 Del Method O2 Flow Rate 06/13/23 22:50 Room Air 06/13/23 22:44 Room Air 06/13/23 21:20 06/13/23 21:20 Room Air 06/13/23 21:20 Room Air 0 06/13/23 21:20 Room Air 06/13/23 20:13 Room Air Diagnostic Findings Laboratory Results WBC 4.23 K/ul (4.8-10.8) L 06/13/23 20:35 RBC 3.48 M/uL (4.20-5.40) L 06/13/23 20:35 Hgb 10.9 g/dl (12.0-16.0) L 06/13/23 20:35 Hct 30.0 % (37.0-47.0) L 06/13/23 20:35 MCV 86.2 fL (80.0-100.0) 06/13/23 20:35 MCH 31.3 pg (25.0-34.0) 06/13/23 20:35 MCHC 36.3 g/dL (32.0-36.0) H 06/13/23 20:35 RDW Std Deviation 45.1 fL (36.4-46.3) 06/13/23 20:35 RDW Coeff of Malina 14.4 % (11.5-14.5) 06/13/23 20:35 Plt Count 141 K/uL (130-400) 06/13/23 20:35 MPV 10.9 fL (9.4-12.4) 06/13/23 20:35 Neutrophils % (Manual) 66 % 06/13/23 20:35 Lymphocytes % (Manual) 19 % 06/13/23 20:35 Monocytes % (Manual) 15 % 06/13/23 20:35 Neutrophils # (Manual) 2.79 K/uL (1.40-6.50) 06/13/23 20:35 Total Absolute Neuts 2.79 K/uL (1.4-6.5) 06/13/23 20:35 Lymphocytes # (Manual) 0.80 K/uL (1.2-3.4) L 06/13/23 20:35 Total Abs Lymphocytes 0.80 K/uL (1.2-3.4) L 06/13/23 20:35 Monocytes # (Manual) 0.63 K/uL (0.11-0.59) H 06/13/23 20:35 Toxic Granulation 1+ 06/13/23 20:35 Dohle Bodies 1+ 06/13/23 20:35 PT 14.5 Seconds (9.0-12.0) H 06/13/23 20:35 INR 1.3 (0.9-1.1) H 06/13/23 20:35 APTT 30.1 Seconds (21.0-31.0) 06/13/23 20:35 PTT Ratio 1.1 06/13/23 20:35 Sodium 125 mmol/L (136-145) L 06/13/23 20:35 Potassium 3.1 mmol/L (3.5-5.1) L 06/13/23 20:35 Chloride 88 mmol/L (98-107) L 06/13/23 20:35 Carbon Dioxide 27 mmol/L (21-32) 06/13/23 20:35 Anion Gap 10 (3-11) 06/13/23 20:35 BUN 21 mg/dl (6-23) 06/13/23 20:35 Creatinine 0.73 mg/dl (0.6-1.2) 06/13/23 20:35 Est Cr Clr Drug Dosing Not Reportable 06/13/23 20:35 Est GFR ( Amer) 97.4 ml/min 06/13/23 20:35 Est GFR (Non-Af Amer) 84.0 ml/min 06/13/23 20:35 BUN/Creatinine Ratio 28.8 (10-20) H 06/13/23 20:35 Glucose 162 mg/dl (70-99(Fasting)) H 06/13/23 20:35 Lactate 1.1 mmol/L (0.4-2.0) 06/13/23 20:35 Calcium 9.4 mg/dl (8.6-10.3) 06/13/23 20:35 Magnesium 1.1 mg/dl (1.7-2.4) L 06/13/23 20:35 Total Bilirubin 1.5 mg/dl (0.2-1.0) H 06/13/23 20:35 AST 20 U/L (13-39) 06/13/23 20:35 ALT 39 U/L (7-52) 06/13/23 20:35 Alkaline Phosphatase 61 U/L (34-104) 06/13/23 20:35 Troponin I High Sens 4.8 pg/ml (0-14) 06/13/23 20:35 Total Protein 6.6 gm/dl (6.0-8.3) 06/13/23 20:35 Albumin 4.2 gm/dl (3.4-5.0) 06/13/23 20:35 Globulin 2.4 gm/dl (2.5-4.0) L 06/13/23 20:35 Albumin/Globulin Ratio 1.8 (0.9-2) 06/13/23 20:35 Procalcitonin 1.37 ng/ml (0-0.5) H 06/13/23 20:35 Adenovirus (PCR) Not Detected (NotDetected) 06/13/23 21:33 B. pertussis DNA (PCR) Not Detected (NotDetected) 06/13/23 21:33 B.parapertussis DNA PCR Not Detected (NotDetected) 06/13/23 21:33 C. pneumoniae DNA (PCR) Not Detected (NotDetected) 06/13/23 21:33 Coronavirus OC43 (PCR) Not Detected (NotDetected) 06/13/23 21:33 Coronavirus HKU1 (PCR) Not Detected (NotDetected) 06/13/23 21:33 Coronavirus 229E (PCR) Not Detected (NotDetected) 06/13/23 21:33 SARS-CoV-2 (PCR) DETECTED (NotDetected) A* 06/13/23 21:33 Coronavirus NL63 (PCR) Not Detected (NotDetected) 06/13/23 21:33 Human Metapneumovir PCR Not Detected (NotDetected) 06/13/23 21:33 Influenza Type A (PCR) Not Detected (NotDetected) 06/13/23 21:33 Influenza Type B (PCR) Not Detected (NotDetected) 06/13/23 21:33 M. pneumoniae (PCR) Not Detected (NotDetected) 06/13/23 21:33 Parainfluenza 1 (PCR) Not Detected (NotDetected) 06/13/23 21:33 Parainfluenza 2 (PCR) Not Detected (NotDetected) 06/13/23 21:33 Parainfluenza 3 (PCR) Not Detected (NotDetected) 06/13/23 21:33 Parainfluenza 4 (PCR) Not Detected (NotDetected) 06/13/23 21:33 RSV (PCR) Not Detected (NotDetected) 06/13/23 21:33 Entero/Rhino (PCR) Not Detected (NotDetected) 06/13/23 21:33 ECG Additional Comments: ECG. Normal sinus rhythm rate of 97. T wave inversions in anterolateral and inferior leads Code Status & VTE Plan VTE Prophylaxis Plan VTE Prophylaxis will be ordered: Yes
[2023-06-14] MEDS ORDERED: LIDOCAINE/PRILOCAINE 2.5% EA CRM EXT PRN (00:26)
[2023-06-14] MEDS ORDERED: SODIUM CHLORIDE 0.9% 1,000 ML IV SCH (00:26)
[2023-06-14] MEDS ORDERED: ACETAMINOPHEN 325 MG TAB PO PRN (00:26)
[2023-06-14] MEDS ORDERED: REMDESIVIR 200 MG in SODIUM CHLORIDE 0.9% 210 ML IV STA (00:26)
[2023-06-14] MEDS ORDERED: dexAMETHasone 6 MG in SYRINGE 0 ML IV SCH (00:26)
[2023-06-14] MEDS ORDERED: NITROGLYCERIN SL 0.4 MG/TAB TAB SL PRN (00:26)
[2023-06-14] MEDS: POTASSIUM CHLORIDE / WTR 10 MEQ/100 ML PLCT IV SCH ×2 (00:41→01:55)
[2023-06-14] MEDS: MAGNESIUM SULFATE / D5W 1 GM/100 ML BAG IV SCH ×3 (00:42→04:47)
[2023-06-14 01:00] LABS: Appearance Urine Clear (Clear); Bacteria Urine Automated Negative (Negative); Bilirubin Urine Negative (Negative); Blood Urine Negative (Negative); Color Urine Yellow; Epithelial Cell Urine Auto 20-30 /lpf (0-5); Glucose Urine UA Trace (Negative); Ketones Urine Trace (Negative); Leukocyte Esterase Urine Negative (Negative); Nitrite Urine Negative (Negative); RBC Urine Automated 0-4 /hpf (0-4); Urobilinogen Urine Negative (Negative); pH Urine 7.5 (4.5-7.5)
[2023-06-14 01:10] LABS: Protein Urine 1+ (Negative)
[2023-06-14] MEDS: ENOXAPARIN INJ 40 MG/0.4 ML SYR SQ SCH ×2 (01:16→22:54)
[2023-06-14] MEDS ORDERED: OPTIRAY 320 125ml IV ONE (02:34)
--- NOTE | 2023-06-14 02:55 | CT Scan Report ---
Exam(s): CTA CHEST IV Amt: 95 ml opti 320 EXAM: CT Angiography Chest With Intravenous Contrast CLINICAL HISTORY: PE. TECHNIQUE: Axial computed tomographic angiography images of the chest with intravenous contrast. CTDI is 9.73 mGy and DLP is 326.49 mGy-cm. Automated exposure control was utilized for the study. A dose lowering technique was utilized adhering to the principles of ALARA. MIP reconstructed images were created and reviewed. COMPARISON: No relevant prior studies available. FINDINGS: Limitations: There is respiratory artifact, which degrades image quality on multiple image slices. Pulmonary arteries: Accounting for limitations with respiratory artifact, there is no definite evidence for pulmonary embolism. Aorta: No acute findings. No thoracic aortic aneurysm. Lungs: Subsegmental curvilinear changes involving the left medial basal segment with less prominent changes also noted involving the inferior right middle lobe, inferior lingular segment and bilateral lower lobes. No focal airspace consolidation. No consolidation. Pleural space: Unremarkable. No significant effusion. No pneumothorax. Heart: Unremarkable. No cardiomegaly. No significant pericardial effusion. Thyroid: A septated hypoattenuating nodule is noted involving the inferior aspect of the left thyroid measuring 9 x 8 mm. Bones/joints: No acute fracture. No dislocation. Soft tissues: Unremarkable. Lymph nodes: Unremarkable. No enlarged lymph nodes. Tubes, lines and devices: A right subclavian portacatheter is noted with the tip in the superior vena cava. IMPRESSION: 1. Accounting for limitations with respiratory artifact, there is no definite evidence for pulmonary embolism. 2. Subsegmental curvilinear changes involving the left medial basal segment with less prominent changes also noted involving the inferior right middle lobe, inferior lingular segment and bilateral lower lobes. No focal airspace consolidation. No pleural effusion or pneumothorax. Electronically signed by: Roney Barreto MD 06/14/23 02:55 AM
[2023-06-14] MEDS: DOXYCYCLINE HYCLATE 100 MG in DEXTROSE 5% MINI-B 100 ML IV SCH ×2 (03:52→16:01)
[2023-06-14 04:43] LABS: Albumin Level 3.4 gm/dl (3.4-5.0); BUN Creatinine Ratio 26.7 (10-20); Bilirubin Direct 0.1 mg/dl (0-0.2); Bilirubin,Total 0.8 mg/dl (0.2-1.0); Creatinine Clr Calc Pharmacy 110.5 ml/min; Est GFR (African American) 118.5 ml/min; Est GFR (Non-African American) 102.2 ml/min; Magnesium 2.4 mg/dl (1.7-2.4); Potassium 3.5 mmol/L (3.5-5.1); Total Protein 5.4 gm/dl (6.0-8.3)
[2023-06-14 04:48] LABS: Troponin I High Sensitivity 4.8 pg/ml (0-14)
[2023-06-14 04:54] LABS: Basophils # (auto) 0.03 K/uL (0.00-0.20); Basophils % (auto) 0.8 %; Dohle Bodies 1+; Hematocrit (blood only) 26.3 % (37.0-47.0); Immature Granulocytes # (auto) 0.05 K/uL (0.01-0.20); Immature Granulocytes % (auto) 1.3 %; Lymphocytes # (auto) 0.23 K/uL (1.20-3.40); Mean Corpuscular Hemoglobin 30.8 pg (25.0-34.0); Mean Corpuscular Hgb Conc 34.2 g/dL (32.0-36.0); Mean Corpuscular Volume 90.1 fL (80.0-100.0); Mean Platelet Volume 10.9 fL (9.4-12.4); Monocytes # (auto) 0.63 K/uL (0.11-0.59); Monocytes % (auto) 16.4 %; Neutrophils # (auto) 2.91 K/uL (1.40-6.50); Neutrophils % (auto) 75.5 %; Platelet Count 99 K/uL (130-400); Platelet Estimate Decreased (Normal); RDW Coefficient of Variation 14.5 % (11.5-14.5); RDW Standard Deviation 47.8 fL (36.4-46.3); Red Blood Count 2.92 M/uL (4.20-5.40); Toxic Granulation 1+; White Blood Count 3.85 K/ul (4.8-10.8)
[2023-06-14] MEDS ORDERED: CEFEPIME 2,000 MG/20 ML VIAL ONE (05:06)
[2023-06-14] MEDS: CEFEPIME 2,000 MG in SYRINGE 0 ML IV SCH ×3 (05:08→22:02)
--- NOTE | 2023-06-14 07:49 | XRay Report ---
SINGLE VIEW CHEST CLINICAL HISTORY: Sepsis. FINDINGS: An AP, portable, upright chest radiograph is obtained. No prior studies are available for c omparison at the time of dictation. A right subclavian central venous infusion port is in place. The cardiomediastinal silhouette is unremarkable. There is elevation of the left hemidiaphragm with bibas ilar scarring/atelectasis. Nonspecific interstitial thickening is likely chronic. No airspace consoli dation or large pleural effusion is identified. No pneumothorax is seen. The skeletal structures are osteopenic. The bony thorax is grossly intact. IMPRESSION: No acute cardiopulmonary abnormality. ACT 112: Negative or not required by law. Electronically signed by: Hank Singh M.D. 06/14/2023 7:46 AM
[2023-06-14] MEDS ORDERED: DEXTROSE 5% 500 ML IV SCH (08:00)
[2023-06-14] MEDS ORDERED: DEXTROSE 5% 1,000 ML IV SCH (08:00)
[2023-06-14] MEDS: ROSUVASTATIN CALCIUM 10 MG TAB PO SCH (08:40)
--- NOTE | 2023-06-14 10:53 | Nephrology Consultation ---
Date of Consultation June 14, 2023 Assessment & Plan (1) Electrolyte and fluid disorder: new onset hyponatremia, hypokalemia, hypomagnesemia likely multifactorial >> carboplatin therapy, hctz use, decreased po/acute illness. responding as though hypovolemic. p/w sNa 125 > target is no more than 131 through today -no FR for now -continue to hold hctz -f/u pending bmp -check bmp, mag daily -ensure mag rechecked today; IV replacement lost quickly >> ordered for 1500 -ensure eukalemia > gave extra K 40 po x 1 and K rich fluids -agree w/ 1/2 L D5W for now >> based on 11 AM labs, will continue D5W at 80 w/ 40 mEq/L K >> and recheck 1500 (2) Breast cancer: note that her TCHP therapy contains carboplatin, a/w hypomagnesemia (1/3 of cases), hypokalemia (1/4 of cases), hyponatremia (1/3 of cases). has had 4 of 6 planned rounds CTX w/o issues; plan for surgery post CTX. -note that last oncology note mentions TTE before 5th round CTX >> monitor for need for TTE this admission if hypotension refractory History of Present Illness Reason for Consultation: hyponatremia Requesting Physician: Dr Alarcon Attending Physician: Mary Timmons MD History of Present Illness 68 y/o F whom I'm asked to see for hyponatremia was admitted overnight for severe covid w/ hypoxia and hypotension and syncope. 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 In the ER waiting room she had a syncopal episode w/ presyncopal lightheadedness. Noted to have hypotension w/ improvement in same after IVF. She takes hctz as OP and no other BP meds; had been using Tylenol as antipyretic [employer]. Presented w/ sNa 125 last evening 2100; up to 131 this AM at 0400. She received 2L NS and was started on same at 75 mL/hr until this AM 0800 when she was started on 500 mL D5W. Alos had aggressive K/ mag repletion: 10 mEq K riders x 4, 20 mEq K po, mag IV 1 gm x 4. Had F/cough sore throat for 24 hrs prior to presentation and ongoing poor po intkae. Also w/ some chronic N and body aches she attributes to CTX. No blurred vision. no CP, no sob or abdominal pain. no rash. no new/worrisome voiding complaints. Feeling much better today but still tired. ate most of her breakfast. Allergies Allergy/AdvReac Type Severity Reaction Status Date / Time lisinopril Allergy Severe Swollen Verified 06/13/23 22:29 lips Home Medications Medication Instructions Recorded Confirmed Type hydrochlorothiazide 25 mg tablet 25 mg PO DAILY 05/04/23 06/13/23 History lidocaine-prilocaine 2.5 %-2.5 % 1 applic topical UD 05/04/23 06/13/23 History topical cream ondansetron HCl 8 mg tablet 8 mg PO UD PRN Nausea And Vomiting 05/04/23 06/13/23 History prochlorperazine maleate 10 mg 10 mg PO UD PRN Nausea And Vomiting 05/04/23 06/13/23 History tablet rosuvastatin 10 mg tablet 10 mg PO DAILY 05/04/23 06/13/23 History Patient History Medical History (Updated 06/14/23 @ 11:01 by Dana Amador MD, PhD) Central vein occlusion of retina Hyperlipidemia HTN (hypertension) Breast cancer L upper outer; HER 2neu+; hormonal negative Surgical History (Updated 06/14/23 @ 10:52 by Dana Amador MD, PhD) H/O breast biopsy Social History Smoking Status: Never smoker Hx Alcohol Use: No Hx Substance Use: No Preferred Language: Swedish Communication Ability: Effective Rolled Seat Trimmer Required: No Beliefs That Will Affect Care: None Current Living Situation: Spouse Feels Safe at Home: Yes Assistive Devices: None Review of Systems 2 Review of Systems: All systems reviewed & are unremarkable except as noted in HPI & below Physical Exam 2 Constitutional: well developed, well nourished and cooperative; no acute distress Eyes: EOM intact bilaterally ENMT: Ears: no external ear abnormality Nose: no external nose abnormality Mouth: + dry oral mucous membranes Neck: no nuchal rigidity Respiratory: normal respiratory effort Auscultation: + diminished lung sounds Cardiovascular: RRR, no murmur, no edema Gastrointestinal (Abdomen): Inspection/Auscultation: normal bowel sounds P ercussion/Palpation: abdomen soft; abdomen nontender Musculoskeletal: Extremities: strength 5/5 throughout Skin: no rashes, warm and dry Neurologic: montiel, fluent speech, no tremor Psychiatric: Orientation: alert and oriented x 3 Results & Data Vital Signs (Past 12 Hours) Vital Signs Temp Pulse Pulse Resp BP BP Pulse Ox 06/14/23 07:00 68 16 89/54 L 95 06/14/23 05:00 71 17 89/54 L 96 06/14/23 01:52 06/14/23 01:30 82 17 96/52 L 92 06/14/23 00:00 78 16 116/69 97 06/13/23 22:50 97 06/13/23 22:44 37.4 C 89 17 110/64 89 L Pulse Ox O2 Del Method O2 Del Method O2 Flow Rate 06/14/23 07:00 Room Air 06/14/23 05:00 Room Air 06/14/23 01:52 92 Room Air 06/14/23 01:30 Room Air 06/14/23 00:00 Nasal Cannula 2 06/13/23 22:50 Room Air 06/13/23 22:44 Room Air Laboratory Results 06/14/23 03:48 repeat bmp pending 11 AM mag 2.4 0400 today serum osms 275 u Osm 301 Sai 44 (2) Breast cancer Breast location: unspecified site of breast Estrogen receptor status: u nspecified Laterality: unspecified laterality Patient sex: female Qualified Code(s): C50.919 - Malignant neoplasm of unspecified site of unspecified female breast
[2023-06-14 11:43] LABS: Calcium 8.7 mg/dl (8.6-10.3); Creatinine Clr Calc Pharmacy 103.6 ml/min; Est GFR (Non-African American) 100.1 ml/min; Potassium 3.5 mmol/L (3.5-5.1)
[2023-06-14 11:44] LABS: Troponin I High Sensitivity 4.6 pg/ml (0-14)
[2023-06-14] MEDS ORDERED: POTASSIUM CHLORIDE CRTAB 20 MEQ TABCR PO ONE (12:30)
[2023-06-14] MEDS ORDERED: POTASSIUM CHLORIDE 40 MEQ in DEXTROSE 5% 1,000 ML IV SCH (12:30)
--- NOTE | 2023-06-14 15:43 | Hospitalist Progress Note ---
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 In the waiting room she had episode of syncope and found to have low blood pressure. COVID came back positive. COVID Having fevers, cough, sore throat and poor appetite since yesterday Hypotensive on presentation Blood pressure improved with fluids Chest x-ray personally reviewed; no infiltrates present. CTA chest; personally reviewedno infiltrates Will continue IV remdesivir while patient is inpatient. She has high risks of decompensation No dexamethasone as patient is saturating well on room air. Continue to monitor oxygen saturation Placed on empiric antibiotic with cefepime and doxycycline. Will DC if blood culture is negative after 48 hours Syncope Secondary to hypertension Was hypotensive and electrolyte abnormalities Mostly from COVID and poor appetite and electrolyte abnormalities and hypotension EKG on admission personally reviewed; normal sinus rhythm with diffuse T wave inversion. ST depression in lateral leads. Monitor on telemetry Repeat EKG tomorrow a.m. Hyponatremia Presented with sodium of 125 Due to decreased fluid intake and hydrochlorothiazide Sodium overcorrected; currently on D5. Awaiting repeat labs Hypokalemia and hypomagnesia Will replace Follow repeat labs Breast cancer estrogen receptors negative pancytopenia Currently getting chemo had fourth cycle in May 23 as per patient Follows with heme-onc Peripheral blood smear was done this no schistocytes, no intracytoplasmic inclusions. Hypertension Hypotensive on presentation DC hydrochlorothiazide at discharge Hyperlipidemia On statin DVT prophylaxis SCDs and Lovenox Disposition Telemetry floor Full code Time spent evaluating patient, direct bedside care, chart review, placing orders, interpretation of diagnostic studies, discussion with consultants, patient, and family members, as well as other required patient management ac tivities is 60 minutes. Please note the above document was generated using voice recognition software. It may contain grammatical, syntax or spelling errors. Any formal questions or concerns about the content, text or information contained within the body of this dictation should be directly addressed to the provider for clarification Admission and Anticipated Discharge Date Admission Date: June 13, 2023 Subjective Patient seen and examined at bedside. She reports that she is feeling much better. She is not in any distress. Review of Systems Review of Systems: All systems reviewed & are unremarkable except as noted in Subjective Physical Exam Physical Exam: Constitutional: Alert orient x 3; not in distress. Chest; Port-A-Cath in place. Respiratory: normal respiratory effort, lungs clear to auscultation, no wheeze, rales, rhonchi. Normal insp/exp effort, no accessory muscle use Cardiovascular: RRR, no murmur, no edema Vessels: no JVD or carotid bruit Chest: normal inspection of chest Abdomen: normal bowel sounds, soft, nontender, no hepatosplenomegaly Musculoskeletal: no cyanosis or clubbing, extremities motor strength 5/5 Skin: no rashes, warm and dry normal turgor Neurologic: PERRL, EOMI, accommodation nl, no face palsy, no dysarthria CN's II- XI intact bilaterally and moves all extremities Psychiatric: A+Ox3, euthymic affect Results & Data Results & Data Vital Signs (Past 12 Hours) Vital Signs Pulse Pulse Resp BP BP Pulse Ox O2 Del Method 06/14/23 10:00 75 22 106/70 95 Room Air 06/14/23 08:37 72 15 98/63 L 95 Room Air 06/14/23 07:00 68 16 89/54 L 95 Room Air 06/14/23 05:00 71 17 89/54 L 96 Room Air Laboratory Results Laboratory Results WBC 3.85 K/ul (4.8-10.8) L 06/14/23 03:48 RBC 2.92 M/uL (4.20-5.40) L 06/14/23 03:48 Hgb 9.0 g/dl (12.0-16.0) L 06/14/23 03:48 Hct 26.3 % (37.0-47.0) L 06/14/23 03:48 MCV 90.1 fL (80.0-100.0) 06/14/23 03:48 MCH 30.8 pg (25.0-34.0) 06/14/23 03:48 MCHC 34.2 g/dL (32.0-36.0) 06/14/23 03:48 RDW Std Deviation 47.8 fL (36.4-46.3) H 06/14/23 03:48 RDW Coeff of Malina 14.5 % (11.5-14.5) 06/14/23 03:48 Plt Count 99 K/uL (130-400) L 06/14/23 03:48 MPV 10.9 fL (9.4-12.4) 06/14/23 03:48 Immature Gran % (Auto) 1.3 % 06/14/23 03:48 Neut % (Auto) 75.5 % 06/14/23 03:48 Lymph % (Auto) 6.0 % 06/14/23 03:48 Ross % (Auto) 16.4 % 06/14/23 03:48 Eos % (Auto) 0.0 % 06/14/23 03:48 Baso % (Auto) 0.8 % 06/14/23 03:48 Neut # (Auto) 2.91 K/uL (1.40-6.50) 06/14/23 03:48 Lymph # (Auto) 0.23 K/uL (1.20-3.40) L 06/14/23 03:48 Ross # (Auto) 0.63 K/uL (0.11-0.59) H 06/14/23 03:48 Eos # (Auto) 0.00 K/uL (0.00-0.50) 06/14/23 03:48 Baso # (Auto) 0.03 K/uL (0.00-0.20) 06/14/23 03:48 Immature Gran # (Auto) 0.05 K/uL (0.01-0.20) 06/14/23 03:48 Neutrophils % (Manual) 66 % 06/13/23 20:35 Lymphocytes % (Manual) 19 % 06/13/23 20:35 Monocytes % (Manual) 15 % 06/13/23 20:35 Neutrophils # (Manual) 2.79 K/uL (1.40-6.50) 06/13/23 20:35 Total Absolute Neuts 2.79 K/uL (1.4-6.5) 06/13/23 20:35 Lymphocytes # (Manual) 0.80 K/uL (1.2-3.4) L 06/13/23 20:35 Total Abs Lymphocytes 0.80 K/uL (1.2-3.4) L 06/13/23 20:35 Monocytes # (Manual) 0.63 K/uL (0.11-0.59) H 06/13/23 20:35 Toxic Granulation 1+ 06/14/23 03:48 Dohle Bodies 1+ 06/14/23 03:48 Platelet Estimate Decreased (Normal) L 06/14/23 03:48 Peripher Smr Path Cons 06/14/23 03:48 PT 14.5 Seconds (9.0-12.0) H 06/13/23 20:35 INR 1.3 (0.9-1.1) H 06/13/23 20:35 APTT 30.1 Seconds (21.0-31.0) 06/13/23 20:35 PTT Ratio 1.1 06/13/23 20:35 Sodium 133 mmol/L (136-145) L 06/14/23 10:43 Potassium 3.5 mmol/L (3.5-5.1) 06/14/23 10:43 Chloride 102 mmol/L (98-107) 06/14/23 10:43 Carbon Dioxide 25 mmol/L (21-32) 06/14/23 10:43 Anion Gap 6 (3-11) 06/14/23 10:43 BUN 12 mg/dl (6-23) 06/14/23 10:43 Creatinine 0.48 mg/dl (0.6-1.2) L 06/14/23 10:43 Est Cr Clr Drug Dosing 103.6 ml/min 06/14/23 10:43 Est GFR ( Amer) 116.0 ml/min 06/14/23 10:43 Est GFR (Non-Af Amer) 100.1 ml/min 06/14/23 10:43 BUN/Creatinine Ratio 25.0 (10-20) H 06/14/23 10:43 Glucose 151 mg/dl (70-99(Fasting)) H 06/14/23 10:43 Osmolality 275 mOsm/kg (280-300) L 06/14/23 03:48 Lactate 1.1 mmol/L (0.4-2.0) 06/13/23 20:35 Calcium 8.7 mg/dl (8.6-10.3) 06/14/23 10:43 Magnesium 2.4 mg/dl (1.7-2.4) 06/14/23 03:48 Total Bilirubin 0.8 mg/dl (0.2-1.0) D 06/14/23 03:48 Direct Bilirubin 0.1 mg/dl (0-0.2) 06/14/23 03:48 AST 19 U/L (13-39) 06/14/23 03:48 AST 19 U/L (13-39) 06/14/23 03:48 ALT 38 U/L (7-52) 06/14/23 03:48 Alkaline Phosphatase 48 U/L (34-104) 06/14/23 03:48 Troponin I High Sens 4.6 pg/ml (0-14) 06/14/23 10:43 Total Protein 5.4 gm/dl (6.0-8.3) L 06/14/23 03:48 Albumin 3.4 gm/dl (3.4-5.0) 06/14/23 03:48 Globulin 2.4 gm/dl (2.5-4.0) L 06/13/23 20:35 Albumin/Globulin Ratio 1.8 (0.9-2) 06/13/23 20:35 Procalcitonin 1.37 ng/ml (0-0.5) H 06/13/23 20:35 Urine Color Yellow 06/14/23 00:44 Urine Appearance Clear (Clear) 06/14/23 00:44 Urine pH 7.5 (4.5-7.5) 06/14/23 00:44 Ur Specific [place] 1.010 (1.000-1.030) 06/14/23 00:44 Urine Protein 1+ (Negative) H 06/14/23 00:44 Urine Glucose (UA) Trace (Negative) H 06/14/23 00:44 Urine Ketones Trace (Negative) H 06/14/23 00:44 Urine Blood Negative (Negative) 06/14/23 00:44 Urine Nitrite Negative (Negative) 06/14/23 00:44 Urine Bilirubin Negative (Negative) 06/14/23 00:44 Urine Urobilinogen Negative (Negative) 06/14/23 00:44 Ur Leukocyte Esterase Negative (Negative) 06/14/23 00:44 Urine WBC (Auto) 1-5 /hpf (0-5) 06/14/23 00:44 Urine RBC (Auto) 0-4 /hpf (0-4) 06/14/23 00:44 U Hyaline Cast (Auto) 1-5 /lpf (0-5) 06/14/23 00:44 U Epithel Cells (Auto) 20-30 /lpf (0-5) H 06/14/23 00:44 Urine Bacteria (Auto) Negative (Negative) 06/14/23 00:44 Urine Osmolality 301 mOsm/kg (500-800) L 06/14/23 00:44 Ur Random Sodium 44 mmol/L 06/14/23 00:44 Adenovirus (PCR) Not Detected (NotDetected) 06/13/23 21:33 Anaplasma Smear See Comment 06/14/23 03:48 Babesia Smear See Comment 06/14/23 03:48 B. pertussis DNA (PCR) Not Detected (NotDetected) 06/13/23 21:33 B.parapertussis DNA PCR Not Detected (NotDetected) 06/13/23 21:33 C. pneumoniae DNA (PCR) Not Detected (NotDetected) 06/13/23 21:33 Coronavirus OC43 (PCR) Not Detected (NotDetected) 06/13/23 21:33 Coronavirus HKU1 (PCR) Not Detected (NotDetected) 06/13/23 21:33 Coronavirus 229E (PCR) Not Detected (NotDetected) 06/13/23 21:33 SARS-CoV-2 (PCR) DETECTED (NotDetected) A* 06/13/23 21:33 Coronavirus NL63 (PCR) Not Detected (NotDetected) 06/13/23 21:33 Human Metapneumovir PCR Not Detected (NotDetected) 06/13/23 21:33 Influenza Type A (PCR) Not Detected (NotDetected) 06/13/23 21:33 Influenza Type B (PCR) Not Detected (NotDetected) 06/13/23 21:33 M. pneumoniae (PCR) Not Detected (NotDetected) 06/13/23 21:33 Parainfluenza 1 (PCR) Not Detected (NotDetected) 06/13/23 21:33 Parainfluenza 2 (PCR) Not Detected (NotDetected) 06/13/23 21:33 Parainfluenza 3 (PCR) Not Detected (NotDetected) 06/13/23 21:33 Parainfluenza 4 (PCR) Not Detected (NotDetected) 06/13/23 21:33 RSV (PCR) Not Detected (NotDetected) 06/13/23 21:33 Entero/Rhino (PCR) Not Detected (NotDetected) 06/13/23 21:33 Impressions Chest X-Ray 06/13/23 20:24 SINGLE VIEW CHEST CLINICAL HISTORY: Sepsis. FINDINGS: An AP, portable, upright chest radiograph is obtained. No prior studies are available for comparison at the time of dictation. A right s ubclavian central venous infusion port is in place. The cardiomediastinal silhouette is unremarkable. There is elevation of the left hemidiaphragm with bibasilar scarring/atelectasis. Nonspecific interstitial thickening is likely chronic. No airspace consolidation or large pleural effusion is identified. No pneumothorax is seen. The skeletal structures are osteopenic. The bony thorax is grossly intact. IMPRESSION: No acute cardiopulmonary abnormality. ACT 112: Negative or not required by law. Electronically signed by: Hank Singh M.D. 06/14/2023 7:46 AM Chest CTA 06/14/23 02:04 Exam(s): CTA CHEST IV Amt: 95 ml opti 320 EXAM: CT Angiography Chest With Intravenous Contrast CLINICAL HISTORY: PE. TECHNIQUE: Axial computed tomographic angiography images of the chest with intravenous contrast. CTDI is 9.73 mGy and DLP is 326.49 mGy-cm. Automated exposure control was utilized for the study. A dose lowering technique was utilized adhering to the principles of ALARA. MIP reconstructed images were created and reviewed. COMPARISON: No relevant prior studies available. FINDINGS: Limitations: There is respiratory artifact, which degrades image quality on multiple image slices. Pulmonary arteries: Accounting for limitations with respiratory artifact, there is no definite evidence for pulmonary embolism. Aorta: No acute findings. No thoracic aortic aneurysm. Lungs: Subsegmental curvilinear changes involving the left medial basal segment with less prominent changes also noted involving the inferior right middle lobe, inferior lingular segment and bilateral lower lobes. No focal airspace consolidation. No consolidation. Pleural space: Unremarkable. No significant effusion. No pneumothorax. Heart: Unremarkable. No cardiomegaly. No significant pericardial effusion. Thyroid: A septated hypoattenuating nodule is noted involving the inferior aspect of the left thyroid measuring 9 x 8 mm. Bones/joints: No acute fracture. No dislocation. Soft tissues: Unremarkable. Lymph nodes: Unremarkable. No enlarged lymph nodes. Tubes, lines and devices: A right subclavian portacatheter is noted with the tip in the superior vena cava. IMPRESSION: 1. Accounting for limitations with respiratory artifact, there is no definite evidence for pulmonary embolism. 2. Subsegmental curvilinear changes involving the left medial basal segment with less prominent changes also noted involving the inferior right middle lobe, inferior lingular segment and bilateral lower lobes. No focal airspace consolidation. No pleural effusion or pneumothorax. Electronically signed by: Roney Barreto MD 06/14/23 02:55 AM
[2023-06-14 16:22] LABS: BUN Creatinine Ratio 28.3 (10-20); Calcium 8.3 mg/dl (8.6-10.3); Creatinine Clr Calc Pharmacy 108.1 ml/min; Est GFR (African American) 117.6 ml/min; Est GFR (Non-African American) 101.5 ml/min; Magnesium 2.1 mg/dl (1.7-2.4); Potassium 3.7 mmol/L (3.5-5.1)
--- NOTE | 2023-06-14 19:28 | Electrocardiogram Report ---
Test Reason : Blood Pressure : / mmHG Vent. Rate : 098 BPM Atrial Rate : 098 BPM P-R Int : 156 ms QRS Dur : 096 ms QT Int : 544 ms P-R-T Axes : 083 070 084 degrees QTc Int : 694 ms Normal sinus rhythm left ventricular hypertrophy with repolarization abnormality Prolonged QT Abnormal ECG When compared with ECG of 16-MAY-2012 13:54, Vent. rate has increased BY 37 BPM Nonspecific T wave abnormality, worse in Anterolateral leads QT has lengthened Confirmed by Raul Trivedi ([id number]) on 06/14/2023 7:28:17 PM Referred By: REFERRED SELF Confirmed By:Navin Trivedi
--- NOTE | 2023-06-14 19:29 | Electrocardiogram Report ---
Test Reason : Blood Pressure : / mmHG Vent. Rate : 097 BPM Atrial Rate : 097 BPM P-R Int : 138 ms QRS Dur : 094 ms QT Int : 348 ms P-R-T Axes : 025 061 -66 degrees QTc Int : 441 ms Normal sinus rhythm Abnormal ECG When compared with ECG of 16-MAY-2012 13:54, Vent. rate has increased BY 36 BPM T wave inversion now evident in Inferior leads T wave inversion now evident in Anterolateral leads Confirmed by Raul Trivedi ([id number]) on 06/14/2023 7:29:39 PM Referred By: REFERRED SELF Confirmed By:Navin Trivedi
[2023-06-14] MEDS: REMDESIVIR 100 MG in SODIUM CHLORIDE 0.9% 230 ML IV SCH (19:39)
[2023-06-15] MEDS: DOXYCYCLINE HYCLATE 100 MG in DEXTROSE 5% MINI-B 100 ML IV SCH ×2 (03:23→16:16)
[2023-06-15] MEDS: CEFEPIME 2,000 MG in SYRINGE 0 ML IV SCH ×3 (05:30→21:15)
[2023-06-15] MEDS: ROSUVASTATIN CALCIUM 10 MG TAB PO SCH (08:13)
[2023-06-15 08:57] LABS: Calcium 8.4 mg/dl (8.6-10.3); Creatinine Clr Calc Pharmacy 100.6 ml/min; Est GFR (Non-African American) 100.1 ml/min; Potassium 3.4 mmol/L (3.5-5.1)
[2023-06-15] MEDS ORDERED: POTASSIUM CHLORIDE CRTAB 20 MEQ TABCR PO STA (09:24)
[2023-06-15 09:49] LABS: Basophils # (auto) 0.05 K/uL (0.00-0.20); Basophils % (auto) 0.4 %; Dohle Bodies 1+; Echinocytes 2+; Eosinophils # (auto) 0.01 K/uL (0.00-0.50); Eosinophils % (auto) 0.1 %; Hematocrit (blood only) 26.6 % (37.0-47.0); Hemoglobin 9.2 g/dl (12.0-16.0); Immature Granulocytes # (auto) 0.16 K/uL (0.01-0.20); Immature Granulocytes % (auto) 1.3 %; Lymphocytes # (auto) 1.41 K/uL (1.20-3.40); Lymphocytes % (auto) 11.4 %; Mean Corpuscular Hemoglobin 31.6 pg (25.0-34.0); Mean Corpuscular Hgb Conc 34.6 g/dL (32.0-36.0); Mean Corpuscular Volume 91.4 fL (80.0-100.0); Mean Platelet Volume 10.9 fL (9.4-12.4); Monocytes # (auto) 1.32 K/uL (0.11-0.59); Monocytes % (auto) 10.6 %; Neutrophils # (auto) 9.46 K/uL (1.40-6.50); Neutrophils % (auto) 76.2 %; Platelet Count 130 K/uL (130-400); RDW Coefficient of Variation 14.8 % (11.5-14.5); RDW Standard Deviation 49.7 fL (36.4-46.3); Red Blood Count 2.91 M/uL (4.20-5.40); White Blood Count 12.41 K/ul (4.8-10.8)
--- NOTE | 2023-06-15 11:46 | Nephrology Progress Note ---
Date of Service June 15, 2023 Assessment & Plan (1) Electrolyte and fluid disorder: Plan: new onset hyponatremia, hypokalemia, hypomagnesemia likely multifactorial >> carboplatin therapy, hctz use, decreased po/acute illness. responding as though hypovolemic. p/w sNa 125 > correcting at appropriate rate (after using DW to slow rate); target is no more than 140 in AM 1130 -no FR for now -continue to hold hctz -check bmp, mag daily -ensure eukalemia > agree w/ extra K 40 po x 1 -consider amlodipine 2.5 mg daily for HTN in lieu of diuretic once her BP rebounds consistently WILL SIGN OFF NEPHRO d/c RECS: -recommend PCP check bmp and mag weekly x 3 at hospital d/c -hold hctz while on chemotherapy -d/c on amlodipine as above; may need to increase dose -outpt f/u w/ nephro only if hyponatremia, other electrolyte disorders or uncontrolled HTN persist Care coordinated w/ Dr Jones (2) Breast cancer: Plan: note that her TCHP therapy contains carboplatin, a/w hypomagnesemia (1/3 of cases), hypokalemia (1/4 of cases), hyponatremia (1/3 of cases). has had 4 of 6 planned rounds CTX w/o issues; plan for surgery post CTX. -note that last oncology note mentions TTE before 5th round CTX >> monitor for need for TTE this admission if hypotension refractory Admission and Anticipated Discharge Date Admission Date: June 13, 2023 Subjective feels improved overall > less weak; taking po though still some N; no sob. no light headedness Review of Systems 2 Review of Systems: All systems reviewed & are unremarkable except as noted in Subjective Physical Exam 2 Constitutional: well developed, well nourished and cooperative; no acute distress Eyes: EOM intact bilaterally ENMT: Ears: no external ear abnormality Nose: no external nose abnormality Mouth: + dry oral mucous membranes Neck: no nuchal rigidity Respiratory: normal respiratory effort Auscultation: + diminished lung sounds Cardiovascular: RRR, no murmur, no edema Gastrointestinal (Abdomen): Inspection/Auscultation: normal bowel sounds P ercussion/Palpation: abdomen soft; abdomen nontender Musculoskeletal: Extremities: strength 5/5 throughout Skin: no rashes, warm and dry Psychiatric: Orientation: alert and oriented x 3 Results & Data Vital Signs (Past 12 Hours) Vital Signs Temp Pulse Pulse Resp BP Pulse Ox O2 Del Method 06/15/23 08:22 84 06/15/23 07:59 36.6 C 74 18 145/76 H 97 Room Air 06/15/23 03:19 36.9 C 73 16 129/72 95 Room Air Laboratory Results 06/15/23 07:33 06/15/23 07:33 (2) Breast cancer Breast location: unspecified site of breast Estrogen receptor status: u nspecified Laterality: unspecified laterality Patient sex: female Qualified Code(s): C50.919 - Malignant neoplasm of unspecified site of unspecified female breast
--- NOTE | 2023-06-15 14:04 | Electrocardiogram Report ---
Test Reason : Blood Pressure : / mmHG Vent. Rate : 073 BPM Atrial Rate : 073 BPM P-R Int : 172 ms QRS Dur : 092 ms QT Int : 418 ms P-R-T Axes : 072 053 044 degrees QTc Int : 460 ms Normal sinus rhythm Normal ECG When compared with ECG of 13-JUN-2023 21:31, T wave inversion no longer evident in Inferior leads T wave inversion no longer evident in Anterolateral leads Confirmed by Raul Trivedi ([id number]) on 06/15/2023 2:03:49 PM Referred By: REFERRED SELF Confirmed By:Navin Trivedi
--- NOTE | 2023-06-15 14:33 | Hospitalist Progress Note ---
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 In the waiting room she had episode of syncope and found to have low blood pressure. COVID came back positive. COVID Fevers, cough, sore throat and poor appetite since day prior to admission Hypotensive on presentation Blood pressure improved with fluids Chest x-ray personally reviewed; no infiltrates present. CTA chest; personally reviewedno infiltrates Will continue IV remdesivir while patient is inpatient. She has high risks of decompensation No dexamethasone as patient is saturating well on room air. Continue to monitor oxygen saturation Placed on empiric antibiotic with cefepime and doxycycline. Will DC if blood culture is negative after 48 hours. Patient has a Port-A-Cath in place and had fever. Syncope Secondary to hypertension Was hypotensive and electrolyte abnormalities Mostly from COVID and poor appetite and electrolyte abnormalities and hypotension EKG on admission personally reviewed; normal sinus rhythm with diffuse T wave inversion. ST depression in lateral leads. Monitor on telemetry Repeat EKG reviewed personally today; ST depression and T wave inversion have reversed. Normal sinus rhythm. Hyponatremia Presented with sodium of 125 Due to decreased fluid intake and hydrochlorothiazide Sodium correcting appropriately. Will consider adding amlodipine 2.5 mg as per nephrology recommendation if her blood pressure increases. Hypokalemia and hypomagnesia Will replace Follow repeat labs Breast cancer estrogen receptors negative pancytopenia Currently getting chemo had fourth cycle in May 23 as per patient Follows with heme-onc Peripheral blood smear was done this no schistocytes, no intracytoplasmic inclusions. Pancytopenia improved today. Hypertension Hypotensive on presentation DC hydrochlorothiazide at discharge will consider adding amlodipine 2.5 mg if she is hypertensive Hyperlipidemia On statin DVT prophylaxis Lovenox Full code Dispositionpatient admitted for fever, COVID-19, hyponatremia and syncope. She is on empiric antibiotics. Plan to DC home tomorrow if blood cultures are negative for 48 hours if patient continues to remain clinically stable. Time spent evaluating patient, direct bedside care, chart review, placing orders, interpretation of diagnostic studies, discussion with consultants, patient, and family members, as well as other required patient management activities is 60 minutes. Please note the above document was generated using voice recognition software. It may contain grammatical, syntax or spelling errors. Any formal questions or concerns about the content, text or information contained within the body of this dictation should be directly addressed to the provider for clarification Admission and Anticipated Discharge Date Admission Date: June 13, 2023 Subjective Patient seen and examined at bedside. She reports that she is feeling much better today. She ambulated well inside the room without any difficulty. Review of Systems Review of Systems: All systems reviewed & are unremarkable except as noted in Subjective Physical Exam Physical Exam: Constitutional: Alert orient x 3; not in distress. Chest; Port-A-Cath in place. Respiratory: normal respiratory effort, lungs clear to auscultation, no wheeze, rales, rhonchi. Normal insp/exp effort, no accessory muscle use Cardiovascular: RRR, no murmur, no edema Vessels: no JVD or carotid bruit Chest: normal inspection of chest Abdomen: normal bowel sounds, soft, nontender, no hepatosplenomegaly Musculoskeletal: no cyanosis or clubbing, extremities motor strength 5/5 Skin: no rashes, warm and dry normal turgor Neurologic: PERRL, EOMI, accommodation nl, no face palsy, no dysarthria CN's II- XI intact bilaterally and moves all extremities Psychiatric: A+Ox3, euthymic affect Results & Data Results & Data Vital Signs (Past 12 Hours) Vital Signs Temp Pulse Pulse Resp BP Pulse Ox O2 Del Method 06/15/23 11:55 36.8 C 80 17 129/80 100 Room Air 06/15/23 08:22 84 06/15/23 07:59 36.6 C 74 18 145/76 H 97 Room Air 06/15/23 03:19 36.9 C 73 16 129/72 95 Room Air Laboratory Results Laboratory Results WBC 12.41 K/ul (4.8-10.8) H 06/15/23 07:33 RBC 2.91 M/uL (4.20-5.40) L 06/15/23 07:33 Hgb 9.2 g/dl (12.0-16.0) L 06/15/23 07:33 Hct 26.6 % (37.0-47.0) L 06/15/23 07:33 MCV 91.4 fL (80.0-100.0) 06/15/23 07:33 MCH 31.6 pg (25.0-34.0) 06/15/23 07: MCHC 34.6 g/dL (32.0-36.0) 06/15/23 07:33 RDW Std Deviation 49.7 fL (36.4-46.3) H 06/15/23 07: RDW Coeff of Malina 14.8 % (11.5-14.5) H 06/15/23 07:33 Plt Count 130 K/uL (130-400) 06/15/23 07: MPV 10.9 fL (9.4-12.4) 06/15/23 07:33 Immature Gran % (Auto) 1.3 % 06/15/23 07:33 Neut % (Auto) 76.2 % 06/15/23 07:33 Lymph % (Auto) 11.4 % 06/15/23 07:33 [place] % (Auto) 10.6 % 06/15/23 07:33 Eos % (Auto) 0.1 % 06/15/23 07:33 Baso % (Auto) 0.4 % 06/15/23 07:33 Neut # (Auto) 9.46 K/uL (1.40-6.50) H 06/15/23 07:33 Lymph # (Auto) 1.41 K/uL (1.20-3.40) 06/15/23 07:33 [place] # (Auto) 1.32 K/uL (0.11-0.59) H 06/15/23 07:33 Eos # (Auto) 0.01 K/uL (0.00-0.50) 06/15/23 07:33 Baso # (Auto) 0.05 K/uL (0.00-0.20) 06/15/23 07:33 Immature Gran # (Auto) 0.16 K/uL (0.01-0.20) 06/15/23 07:33 Neutrophils % (Manual) 66 % 06/13/23 20:35 Lymphocytes % (Manual) 19 % 06/13/23 20:35 Monocytes % (Manual) 15 % 06/13/23 20:35 Neutrophils # (Manual) 2.79 K/uL (1.40-6.50) 06/13/23 20:35 Total Absolute Neuts 2.79 K/uL (1.4-6.5) 06/13/23 20:35 Lymphocytes # (Manual) 0.80 K/uL (1.2-3.4) L 06/13/23 20:35 Total Abs Lymphocytes 0.80 K/uL (1.2-3.4) L 06/13/23 20:35 Monocytes # (Manual) 0.63 K/uL (0.11-0.59) H 06/13/23 20:35 Toxic Granulation 1+ 06/14/23 03:48 Dohle Bodies 1+ 06/15/23 07:33 Platelet Estimate Decreased (Normal) L 06/14/23 03:48 Echinocytes 2+ 06/15/23 07:33 Peripher Smr Path Cons 06/14/23 03:48 PT 14.5 Seconds (9.0-12.0) H 06/13/23 20:35 INR 1.3 (0.9-1.1) H 06/13/23 20:35 APTT 30.1 Seconds (21.0-31.0) 06/13/23 20:35 PTT Ratio 1.1 06/13/23 20:35 Sodium 134 mmol/L (136-145) L 06/15/23 07:33 Potassium 3.4 mmol/L (3.5-5.1) L 06/15/23 07:33 Chloride 105 mmol/L (98-107) 06/15/23 07:33 Carbon Dioxide 23 mmol/L (21-32) 06/15/23 07:33 Anion Gap 6 (3-11) 06/15/23 07:33 BUN 12 mg/dl (6-23) 06/15/23 07:33 Creatinine 0.48 mg/dl (0.6-1.2) L 06/15/23 07:33 Est Cr Clr Drug Dosing 100.6 ml/min 06/15/23 07:33 Est GFR ( Amer) 116.0 ml/min 06/15/23 07:33 Est GFR (Non-Af Amer) 100.1 ml/min 06/15/23 07:33 BUN/Creatinine Ratio 25.0 (10-20) H 06/15/23 07:33 Glucose 92 mg/dl (70-99(Fasting)) 06/15/23 07:33 Osmolality 275 mOsm/kg (280-300) L 06/14/23 03:48 Lactate 1.1 mmol/L (0.4-2.0) 06/13/23 20:35 Calcium 8.4 mg/dl (8.6-10.3) L 06/15/23 07:33 Magnesium 2.1 mg/dl (1.7-2.4) 06/14/23 14:56 Total Bilirubin 0.8 mg/dl (0.2-1.0) D 06/14/23 03:48 Direct Bilirubin 0.1 mg/dl (0-0.2) 06/14/23 03:48 AST 17 U/L (13-39) 06/15/23 07:33 ALT 34 U/L (7-52) 06/15/23 07:33 Alkaline Phosphatase 48 U/L (34-104) 06/14/23 03:48 Troponin I High Sens 4.6 pg/ml (0-14) 06/14/23 10:43 Total Protein 5.4 gm/dl (6.0-8.3) L 06/14/23 03:48 Albumin 3.4 gm/dl (3.4-5.0) 06/14/23 03:48 Globulin 2.4 gm/dl (2.5-4.0) L 06/13/23 20:35 Albumin/Globulin Ratio 1.8 (0.9-2) 06/13/23 20:35 Procalcitonin 1.37 ng/ml (0-0.5) H 06/13/23 20:35 Urine Color Yellow 06/14/23 00:44 Urine Appearance Clear (Clear) 06/14/23 00:44 Urine pH 7.5 (4.5-7.5) 06/14/23 00:44 Ur Specific [place] 1.010 (1.000-1.030) 06/14/23 00:44 Urine Protein 1+ (Negative) H 06/14/23 00:44 Urine Glucose (UA) Trace (Negative) H 06/14/23 00:44 Urine Ketones Trace (Negative) H 06/14/23 00:44 Urine Blood Negative (Negative) 06/14/23 00:44 Urine Nitrite Negative (Negative) 06/14/23 00:44 Urine Bilirubin Negative (Negative) 06/14/23 00:44 Urine Urobilinogen Negative (Negative) 06/14/23 00:44 Ur Leukocyte Esterase Negative (Negative) 06/14/23 00:44 Urine WBC (Auto) 1-5 /hpf (0-5) 06/14/23 00:44 Urine RBC (Auto) 0-4 /hpf (0-4) 06/14/23 00:44 U Hyaline Cast (Auto) 1-5 /lpf (0-5) 06/14/23 00:44 U Epithel Cells (Auto) 20-30 /lpf (0-5) H 06/14/23 00:44 Urine Bacteria (Auto) Negative (Negative) 06/14/23 00:44 Urine Osmolality 301 mOsm/kg (500-800) L 06/14/23 00:44 Ur Random Sodium 44 mmol/L 06/14/23 00:44 Adenovirus (PCR) Not Detected (NotDetected) 06/13/23 21:33 Anaplasma Smear See Comment 06/14/23 03:48 Babesia Smear See Comment 06/14/23 03:48 B. pertussis DNA (PCR) Not Detected (NotDetected) 06/13/23 21:33 B.parapertussis DNA PCR Not Detected (NotDetected) 06/13/23 21:33 C. pneumoniae DNA (PCR) Not Detected (NotDetected) 06/13/23 21:33 Coronavirus OC43 (PCR) Not Detected (NotDetected) 06/13/23 21:33 Coronavirus HKU1 (PCR) Not Detected (NotDetected) 06/13/23 21:33 Coronavirus 229E (PCR) Not Detected (NotDetected) 06/13/23 21:33 SARS-CoV-2 (PCR) DETECTED (NotDetected) A* 06/13/23 21:33 Coronavirus NL63 (PCR) Not Detected (NotDetected) 06/13/23 21:33 Human Metapneumovir PCR Not Detected (NotDetected) 06/13/23 21:33 Influenza Type A (PCR) Not Detected (NotDetected) 06/13/23 21:33 Influenza Type B (PCR) Not Detected (NotDetected) 06/13/23 21:33 M. pneumoniae (PCR) Not Detected (NotDetected) 06/13/23 21:33 Parainfluenza 1 (PCR) Not Detected (NotDetected) 06/13/23 21:33 Parainfluenza 2 (PCR) Not Detected (NotDetected) 06/13/23 21:33 Parainfluenza 3 (PCR) Not Detected (NotDetected) 06/13/23 21:33 Parainfluenza 4 (PCR) Not Detected (NotDetected) 06/13/23 21:33 RSV (PCR) Not Detected (NotDetected) 06/13/23 21:33 Entero/Rhino (PCR) Not Detected (NotDetected) 06/13/23 21:33 Impressions Chest X-Ray 06/13/23 20:24 SINGLE VIEW CHEST CLINICAL HISTORY: Sepsis. FINDINGS: An AP, portable, upright chest radiograph is obtained. No prior studies are available for comparison at the time of dictation. A right subclavian central venous infusion port is in place. The cardiomediastinal silhouette is unremarkable. There is elevation of the left hemidiaphragm with bibasilar scarring/atelectasis. Nonspecific interstitial thickening is likely chronic. No airspace consolidation or large pleural effusion is identified. No pneumothorax is seen. The skeletal structures are osteopenic. The bony thorax is grossly intact. IMPRESSION: No acute cardiopulmonary abnormality. ACT 112: Negative or not required by law. Electronically signed by: Hank Singh M.D. 06/14/2023 7:46 AM Chest CTA 06/14/23 02:04 Exam(s): CTA CHEST IV Amt: 95 ml opti 320 EXAM: CT Angiography Chest With Intravenous Contrast CLINICAL HISTORY: PE. TECHNIQUE: Axial computed tomographic angiography images of the chest with intravenous contrast. CTDI is 9.73 mGy and DLP is 326.49 mGy-cm. Automated exposure control was utilized for the study. A dose lowering technique was utilized adhering to the principles of ALARA. MIP reconstructed images were created and reviewed. COMPARISON: No relevant prior studies available. FINDINGS: Limitations: There is respiratory artifact, which degrades image quality on multiple image slices. Pulmonary arteries: Accounting for limitations with respiratory artifact, there is no definite evidence for pulmonary embolism. Aorta: No acute findings. No thoracic aortic aneurysm. Lungs: Subsegmental curvilinear changes involving the left medial basal segment with less prominent changes also noted involving the inferior right middle lobe, inferior lingular segment and bilateral lower lobes. No focal airspace consolidation. No consolidation. Pleural space: Unremarkable. No significant effusion. No pneumothorax. Heart: Unremarkable. No cardiomegaly. No significant pericardial effusion. Thyroid: A septated hypoattenuating nodule is noted involving the inferior aspect of the left thyroid measuring 9 x 8 mm. Bones/joints: No acute fracture. No dislocation. Soft tissues: Unremarkable. Lymph nodes: Unremarkable. No enlarged lymph nodes. Tubes, lines and devices: A right subclavian portacatheter is noted with the tip in the superior vena cava. IMPRESSION: 1. Accounting for limitations with respiratory artifact, there is no definite evidence for pulmonary embolism. 2. Subsegmental curvilinear changes involving the left medial basal segment with less prominent changes also noted involving the inferior right middle lobe, inferior lingular segment and bilateral lower lobes. No focal airspace consolidation. No pleural effusion or pneumothorax. Electronically signed by: Roney Barreto MD 06/14/23 02:55 AM
[2023-06-15] MEDS: REMDESIVIR 100 MG in SODIUM CHLORIDE 0.9% 230 ML IV SCH (19:33)
[2023-06-15] MEDS: ENOXAPARIN INJ 40 MG/0.4 ML SYR SQ SCH (20:34)
[2023-06-16] MEDS: DOXYCYCLINE HYCLATE 100 MG in DEXTROSE 5% MINI-B 100 ML IV SCH (02:03)
[2023-06-16] MEDS: CEFEPIME 2,000 MG in SYRINGE 0 ML IV SCH (05:29)
[2023-06-16] MEDS: HEPARIN 100 UNIT/ML 5ML FLUSH FLUSH PRN (05:30)
[2023-06-16] MEDS: ROSUVASTATIN CALCIUM 10 MG TAB PO SCH (08:58)
[2023-06-16 10:40] LABS: BUN Creatinine Ratio 25.5 (10-20); Calcium 8.5 mg/dl (8.6-10.3); Creatinine Clr Calc Pharmacy 102.7 ml/min; Est GFR (African American) 116.8 ml/min; Est GFR (Non-African American) 100.8 ml/min; Potassium 3.7 mmol/L (3.5-5.1)
[2023-06-16 10:45] LABS: Hematocrit (blood only) 26.4 % (37.0-47.0); Mean Corpuscular Hemoglobin 31.3 pg (25.0-34.0); Mean Corpuscular Hgb Conc 34.1 g/dL (32.0-36.0); Mean Corpuscular Volume 91.7 fL (80.0-100.0); Platelet Count 152 K/uL (130-400); RDW Standard Deviation 50.2 fL (36.4-46.3); Red Blood Count 2.88 M/uL (4.20-5.40); White Blood Count 9.24 K/ul (4.8-10.8)
[2023-06-16 10:47] LABS: Magnesium 1.1 mg/dl (1.7-2.4); Phosphorus 1.5 mg/dl (2.5-4.9)
[2023-06-16] MEDS ORDERED: POTASSIUM PHOS 3 MMOL/1 ML INFUSION IV STA (11:59)
[2023-06-16] MEDS ORDERED: POTASSIUM CHLORIDE CRTAB 20 MEQ TABCR PO STA (11:59)
[2023-06-16] MEDS ORDERED: POTASSIUM PHOSPHATE 21 MMOL in SODIUM CHLORIDE 0.9% 500 ML IV ONE (12:30)
[2023-06-16] MEDS: MAGNESIUM SULFATE / D5W 1 GM/100 ML BAG IV SCH ×3 (12:40→16:30)
--- NOTE | 2023-06-16 16:53 | Hospitalist Progress Note ---
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 In the waiting room she had episode of syncope and found to have low blood pressure. COVID came back positive. COVID sepsis POA, 2/2 above Fevers, cough, sore throat and poor appetite since day prior to admission Hypotensive on presentation Blood pressure improved with fluids Chest x-ray - no infiltrates present. CTA chest; no infiltrates On IV remdesivir for concern of decompensation. No dexamethasone as patient is saturating well on room air. Continue to monitor oxygen saturation Placed on empiric antibiotic with cefepime and doxycycline. Patient has a Port-A-Cath in place and had fever. Blood culture no growth for 48 hours, will discontinue antibiotics 06/16. Syncope Secondary to hypertension Was hypotensive and electrolyte abnormalities Mostly from COVID and poor appetite and electrolyte abnormalities and hypotension EKG on admission ; normal sinus rhythm with diffuse T wave inversion. ST depression in lateral leads. Monitor on telemetry Appetite improving, monitor and replete electrolytes. Electrolytes levels in AM. Hyponatremia Presented with sodium of 125 Due to decreased fluid intake and hydrochlorothiazide Sodium correcting appropriately. Will consider adding amlodipine 2.5 mg as per nephrology recommendation if her blood pressure increases. Hypokalemia and hypomagnesia Will replace Follow repeat labs Breast cancer estrogen receptors negative pancytopenia due to chemotherapy Currently getting chemo had fourth cycle in May 23 as per patient Follows with heme-onc Peripheral blood smear was done this no schistocytes, no intracytoplasmic inclusions. Pancytopenia improved. Hypertension Hypotensive on presentation DC hydrochlorothiazide at discharge Add amlodipine 2.5 mg if she is hypertensive Hyperlipidemia: On statin DVT prophylaxis: Lovenox Full code Disposition likely dc adriana, repleting lytes/f/u lytes in am. Admission and Anticipated Discharge Date Admission Date: June 13, 2023 Subjective Patient seen and examined at bedside. She reports that she is feeling much better today. Reports improving diarrhea and improving appetite. She ambulated well inside the room without any difficulty. Denies chest pain or palpitation or shortness of breath. Physical Exam Physical Exam: GENERAL: Alert and oriented x3. NAD, on RA. HEENT: No pallor, no icterus. Pupils equal, round and reactive to light. Oral mucosa moist. NECK: No JVD, no neck masses. HEART: S1 and S2 heard. Regular rate and rhythm. No murmur, no gallop. RESPIRATORY SYSTEM: Normal AP diameter. No accessory muscle use. No wheezing, no crackles. ABDOMEN: Soft, bowel sounds present, nontender, no distention. CENTRAL NERVOUS SYSTEM: No facial droop. Speech is clear. Obeys simple commands. Moves extremities. EXTREMITIES: No edema, no erythema seen. Results & Data Results & Data Vital Signs (Past 12 Hours) Vital Signs Temp Pulse Pulse Resp BP Pulse Ox O2 Del Method 06/16/23 15:24 36.5 C 68 18 144/62 H 98 Room Air 06/16/23 11:51 36.8 C 88 18 145/75 H 99 Room Air 06/16/23 08:00 87 06/16/23 07:38 36.5 C 96 H 18 139/82 99 Room Air
[2023-06-16] MEDS: ENOXAPARIN INJ 40 MG/0.4 ML SYR SQ SCH (20:20)
[2023-06-16] MEDS: REMDESIVIR 100 MG in SODIUM CHLORIDE 0.9% 230 ML IV SCH (20:20)
[2023-06-17 05:37] LABS: Babesia microti DNA Not Detected (Not Detected)
[2023-06-17 06:55] LABS: Hematocrit (blood only) 28.6 % (37.0-47.0); Hemoglobin 10.2 g/dl (12.0-16.0); Mean Corpuscular Hemoglobin 31.9 pg (25.0-34.0); Mean Corpuscular Hgb Conc 35.7 g/dL (32.0-36.0); Mean Corpuscular Volume 89.4 fL (80.0-100.0); Mean Platelet Volume 10.3 fL (9.4-12.4); Platelet Count 196 K/uL (130-400); RDW Coefficient of Variation 15.1 % (11.5-14.5); RDW Standard Deviation 49.5 fL (36.4-46.3); White Blood Count 9.31 K/ul (4.8-10.8)
[2023-06-17 07:29] LABS: BUN Creatinine Ratio 16.3 (10-20); Creatinine Clr Calc Pharmacy 96.5 ml/min; Est GFR (African American) 115.2 ml/min; Est GFR (Non-African American) 99.4 ml/min; Magnesium 1.6 mg/dl (1.7-2.4); Phosphorus 2.9 mg/dl (2.5-4.9); Potassium 3.6 mmol/L (3.5-5.1)
[2023-06-17] MEDS ORDERED: amLODIPine BESYLATE 5 MG TAB PO SCH (09:00)
[2023-06-17] MEDS: MAGNESIUM SULFATE / D5W 1 GM/100 ML BAG IV SCH ×2 (09:26→11:15)
[2023-06-17] MEDS: ROSUVASTATIN CALCIUM 10 MG TAB PO SCH (09:28)
--- NOTE | 2023-06-17 12:09 | Discharge Summary ---
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 Patient developed some sore throat ,cough and fever yesterday and having poor appetite. Has some nausea but attributes to her chemo. Has body aches but attributes to chemo. No blurred visions. No earache. Has some runny nose. No chest pain. Denies any shortness of breath. Denies abdominal pain. Had 1 episode of diarrhea today. Normal bladder movements. Denies any rash. In the ER in the waiting room she had episode of passing out for 30 seconds. Before passing out she felt dizzy. At that time her blood pressure was noted to be low. With the fluids blood pressure improved. Currently she is feeling better. Blood pressure stable currently. Her oxygen saturation did drop to 89%. Currently on 2 L she is saturating okay. She had temp spike in the ER with Tylenol temperature improved. Says had COVID booster last year. Past medical history. As mentioned above Past surgical history. Left breast biopsy. Colonoscopy with biopsy. Ligation of oviducts. Social history. . Quit smoking 1986. Smoked 1 pack a day for 10 years. Alcohol 1 a day. No drug use. Family history. Father had lymphoma. Mother had eye problems. Stroke. Dementia. Thyroid disorder. Maternal grandfather had eye problems. Admission Exam Per Admitting Provider General- Not in distress Head- atraumatic Eyes- PERRL. ENT- oropharynx clear Neck- supple, no JVD. Lungs- clear to auscultation , no wheezing or crackles. Heart- regular rate and rhythm; no murmur, no gallop. Abdomen- normal bowel sounds, soft, nontender, no distension. Extremities- no pretibial edema, no erythema seen. Neuro- alert, oriented x 3; PERRL, no facial palsy; no dysarthria; moves extremities. Skin- warm & dry Principal Diagnosis Infection due to COVID-19 virus Sepsis POA Electrolyte abnormalities secondary to poor appetite/diarrhea prior to arrival Discharge Exam GENERAL: Alert and oriented x3. NAD, on RA. HEENT: No pallor, no icterus. Pupils equal, round and reactive to light. Oral mucosa moist. NECK: No JVD, no neck masses. HEART: S1 and S2 heard. Regular rate and rhythm. No murmur, no gallop. RESPIRATORY SYSTEM: Normal AP diameter. No accessory muscle use. No wheezing, no crackles. ABDOMEN: Soft, bowel sounds present, nontender, no distention. CENTRAL NERVOUS SYSTEM: No facial droop. Speech is clear. Obeys simple commands. Moves extremities. EXTREMITIES: No edema, no erythema seen. 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 In the waiting room she had episode of syncope and found to have low blood pressure. COVID came back positive. she was managed for the following: COVID sepsis POA, 2/2 above Fevers, cough, sore throat and poor appetite since day prior to admission Hypotensive on presentation Blood pressure improved with fluids Chest x-ray - no infiltrates present. CTA chest; no infiltrates Was On IV remdesivir for concern of decompensation. Will DC today. No dexamethasone as patient is saturating well on room air. Continue to monitor oxygen saturation, patient has been hemodynamically stable and on room air. Placed on empiric antibiotic with cefepime and doxycycline. Patient has a Port-A-Cath in place and had fever. Blood culture no growth for 48 hours, discontinued antibiotics 06/16. Syncope Secondary to hypertension Was hypotensive and electrolyte abnormalities Mostly from COVID and poor appetite and electrolyte abnormalities and hypotension EKG on admission ; normal sinus rhythm with diffuse T wave inversion. ST depression in lateral leads. Monitor on telemetry Patient reports improving appetite, no more diarrhea. Patient will be discharged on magnesium supplement. Patient to follow-up with PCP within a week time and get labs drawn to check on electrolytes. Patient has been made aware. Hyponatremia Presented with sodium of 125 Due to decreased fluid intake and hydrochlorothiazide Sodium correcting appropriately. Hydrochlorothiazide stopped, amlodipine added. Will need continued up titration as an outpatient. Hypokalemia and hypomagnesia Will replace Follow repeat labs Breast cancer estrogen receptors negative pancytopenia due to chemotherapy Currently getting chemo had fourth cycle in May 23 as per patient Follows with heme-onc Peripheral blood smear was done this no schistocytes, no intracytoplasmic inclusions. Pancytopenia improved. Hypertension Hypotensive on presentation DC hydrochlorothiazide at discharge Added amlodipine 2.5 mg daily. Hyperlipidemia: On statin DVT prophylaxis: Lovenox Full code Patient is being discharged to home with following instruction at the point of discharge: Follow-up with your primary care physician within a week time and likely you will need labs CBC/CMP/magnesium/phosphorus. You were diagnosed with COVID-19 infection on 06/13/2023. Maintain face mask while around people for next 5 days from the day of discharge. Because of your hyponatremia, your hydrochlorothiazide has been discontinued while on chemotherapy. Instead amlodipine has been added for your blood pressure control. After your PCP visit, if you still have electrolyte abnormalities, you will need follow-up with nephrology. Coordinate with the PCP office for referral. Take your medications as prescribed. Please make sure that you are able to get your medications today by calling your pharmacy before you leave the hospital so that your treatment continuity is not broken. Home Health Attestation I certify that this patient is under my care and that I, or a physicians virtual assistant working with me, had a face to-face encounter that meets the home health [id number] encounter requirements with this patient. The encounter with the patient was in whole, or in part, for the following medical condition, which is the primary reason for home health care (list medical condition): I certify that, based on my findings, the following services are medically necessary home health services: My clinical findings support the need for the above services because: Further, I certify that my clinical findings support that this patient is homebound (i.e. absences from home require considerable and taxing effort and are for medical reasons or yazdanism services or infrequently or of short duration when for other reasons) because: Certification for Home Health Services: Based on the above findings, I certify that this patient is confined to the home and needs intermittent jail care, physical therapy and/or speech therapy or continues to need occupational therapy. The patient is under my care, and I have initiated the establishment of the plan of care. This patient will be followed by a physician who will periodically review the plan of care. Total Time Total Time Spent Total Time Spent (In Minutes): 45 Discharge Plan Discharge Items Patient Disposition: Home - Self-Care Reason For Visit: FEVERS, SYNCOPE, COVID Discharge Diagnosis: Infection due to COVID-19 virus Sepsis POA Electrolyte abnormalities secondary to poor appetite/diarrhea prior to arrival Activity: Resume your previous activity Non-emergency contact: Primary Care Provider Call non-emergency contact if: you have any medication questions, your symptoms worsen and your temperature is above 101 Follow-up/Referrals: Sabrina Chang, [Primary Care Provider] - Diet: Heart Healthy Addtl Attending Provider Instructions: Follow-up with your primary care physician within a week time and likely you will need labs CBC/CMP/magnesium/phosphorus. You were diagnosed with COVID-19 infection on 06/13/2023. Maintain face mask while around people for next 5 days from the day of discharge. Because of your hyponatremia, your hydrochlorothiazide has been discontinued while on chemotherapy. Instead amlodipine has been added for your blood pressure control. After your PCP visit, if you still have electrolyte abnormalities, you will need follow-up with nephrology. Coordinate with the PCP office for referral. Take your medications as prescribed. Please make sure that you are able to get your medications today by calling your pharmacy before you leave the hospital so that your treatment continuity is not broken. Pending Studies at Discharge: Yes Stand-Alone Forms: [facility], Sm[facility] Cessation Medications and DC Order Prescriptions: New amlodipine [Norvasc] 5 mg Tablet 2.5 mg PO QAM Qty: 15 0RF magnesium oxide 500 mg tablet 500 mg PO BID Qty: 60 0RF Continued rosuvastatin 10 mg tablet 10 mg PO DAILY ondansetron HCl 8 mg tablet 8 mg PO UD PRN (Reason: Nausea And Vomiting) prochlorperazine maleate 10 mg tablet 10 mg PO UD PRN (Reason: Nausea And Vomiting) lidocaine-prilocaine 2.5-2.5 % cream 1 applic topical UD Discontinued hydrochlorothiazide 25 mg tablet 25 mg PO DAILY Discharge Orders: Discharge Order (Routine); Ordered 06/17/23 Ordered By: Earl Gomez Admission Data Admit Date/Time: 06/13/23 23:08 Attending Provider: Earl Gomez Admit Provider: Stewart Alarcon Primary Care Provider: Sabrina Chang Other Providers: Stewart Alarcon; Mary Timmons
[2023-06-17] MEDS: HEPARIN 100 UNIT/ML 5ML FLUSH FLUSH PRN (13:38)
== END 2023-06-17 14:50 | disposition home or self-care (01) | DRG 871 ==
LOC: ED 20:05 → EDINP 23:08 → SUATTDRO 23:08 → 2S 06-14 00:25